=== PATIENT | male | born 1975 | race Caucasian/White ===

== ENCOUNTER 2022-07-18 08:45 | Outpatient (CLI) | payer BC, SELFPAY ==
--- OUTSIDE RECORDS SUMMARY | 2022-07-18 08:49 | XMS_ITS | Encounter Summary ---
:1975 Author Organization [facility] Address [address] [place] [address] Care Team Providers Name Role Phone Unavailable Primary Care Provider Unavailable Reason for Referral Outpatient (Routine) - Authorized Specialty Diagnoses / Procedures Referred By Contact Refer red To Contact Diagnoses Pain Scrotum Rena Burnham P.A.-C. [facility] Region Procedures US Scrotum [address] [place] [address] Referral ID Status Reason Start Date Expiration Date Visits V isits Requested Authorized [id number] Authorized 05/28/2022 05/28/2023 1 1 Encounter Details Date Type Department Care Team Description 05/28/2022 Orders Only Department of Urology Rena Burnham P ain Scrotum (Primary in [place], Juan M jesús Landry Dx) [address] [facility] [address] [place] [phone] Social History Tobacco Use Types Packs/Day Years Used Date Smoking Tobacco: Light Smoker Cigarettes 0 Smokeless Tobacco: Never Alcohol Habits Answer Date Recorded How often do you have a drink containing alcohol? Monthly or less 09/30/2020 How many drinks containing alcohol do you have on a 1 or 2 09/30/2020 typical day when you are drinking? How often do you have six or more drinks on one Never 09/30/2020 occasion? Social Isolation Answer Date Recorded In a typical week, how many times do you More than three chad es a week 09/30/2020 talk on the phone with family, friends, or neighbors? How often do you get together with friends Once a week 09/30/2020 or relatives? How often do you attend sabianist or More than 4 times per year 09/30/2020 taoist services? Do you belong to any clubs or Patient refused 09/30/2020 organizations such as sabianist groups, unions, [employer] or athletic groups, or school groups? How often do you attend meetings of the Patient refused 09/30/2020 clubs or organizations you belong to? Are you now , , , 09/30/2020 , never or living with a partner? Physical Activity Answer Date Recorded On average, how many days per week do you engage in moderate to 3 days 09/30/2020 strenuous exercise (like walking fast, running, jogging, dancing, swimming, biking, or other activities that cause a light or heavy sweat)? On average, how many minutes do you engage in exercise at th is 20 min 09/30/2020 level? Stress Answer Date Recorded Do you feel stress - tense, restless, nervous, or To some ex tent 09/30/2020 anxious, or unable to sleep at night because your mind is troubled all the time - these days? Financial Resource Strain Answer Date Recorded How hard is it for you to pay for the very basics like Not v pete hard 09/30/2020 food, housing, medical care, and heating? Food Insecurity Answer Date Recorded Within the past 12 months, you worried that your food would Never true 09/30/2020 run out before you got money to buy more. Within the past 12 months, the food you bought just didn't N ever true 09/30/2020 last and you didn't have money to get more. Transportation Needs Answer Date Recorded In the past 12 months, has lack of transportation kept you f rom No 09/30/2020 medical appointments or from getting medications? In the past 12 months, has lack of transportation kept you f rom No 09/30/2020 meetings, work, or getting things needed for daily living? Education Answer Date Recorded What is the highest level of school Associate degree: richy reyna, 09/30/2020 you have completed or the highest technical, or vocational bety goldberg degree you have received? Sex Assigned at Date Recorded Not on file documented as of this encounter Plan of Treatment Scheduled Orders Name Type Priority Associated Diagnoses Order S ling US Scrotum Imaging RAD - Routine (most Pain Scrotum Expected : 05/28/2022 inpatients and all (Approxim ate), outpatients) Expires: 2022 documented as of this encounter Visit Diagnoses Diagnosis Pain Scrotum - Primary documented in this encounter
--- OUTSIDE RECORDS SUMMARY | 2022-07-18 08:49 | XMS_ITS | Clinical Summary ---
:1975 Author Organization [facility] Address [address] [place] [address] Care Team Providers Name Role Phone Unavailable Primary Care Provider Unavailable Source Comments Patient records contain information from all sites at [facility]. For routine questions regarding patient records, call [phone] during business hours, M-F 8:00 AM - 5:00 PM Central Time. Record requests for emergency care only can be directed to [phone] at any time.[facility] Allergies No known active allergies Medications Medication Sig Dispensed Refills Start Date End Date Status losartan (COZAAR) 100 Take 100 mg by 0 09/10/2020 Active mg tablet mouth daily. sertraline (ZOLOFT) 100 Take 200 mg by 0 06/25/2021 Active mg tablet mouth. Active Problems Problem Noted Date Smoking Tobacco Use Personal History 2019 Hypertension Essential Primary 2019 Urolithiasis 06/30/2019 Overview: Added automatically from request for austin golden [id number] Encounters Date Type Specialty Care Team Description 06/12/2022 Office Visit Urology Rena Burnham, Dysuria (P rimary Dx); P.A.-C. Screening [place] Prostate Cancer; Urolithiasis; Colic Renal 05/28/2022 Orders Only Urology Rena Burnham, Pain Scrot um (Primary Dx) P.A.-C. 05/27/2022 Hospital Encounter Radiology Rena Burnham Ston es Uric Acid P.A.-C. 05/27/2022 Hospital Encounter Radiology Rena Burnham Ston es Uric Acid P.A.-C. from Last 3 Months Immunizations Name Administration Dates Next Due Tdap 11/19/2010 Family History Medical History Relation Name Comments Anesthesia problems Father PONV Relation Name Status Comments Father Social History Tobacco Use Types Packs/Day Years Used Date Smoking Tobacco: Light Smoker Cigarettes 0 Smokeless Tobacco: Never Tobacco Cessation: Ready to Quit: Yes; C ounseling Given: Yes Alcohol Habits Answer Date Recorded How often [...] or relatives? How often do you attend sabianism or More than 4 times per year 09/30/2020 sikhism services? Do you belong to any clubs or Patient refused 09/30/2020 organizations such as sabianism groups, unions, [employer] or athletic groups, or school groups? How [...] completed or the highest technical, or vocational p slavaram degree you have received? 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 Pulse 97 11/23/2020 3:16 PM DIRECT SALES PROFESSIONAL Temperature 36.6 ??C (97.9 ??F) 11/23/2020 3:12 PM DIRECT SALES PROFESSIONAL Respiratory Rate 16 08/02/2019 2:17 PM DIRECT SALES PROFESSIONAL Oxygen Saturation 97% 11/23/2020 3:12 PM DIRECT SALES PROFESSIONAL Inhaled Oxygen Concentration - - Weight 101 kg (222 lb 10.6 oz) 08/02/2019 11:57 AM DIRECT SALES PROFESSIONAL Height 187 cm (6' 1.62) 08/02/2019 11:57 AM DIRECT SALES PROFESSIONAL Body Mass Index 28.88 08/02/2019 11:57 AM DIRECT SALES PROFESSIONAL Plan of Treatment Health Maintenance Due Date Last Done Comments CT Colonography 1975 Cologuard 1975 Colonoscopy 1975 Colorectal Cancer Screening 1975 FIT 1975 HIV Screening 1975 Hepatitis B Vaccines (1 of 3 - 1975 3-dose series) Hepatitis C Screening 1975 COVID-19 Vaccine (#1) 01/23/1977 Pneumococcal vaccine (0-64 years) 1982 (1 - PCV) Creatinine Level 09/12/2020 09/12/2019, 06/30/2019, 04/28/2019, Additional history exists Potassium Level 09/12/2020 09/12/2019, 06/30/2019, 04/28/2019, Additional history exists Sodium Level 09/12/2020 09/12/2019, 06/30/2019, 04/28/2019, Additional history exists Tobacco Cessation counseling 09/21/2020 09/21/2019 DTaP,Tdap,and Td Vaccines (2 - Td 11/19/2020 11/19/2010 or Tdap) Depression Screening (Annual 09/14/2021 PHQ-2) Office Visit for Blood Pressure 11/23/2021 11/23/2020 Check / Re-check Influenza Vaccine (#1) 2022 06/23/2014, 08/09/2013, 08/09/2013 Fasting Glucose for Diabetes 06/25/2024 06/25/2021, 020, Screening 09/12/2019, Additional history exists Lipid (Cholesterol) Screening 06/25/2026 06/25/2021, 2019, 04/28/2019, Additional history exists Medical Devices Implanted Type Area Associate Director Regulatory Affairs Device Shelf Model / Identifier Expiration Serial / Date Lot Stnt Uret Lp Cntr [id number] - Sna - [id number] Ureteral B oston 11/10/2021 [id number] / Implanted: Qty: 1 on 08/02/2019 by Abdulaziz No M.D. at [facility] [employer] NA / [id number] Procedures Procedure Name Priority Date/Time Associated Comments Diagnosis URINALYSIS WITH Routine 06/12/2022 1:45 Dysuria Results f or this MICROSCOPIC PM CDT procedure are i n the results section. BACTERIAL CULTURE, Routine 06/12/2022 1:45 Dysuria Result s for this AEROBIC + SUSC, PM CDT procedure ar e in URINE the results section. US KIDNEYS RAD - Routine 05/27/2022 7:36 Stones Uric Acid Results for this BILATERAL WITH (most inpatients AM CDT procedure are in BLADDER and all the results outpatients) section. DX ABDOMEN 1 VIEW RAD - Routine 05/27/2022 7:26 Stones Uric Acid Re sults for this (most inpatients AM CDT procedure a re in and all the results outpatients) section. from Last 3 Months Results Bacterial Culture, Aerobic + Susc, Urine (06/12/2022 1:45 PM CDT) [facility] Method Time Signature Urine Culture No growth 06/14/2022 ECLR after 1 day 8:06 AM CDT of incubation. Specimen Anatomical Collection Method Collection Time Receive d Time (Source) Location / / Volume Laterality Urine (Urine, 06/12/2022 1:45 PM 06/13/20 22 Midstream) CDT 10:26 AM CDT Comment: Specimen Source Site: Urine Rena Burnham P.A.-C. LAB MICROBIOLOGY - GENERAL O RDERABLES Performing Organization Address City/State/ZIP Code Phon e Number [facility]- [address] [place] [address] 343 [facility] [place] [address] System [address] Urinalysis with Microscopic: Urine, Midstream (06/12/2022 1:45 PM CDT) Analysis Performed At Patho logist Time Signature Source Urine, Urine, 06/12/2022 [facility] Midstream 1:53 PM CDT Clarity Clear Clear 06/12/2022 [facility] 1:53 PM CDT Color Yellow 06/12/2022 [facility] 1:53 PM CDT Comment: ----REFERENCE VALUE---- Colorless Yellow Ángela Blood Negative Negative 06/12/2022 1:53 PM CDT [facility] Nitrite Negative Negative 06/12/2022 1:53 PM CDT [facility] Leukocyte Esterase Negative Negative 06/12/2022 1:53 PM CD T [facility] Protein Negative mg/dL 06/12/2022 1:53 PM CDT [facility] Comment: ----REFERENCE VALUE---- Negative Trace Glucose Negative Negative mg/dL 06/12/2022 1:[address] [facility] Ketone Negative Negative mg/dL 06/12/2022 1:[address] [facility] Bilirubin Negative Negative 06/12/2022 1:53 PM CDT [facility] pH 5.5 5.0 - 8.0 06/12/2022 1:53 PM CDT [facility] Specific [place] 1.007 1.001 - 1.035 06/12/2022 1:53 PM CDT [facility] Urobilinogen 0.2 0.2 - 1.0 mg/dL 06/12/2022 1:53 PM CD T [facility] White Blood Cells None Seen /hpf 06/12/2022 1:55 PM CDT [facility] Comment: ----REFERENCE VALUE---- Males: 0-3 Females: 0-10 Unknown: 0-10 Red Blood Cells None Seen 0 - 2 /hpf 06/12/2022 1:55 PM CDT [facility] Specimen Anatomical Collection Method Collection Time Receive d Time (Source) Location / / Volume Laterality Urine (Urine, 06/12/2022 1:45 PM 06/12/20 1:49 Midstream) CDT PM CDT Rena Burnham P.A.-C. LAB URINE ORDERABLES Performing Organization Address City/State/ZIP Code Phon e Number [facility] [address] [facility] [place] [address] [address] [facility] [place] [address] System in [place] [address] US Kidneys Bilateral with Bladder (05/27/2022 7:36 AM CDT) Anatomical Region Laterality Modality Abdomen, Renal, Ultrasound RST LOS, Ultrasound ARZ LOS, Bila teral Ultrasound Ultrasound FLA LOS Specimen (Source) Anatomical Collection Method Collection Time Re ceived Time Location / / Volume Laterality 05/27/2022 7:56 AM CDT Impressions 05/27/2022 7:58 AM CDT Nonobstructed kidneys. Small calculi in the left measuring up to 8 mm. Incidental cavernous hemangioma at the right hepati c lobe. Narrative 05/27/2022 7:58 AM CDT EXAM: US KIDNEYS BILATERAL WITH BLADDER COMPARISON: Ultrasound of the kidneys an d bladder 08/29/2020 FINDINGS: Right kidney: 9.9 cm Cortical thickness: Normal. Parenchymal echogenicity: Normal. Collecting system: No hydronephrosis. Masses: None detected. Left kidney: 11.5 cm Cortical thickness: Normal. Parenchymal echogenicity: Normal. Collecting system: No hydronephrosis. Se veral nonobstructing calculi detected measuring up to 8 mm at the upper pole of the left kidney. Masses: None detected. Bladder: Normal. Incidental small cavernous hemangioma at the right hepatic lobe. Procedure Note Heena Fraser M.D. - 05/27/2022Format ting of this note might be different from the original. EXAM: US KIDNEYS BILATERAL WITH BLADDER COMPARISON: Ultrasound of the kidneys an d bladder 08/29/2020 FINDINGS: Right kidney: 9.9 cm Cortical thickness: Normal. Parenchymal echogenicity: Normal. Collecting system: No hydronephrosis. Masses: None detected. Left kidney: 11.5 cm Cortical thickness: Normal. Parenchymal echogenicity: Normal. Collecting system: No hydronephrosis. Se veral nonobstructing calculi detected measuring up to 8 mm at the upper pole of the left kidney. Masses: None detected. Bladder: Normal. Incidental small cavernous hemangioma at the right hepatic lobe. IMPRESSION: Nonobstructed kidneys. Small calculi in the left measuring up to 8 mm. Incidental cavernous hemangioma at the right hepati c lobe. Rena Burnham P.A.-C. IMG US PROCEDURES DX Abdomen 1 View (05/27/2022 7:26 AM CDT) Anatomical Region Laterality Modality Abdomen, Abdominal RST LOS, Abdominal ARZ LOS, N/A Digital Radiography Abdominal FLA LOS Specimen (Source) Anatomical Collection Method Collection Time Re ceived Time Location / / Volume Laterality 05/27/2022 7:49 AM CDT Impressions 05/27/2022 7:51 AM CDT 1. No nephro or ureterolithiasis identified. 2. Nonspecific bowel gas pattern. Narrative 05/27/2022 7:51 AM CDT EXAM: DX ABDOMEN 1 VIEW COMPARISON: 08/29/2020. FINDINGS: Bowel gas pattern is nonspecif ic with gas and stool scattered in nondilated colon and short segments of nondilated small bowel bowel. Renal outlines are largely obscured by overlying bowel gas and stool. No nephro or ureter olithiasis identified. There are bilateral pelvic phleboliths. No abnormal mass is noted. Exam is similar to 08/29/2020. Procedure Note Tony Garcias Jr., M.D. - 2021 EXAM: DX ABDOMEN 1 VIEW COMPARISON: 08/29/2020. FINDINGS: Bowel gas pattern is nonspecif ic with gas and stool scattered in nondilated colon and short segments of nondilated small bowel bowel. Renal outlines are largely obscured by overlying bowel gas and stool. No nephro or ureter olithiasis identified. There are bilateral pelvic phleboliths. No abnormal mass is noted. Exam is similar to 08/29/2020. IMPRESSION: 1. No nephro or ureterolithiasis identif ied. 2. Nonspecific bowel gas pattern. Rena Burnham P.A.-C. IMG DIAGNOSTIC IMAGING PROCE DURES from Last 3 Months Insurance Payer Benefit Plan Subscriber ID Effective Dates Phone Address Type / Group [facility] [id number] 2018-[address] [phone] [address] PPO [facility] [address] [place] [address]
--- OUTSIDE RECORDS SUMMARY | 2022-07-18 08:49 | XMS_ITS | Encounter Summary ---
:1975 Author Organization [facility] Address [address] [place] [address] Care Team Providers Name Role Phone Unavailable Primary Care Provider Unavailable Reason for Referral Outpatient (Routine) - Closed Specialty Diagnoses / Procedures Referred By Contact Refer red To Contact Urology Rena Burnham P. A.-C. 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 [facility] Region [address] [phone] Referral ID Status Reason Start Date Expiration Date Visits Requ ested Visits Authorized [id number] Closed 10/04/2020 10/04/2021 1 1 Encounter Details Date Type Department Care Team Description 11/23/2020 Office Visit Department of Urology Rena Burnham Urol ithiasis (Primary in [place], Joel Rene.kSy Dx) [facility] [address] [place] [phone] Social History Tobacco Use Types Packs/Day Years [...] or relatives? How often do you attend baptism or More than 4 times per year 09/30/2020 yarsanism services? Do you belong to any clubs or Patient refused 09/30/2020 organizations such as baptism groups, unions, fraternal or athletic groups, or school groups? How [...] or the highest technical, or vocational p ashlyn degree you have received? 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 - 11/23/2020 3:00 PM CST SUBJECTIVE CHIEF COMPLAINT/REASON FOR VISIT [id number] visit Perineal pressure pain Dysuria Tinea cruis - recurrent/persistent HISTORY OF PRESENT ILLNESS This is a pleasant 45-year-old gentleman for at least the past 18 months he has had persistent pain in the urethra with voiding this tends to be more concentrated towards the distal shaft and tip of the penis. He also has perineal pressure pain that seems to be worsening. This was present a year ago when he was found to have an obstructing stone, he did have ureteroscopy but unfortunately his symptoms have persisted. He has no evidence of any stone disease at present. This stone proved 100 sent calcium oxalate. This was his first ever stone event. Should be noted that it was only 2 mm. His symptoms persisted beyond stone extraction (ureteroscopy August 02, 2019). He also has had tinea cruis (groin, scrotum) for years. This will improve briefly with topical antifungals. He feels the onset of the rash coincided with his perineal/penile discomfort. Uses nystatin powder an [id number] antifungal agents. Infectious workup has been benign, no gonorrhea chlamydia Trichomonas Ureaplasma mycoplasma or positive UA UC. Most recently he was on Levaquin switched over the Bactrim because of some joint pain. Really did notice any change on either antibiotic. He also has disease using Cialis 5 mg daily, feels he is able to maintain adequate erections even without the Cialis and has not noticed any change in perineal pressure pain or other discomfort. REVIEW OF SYSTEMS Per HPI. Pain 0/10 OBJECTIVE VITAL SIGNS BP 131/76 Pulse 97 Temp 36.6 ??C SpO2 97% PHYSICAL EXAMINATION General: Overall well-appearing, no acute distress. Skin: No raised areas, rashes or lesions to areas I inspected. Eyes: No scleral icterus, normal conjunctivae. Respiratory: Normal respiratory effort. Musculoskeletal: Walks with a steady gait, without assistance. Psychiatric: Appropriate affect. Neurological: Alert and oriented x4. DIAGNOSTICS Results for NATHANAEL GAMEZ ( ) as of 11/23/2020 15:20 Ref. Range 10/04/2020 09:46 10/04/2020 09:47 10/11/2020 15:16 Prostate-Specific Ag Latest Ref Range: <=2.5 ng/mL 0.60 BACTERIAL CULTURE, AEROBIC + SUSC, URINE Unknown Rpt (A) Chlamydia trachomatis amplified RNA Latest Ref Range: Negative Negative Neisseria gonorrhoeae amplified RNA Latest Ref Range: Negative Negative Mycoplasma genitalium PCR Latest Ref Range: Not Applicable Negative Ureaplasma parvum PCR Latest Ref Range: Not Applicable Negative Ureaplasma urealyticum PCR Latest Ref Range: Not Applicable Negative T.vaginalis, Misc, amplified RNA Latest Ref Range: Negative Negative Color Unknown Yellow Clarity Latest Ref Range: Clear Clear Source Unknown Urine, Urine, Midstream Nitrite, U Latest Ref Range: Negative Negative Leukocyte Esterase Latest Ref Range: Negative Negative pH Latest Ref Range: 5.0 - 8.0 6.5 Specific [place] Latest Ref Range: 1.001 - 1.035 1.021 Glucose Latest Ref Range: Negative mg/dL Negative Protein Urine Random Latest Units: mg/dL Negative Ketone Latest Ref Range: Negative mg/dL Negative Bilirubin Latest Ref Range: Negative Negative Blood Latest Ref Range: Negative Negative Urobilinogen Latest Ref Range: 0.2 - 1.0 mg/dL 0.2 White Blood Cells Latest Units: /hpf None Seen Urine RBC Latest Ref Range: 0 - 2 /hpf None Seen KUB impression: 08/29/2020 IMPRESSION: No radiographic evidence for radiopaque urinary tract calculus. Pelvic phleboliths as seen on CT 08/01/2019. Nonobstructive bowel gas pattern with moderate stool scattered throughout the colon. Subtle serpiginous opacity projecting over the left upper quadrant may be external to the patient. Renal ultrasound impression 08/29/2020 IMPRESSION: Normal kidneys. ASSESSMENT / PLAN ASSESSMENT/PLAN #1 Tinea groin/scrotum. Continue with topical nystatin topical antifungal cream. Will try Diflucan 200 mg daily for 14 days. Encouraged him to meet with Dermatology if this is not improving with these measures. #2 Pelvic floor tension myalgia/chronic prostatitis. I do not think further antibiotics are necessary or expect them to be helpful. Reviewed with patient that I do not believe this is a bacterial process more likely an inflammatory process. I have encouraged him to reconsider physical therapy for pelvic floor, consider meeting with the pelvic pain clinic in [place]. He did not feel that Cialis was helpful and wishes to discontinue, fine with that. Offered him second opinion consultation with [place] [facility] group E declined. For now he wishes just to monitor symptoms. #3 Hx urolithiasis. Annual surveillance [facility] renal ultrasound, no stones at present. PATIENT EDUCATION Ready to learn, no apparent learning barriers were identified; learning preferences include listening. Explained diagnosis and treatment plan; patient expressed understanding of the content. Thirty minutes was spent with the patient, greater than 50% of this time was spent in counseling andeducation documented in this encounter Plan of Treatment Scheduled Referrals Name Type Priority Associated Diagnoses Order S [facility] Urology office Outpatient Referral Routine Expect ed: visit (clinic) 11/23/2021 (Approximate), Expires: 11/24/2023 documented as of this encounter Visit Diagnoses Diagnosis Urolithiasis - Primary documented in this encounter
--- OUTSIDE RECORDS SUMMARY | 2022-07-18 08:49 | XMS_ITS | Encounter Summary ---
:1975 Author Organization [facility] Address [address] [place] [address] Care Team Providers Name Role Phone Unavailable Primary Care Provider Unavailable Reason for Referral Outpatient (Routine) - Closed Specialty Diagnoses / Procedures Referred By Contact Refer red To Contact Urology Diagnoses par Rena Burnham P.A.-C. [facility] Region [address], [place] [address] Referral ID Status Reason Start Date Expiration Date Visits Requ ested Visits Authorized [id number] Closed 10/04/2020 10/04/2021 1 1 RAL SALES MANAGER Reason for Visit Outpatient (Routine) - Closed Specialty Diagnoses / Procedures Referred By Contact Refer red To Contact Urology Rena Burnham P. A.-C. [facility] Region [address] [place] [phone] Referral ID Status Reason Start Date Expiration Date Visits Requ ested Visits Authorized [id number] Closed 09/21/2019 09/20/2020 1 1 Encounter Details Date Type Department Care Team Description 10/04/2020 Office Visit Department of Urology Rena Burnham P ain Pelvic Male in [place], Kecia espinosa P.A.-C. (Primary Dx) [address] [address], [place] [phone] Social History Tobacco Use Types Packs/Day [...] or relatives? How often do you attend mosque or More than 4 times per year 09/30/2020 jain services? Do you belong to any clubs or Patient refused 09/30/2020 organizations such as mosque groups, unions, fraternal or athletic groups, or [...] Sign Reading Time Taken Comments Blood Pressure 139/90 10/04/2020 8:27 AM GENERAL SALES MANAGER Pulse 82 10/04/2020 8:27 AM GENERAL SALES MANAGER Temperature 36.5 ??C (97.7 ??F) 10/04/2020 8:27 AM GENERAL SALES MANAGER Respiratory Rate - - Oxygen Saturation - - Inhaled Oxygen Concentration - - Weight - - Height - - Body Mass Index - - documented in this encounter Patient Instructions Patient InstructionsRena Burnham P.A.-C. - 10/04/2020 8:30 AM CST #1 Urolithiasis surveillance. - ultrasound and KUB are reassuring no swelling of kidneys and no stones identified. - continue to drink 3 L of fluid daily, maintain low-sodium low calcium and low oxalate diet. - drink Crystal Light lemonade or lemon or stebbins to water. 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 - Levaquin 500 mg daily for 3 weeks (potential side effects: Tendon pain, joint pain, discontinuing contact our office if this happens) - Cialis 5 mg daily (goals: better emptying, pelvic floor relaxation, improvement in erections) - [facility] [employer] or ju on phone ([employer], [employer], [employer], [employer] tend to be the cheapest locations) - avoid all dietary bladder irritants (see list) - urine collected today will be sent for urinalysis with microscopy, urine culture, ureaplasma, mycoplasma, gonorrhea, chlamydia, Trichomonas, will contact you with results and need for any further treatment. - consider pelvic floor relaxation techniques (pelvic yoga - you tube pelvic floor relaxation) https://www.nafc.org/bhealth-blog/wst-ti-lyryg-ovwt-usljki-tqcuq # 4 prostate cancer screening - LISA unremarkable today - present to lab in 1 week for PSA lab draw Follow-up 6-8 weeks RAL SALES MANAGER documented in this encounter Progress Notes Rena Burnham P.A.-C. - 10/04/2020 8:30 AM CST SUBJECTIVE CHIEF COMPLAINT/REASON FOR VISIT [id number] visit Perineal pressure pain Dysuria HISTORY OF PRESENT ILLNESS This is a [...] noted that it was only 2 mm. He was screened last year for gonorrhea chlamydia which was negative. Urinalyses were not consistent with infection or microscopic blood. Symptoms have continued for the passing tea months and actually worsened here recently. He has persistently bothered by dysuria specifically at the head of the penis not necessarily concerned with any STDs. He is sexually active in a monogamous relationship, no penile discharge or new lesions. Howeverhe is not opposed to STI screening. He also has developed hemorrhoids in the past year. He has had recurrent jock itch for years, he is using topical ointment as well as a powder, he neverfeels that it resolved completely. REVIEW OF SYSTEMS Per HPI. Pain 0/10 OBJECTIVE VITAL SIGNS BP 139/90 Pulse 82 Temp 36.5 ??C (Temporal) PHYSICAL EXAMINATION General: Overall well-appearing, no acute distress. Skin: No raised areas, rashes or lesions to areas I inspected. Eyes: No scleral icterus, normal conjunctivae. Respiratory: Normal respiratory effort. Musculoskeletal: Walks with a steady gait, without assistance. Psychiatric: Appropriate affect. Neurological: Alert and oriented x4. Prostate: Normal rectal tone, no skin tags or hemorrhoids prostate is 30 g, not boggy, somewhat without nodularity or DIAGNOSTICS Renal ultrasound impression: 08/29/2020 IMPRESSION: Normal kidneys. KUB impression: 08/29/2020 IMPRESSION: No radiographic evidence for radiopaque urinary tract calculus. Pelvic phleboliths as seen on CT 08/01/2019. Nonobstructive bowel gas pattern with moderate stool scattered throughout the colon. Subtle serpiginous opacity projecting over the left upper quadrant may be external to the patient. Laboratory studies 09/21/2019 Urinalysis-negative nitrates, negative leukocytes, WBCs occasional 3, RBCs none seen Urine culture-negative ASSESSMENT / PLAN ASSESSMENT/PLAN #1 Urolithiasis surveillance. - ultrasound and KUB are reassuring no swelling of kidneys and no stones identified. - continue to drink 3 L of fluid daily, maintain low-sodium low calcium and low oxalate diet. - drink Crystal Light lemonade or lemon or stebbins to water. 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 - consider pelvic floor relaxation techniques (pelvic yoga - you tube pelvic floor relaxation) https://www.nafc.org/bhealth-blog/stz-bi-trfur-cjus-lboony-fkiwb # 4 prostate cancer screening - LISA unremarkable today - present to lab in 1 we PATIENT EDUCATION Ready to learn, no apparent learning barriers were identified; learning preferences include listening. Explained diagnosis and treatment plan; patient expressed understanding of the content. Thirty minutes was spent with the patient, greater than 50% of this time was spent in counseling andeducation RAL SALES MANAGER documented in this encounter Plan of Treatment Scheduled Referrals Name Type Priority Associated Diagnoses Order S ling Urology office Outpatient Referral Routine Expect ed: visit (clinic) 11/15/2020 (Approximate), Expires: 10/04/2023 documented as of this encounter Procedures Procedure Name Priority Date/Time Associated Comments Diagnosis T. VAGINALIS, MISC, Routine 10/04/2020 9:47 AM Pain Pelvic Mal e Results for this AMPLIFIED RNA GENERAL SALES MANAGER procedure are in the results section. CHLAMYDIA/GONORRHOEAE Routine 10/04/2020 9:47 AM Pain Pelvic M jonas Results for this AMPLIFIED RNA GENERAL SALES MANAGER procedure are in the results section. BACTERIAL CULTURE, Routine 10/04/2020 9:46 AM Pain Pelvic Male Results for this AEROBIC + SUSC, URINE GENERAL SALES MANAGER proced ure are in the results section. UREAPLASMA PCR Routine 10/04/2020 9:46 AM Pain Pelvic Male Res ults for this GENERAL SALES MANAGER procedure are i n the results section. MYCOPLASMA Routine 10/04/2020 9:46 AM Pain Pelvic Male Resul ts for this GENITALIUM,TMA GENERAL SALES MANAGER procedure are in the results section. URINALYSIS WITH Routine 10/04/2020 9:46 AM Pain Pelvic Male Re sults for this MICROSCOPIC GENERAL SALES MANAGER procedure are i n the results section. documented in this encounter Results T. vaginalis, Misc, Amplified RNA (10/04/2020 9:47 AM GENERAL SALES MANAGER) [facility] Method Time Signature Source Urine, 10/06/2020 DTL Urine, First 12:27 AM GENERAL SALES MANAGER Voided T.vaginalis, Negative Negative 10/06/2020 DTL Misc, 12:27 AM GENERAL SALES MANAGER amplified RNA Comment: ----ADDITIONAL INFORMATION---- This test has been modified from the man ufacturer's instructions. Its performance characteristics were determi moustapha by [facility] in a manner consistent with CLIA requirements. This test has not been cleared or approved by the U.S. Food and Drug Administration . Specimen Anatomical Collection Method Collection Time Receive d Time (Source) Location / / Volume Laterality Varies (Urine, 10/04/2020 9:47 AM 021 First Voided) GENERAL SALES MANAGER 10:04 PM GENERAL SALES MANAGER Rena Burnham P.A.-C. LAB MICROBIOLOGY - GENERAL O RDERABLES Performing Organization Address City/State/ZIP Code Phon e Number [facility] - [address] [place], [place] [address] [place] [address] [facility] [address] Chlamydia / Gonorrhoeae Amplified RNA (10/04/2020 9:47 AM GENERAL SALES MANAGER) [facility] Method Time Signature Source Urine, 10/05/2020 ECLR Urine, First 12:45 PM GENERAL SALES MANAGER Voided Chlamydia Negative Negative 10/05/2020 ECLR trachomatis 12:45 PM GENERAL SALES MANAGER amplified RNA Source Urine, 10/05/2020 ECLR Urine, First 12:45 PM GENERAL SALES MANAGER Voided Neisseria Negative Negative 10/05/2020 ECLR gonorrhoeae 12:45 PM GENERAL SALES MANAGER amplified RNA Specimen Anatomical Collection Method Collection Time Receive d Time (Source) Location / / Volume Laterality Varies (Urine, 10/04/2020 9:47 AM 021 3:43 First Voided) GENERAL SALES MANAGER PM GENERAL SALES MANAGER Rena Burnham P.A.-C. LAB MICROBIOLOGY - GENERAL O RDERANEELIMA Performing Organization Address City/State/ZIP Code Phon e Number [facility]- [address] [place] [phone] [facility] [place] [address] System [address] (ABNORMAL) Bacterial Culture, Aerobic + Susc, Urine (10/04/2020 9:46 AM GENERAL SALES MANAGER) [facility] Method Time Signature Urine Culture Organism 10/05/2020 ECLR present 10:21 AM GENERAL SALES MANAGER <10,000 cfu/mL (A) Specimen Anatomical Collection Method Collection Time Receive d Time (Source) Location / / Volume Laterality Urine (Urine, 10/04/2020 9:46 AM 10/04/19 3:24 Midstream) GENERAL SALES MANAGER PM GENERAL SALES MANAGER Comment: Specimen Source Site: Urine Rena Burnham P.A.-C. LAB MICROBIOLOGY - GENERAL O RDERABLES Performing Organization Address City/State/ZIP Code Phon e Number [facility]- [address] [place], [place] [address] [facility] [place] [address] System [address] Urinalysis with Microscopic: Urine, Midstream (10/04/2020 9:46 AM GENERAL SALES MANAGER) Analysis Performed At Patho logist Time Signature Source Urine, Urine, 10/04/2020 [facility] Midstream 9:59 AM GENERAL SALES MANAGER Clarity Clear Clear 10/04/2020 RDWG 9:59 AM GENERAL SALES MANAGER Color Yellow 10/04/2020 RDWG 9:59 AM GENERAL SALES MANAGER Comment: ----REFERENCE VALUE---- Colorless Yellow Ángela Blood Negative Negative 10/04/2020 9:59 AM GENERAL SALES MANAGER R[facility] Nitrite Negative Negative 10/04/2020 9:59 AM GENERAL SALES MANAGER R[facility] Leukocyte Esterase Negative Negative 10/04/2020 9:59 AM CS T [facility] Protein Negative mg/dL 10/04/2020 9:59 AM GENERAL SALES MANAGER [facility] Comment: ----REFERENCE VALUE---- Negative Trace Glucose Negative Negative mg/dL 10/04/2020 9:[address] SALES MANAGER [address] [facility] Ketone Negative Negative mg/dL 10/04/2020 9:[address] SALES MANAGER [address] [facility] Bilirubin Negative Negative 10/04/2020 9:59 AM GENERAL SALES MANAGER R[facility] pH 6.5 5.0 - 8.0 10/04/2020 9:59 AM GENERAL SALES MANAGER [facility] Specific [place] 1.021 1.001 - 1.035 10/04/2020 9:59 AM GENERAL SALES MANAGER [facility] Urobilinogen 0.2 0.2 - 1.0 mg/dL 10/04/2020 9:59 AM CS T [facility] White Blood Cells None Seen /hpf 10/04/2020 10:02 AM CS T [facility] Comment: ----REFERENCE VALUE---- Males: 0-3 Females: 0-10 Unknown: 0-10 Red Blood Cells None Seen 0 - 2 /hpf 10/04/2020 10:02 AM GENERAL SALES MANAGER [facility] Specimen Anatomical Collection Method Collection Time Receive d Time (Source) Location / / Volume Laterality Urine (Urine, 10/04/2020 9:46 AM 10/04/19 9:53 Midstream) GENERAL SALES MANAGER AM GENERAL SALES MANAGER Rena Burnham P.A.-C. LAB URINE ORDERABLES Performing Organization Address City/[facility]ss Health/ZIP Code Phon e Number [facility]- [address] [place], [place] [address] [place] [address] System in [place] [address] Mycoplasma genitalium PCR (10/04/2020 9:46 AM GENERAL SALES MANAGER) [facility] Method Time Signature Specimen Urine, 10/08/2020 DTL Source Urine, 3:19 PM GENERAL SALES MANAGER Midstream Mycoplasma Negative Not 10/08/2020 DTL genitalium PCR Applicable 3:19 PM GENERAL SALES MANAGER Comment: ----ADDITIONAL INFORMATION---- This test was developed and its performa nce characteristics determined by [facility] in a manner consistent with CLIA requirements. This test has not been cleared or approved by the U.S. Tal d and Drug Administration. Specimen Anatomical Collection Method Collection Time Receive d Time (Source) Location / / Volume Laterality Varies (Urine, 10/04/2020 9:46 AM 021 6:39 Midstream) GENERAL SALES MANAGER AM GENERAL SALES MANAGER Rena Burnham P.A.-C. LAB MICROBIOLOGY - GENERAL O RDERABLES Performing Organization Address City/State/ZIP Code Phon e Number [facility] - [address] [place], [place] [address] [place] [address] [facility] [address] [facility] Ureaplasma PCR (10/04/2020 9:46 AM GENERAL SALES MANAGER) [facility] Method Time Signature Specimen Urine, 10/08/2020 DTL Source Urine, 3:14 PM GENERAL SALES MANAGER [facility]stream Ureaplasma Negative Not 10/08/2020 DTL urealyticum Applicable 3:14 PM GENERAL SALES MANAGER PCR Ureaplasma Negative Not 10/08/2020 DTL parvum PCR Applicable 3:14 PM GENERAL SALES MANAGER Comment: ----ADDITIONAL INFORMATION---- This test was developed and its performa nce characteristics determined by [facility] in a manner consistent with CLIA requirements. This test has not been cleared or approved by the U.S. Tal d and Drug Administration. Specimen Anatomical Collection Method Collection Time Receive d Time (Source) Location / / Volume Laterality Varies (Urine, 10/04/2020 9:46 AM 021 6:39 Midstream) GENERAL SALES MANAGER AM GENERAL SALES MANAGER Rena Burnham P.A.-C. LAB MICROBIOLOGY - GENERAL O RDERABLES Performing Organization Address City/State/ZIP Code Phon e Number [facility] - [address] [place], [place] [address] [place] [address] [facility] [address] documented in this encounter Visit Diagnoses Diagnosis Pain Pelvic Male - Primary documented in this encounter
--- OUTSIDE RECORDS SUMMARY | 2022-07-18 08:49 | XMS_ITS | Encounter Summary ---
:1975 Author Organization [facility] Address [address] [place] [address] Care Team Providers Name Role Phone Unavailable Primary Care Provider Unavailable Encounter Details Date Type Department Care Team Description 11/09/2020 Orders Only [facility] [place] P.A.-C. [address] [place] [address] [place], [place] [phone] (Wo rk) Social History Tobacco Use Types Packs/Day Years [...] or relatives? How often do you attend mormonism or More than 4 times per year 09/30/2020 congregation services? Do you belong to any clubs or Patient refused 09/30/2020 organizations such as mormonism groups, unions, fraternal or athletic groups, or [...] as of this encounter Plan of Treatment Not on filedocumented as of this encounter Visit Diagnoses Not on filedocumented in this encounter
--- OUTSIDE RECORDS SUMMARY | 2022-07-18 08:49 | XMS_ITS | Encounter Summary ---
:1975 Author Organization [facility] Address [address] [place] [address] Care Team Providers Name Role Phone Unavailable Primary Care Provider Unavailable Reason for Referral Outpatient (Routine) - Closed Specialty Diagnoses / Procedures Referred By Contact Refer red To Contact Diagnoses Stones Uric Acid Rena Burnham P.A.-C. [facility] Region Procedures US Kidneys Bilateral with Bladder [address] [place] [phone] Referral ID Status Reason Start Date Expiration Date Visits Requ ested Visits Authorized [id number] Closed 03/13/2022 03/13/2023 1 1 Reason for Visit Outpatient (Routine) - Closed Specialty Diagnoses / Procedures Referred By Contact Refer red To Contact Diagnoses Stones Uric Acid Rena Burnham P.A.-C. [facility] Region Procedures US Kidneys Bilateral with Bladder [address] [place] [address] Referral ID Status Reason Start Date Expiration Date Visits Requ ested Visits Authorized [id number] Closed 03/13/2022 03/13/2023 1 1 Encounter Details Date Type Department Care Team Description 05/27/2022 Hospital Encounter Department of Rena Burnham Uric Acid Radiology [place] P.A.-C . [place] [address] [place] [phone] Social History Tobacco Use Types Packs/Day Years [...] or relatives? How often do you attend pentecostal or More than 4 times per year 09/30/2020 yarsanism services? Do you belong to any clubs or Patient refused 09/30/2020 organizations such as pentecostal groups, unions, [email or web address] or athletic groups, or school groups? How [...] the highest level of school Associate degree: carolpatti reyna, 09/30/2020 you have completed or the highest technical, or vocational p ashlyn degree you have received? Sex Assigned at Date Recorded Not on file documented as of this encounter Medications at Time of Discharge Medication Sig Dispensed Refills Start Date End Date losartan (COZAAR) 100 mg Take 100 mg by mouth 0 1 11/11/2019 tablet daily. sertraline (ZOLOFT) 100 Take 200 mg by mouth. 0 1 mg tablet ascorbic acid, vitamin Take 250 mg by mouth. 0 06/12/2022 C, (VITAMIN C) 250 mg tablet co-enzyme Q-10 (CO Q-10) Take 100 mg by mouth 0 06/12/2022 100 mg capsule daily. HYDROcodone-acetaminophe Take 1-2 tablets by 20 tablet 0 06/12/2022 n (NORCO) 5-325 mg per mouth every 6 (six) tabletIndications: Acute hours as needed for Pain pain (pain) Indication: Acute Pain. No more than 8 tablets per day oxyCODONE-acetaminophen Take 1-2 tablets by 20 tablet 0 06/12/2022 (PERCOCET) 5-325 mg per mouth every 6 (six) tabletIndications: Acute hours as needed for Pain moderate pain or score 4-6 of 10 Indication: Acute Pain. propranolol (INDERAL LA) Take 60 mg by mouth 0 06/12/2022 60 mg 24 hr capsule daily. red yeast rice 600 mg Take 1,200 mg by 0 06/12/2022 capsule mouth daily. sertraline (ZOLOFT) 100 Take 150 mg by mouth 3 06/12/2022 mg tablet daily. documented as of this encounter Plan of Treatment Not on filedocumented as of this encounter Procedures Procedure Name Priority Date/Time Associated Comments Diagnosis US KIDNEYS RAD - Routine 05/27/2022 7:36 Stones Uric Acid Results for this BILATERAL WITH (most inpatients AM CDT procedure are in BLADDER and all the results outpatients) section. documented in this encounter Results US Kidneys Bilateral with Bladder (05/27/2022 7:36 [...] lobe. Rena Burnham P.A.-C. IMG US PROCEDURES documented in this encounter Visit Diagnoses Diagnosis Stones Uric Acid documented in this encounter
--- OUTSIDE RECORDS SUMMARY | 2022-07-18 08:49 | XMS_ITS | Encounter Summary ---
:1975 Author Organization [facility] Address [address] [place] [address] Care Team Providers Name Role Phone Unavailable Primary Care Provider Unavailable Encounter Details Date Type Department Care Team Description 01/17/2021 Orders Only [facility] [address] [facility] JANETH [place] [phone] Social History Tobacco Use Types Packs/Day Years [...] or relatives? How often do you attend orthodoxy or More than 4 times per year 09/30/2020 restorationism services? Do you belong to any clubs or Patient refused 09/30/2020 organizations such as orthodoxy groups, unions, fraternal or athletic groups, or [...]
--- OUTSIDE RECORDS SUMMARY | 2022-07-18 08:49 | XMS_ITS | Encounter Summary ---
:1975 Author Organization [facility] Address [address] [place] [address] Care Team Providers Name Role Phone Unavailable Primary Care Provider Unavailable Reason for Referral Outpatient (Routine) - Closed Specialty Diagnoses / Procedures Referred By Contact Refer red To Contact Diagnoses Stones Uric Acid Rena Burnham P.A.-[facility] Procedures DX Abdomen 1 View [address] [place] [address] Referral ID Status Reason Start Date Expiration Date Visits Requ ested Visits Authorized [id number] Closed 03/13/2022 03/13/2023 1 1 Outpatient (Routine) - Closed Specialty Diagnoses / Procedures Referred By Contact Refer red To Contact Diagnoses Stones Uric Acid Rena Burnham P.A.-C. [facility] Procedures US Kidneys Bilateral with Bladder [address] [place] [address] Referral ID Status Reason Start Date Expiration Date Visits Requ ested Visits Authorized [id number] Closed 03/13/2022 03/13/2023 1 1 Encounter Details Date Type Department Care Team Description 03/13/2022 Orders Only Department of Urology Rena Burnham S tones Uric Acid in [place], Juan Mo jesús Land[place] (Primary Dx) [address] [place], [place]A [place] [phone] Social History Tobacco Use Types Packs/Day [...] or relatives? How often do you attend baptist or More than 4 times per year 09/30/2020 buddhist services? Do you belong to any clubs or Patient refused 09/30/2020 organizations such as baptist groups, unions, fraternal or athletic groups, or [...] or the highest technical, or vocational p rogram degree you have received? Sex Assigned at Date Recorded Not on file documented as of this encounter Plan of Treatment Not on filedocumented as of this encounter Results US Kidneys Bilateral with [...] pattern. Rena Burnham P.A.-C. [facility] documented in this encounter Visit Diagnoses Diagnosis Stones Uric Acid - Primary Stones Uric Acid Stones Uric Acid documented in this encounter
--- OUTSIDE RECORDS SUMMARY | 2022-07-18 08:49 | XMS_ITS | Encounter Summary ---
:1975 Author Organization [facility] Address [address] [place] [address] Care Team Providers Name Role Phone Unavailable Primary Care Provider Unavailable Encounter Details Date Type Department Care Team Description 10/24/2020 Orders Only Department of Urology in [place], [place] L.P.N. [address] [facility] [address] [place] [address] [place] [address] [phone] Social History Tobacco Use Types Packs/Day Years [...] More than 4 times per year 09/30/2020 denominational services? Do you belong to any clubs or Patient refused 09/30/2020 organizations such as sabianism groups, unions, fraternal or athletic groups, or [...]
--- OUTSIDE RECORDS SUMMARY | 2022-07-18 08:49 | XMS_ITS | Encounter Summary ---
:1975 Author Organization [facility] Address [address] [place] [address] Care Team Providers Name Role Phone Unavailable Primary Care Provider Unavailable Encounter Details Date Type Department Care Team Description 12/19/2019 Abstract [facility] Provider, Lindsey dumont M.D. [address] [place], [place] [address] Social History Tobacco Use Types Packs/Day Years [...] or relatives? How often do you attend druze or More than 4 times per year 09/30/2020 gnosticist services? Do you belong to any clubs or Patient refused 09/30/2020 organizations such as druze groups, unions, fraternal or athletic groups, or [...] or getting things needed for daily living? Sex Assigned at Date Recorded Not on file documented as of this encounter Plan of Treatment Not on filedocumented as of this encounter Procedures Procedure Name Priority Date/Time Associated Diagnosis Comme nts EXTM EXTERNAL LAB Routine 04/28/2019 10:24 AM Res ults for this RESULTS - MANUAL CDT procedure a re in ENTRY the results section. LIPID PANEL, S Routine 04/28/2019 10:18 AM Result s for this CDT procedure are i n the results section. CBC WITHOUT Routine 04/28/2019 10:18 AM Results for this DIFFERENTIAL, B CDT procedure ar e in the results section. THYROID-STIMULATING Routine 04/28/2019 10:18 AM R esults for this HORMONE-SENSITIVE CDT procedure are in (S-TSH) the results section. BASIC METABOLIC Routine 04/28/2019 10:18 AM Resul ts for this PANEL, S/P CDT procedure are i n the results section. CBC WITHOUT Routine 06/30/2017 3:46 PM Results f or this DIFFERENTIAL, B CDT procedure ar e in the results section. LIPID PANEL, S Routine 01/30/2017 8:14 AM Results for this CDT procedure are i n the results section. CBC WITHOUT Routine 01/30/2017 8:14 AM Results f or this DIFFERENTIAL, B CDT procedure ar e in the results section. BASIC METABOLIC Routine 01/30/2017 8:14 AM Result s for this PANEL, S/P CDT procedure are i n the results section. CBC WITHOUT Routine 10/08/2016 2:49 PM Results f or this DIFFERENTIAL, B INSTALLATION ENGINEER procedure ar e in the results section. LIPID PANEL, S Routine 06/19/2016 8:43 AM Results for this CDT procedure are i n the results section. documented in this encounter Results External Lab Results - Manual Entry (04/28/2019 10:24 AM CDT) [facility] gist Method Time Signature EXT Chlamydia Negative OTHER trachomatis PCR (SPECIFY IN ACCOUNT COORDINATOR) Specimen (Source) Anatomical Collection Method Collection Time Re ceived Time Location / / Volume Laterality Urine 04/28/2019 10:24 AM CDT Ordering Provider External M.D. LAB BLOOD ADD-ON Performing Organization Address [facility] Phon e Number OTHER (SPECIFY IN ACCOUNT COORDINATOR) OTHER (SPECIFY IN ACCOUNT COORDINATOR) N/A S-TSH (Thyroid-Stimulating Hormone - Sensitive) (04/28/2019 10:18 AM CDT) athologist Signature EXT TSH 1.18 EXTERNAL NON-INTERFACED LAB Specimen (Source) Anatomical Location Collection Method / Collectio n Time Received Time / Laterality Volume Blood (Blood, Venous) Ordering Provider External M.D. LAB BLOOD ADD-ON Performing Organization Address [facility] Phon e Number EXTERNAL NON-INTERFACED LAB [address] [place], [place] [address] Basic Metabolic Panel (04/28/2019 10:18 AM CDT) athologist Signature EXT BUN (Blood 8 EXTERNAL Urea Nitrogen) NON-INTERFACED LAB EXT Creatinine 0.9 EXTERNAL NON-INTERFACED LAB EXT Glucose 87 EXTERNAL NON-INTERFACED LAB EXT Potassium 4 EXTERNAL NON-INTERFACED LAB EXT Sodium 140 EXTERNAL NON-INTERFACED LAB Specimen (Source) Anatomical Location Collection Method / Collectio n Time Received Time / Laterality Volume Blood (Blood, Venous) Ordering Provider External M.D. LAB BLOOD ADD-ON Performing Organization Address [facility] Phon e Number EXTERNAL NON-INTERFACED LAB [address] [place], [place] [address] Lipid Panel (04/28/2019 10:18 AM CDT) P athologist Signature EXT 217 EXTERNAL Cholesterol, NON-INTERFACED Total, S LAB EXT 305 EXTERNAL Triglycerides, NON-INTERFACED S LAB EXT 30 EXTERNAL Cholesterol, NON-INTERFACED HDL, S LAB EXT 126 EXTERNAL Cholesterol, NON-INTERFACED LDL LAB Specimen (Source) Anatomical Location Collection Method / Collectio n Time Received Time / Laterality Volume Blood (Blood, Venous) Ordering Provider External M.D. LAB BLOOD ADD-ON Performing Organization Address [facility] Phon e Number EXTERNAL NON-INTERFACED LAB [address] [place], [place] [address] CBC without Differential (04/28/2019 10:18 AM CDT) athologist Signature EXT Platelet 239 EXTERNAL Count NON-INTERFACED LAB EXT Hemoglobin 13.6 EXTERNAL NON-INTERFACED LAB EXT Hematocrit 40.9 EXTERNAL NON-INTERFACED LAB EXT White Blood 5.8 EXTERNAL Cell (WBC) NON-INTERFACED Count LAB Specimen (Source) Anatomical Location Collection Method / Collectio n Time Received Time / Laterality Volume Blood (Blood, Venous) Ordering Provider External M.D. LAB BLOOD ADD-ON Performing Organization Address [facility] Phon e Number EXTERNAL NON-INTERFACED LAB [address] [place], [place] [address] CBC without Differential (06/30/2017 3:46 PM CDT) athologist Signature EXT Platelet 241 EXTERNAL Count NON-INTERFACED LAB EXT Hemoglobin 12.5 EXTERNAL NON-INTERFACED LAB EXT Hematocrit 37.2 EXTERNAL NON-INTERFACED LAB EXT White Blood 5.7 EXTERNAL Cell (WBC) NON-INTERFACED Count LAB Specimen (Source) Anatomical Location Collection Method / Collectio n Time Received Time / Laterality Volume Blood (Blood, Venous) Ordering Provider External M.D. LAB BLOOD ADD-ON Performing Organization Address [facility] Phon e Number EXTERNAL NON-INTERFACED LAB [address] [place], [place] [address] Basic Metabolic Panel (01/30/2017 8:14 AM CDT) P athologist Signature EXT BUN (Blood 13 EXTERNAL Urea Nitrogen) NON-INTERFACED LAB EXT Creatinine 0.9 EXTERNAL NON-INTERFACED LAB EXT Glucose 89 EXTERNAL NON-INTERFACED LAB EXT Potassium 4.1 EXTERNAL NON-INTERFACED LAB EXT Sodium 141 EXTERNAL NON-INTERFACED LAB Specimen (Source) Anatomical Location Collection Method / Collectio n Time Received Time / Laterality Volume Blood (Blood, Venous) Ordering Provider External M.D. LAB BLOOD ADD-ON Performing Organization Address [facility] Phon e Number EXTERNAL NON-INTERFACED LAB [address] [place], [place] [address] Lipid Panel (01/30/2017 8:14 AM CDT) athologist Signature EXT 191 EXTERNAL Cholesterol, NON-INTERFACED Total, S LAB EXT 164 EXTERNAL Triglycerides, NON-INTERFACED S LAB EXT 37 EXTERNAL Cholesterol, NON-INTERFACED HDL, S LAB EXT 121 EXTERNAL Cholesterol, NON-INTERFACED LDL LAB Specimen (Source) Anatomical Location Collection Method / Collectio n Time Received Time / Laterality Volume Blood (Blood, Venous) Ordering Provider External M.D. LAB BLOOD ADD-ON Performing Organization Address [facility] Phon e Number EXTERNAL NON-INTERFACED LAB [address] [place], [place] [address] CBC without Differential (01/30/2017 8:14 AM CDT) P athologist Signature EXT Platelet 223 EXTERNAL Count NON-INTERFACED LAB EXT Hemoglobin 13.8 EXTERNAL NON-INTERFACED LAB EXT Hematocrit 41.5 EXTERNAL NON-INTERFACED LAB EXT White Blood 6.8 EXTERNAL Cell (WBC) NON-INTERFACED Count LAB Specimen (Source) Anatomical Location Collection Method / Collectio n Time Received Time / Laterality Volume Blood (Blood, Venous) Ordering Provider External M.D. LAB BLOOD ADD-ON Performing Organization Address [facility] Phon e Number EXTERNAL NON-INTERFACED LAB [address] [place], [place] [address] CBC without Differential (10/08/2016 2:49 PM INSTALLATION ENGINEER) athologist Signature EXT Platelet 232 EXTERNAL Count NON-INTERFACED LAB EXT Hemoglobin 12.9 EXTERNAL NON-INTERFACED LAB EXT Hematocrit 38.9 EXTERNAL NON-INTERFACED LAB EXT White Blood 6.8 EXTERNAL Cell (WBC) NON-INTERFACED Count LAB Specimen (Source) Anatomical Location Collection Method / Collectio n Time Received Time / Laterality Volume Blood (Blood, Venous) Ordering Provider External M.D. LAB BLOOD ADD-ON Performing Organization Address [facility] Phon e Number EXTERNAL NON-INTERFACED LAB [address] [place], [place] [address] Lipid Panel (06/19/2016 8:43 AM CDT) athologist Signature EXT 225 EXTERNAL Cholesterol, NON-INTERFACED Total, S LAB EXT 143 EXTERNAL Triglycerides, NON-INTERFACED S LAB EXT 39 EXTERNAL Cholesterol, NON-INTERFACED HDL, S LAB EXT 157 EXTERNAL Cholesterol, NON-INTERFACED LDL LAB Specimen (Source) Anatomical Location Collection Method / Collectio n Time Received Time / Laterality Volume Blood (Blood, Venous) Ordering Provider External M.D. LAB BLOOD ADD-ON Performing Organization Address [facility] Phon e Number EXTERNAL NON-INTERFACED LAB [address] [place], [place] [address] EXTERNAL NON-INTERFACED LAB [address] [place] [address] documented in this encounter Visit Diagnoses Not on filedocumented in this encounter
--- OUTSIDE RECORDS SUMMARY | 2022-07-18 08:49 | XMS_ITS | Encounter Summary ---
:1975 Author Organization [facility] Address [address] [place] [address] Care Team Providers Name Role Phone Unavailable Primary Care Provider Unavailable Reason for Referral Outpatient (Routine) - Closed Specialty Diagnoses / Procedures Referred By Contact Refer red To Contact Diagnoses Stones Uric Acid Rena Burnham P.A.-C. [facility] Region Procedures DX Abdomen 1 View [address] [place] [address] Referral ID Status Reason Start Date Expiration Date Visits Requ ested Visits Authorized [id number] Closed 03/13/2022 03/13/2023 1 1 Reason for Visit Outpatient (Routine) - Closed Specialty Diagnoses / Procedures Referred By Contact Refer red To Contact Diagnoses Stones Uric Acid Rena Burnham P.A.-C. [facility] Region Procedures DX Abdomen [address], [place] [address] Referral ID Status Reason Start Date Expiration Date Visits Requ ested Visits Authorized [id number] Closed 03/13/2022 03/13/2023 1 1 Encounter Details Date Type Department Care Team Description 05/27/2022 Hospital Encounter Department of Rena Burnham Uric Acid Radiology in Ene Gonzalez P.A.-C . [place] [address] [place] [phone] Social History Tobacco Use Types Packs/Day Years [...] 09/30/2020 organizations such as baptism groups, unions, [employer]ego Electric [employer] or athletic groups, or school groups? How [...] 100 Take 150 mg by mouth 3 10 /11/2018 06/12/2022 mg tablet daily. documented as of this encounter Plan of Treatment Not on filedocumented as of this encounter Procedures Procedure Name Priority Date/Time Associated Comments Diagnosis DX ABDOMEN 1 VIEW RAD - Routine 05/27/2022 7:26 Stones Uric Acid Re sults for this (most inpatients AM CDT procedure a re in and all the results outpatients) section. documented in this encounter Results DX Abdomen 1 View (05/27/2022 7:26 AM [...] Rena Burnham P.A.-C. [facility] [place] [facility] documented in this encounter Visit Diagnoses Diagnosis Stones Uric Acid documented in this encounter
--- OUTSIDE RECORDS SUMMARY | 2022-07-18 08:49 | XMS_ITS | Encounter Summary ---
:1975 Author Organization [facility] Address [address] [place] [address] Care Team Providers Name Role Phone Unavailable Primary Care Provider Unavailable Encounter Details Date Type Department Care Team Description 08/29/2020 Hospital Encounter Department of Radiology Michelle Burnham, Urolithiasis in [place], P.A.-C. [place] [address] [phone] Social History Tobacco Use Types Packs/Day Years [...] More than 4 times per year 09/30/2020 anglican services? Do you belong to any clubs [...] Sig Dispensed Refills Start Date End Date nystatin (NYSTOP) Apply 1 application 15 g 3 0 09/20/2020 100,000 unit/gram topically 3 (three) powder times a day. omeprazole (PriLOSEC Take 40 mg by mouth. 0 05/0105/01/2021 OTC) 20 mg EC tablet ascorbic acid, vitamin Take 250 mg by mouth. 0 06/12/2022 C, (VITAMIN C) 250 mg tablet co-enzyme Q-10 (CO Take 100 mg by mouth 0 06/12/2022 Q-10) 100 mg capsule daily. HYDROcodone-acetaminoph Take 1-2 tablets by 20 tablet 0 06/12/2022 en (NORCO) 5-325 mg per mouth every 6 (six) tabletIndications: hours as needed for Acute Pain pain (pain) Indication: Acute Pain. No more than 8 tablets per day oxyCODONE-acetaminophen Take 1-2 tablets by 20 tablet 0 06/12/2022 (PERCOCET) 5-325 mg per mouth every 6 (six) tabletIndications: hours as needed for Acute Pain moderate pain or score 4-6 of 10 Indication: Acute Pain. propranolol (INDERAL Take 60 mg by mouth 0 201806/12/2022 LA) 60 mg 24 hr capsule daily. red yeast rice 600 mg Take 1,200 mg by mouth 0 06/12/2022 capsule daily. sertraline (ZOLOFT) 100 Take 150 mg by mouth 3 06/12/2022 mg tablet daily. documented as of this encounter Plan of Treatment Not on filedocumented as of this encounter Procedures Procedure Name Priority Date/Time Associated Comments Diagnosis DX ABDOMEN 1 VIEW RAD - Routine 08/29/2020 2:48 Urolithiasis Result s for this (most inpatients PM BRIDGE/STRUCTURE INSPECTION TEAM LEADER procedure a re in and all the results outpatients) section. documented in this encounter Results DX Abdomen 1 View (08/29/2020 2:48 PM BRIDGE/STRUCTURE INSPECTION TEAM LEADER) Anatomical Region Laterality Modality Abdomen, Abdominal RST LOS, Abdominal ARZ LOS, N/A Digital Radiography Abdominal FLA LOS Specimen (Source) Anatomical Collection Method Collection Time Re ceived Time Location / / Volume Laterality 08/29/2020 2:52 PM BRIDGE/STRUCTURE INSPECTION TEAM LEADER Impressions 08/29/2020 2:53 PM BRIDGE/STRUCTURE INSPECTION TEAM LEADER No radiographic evidence for radiopaque urinary tract calculus. Pelvic phleboliths as seen on CT 019. Nonobstructive bowel gas pattern with moderate stool scattered throughout the colon. Subtle serpiginous opacity projecting over the left upper quadrant may be external to the patient. Narrative 08/29/2020 2:53 PM BRIDGE/STRUCTURE INSPECTION TEAM LEADER EXAM: DX ABDOMEN 1 VIEW Procedure Note Sangita Ortega M.D. - 08/29/2020Form atting of this note might be different from the original. EXAM: DX ABDOMEN 1 VIEW IMPRESSION: No radiographic evidence for radiopaque urinary tract calculus. Pelvic phleboliths as seen on CT 019. Nonobstructive bowel gas pattern with moderate stool scattered throughout the colon. Subtle serpiginous opacity projecting over the left upper quadrant may be external to the patient. Rena Burnham P.A.-C. [facility] documented in this encounter Visit Diagnoses Diagnosis Urolithiasis documented in this encounter
--- OUTSIDE RECORDS SUMMARY | 2022-07-18 08:49 | XMS_ITS | Encounter Summary ---
:1975 Author Organization [facility] Address [address] [place] [address] Care Team Providers Name Role Phone Unavailable Primary Care Provider Unavailable Encounter Details Date Type Department Care Team Description 10/14/2019 Clinical Communication Department of [facility] Darnell Arrington, Medicine, Audie Up M.D., Ph. D. Clinic, in [address] [phone] Social History Tobacco Use Types Packs/Day [...] or relatives? How often do you attend jew or More than 4 times per year 09/30/2020 mu-ism services? Do you belong to any clubs or Patient refused 09/30/2020 organizations such as jew groups, unions, fraternal or athletic groups, or [...]
--- OUTSIDE RECORDS SUMMARY | 2022-07-18 08:49 | XMS_ITS | Encounter Summary ---
:1975 Author Organization [facility] Address [address] [place] [address] Care Team Providers Name Role Phone Unavailable Primary Care Provider Unavailable Encounter Details Date Type Department Care Team Description 10/05/2020 Orders Only Department of Urology Rena Burnham S creening Examination in [place] P.[facility].-[facility]. Prostate Cancer [address] [facility] [address] (Primary Dx) [place] [phone] Social History Tobacco Use Types Packs/Day [...] or relatives? How often do you attend alevism or More than 4 times per year 09/30/2020 pentecostal services? Do you belong to any clubs or Patient refused 09/30/2020 organizations such as alevism groups, unions, fraternal or athletic groups, or [...] on filedocumented as of this encounter Results PSA (Prostate-Specific Antigen) Screen (10/11/2020 3:16 PM SENIOR ELECTRONICS DESIGN ENGINEER) athologist Signature Prostate-Specif 0.60 <=2.5 ng/mL 10/11/2020 [facility] ic Ag 3:47 PM SENIOR ELECTRONICS DESIGN ENGINEER Comment: Biotin has been identified by the manufa cturer as a potential interfering substance. ??Higher concentr ations of biotin may be found in multivitamins, hair/nail supple ments, and workout supplements. ??If the result does not ma [facility] clinical observations, repeat testing after patient refrains fr om the use of supplements for at least 12 hours. ----ADDITIONAL INFORMATION---- The testing method is an electrochemilum inescence assay manufactured by [employer] and performed on the Modular or Lauren system . Values obtained with different assay met hods or kits may be different and cannot be used inte rchangeably. Test results cannot be interpreted as ab solute evidence for the presence or absence of malignant disease. Specimen Anatomical Collection Method Collection Time Receive d Time (Source) Location / / Volume Laterality Blood (Blood, 10/11/2020 3:16 PM 10/11/19 3:22 Venous) SENIOR ELECTRONICS DESIGN ENGINEER PM SENIOR ELECTRONICS DESIGN ENGINEER Rena Burnham P.A.-C. LAB BLOOD ADD-ON Performing Organization Address City/State/ZIP Code Phon e Number [facility]- [address] [place], [place] [address] [place] [address] System in [place] [address] documented in this encounter Visit Diagnoses Diagnosis Screening Examination Prostate Cancer - Primary documented in this encounter
--- OUTSIDE RECORDS SUMMARY | 2022-07-18 08:49 | XMS_ITS | Encounter Summary ---
:1975 Author Organization [facility] Address [address] [place] [address] Care Team Providers Name Role Phone Unavailable Primary Care Provider Unavailable Encounter Details Date Type Department Care Team Description 01/16/2021 Orders Only [facility] - oRlly castillo Elsewhere, Pcp [address] [place] [phone] Social History Tobacco Use Types Packs/Day Years [...] or relatives? How often do you attend quaker or More than 4 times per year 09/30/2020 amish services? Do you belong to any clubs or Patient refused 09/30/2020 organizations such as quaker groups, unions, fraternal or athletic groups, or [...]
--- OUTSIDE RECORDS SUMMARY | 2022-07-18 08:49 | XMS_ITS | Encounter Summary ---
:1975 Author Organization [facility] Address [address] [place] [address] Care Team Providers Name Role Phone Unavailable Primary Care Provider Unavailable Reason for Visit Reason Comments Labs Only Encounter Details Date Type Department Care Team Description 10/04/2020 Clinical Communication Department of Urology Rena Burnham, Labs Only in [facility] jesús P.ASmita-Araceli [address] [facility] [address] [place], [place] [phone] Social History Tobacco Use Types Packs/Day [...] or relatives? How often do you attend amish or More than 4 times per year 09/30/2020 shinto services? Do you belong to any clubs or Patient refused 09/30/2020 organizations such as amish groups, unions, fraternal or athletic groups, or [...] on file documented as of this encounter Miscellaneous Notes Telephone Encounter - Timmy Myers - 10/04/2020 4:28 PM CST Patient stopped at the desk after his appointment to schedule a PSA in one week per the blue sheet. No order is available for scheduling. Please review and order. Scheduling: patient is set to complete this lab on 10/11/2020 at 3:30p. No need to contact the patient. INERY SALESPERSON documented in this encounter Plan of Treatment Not on filedocumented as of this encounter Visit Diagnoses Not on filedocumented in this encounter
--- OUTSIDE RECORDS SUMMARY | 2022-07-18 08:49 | XMS_ITS | Encounter Summary ---
:1975 Author Organization [facility] Address [address] [place] [address] Care Team Providers Name Role Phone Unavailable Primary Care Provider Unavailable Encounter Details Date Type Department Care Team Description 01/23/2021 Orders Only Pharmacy Prior Auth Idania Anne [phone] Social History Tobacco Use Types Packs/Day Years [...] or relatives? How often do you attend evangelical or More than 4 times per year 09/30/2020 denominational services? Do you belong to any clubs or Patient refused 09/30/2020 organizations such as evangelical groups, unions, fraternal or athletic groups, or [...] minutes do you engage in exercise at is 20 min 09/30/2020 level? Stress Answer [...]
--- OUTSIDE RECORDS SUMMARY | 2022-07-18 08:49 | XMS_ITS | Encounter Summary ---
:1975 Author Organization [facility] Address [address] [place] [address] Care Team Providers Name Role Phone Unavailable Primary Care Provider Unavailable Reason for Referral MRI/CAT/PET Scan (Routine) - Pending Review Specialty Diagnoses / Procedures Referred By Contact Refer red To Contact Radiology Diagnoses Urolithiasis Colic Renal Rena Burnham P.A.-C. [facility] Region Procedures CT Abdomen Pelvis without IV Contrast [address] [place] [address] [phone] Referral ID Status Reason Start Date Expiration Date Visits V isits Requested Authorized [id number] Pending 06/12/2022 06/12/2023 1 1 Review Outpatient (Routine) - Authorized Specialty Diagnoses / Procedures Referred By Contact Refer red To Contact Urology Rena Burnham P. A.-C. [facility] Region [address] [place] [address] [phone] Referral ID Status Reason Start Date Expiration Date Visits V isits Requested Authorized [id number] Authorized 06/12/2022 06/11/2025 1 1 Reason for Visit Outpatient (Routine) - Closed Specialty Diagnoses / Procedures Referred By Contact Refer red To Contact Urology Rena Burnham P. A.-C. [facility] Region [address] [place] [address], [place] [phone] Referral ID Status Reason Start Date Expiration Date Visits Requ ested Visits Authorized [id number] Closed 11/23/2020 11/23/2021 1 1 Encounter Details Date Type Department Care Team Description 06/12/2022 Office Visit Department of Urology Rena Burnham D ysuria (Primary Dx); in [place] [facility] P.A.-C. Screening Examination Prostate Cancer; [address] Urolithiasis; [place] Colic Renal [address] [phone] Social History Tobacco Use Types Packs/Day Years [...] or relatives? How often do you attend yazidi or More than 4 times per year 09/30/2020 judaism services? Do you belong to any clubs or Patient refused 09/30/2020 organizations such as yazidi groups, unions, fraternal or athletic groups, or [...] on file documented as of this encounter Patient Instructions Patient InstructionsRena Burnham P.A.-C. - 06/12/2022 1:00 PM CDT #1 Prostatitis (Bacterial vs inflammatory) #2 Pelvic floor tension myalgia - urine collected today will be sent for UA/UC, will consider trial of abx therapy ([id number] not helpful) - continue pelvic floor relaxation techniques, you could consider meeting with pelvic floor physicaltherapist again - avoid dietary irritants, keep a record of when your symptoms are most pronounced, try to establishtriggers - ibuprofen okay to use for discomfort (recognized this is a filler leaf cutter long solution) - urine collected today will be sent for UA/UC - schedule lab for PSA (prostate cancer screening) - consider more formal workup (unlikely to trial management associate truthfully), cystoscopy (scope to look into the bladder), MRI (looks at prostate and pelvic lymph nodes/bones) #2 8mm non obstructing L renal stone - persistent Left flank pain consider CT in 6 months for stone growth assessment and consideration of prophylactic treatment #3 Right lower back pain #4 Right hemiscrotal pain - very likely lumbar radiculopathy - consider PT for lower back pain, discuss timing of MRI of lumbar spine with PCP - lower back radiculopathy (nerve compression pain) often causes scrotal/testicular pain - complete scrotal US, I will contact you via the portal with results documented in this encounter Progress Notes Rena Burnham P.A.-C. - 06/12/2022 1:00 PM CDT SUBJECTIVE CHIEF COMPLAINT/REASON FOR VISIT [id number] visit, uro clinic Perineal pressure pain, intermittent dysuria Chronic tinea cruris History of calcium oxalate stones HISTORY OF PRESENT ILLNESS This is a pleasant 46-year-old gentleman history of calcium oxalate stones required ureteroscopy round [phone]. He is had persistent perineal discomfort urethral pain with voiding since that time. Wehave tried different antibiotics without any significant improvement. Prior pelvic floor physical therapy without any real improvement. He does have chronic lumbar radiculopathy, he actually is been using chiropractor not improving as though he would hoped. His pain seems to be worse with standing or changing position. I think it is increasingly possible that his lower back pain maybe contributing to his pelvic floor tension, prostatitis and certainly right scrotal discomfort. He is a left nonobstructing renal stone, although in a position that could be considered intermittently obstructing, he occasionally is having left-sided flank pain. He understands persistent left-sided flank pain we could give some consideration to prophylactic stone management ESWL or ureteroscopy, should measure Hounsfield units on ESWL Chronic tinea cruis, we have previously trialed systemic Diflucan without improvement, does best with topical ointment cream combo. REVIEW OF SYSTEMS Per HPI pain 0/10 OBJECTIVE VITAL SIGNS There were no vitals taken for this visit. PHYSICAL EXAMINATION General: Overall well-appearing, no acute distress. Skin: No raised areas, rashes or lesions to areas I inspected. Eyes: No scleral icterus, normal conjunctivae. Respiratory: Normal respiratory effort. Musculoskeletal: Walks with a steady gait, without assistance. Psychiatric: Appropriate affect. Neurological: Alert and oriented x4. DIAGNOSTICS Renal ultrasound impression: 05/27/2022 EXAM: US KIDNEYS BILATERAL WITH BLADDER COMPARISON: Ultrasound of the kidneys and bladder 08/29/2020 FINDINGS: Right kidney: 9.9 cm Cortical thickness: Normal. Parenchymal echogenicity: Normal. Collecting system: No hydronephrosis. Masses: None detected. Left kidney: 11.5 cm Cortical thickness: Normal. Parenchymal echogenicity: Normal. Collecting system: No hydronephrosis. Several nonobstructing calculi detected measuring up to 8 mm at the upper pole of the left kidney. Masses: None detected. Bladder: Normal. Incidental small cavernous hemangioma at the right hepatic lobe. IMPRESSION: Nonobstructed kidneys. Small calculi in the left measuring up to 8 mm. Incidental cavernous hemangioma at the right hepatic lobe. KUB impression: 05/27/2022 EXAM: DX ABDOMEN 1 VIEW COMPARISON: 08/29/2020. FINDINGS: Bowel gas pattern is nonspecific with gas and stool scattered in nondilated colon and short segments of nondilated small bowel bowel. Renal outlines are largely obscured by overlying bowel gas and stool. No nephro or ureterolithiasis identified. There are bilateral pelvic phleboliths. No abnormal mass is noted. Exam is similar to 08/29/2020. IMPRESSION: 1. No nephro or ureterolithiasis identified. 2. Nonspecific bowel gas pattern. ASSESSMENT / PLAN ASSESSMENT/PLAN #1 Prostatitis (Bacterial vs inflammatory) #2 Pelvic floor tension myalgia - urine collected today will be sent for UA/UC, will consider trial of abx therapy ([id number] not helpful) - continue pelvic floor relaxation techniques, you could consider meeting with pelvic floor physicaltherapist again - avoid dietary irritants, keep a record of when your symptoms are most pronounced, try to establishtriggers - ibuprofen okay to use for discomfort (recognized this is a [facility] solution) - urine collected today will be sent for UA/UC - schedule lab for PSA (prostate cancer screening) - consider more formal workup (unlikely to trial management associate truthfully), cystoscopy (scope to look into the bladder), MRI (looks at prostate and pelvic lymph nodes/bones) #2 8mm non obstructing L renal stone - persistent Left flank pain consider CT in 6 months for stone growth assessment and consideration of prophylactic treatment - Reviewed with patient the following changes for stone prevention: - 3 L of fluid daily increasing citric acid consumption with Crystal Light lemonade or adding lemon or [place] to water. - maintain low-sodium (<2,500mg/day) - low calcium (Max 1,200mg/day) - no calcium supplements - avoid Tums - consider medical management: chlorthalidone + potassium citrate - maintain low oxalate diet. If they do choose to eat foods that are rich in oxalate they should also eat foods that are rich in calcium. - Should maintain good glucose control. -Decreased non dairy animal proteins and increase fruit and vegetable consumption. (less meat, more fruit&veg) - avoid Vitamin C supplementation/ascorbid acid #3 Right lower back pain #4 Right hemiscrotal pain - very likely lumbar radiculopathy - consider PT for lower back pain, discuss timing of MRI of lumbar spine with PCP - lower back radiculopathy (nerve compression pain) often causes scrotal/testicular pain - complete scrotal US, I will contact you via the portal with results PATIENT EDUCATION Ready to learn, no apparent learning barriers were identified; learning preferences include listening. Explained diagnosis and treatment plan; patient expressed understanding of the content. documented in this encounter Plan of Treatment Scheduled Orders Name Type Priority Associated Diagnoses Order S [facility] PSA Lab Routine Screening Examination Expect ed: (Prostate-Specific Prostate Cancer 2021 Antigen) Screen (Approximate ), Expires: 09/11/2023 CT Abdomen Pelvis Imaging RAD - Routine (most Urolithias is Expected: without IV inpatients and all Colic Renal 3 Contrast outpatients) (Approximate), Expires: 06/12/2023 Scheduled Referrals Name Type Priority Associated Diagnoses Order [facility] Outpatient Referral Routine Expect ed: visit (clinic) 12/10/2022 (Approximate), Expires: 09/11/2023 documented as of this encounter Procedures Procedure Name Priority Date/Time Associated Comments Diagnosis BACTERIAL CULTURE, Routine 06/12/2022 1:45 PM Dysuria Res ults for this AEROBIC + SUSC, URINE CDT proced ure are in the results section. URINALYSIS WITH Routine 06/12/2022 1:45 PM Dysuria Result s for this MICROSCOPIC CDT procedure are i n the results section. documented in this encounter Results Bacterial Culture, Aerobic + Susc, Urine (06/12/2022 1:45 PM CDT) [facility] g[facility] Method Time Signature Urine Culture No growth [...] Address City/State/ZIP Code Phon e Number [facility]- [address] [place] [phone] [facility] [place] [address] System in [address] Urinalysis with Microscopic: Urine, Midstream (06/12/2022 1:45 PM CDT) Analysis Performed At [facility] logist Time Signature Source Urine, Urine, 06/12/2022 [...] 8.0 06/12/2022 1:53 PM CDT [facility] Specific [place] 1.007 1.001 - 1.035 06/12/2022 1:53 PM [...] Address City/State/ZIP Code Phon e Number [facility]- [address] [place], [place] [address] [facility] [place] [address] System in [place] [address] documented in this encounter Visit Diagnoses Diagnosis Dysuria - Primary Screening Examination Prostate Cancer Urolithiasis Colic Renal documented in this encounter
--- OUTSIDE RECORDS SUMMARY | 2022-07-18 08:49 | XMS_ITS | Encounter Summary ---
:1975 Author Organization [facility] Address [address] [place] [address] Care Team Providers Name Role Phone Unavailable Primary Care Provider Unavailable Encounter Details Date Type Department Care Team Description 10/11/2020 Hospital Encounter Department of Rena Burnham Laboratory Medicine E, P.A.-C. Examination Prostate in [place], [address] [address] [place], [place] [phone] (Work) [phone] Social History Tobacco Use Types Packs/Day Years [...] or relatives? How often do you attend jewish or More than 4 times per year 09/30/2020 congregational services? Do you belong to any clubs or Patient refused 09/30/2020 organizations such as jewish groups, unions, fraternal or athletic groups, or [...] by mouth 0 1 11/11/2019 tablet daily. omeprazole (PriLOSEC OTC) Take 40 mg by mouth. 0 05/01/2020 05/01/2021 20 mg EC tablet ascorbic acid, vitamin C, Take 250 mg by 0 201906/12/2022 (VITAMIN C) 250 mg tablet mouth. co-enzyme Q-10 (CO Q-10) Take 100 mg by mouth 0 06/12/2022 100 mg capsule daily. HYDROcodone-acetaminophen Take 1-2 tablets by 20 tablet 0 1 10/04/2018 06/12/2022 (NORCO) 5-325 mg per mouth every 6 (six) tabletIndications: Acute hours as needed for Pain pain (pain) Indication: Acute Pain. No more than 8 tablets per day levoFLOXacin (LEVAQUIN) Take 1 tablet (500 21 tablet 0 09/1510/24/2020 500 mg tablet mg total) by mouth daily for 21 days. oxyCODONE-acetaminophen Take 1-2 tablets by 20 tablet [...] by mouth 3 06/12/2022 mg tablet daily. tadalafiL (Cialis) 5 mg Take 1 tablet (5 mg 30 tablet 11 11/23/2020 tablet total) by mouth daily. documented as of this encounter Plan of Treatment Not on filedocumented as of this encounter Procedures Procedure Name Priority Date/Time Associated Diagnosis Comme nts PROSTATE-SPECIFIC Routine 10/11/2020 3:16 PM Screening Resu lts for this AG (PSA) SCRN, S SQL PROGRAMMER ANALYST Examination Prostate pro cedure are in Cancer the results section. documented in this encounter Results PSA (Prostate-Specific Antigen) Screen (10/11/2020 3:16 PM SQL PROGRAMMER ANALYST) P athologist Signature Prostate-Specif 0.60 <=2.5 ng/mL 10/11/2020 [facility] ic [place] 3:47 PM SQL PROGRAMMER ANALYST Comment: Biotin has been identified by the kel rogers as a potential interfering substance. ??Higher concentr ations of biotin may be found in multivitamins, hair/nail supple ments, and workout supplements. ??If the result does not ma [facility] clinical observations, repeat testing after patient refrains fr om the use of supplements for at least 12 hours. ----ADDITIONAL INFORMATION---- The testing method is an electrochemilum inescence assay manufactured by [employer] and performed on the Modular or [...] (Blood, 10/11/2020 3:16 PM 10/11/19 3:22 Venous) SQL PROGRAMMER ANALYST PM SQL PROGRAMMER ANALYST Rena Burnham P.A.-C. LAB BLOOD ADD-ON Performing Organization Address City/State/ZIP Code Phon e Number [facility]- [address] [place], [place] [address] [address] [place] [address] System in [place] [address] [address] documented in this encounter Visit Diagnoses Diagnosis Screening Examination Prostate Cancer documented in this encounter
--- OUTSIDE RECORDS SUMMARY | 2022-07-18 08:49 | XMS_ITS | Encounter Summary ---
:1975 Author Organization [facility] Address [address] [place] [address] Care Team Providers Name Role Phone Unavailable Primary Care Provider Unavailable Encounter Details Date Type Department Care Team Description 08/29/2020 Hospital Encounter Department of Radiology Michelle Burnham, Urolithiasis in [place], P.A.-C. [place] [address] [phone] Social History Tobacco Use Types Packs/Day Years [...] or relatives? How often do you attend anglican or More than 4 times per year 09/30/2020 hindu services? Do you belong to any clubs or Patient refused 09/30/2020 organizations such as anglican groups, unions, fraternal or athletic groups, or [...] Comments Diagnosis US KIDNEYS RAD - Routine 08/29/2020 3:15 Urolithiasis Results for this BILATERAL WITH (most inpatients PM FRONT END ARCHITECT procedure are in BLADDER and all the results outpatients) section. documented in this encounter Results US Kidneys Bilateral with Bladder (08/29/2020 3:15 PM FRONT END ARCHITECT) Anatomical Region Laterality Modality Abdomen, Renal, Ultrasound RST LOS, Ultrasound ARZ LOS, Bila teral Ultrasound Ultrasound FLA LOS Specimen (Source) Anatomical Collection Method Collection Time Re ceived Time Location / / Volume Laterality 08/29/2020 3:30 PM FRONT END ARCHITECT Impressions 08/29/2020 3:30 PM FRONT END ARCHITECT Normal kidneys. Narrative 08/29/2020 3:30 PM FRONT END ARCHITECT EXAM: US KIDNEYS BILATERAL WITH BLADDER COMPARISON: CT August 01, 2019. Ultras ound September 12, 2019. FINDINGS: Right kidney: 10.1 cm Cortical thickness: Normal. ?? Parenchymal echogenicity: Normal. Collecting system: No hydronephrosis. Masses: None detected. Left kidney: 11.7 cm Cortical thickness: Normal. ?? Parenchymal echogenicity: Normal. Collecting system: No hydronephrosis. Masses: None detected. Bladder: Normal. Procedure Note Gilbert Holland M.D. - 08/29/2020Formattin g of this note might be different from the original. EXAM: US KIDNEYS BILATERAL WITH BLADDER COMPARISON: CT August 01, 2019. Ultras ound September 12, 2019. FINDINGS: Right kidney: 10.1 cm Cortical thickness: Normal. Parenchymal echogenicity: Normal. Collecting system: No hydronephrosis. Masses: None detected. Left kidney: 11.7 cm Cortical thickness: Normal. Parenchymal echogenicity: Normal. Collecting system: No hydronephrosis. Masses: None detected. Bladder: Normal. IMPRESSION: Normal kidneys. Rena Burnham P.A.-C. IMG US PROCEDURES documented in this encounter Visit Diagnoses Diagnosis Urolithiasis documented in this encounter
--- OUTSIDE RECORDS SUMMARY | 2022-07-18 08:49 | XMS_ITS | Encounter Summary ---
:1975 Author Organization [facility] Address [address] [place] [address] Care Team Providers Name Role Phone Unavailable Primary Care Provider Unavailable Encounter Details Date Type Department Care Team Description 10/22/2020 Clinical Communication Department of Urology Rena Burnham, in [facility] Kecia espinosa P.A.-C. [address] [facility] [address] [place], [place] [phone] Social History Tobacco Use Types Packs/Day [...] or relatives? How often do you attend rastafarian or More than 4 times per year 09/30/2020 yarsanism services? Do you belong to any clubs or Patient refused 09/30/2020 organizations such as rastafarian groups, unions, fraternal or athletic groups, or [...]
--- OUTSIDE RECORDS SUMMARY | 2022-07-18 08:49 | XMS_ITS | Encounter Summary ---
:1975 Author Organization [facility] Address [address] [place] [address] Care Team Providers Name Role Phone Unavailable Primary Care Provider Unavailable Reason for Visit Reason Comments Rash Outpatient (Routine) - Closed Specialty Diagnoses / Procedures Referred By Contact Refer red To Contact Dermatology Diagnoses Tinea Groin Perianal Area Rena Burnham P.A.-C. [facility] Region [address], [place] [phone] Referral ID Status Reason Start Date Expiration Date Visits Requ ested Visits Authorized [id number] Closed 09/21/2019 09/20/2020 1 1 Encounter Details Date Type Department Care Team Description 12/03/2020 Office Visit Department of Cassidy Cheung Rash (Prim melody Dx); Dermatology in [place] Ghotra Tinea Groin Perianal Area [place], [place] [address] [phone] Social History Tobacco Use Types Packs/Day Years [...] or relatives? How often do you attend sikh or More than 4 times per year 09/30/2020 druze services? Do you belong to any clubs or Patient refused 09/30/2020 organizations such as sikh groups, unions, fraternal or athletic groups, or [...] on file documented as of this encounter Consult Notes Cassidy Cheung M.D. - 12/03/2020 4:00 PM CDT SUBJECTIVE CHIEF COMPLAINT / REASON FOR VISIT Rash HISTORY OF PRESENT ILLNESS Carlos A Gamez is a pleasant 45 y.o. male who is seen in consultation at the request of Rena Burnham P.A.-C. in Urology at [facility] for evaluation of a rash involving the groin. This is my first time seeing this patient in Dermatology clinic today. The patient has not been previously seen by [facility]. Today he states the rash involves the inguinal areas and sometimes involving the gluteal cleft and has been intermittently present for 3-6 years. He has been treated with different topical antifungal creams and a systemic anti fungal medication without any improvement. He has had some success with hydrocortisone cream and Lamisil cream mixed together. He denies itching but does state it casper intermittently and is tender and feels that the over the counter antifungalcreams can make the rash worse. He denies a history of psoriasis. OBJECTIVE PHYSICAL EXAMINATION General: Awake, alert, in no acute distress, and with appropriate affect. Skin: Limited skin exam done today. Examination of the right inguinal area reveals minimal pink blanchable erythema from previous rash. The left side is similar. Examination of the gluteal reveals is negative for any rash. Examination ofthe right distal shaft of penis reveals telangiectasia but no rash or ulcer present as he states he gets a rash here as well at times. Examination of the webspaces and hands are normal. Examination of the arms, elbows, knees, scalp, gluteal cleft reveals no evidence for psoriasis. ASSESSMENT / PLAN #1 History of inguinal rash, currently no visible or active rash present From the previous photos I favor inverse psoriasis but difficult to make definitive diagnosis given that there is no rash today. Given that he did not respond to topical antifungal is a in the past or systemic antifungal, I favor inverse psoriasis more than a fungal rash. However, I need to see him when he has more active rash to make a definitive diagnosis and have asked him to follow-up immediatelyif this should occur and also send in photo on the portal in case he cannot get back to clinic in a timely manner. I did explain that if this is inverse psoriasis that psoriasis is chronic and the recurrent nature of this condition and that there is no definitive cure. I have asked him to return to the clinic for further evaluation when the rash is more active and send a photo on the patient portal when it flares.I have recommended discontinuing topical antifungal creams at this time. PATIENT EDUCATION: Ready to learn. No apparent learning barriers were identified. Learning preferences include listening. Explained diagnosis and treatment plan; patient/guardian of patient expressed understanding of thecontent. By signing my name below, I, Joceline Early, attest that this documentation has been prepared underthe direction and in the presence of Cassidy Cheung M.D. Electronically Signed: rodríguez Steele. 12/03/2020 ICassidy M.D., personally performed the services described in this documentation. All medical record entries made by the scribe were at my direction and in my presence. I have reviewed the chart and discharge instructions (if applicable) and agree that the record reflects my personal performance and is accurate and complete. Cassidy Cheung M.D. 12/03/2020 documented in this encounter Plan of Treatment Not on filedocumented as of this encounter Visit Diagnoses Diagnosis Rash - Primary Tinea Groin Perianal Area documented in this encounter
--- OUTSIDE RECORDS SUMMARY | 2022-07-18 08:50 | XMS_ITS | Encounter Summary ---
:1975 Author Organization [facility] Address [address] [place] [address] Care Team Providers Name Role Phone Unavailable Primary Care Provider Unavailable Reason for Referral Outpatient (Routine) - Closed Specialty Diagnoses / Procedures Referred By Contact Refer red To Contact Diagnoses Urolithiasis Abdulaziz Aguilar M.D. [facility] Procedures FL Fluoro Less Than 1 Hour [address] [place] [address] Referral ID Status Reason Start Date Expiration Date Visits Requ ested Visits Authorized [id number] Closed 08/02/2019 08/01/2020 1 1 EMS LEAD Reason for Visit Auth/Cert Specialty Diagnoses / Procedures Referred By Contact Refer gloria To Contact Diagnoses Urolithiasis Urolithiasis [N20.9] Procedures TN CYSTHRSCPY/URTRSCPY LITHO INS STNT CYSTOSCOPY AND RIGHT URETEROSCOPY WITH LASER LITHOTRIPSY, STONE BASKETING AND PLACEMENT OF RIGHT URETERAL STENT Referral ID Status Reason Start Date Expiration Date Visits Requ ested Visits Authorized [id number] 1 1 Encounter Details Date Type Department Care Team Description 08/02/2019 Hospital Encounter Department of Radiology Chris Aguilar, Urolithiasis in [place] M.D. [address] [facility] [address] [address] [place], [place] [phone] Social History Tobacco Use Types Packs/Day [...] or relatives? How often do you attend scientologist or More than 4 times per year 09/30/2020 congregation services? Do you belong to any clubs or Patient refused 09/30/2020 organizations such as scientologist groups, unions, fraternal or athletic groups, or [...] Sig Dispensed Refills Start Date End Date omeprazole (PriLOSEC Take 40 mg by mouth 0 201805/02/2020 OTC) 20 mg EC tablet daily. tamsulosin (FLOMAX) 0.4 Take 1 capsule (0.4 30 capsule 0 07/201908/24/2019 mg 24 hr capsule mg total) by mouth daily. co-enzyme Q-10 (CO Q-10) Take 100 mg by mouth 0 06/12/2022 100 mg capsule daily. oxyCODONE-acetaminophen Take 1-2 tablets by 20 tablet [...] Procedure Name Priority Date/Time Associated Comments Diagnosis FL FLUORO LESS RAD - Routine 08/02/2019 2:18 Urolithiasis Results f or this THAN 1 HOUR (most inpatients PM SYSTEMS LEAD procedure a re in and all the results outpatients) section. documented in this encounter Results FL Fluoro Less Than 1 Hour (08/02/2019 2:18 PM SYSTEMS LEAD) Specimen (Source) Anatomical Location Collection Method / Collectio n Time Received Time / Laterality Volume Narrative 8000 GERONIMO PYLEN - 08/02/2019 2:21 PM SYSTEMS LEAD This exam does not require a radiologist review or interpretation. Please refer to the patient's medical record on this date for clinical details. Abdulaziz ANDRADE FLUOROSCOPY PROCEDURES Performing Organization Address City/State/ZIP Code Phon e Number [id number] [facility] documented in this encounter Visit Diagnoses Diagnosis Urolithiasis documented in this encounter
--- OUTSIDE RECORDS SUMMARY | 2022-07-18 08:50 | XMS_ITS | Encounter Summary ---
:1975 Author Organization [facility] Address [address] [place] [address] Care Team Providers Name Role Phone Unavailable Primary Care Provider Unavailable Encounter Details Date Type Department Care Team Description 08/03/2019 Nurse Triage Department of [facility] Gavi Gray, Medicine, [facility], in [place] R.N. [place], [place] [address] [place] [address] Social History Tobacco Use Types Packs/Day Years [...] or relatives? How often do you attend restorationism or More than 4 times per year 09/30/2020 anabaptist services? Do you belong to any clubs or Patient refused 09/30/2020 organizations such as restorationism groups, unions, fraternal or athletic groups, or [...]
--- OUTSIDE RECORDS SUMMARY | 2022-07-18 08:50 | XMS_ITS | Encounter Summary ---
:1975 Author Organization [facility] Address [address] [place] [address] Care Team Providers Name Role Phone Unavailable Primary Care Provider Unavailable Encounter Details Date Type Department Care Team Description 08/03/2019 Orders Only [facility] [place] P[facility] [address] [place] [address] [place], [place] [phone] (Wo rk) Social History Tobacco Use [...] or relatives? How often do you attend holiness or More than 4 times per year 09/30/2020 shinto services? Do you belong to any clubs or Patient refused 09/30/2020 organizations such as holiness groups, unions, fraternal or athletic groups, or [...]
--- OUTSIDE RECORDS SUMMARY | 2022-07-18 08:50 | XMS_ITS | Encounter Summary ---
:1975 Author Organization [facility] Address [address] [place] [address] Care Team Providers Name Role Phone Unavailable Primary Care Provider Unavailable Reason for Visit Reason Onset Date Comments Med Refill 08/26/2019 Encounter Details Date Type Department Care Team Description 08/26/2019 Clinical Communication Department of Urology Rena Burnham, Med Refill in [facility] P.A.-CSmita [address] [facility] [address] [place], [place] [phone] Social History Tobacco Use Types Packs/Day Years [...] More than 4 times per year 09/30/2020 christian services? Do you belong to any clubs [...] this encounter Miscellaneous Notes Telephone Encounter - Vidhi Thomas L.P.NSmita - 08/29/2019 1:45 PM CLOTH FINISHING RANGE BACK TENDER Patient notified and voices understanding. H FINISHING RANGE BACK TENDER Telephone Encounter - Rena Burnham P.A.-C. - 08/29/2019 12:07 PM CLOTH FINISHING RANGE BACK TENDER No need for Flomax. H FINISHING RANGE BACK TENDER Telephone Encounter - Vidhi Thomas L.P.N. - 08/26/2019 1:03 PM CLOTH FINISHING RANGE BACK TENDER Received a refill request for Tamsulosin refill, patient had a stone extraction in July does patient need to continue on the flomax if so please send in refill to [facility]. H FINISHING RANGE BACK TENDER documented in this encounter Plan of Treatment Not on filedocumented as of this encounter Visit Diagnoses Not on filedocumented in this encounter
--- OUTSIDE RECORDS SUMMARY | 2022-07-18 08:50 | XMS_ITS | Encounter Summary ---
:1975 Author Organization [facility] Address [address] [place] [address] Care Team Providers Name Role Phone Unavailable Primary Care Provider Unavailable Reason for Referral MRI/CAT/PET Scan (Routine) - Closed Specialty Diagnoses / Procedures Referred By Contact Refer red To Contact Radiology Diagnoses Pain Right Lower Quadrant Rena Burnham P.A.-C. [facility] [place] [facility] Procedures CT Abdomen Pelvis without IV Contrast [address] [address] Referral ID Status Reason Start Date Expiration Date Visits Requ ested Visits Authorized [id number] Closed 06/30/2019 06/29/2020 1 1 ER LAP MACHINE TENDER Reason for Visit MRI/CAT/PET Scan (Routine) - Closed Specialty Diagnoses / Procedures Referred By Contact Refer red To Contact Radiology Diagnoses Pain Right Lower Quadrant Rnea Burnham P.A.-C. [facility] [place] [facility] Procedures CT Abdomen Pelvis without IV Contrast [address] [address] Referral ID Status Reason Start Date Expiration Date Visits Requ ested Visits Authorized [id number] Closed 06/30/2019 06/29/2020 1 1 Encounter Details Date Type Department Care Team Description 08/01/2019 Hospital Encounter Department of Rena Burnham R ight Lower Radiology in Audie Luque P.A.-C. [place], [place] [address] [place] [phone] Social History Tobacco Use Types Packs/Day Years [...] or relatives? How often do you attend anabaptist or More than 4 times per year 09/30/2020 mandaeism services? Do you belong to any clubs or Patient refused 09/30/2020 organizations such as anabaptist groups, unions, fraMedafor or athletic groups, or school groups? How [...] Procedure Name Priority Date/Time Associated Comments Diagnosis CT ABDOMEN PELVIS RAD - Routine 08/01/2019 7:59 Pain Right Lower Re sults for this WITHOUT IV (most inpatients AM SILVER LAP MACHINE TENDER Quadrant procedure a re in CONTRAST and all the results outpatients) section. documented in this encounter Results CT Abdomen Pelvis without IV Contrast (08/01/2019 7:59 AM SILVER LAP MACHINE TENDER) Anatomical Region Laterality Modality Abdomen, Pelvis, Abdominal RST LOS, Abdominal ARZ LOS, N/A Computed Tomography Abdominal FLA LOS Specimen (Source) Anatomical Collection Method Collection Time Re ceived Time Location / / Volume Laterality 08/01/2019 8:10 AM SILVER LAP MACHINE TENDER Impressions 08/01/2019 8:16 AM SILVER LAP MACHINE TENDER 1. ??Unchanged 2 mm stone in the distal right ureter. No hydronephrosis or hydroureter. 2. ??Nonobstructing left intrarenal calc ulus. Narrative 08/01/2019 8:16 AM SILVER LAP MACHINE TENDER EXAM: CT ABDOMEN PELVIS WITHOUT IV CONTRAST COMPARISON: June 17, 2019 FINDINGS: Limited lower thorax: Unremark able. Abdomen/pelvis: The spleen, adrenals, an d pancreas have an unremarkable noncontrasted appearance. Hepatic hypode nsities in the left and right hepatic lobes not well characterized on this non contrast exam but grossly unchanged from prior. Few small nonobstructing left int rarenal calculi. No hydronephrosis or hydroureter. 3 mm stone in the distal ri ght ureter, not significantly changed from prior. No left sided ureteral stone s. The pelvic contents are otherwise unremarkable. The large and small bowel loops are normal in appearance with a normal appendix. Bones: No acute osseous abnormality. Procedure Note Austyn Romano M.D. - 08/01/2019Forma tting of this note might be different from the original. EXAM: CT ABDOMEN PELVIS WITHOUT IV CONTR AST COMPARISON: June 17, 2019 FINDINGS: Limited lower thorax: Unremark able. Abdomen/pelvis: The spleen, adrenals, an d pancreas have an unremarkable noncontrasted appearance. Hepatic hypode nsities in the left and right hepatic lobes not well characterized on this non contrast exam but grossly unchanged from prior. Few small nonobstructing left int rarenal calculi. No hydronephrosis or hydroureter. 3 mm stone in the distal ri ght ureter, not significantly changed from prior. No left sided ureteral stone s. The pelvic contents are otherwise unremarkable. The large and small bowel loops are normal in appearance with a normal appendix. Bones: No acute osseous abnormality. IMPRESSION: 1. Unchanged 2 mm stone in the distal ri ght ureter. No hydronephrosis or hydroureter. 2. Nonobstructing left intrarenal calcul us. Rena E Burnham P.A.-C. IMG CT PROCEDURES documented in this encounter Visit Diagnoses Diagnosis Pain Right Lower Quadrant documented in this encounter
--- OUTSIDE RECORDS SUMMARY | 2022-07-18 08:50 | XMS_ITS | Encounter Summary ---
:[address] [facility] Address [address] [place] [address] Care Team Providers Name Role Phone Unavailable Primary Care Provider Unavailable Reason for Referral Outpatient (Routine) - Closed Specialty Diagnoses / Procedures Referred By Contact Refer gloria To Contact Urology Abdulaziz Aguilar M.D. 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 Reason for Visit Auth/Cert Specialty Diagnoses / Procedures Referred By Contact Refer gloria To Contact Diagnoses Urolithiasis Urolithiasis [N20.9] Procedures ND CYSTHRSCPY/URTRSCPY LITHO INS STNT CYSTOSCOPY AND RIGHT URETEROSCOPY WITH LASER LITHOTRIPSY, STONE BASKETING AND PLACEMENT OF RIGHT URETERAL STENT Referral ID Status Reason Start Date Expiration Date Visits Requ ested Visits Authorized [id number] 1 1 Encounter Details Date Type Department Care Team Description 08/02/2019 Hospital Encounter [facility] MAIN OR Abdulaziz Aguilar, Urolithiasis [address] [place] [phone] [address] [facility] [phone] [place] [address] Social History Tobacco Use Types Packs/Day [...] or relatives? How often do you attend roman catholic or More than 4 times per year 09/30/2020 confucianist services? Do you belong to any clubs or Patient refused 09/30/2020 organizations such as roman catholic groups, unions, [employer] or athletic groups, or school groups? How [...] Sign Reading Time Taken Comments Blood Pressure 147/100 08/02/2019 3:15 PM ORACLE SOL[employer]IONS ARCHITECT Pulse 72 08/02/2019 3:15 PM [employer]ACLE SOL[employer] ARCHITECT Temperature 36.7 ??C (98.1 ??F) 08/02/2019 2:17 PM ORACLE SOL[employer] ARCHITECT Respiratory Rate 16 08/02/2019 2:17 PM [employer]LE SOL[employer] ARCHITECT Oxygen Saturation 95% 08/02/2019 3:15 PM [employer] ARCHITECT Inhaled Oxygen Concentration - - Weight 101 kg (222 lb 10.6 oz) 08/02/2019 11:57 AM [employer]LE SOL[employer] ARCHITECT Height 187 cm (6' 1.62) 08/02/2019 11:57 AM ORACLE SOLUTIONS ARCHITECT Body Mass Index 28.88 08/02/2019 11:57 AM ORACLE SOLUTIONS ARCHITECT documented in this encounter Medications at Time of Discharge Medication Sig Dispensed Refills Start Date End Date omeprazole (PriLOSEC Take 40 mg by mouth 0 201805/02/2020 OTC) 20 mg EC tablet daily. tamsulosin (FLOMAX) 0.4 Take 1 capsule (0.4 30 capsule 0 07/201908/24/2019 mg 24 hr capsule mg total) by mouth daily. propranolol (INDERAL LA) Take 60 mg by mouth 0 06/12/2022 60 mg 24 hr capsule daily. red yeast rice 600 mg Take 1,200 mg by 0 06/12/2022 capsule mouth daily. sertraline (ZOLOFT) 100 Take 150 mg by mouth 3 06/12/2022 mg tablet daily. co-enzyme Q-10 (CO Q-10) Take 100 mg by mouth 0 06/12/2022 100 mg capsule daily. oxyCODONE-acetaminophen Take 1-2 tablets by 20 tablet 0 06/12/2022 (PERCOCET) 5-325 mg per mouth every 6 (six) tabletIndications: Acute hours as needed for Pain moderate pain or score 4-6 of 10 Indication: Acute Pain. documented as of this encounter H&P Notes Abdulaziz Aguilar M.D. - 08/02/2019 1:09 PM CST INTERVAL HISTORY AND PHYSICAL PRE-PROCEDURE UPDATE H&P reviewed. The patient was examined and there are no significant changes to the H&P. Abdulaziz Aguilar M.D. [employer] ARCHITECT Source Note - Marcell, Default Authenticator - 07/28/2019 3:05 PM [employer] ARCHITECT documented in this encounter OR Notes Op Note - Abdulaziz Aguilar M.D. - 08/02/2019 1:40 PM CST FULL OP NOTE Procedure(s) (LRB): CYSTOSCOPY AND RIGHT URETEROSCOPY, STONE BASKETING AND PLACEMENT OF RIGHT URETERAL STENT (Right) Surgeon(s) and Role: * Abdulaziz Aguilar M.D. - Primary Anesthesia Type General Pre-operative Diagnosis Urolithiasis Post-operative Diagnosis Urolithiasis Findings As expected. Complications None Description of Procedure INDICATIONS: This is a 44 y.o. year-old male who has a right distal ureter ureteral stone measuring approximately 5 by 5 mm by 2 mm. The stone has not passed after a reasonable period of time. He was advised on the risks, benefits and alternatives; consent was obtained. The correct procedure and side was verified. Antibiotic and deep venous thrombus prophylaxis was instituted. He was taken to the OR and placed under general anesthesia. He was then placed in a dorsal lithotomy position, prepped and draped in the usual sterile fashion. A time out was performed, again verifying the correct patient, procedure and side. A 22 Citizen [place] cystoscope was visually introduced. Sterile Normal Saline was used as the irritant throughout the procedure. The anterior urethra was unremarkable. The prostate was approximately 2.5 cm long without visual obstruction of the lateral lobes. A medium lobe was not present. Both ureteral orifices were in the normal position and clear efflux was seen from left side. Trabeculation was absent. No exophytic lesions were observed. A 5 [place] open-ended ureteral catheter was used to intubate the distal right ureteral orifice. Omnipaque was injected in order to obtain a retrograde pyeloureterogram utilizing fluoroscopy. A defect of filling, consistent with the stone, was observed in the distal ureter. Via the open ended ureteral catheter a straight tipped Sensor guide wire was introduced to the level of the renal pelvis as confirmed by fluoroscopy. The cystoscope and ureteral catheter were removed leaving the guide wire in place. A 10 Citizen [place] Red Tinajero catheter was introduced via the urethra into the bladder in order to provide drainage. A long semi-rigid ureteroscope was introduced alongside the guide wire until the stone was observed. The stone appeared to be obstructing. The stone was retrieved with a stone basket, to be sent for chemical analysis. There was not any evidence of ureteral perforation or injury. The ureteroscope was removed leaving the guide wire in place. Over the guide wire a 7 Citizen [place] 22 x 30 double J u reteral stent was positioned in the usual fashion with one end coiling in the bladder and the other end coiling in the renal pelvis. This was confirmed with a combination of fluoroscopy and endoscopy. A retention suture was not used. The bladder was drained and the procedure was concluded. He was transported to the post anesthetic recover unit in stable and satisfactory condition. Discharge medications include Percocet, Septra, and Flomax. Specimens ID Type Source Tests Collected by Time 1 : kidney stone Stone Kidney, Stone KIDNEY STONE ANALYSIS Jack Montes, R.N. 08/02/2019 1405 Drains None Estimated Blood Loss 10 mL Implants Implant Name Type Inv. Item Serial No. Chemical Manager Lot No. LRB No. Used STNT URET LP [id number] - SNA - [id number] Ureteral Stent STNT URET LP CNTR [id number] NA [facility] [id number] Right 1 Abdulaziz Aguilar M.D. LE SOLUTIONS ARCHITECT documented in this encounter Plan of Treatment Scheduled Referrals Name Type Priority Associated Diagnoses Order [facility] Urology office Outpatient Referral Routine Expect ed: visit (clinic) 08/09/2019 (Approximate), Expires: 08/02/2022 documented as of this encounter Procedures Procedure Name Priority Date/Time Associated Diagnosis Comme nts KIDNEY STONE ANALYSIS Routine 08/02/2019 2:05 PM Urolithiasis Results for this [employer] ARCHITECT procedure are i n the results section. URETEROSCOPY WITH 08/02/2019 1:22 PM Urolithiasis LASER LITHOTRIPSY [employer] ARCHITECT documented in this encounter Results Kidney Stone Analysis (08/02/2019 2:05 PM ORACLE SOL[employer] ARCHITECT) Component Value Ref Test Analysis Performed At Patholo gist Range Method Time Signature Source Stone, Kidney, 08/05/2019 [facility] Stone 11:41 PM [employer] ARCHITECT KIDST 90% Calcium oxalate monohydrate 08/05/20 [facility] Interpretation 10% Calcium phosphate (apatite) 11: 41 PM [employer] ARCHITECT Specimen (Source) Anatomical Collection Method Collection Time Re ceived Time Location / / Volume Laterality Stone (Kidney, 08/02/2019 2:05 PM Stone) [employer] ARCHITECT Abdulaziz Aguilar M.D. LAB MISC ORDERABLES Performing Organization Address City/State/ZIP Code Phon e Number [facility] [address] [place], [place] [address] [place], [place] [address]. [place] [address] Laboratory Medicine and Pathology [address] [place] documented in this encounter Visit Diagnoses Diagnosis Urolithiasis - Primary documented in this encounter Admitting Diagnoses Diagnosis Urolithiasis documented in this encounter Administered Medications Inactive Administered Medications - up to 3 most recent administrations Medication Order MAR Action Action Date Dose Rate Site lactated ringers Rate/Dose Verify 08/02/2019 1:39 PM [employer] ARCHITECT 20 mL/hr, intravenous, Continuous, Starting on Thu08/02/19 at 1145, Pre-Op New Bag 08/02/2019 12:02 PM [employer] ARCHITECT 20 mL/hr 20 mL/hr metoprolol tablet 12.5 mg (LOPRESSOR) 12.5 mg, oral, Once as needed, if patien t did not take their last scheduled dose of beta olvin prior to arrival, Starting on Thu 9 at 1142, For 1 dose, Pre-Op, Do not give if patient does not take scheduled beta blockers, if patient is receiving intravenous vasopressors or inotropes, if he art rate is less than 50 beats per minute, if systolic blood pres sure is less than 90 mmHg or if diastolic blood pressure is less than 40 mmHg, or if patient has an allergy to metoprolol. sodium chloride 0.9 % injection 10 mL 10 mL, intravenous, As needed, line care , Starting on Thu08/02/19 at 1142, Pre-Op, Peripheral Intravenous Catheter and Rapid Infusion Cat heter, prior to blood sampling, post blood transfusion or post blood samplin g sodium chloride 0.9 % injection 3 mL 3 mL, intravenous, As needed, line care, Starting on Thu08/02/19 at 1142, Pre-Op, Prior to and following infusion and betw een multiple consecutive infusions: sodium chloride 0.9 % injection sodium chloride 0.9 % injection 3 mL 3 mL, intravenous, Every 12 hours schedu led, First dose on Thu08/02/19 at 2100, Pre-Op, Peripheral Intravenous Catheter and Rapid Infu roger Catheter, when no infusion to maintain patency documented in this encounter Active and Recently Administered Medications Times are shown in [employer] ARCHITECT. Scheduled Medication Order 07/31/2019 08/01/2019 08/02/2019 ceFAZolin in NaCl 0.9 % IVPB 2 g (ANCEF) (COMPLETED) 1327 (Given - Provider: Cristi Sumner APRN, SERENA) 2 g (rounded from 2.525 g = 25 mg/kg ? 101 kg), intravenous, at 220 mL/hr, Administer over 30 Minutes, Once, On Thu08/02/19 at 1145, For 1 dose, Intra-Op, Preoperatively within 1 hour prior to surgica l incision premix bag, Drug Monitoring P ashlyn: Pharmacist to adjust medication dosing based on indication and drug clearance factors., Indications: Prophylaxis, surgical lidocaine 10 mg/mL (1 %) injection 1 mL (XYLOCAINE) (COMPLETED) 1324 (Given - Provider: Cristi Sumner APRN, SERENA) 1 mL, infiltration, Once, On Thu 9 at 1145, For 1 dose, Pre-Op, May admin up to 1 mL at the site of IV site if not allergic to lidocaine sodium chloride 0.9 % injection 3 mL 3 mL, intravenous, Every 12 hours schedu led, First dose on Thu08/02/19 at 2100, Pre-Op, Peripheral Intravenous Catheter and Rapid Infusion Catheter, when no infusion to maintain patency sodium chloride 0.9 % injection 3 mL 3 mL, intravenous, Every 12 hours schedu led, First dose on Thu08/02/19 at 2100, Pre-Op, Peripheral Intravenous Catheter and Rapid Infusion Catheter, when no infusion to maintain patency Continuous Medication Order 07/31/2019 08/01/2019 08/02/2019 lactated ringers 1202 (New Bag - Provider: Ava Boateng RSmitaNSmita)1339 (Rate/Dose Verify - Provider: Cristi Sumner APRN, WATER TECHNICIAN)1404 (Anesthesia Volume Adjustment - Provider: Cristi Sumner, FORENSIC MANAGER, WATER TECHNICIAN) 20 mL/hr, intravenous, Continuous, Starting on Thu08/02/19 at 1 145, Pre-Op PRN Medication Order 07/31/2019 08/01/2019 08/02/2019 albuterol nebulizer solution 2.5 mg (ACCUNEB) 2.5 mg, nebulization, Once as needed, sh ortness of breath, Starting Thu08/02/19 at 1425, For 1 dose, PACU & Post-Op belladonna alkaloids-opium 16.2-60 mg suppository 1 carrasco ppository (B&O SUPPRETTS) 1 suppository, rectal, Every 8 hours PRN , bladder spasms, Starting Thu08/02/19 at 1419 droperidol injection 0.625 mg (INAPSINE) 0.625 mg, intravenous, Every 6 hours PRN , nausea, vomiting, Starting Thu08/02/19 at 1425, For 48 hours, PACU & Post-Op, Total of 2 doses in 24 hour period. RASS must be -2 or higher to administer. If nausea and vomiting persists, move to granisteron. (order of antiemetic administration - ondansetron then droperidol then granisetron) ECG is not necessary to administer droperidol (INAPSINE), esrtada oziel if the patient has an ECG within the last 12 months with the most recent showing a prolonged QTc (greater than or equal to 480 msec for women and 470 msec for men), please contact Anesthesiologist fentaNYL injection 25 mcg (SUBLIMAZE) 25 mcg, intravenous, Every 2 min PRN, Fo r pain 4 or greater (maximum 100 mcg). If max dose of Fentanyl is reached and if pain is greater than 4, discontinue Fentanyl: give Hydromorphone, Starting Thu08/02/19 at 1425, PACU & Post-Op HYDROmorphone injection 0.5 mg (DILAUDID) 0.5 mg, intravenous, Every 5 min PRN, mo derate pain or score 4-6 of 10, severe pain or score 7-10 of 10, Starting Thu08/02/19 at 1425, For 4 doses, PACU & Post-Op, Up to maximum total dose of 2 mg ioversol 240 mg iodine/mL injection (OPTIRAY 240) (CANCELED) 1342 (Given - Provider: Abdulaziz Aguilar M.D.) As needed, Starting on Thu08/02/19 at 1342, Intra-Op metoprolol tablet 12.5 mg (LOPRESSOR) 12.5 mg, oral, Once as needed, if patien t did not take their last scheduled dose of beta olvin prior to arrival, Starting on Thu08/02/19 at 1142, For 1 dose, Pre-Op, Do not give if patient does not t fantasma scheduled beta blockers, if patient is receiving intravenous vasopressors or inotropes, if heart rate is less than 50 beats per minute, if systolic blood pressure is less than 90 mmHg or if diastoli c blood pressure is less than 40 mmHg, o r if patient has an allergy to metoprolol. naloxone injection 0.2 mg (NARCAN) 0.2 mg, intravenous, As needed, respirat ory depression, Starting Thu08/02/19 at 1421, For respiratory rate less than 8 breaths per minute or RASS score of -3, -4, -5. Apply oxygen to keep oxygen saturations greater than 90% and notify service. oxyCODONE-acetaminophen 5-325 mg per tablet 1 tablet (PERCOCET) 1 tablet, oral, Every 6 hours PRN, sever e pain or score 7-10 of 10, Starting Thu08/02/19 at 1421 sodium chloride 0.9 % injection 10 mL 10 mL, intravenous, As needed, line care , Starting Thu08/02/19 at 1142, Pre-Op, Peripheral Intravenous Catheter and Rapid Infusion Catheter, prior to blood sampling, post blood transfusion or post blood sampling sodium chloride 0.9 % injection 10 mL 10 mL, intravenous, As needed, line care , Starting on Thu08/02/19 at 1142, Pre- Op, Peripheral Intravenous Catheter and Rapid Infusion Catheter, prior to blood sampling, post blood transfusion or post blood sampling sodium chloride 0.9 % injection 3 mL 3 mL, intravenous, As needed, line care, Starting Thu08/02/19 at 1142, Pre-Op, Prior to and following infusion and between multiple consecutive infusions: sodium chloride 0.9 % injection sodium chloride 0.9 % injection 3 mL 3 mL, intravenous, As needed, line care, Starting on Thu08/02/19 at 1142, Pre- Op, Prior to and following infusion and between multiple consecutive infusions: sodium chloride 0.9 % injection documented in this encounter
--- OUTSIDE RECORDS SUMMARY | 2022-07-18 08:50 | XMS_ITS | Encounter Summary ---
:1975 Author Organization [facility] Address [address] [place] [address] Care Team Providers Name Role Phone Unavailable Primary Care Provider Unavailable Encounter Details Date Type Department Care Team Description 09/12/2019 Hospital Encounter Department of Laboratory Bubba Burnham, Urolithiasis Medicine in [facility] [address] [place] [phone] Social History Tobacco Use Types Packs/Day Years [...] More than 4 times per year 09/30/2020 moravian services? Do you belong to any clubs [...] 201805/02/2020 OTC) 20 mg EC tablet daily. co-enzyme Q-10 (CO Q-10) Take [...] Name Priority Date/Time Associated Diagnosis Comme nts BASIC METABOLIC Routine 09/12/2019 7:41 AM Urolithiasis Result s for this PANEL, S/P BEEF TRIMMER procedure are i n the results section. documented in this encounter Results BMP (Basic Metabolic Panel) (09/12/2019 7:41 AM BEEF TRIMMER) P athologist Signature Potassium, S 4.3 3.6 - 5.2 09/12/2019 [facility] mmol/L 8:34 AM BEEF TRIMMER Sodium, S 142 135 - 145 09/12/2019 [facility] mmol/L 8:34 AM BEEF TRIMMER Chloride, S 104 98 - 107 09/12/2019 [facility] mmol/L 8:34 AM BEEF TRIMMER Bicarbonate, S 25 22 - 29 09/12/2019 [facility] mmol/L 8:34 AM BEEF TRIMMER Anion Gap 13 7 - 15 09/12/2019 [facility] 8:34 AM BEEF TRIMMER BUN (Blood Urea 13 8 - 24 09/12/2019 [facility] Nitrogen), S mg/dL 8:34 AM BEEF TRIMMER Creatinine 1.05 0.74 - 09/12/2019 [facility] 1.35 mg/dL 8:34 AM BEEF TRIMMER eGFR-Non 87 >=60 09/12/2019 [facility] Black/ mL/min/BSA 8:34 AM BEEF TRIMMER [place] Comment: ----ADDITIONAL INFORMATION---- Estimated GFR calculated using the 2009 CKD_EPI creatinine equation. eGFR-Black/ >90 >=60 mL/min/BSA 2018 8:34 AM BEEF TRIMMER [facility] Comment: ----ADDITIONAL INFORMATION---- Estimated GFR calculated using the 2009 CKD_EPI creatinine equation. Calcium, Total, S 9.3 8.6 - 10.0 mg/dL 09/12/2019 8:34 AM BEEF TRIMMER [facility] Glucose, S 92 70 - 140 mg/dL 09/12/2019 8:34 AM BEEF TRIMMER [facility] Specimen Anatomical Collection Method Collection Time Receive d Time (Source) Location / / Volume Laterality Blood (Blood, 09/12/2019 7:41 AM 09/12/20 7:44 Venous) BEEF TRIMMER AM BEEF TRIMMER Rena Burnham P.A.-C. LAB BLOOD ADD-ON Performing Organization Address City/State/ZIP Code Phon e Number [facility] [address] [place], [place] [address] [address] [place] [address] System in [place] [address] documented in this encounter Visit Diagnoses Diagnosis Urolithiasis documented in this encounter
--- OUTSIDE RECORDS SUMMARY | 2022-07-18 08:50 | XMS_ITS | Encounter Summary ---
:1975 Author Organization [facility] Address [address] [place] [address] Care Team Providers Name Role Phone Unavailable Primary Care Provider Unavailable Reason for Referral Outpatient (Routine) - Closed Specialty Diagnoses / Procedures Referred By Contact Refer red To Contact Urology Diagnoses n/a Rena Burnham, P.A.-C. [facility] [address] [phone] Referral ID Status Reason Start Date Expiration Date Visits Requ ested Visits Authorized [id number] Closed 08/09/2019 08/08/2020 1 1 TY SHERIFF CHIEF Reason for Visit Reason Comments Post-op stent removal Outpatient (Routine) - Closed Specialty Diagnoses / Procedures Referred By Contact Refer red To Contact Urology Abdulaziz Aguilar M.D. [facility] [address] [phone] Referral ID Status Reason Start Date Expiration Date Visits Requ ested Visits Authorized [id number] Closed 08/02/2019 08/01/2020 1 1 Encounter Details Date Type Department Care Team Description 08/09/2019 Office Visit Department of Urology Rena Burnham Urol ithiasis [facility] [place] [address] [facility] [address] [place] [phone] Social History Tobacco Use Types Packs/Day [...] or relatives? How often do you attend samaritan or More than 4 times per year 09/30/2020 buddhist services? Do you belong to any clubs or Patient refused 09/30/2020 organizations such as samaritan groups, unions, fraternal or athletic groups, or [...] Sign Reading Time Taken Comments Blood Pressure 126/81 08/09/2019 10:03 AM DEPUTY SHERIFF CHIEF Pulse 70 08/09/2019 10:03 AM DEPUTY SHERIFF CHIEF Temperature 36.8 ??C (98.2 ??F) 08/09/2019 10:03 AM DEPUTY SHERIFF CHIEF Respiratory Rate - - Oxygen Saturation - - Inhaled Oxygen Concentration - - Weight - - Height - - Body Mass Index - - documented in this encounter Progress Notes Rena Burnham P.A.-C. - 08/09/2019 10:00 AM CST SUBJECTIVE CHIEF COMPLAINT/REASON FOR VISIT One week postop right ureteroscopy stone extraction HISTORY OF PRESENT ILLNESS [This is a pleasant 44-year-old gentleman who is 1 week postop right ureteroscopy stone extraction. He was unable to pass a 5 x 5 x 2 stone at the right distal UVJ had significant pain. He admits the first 3 days following surgery were difficulty was passing a lot of blood and clots and having signific ant pain on the flank. He continued Flomax and antibiotic without difficulty, his pain significantlyimproved at postop day 3. He has returned to normal bowel movements, not requiring the use of any narcotics. He has 3 doses remaining of his antibiotic. REVIEW OF SYSTEMS Per HPI. Pain 0/10 OBJECTIVE VITAL SIGNS BP 126/81 Pulse 70 Temp 36.8 ??C (Temporal) PHYSICAL EXAMINATION General: Overall well-appearing, no acute distress. Skin: No raised areas, rashes or lesions to areas I inspected. Eyes: No scleral icterus, normal conjunctivae. Respiratory: Normal respiratory effort. Musculoskeletal: Walks with a steady gait, without assistance. Psychiatric: Appropriate affect. Neurological: Alert and oriented x4. DIAGNOSTICS Laboratory studies 08/02/2019 Stone analysis-90% calcium oxalate and 10% calcium phosphate ASSESSMENT / PLAN ASSESSMENT/PLAN #1 1 week postop right ureteroscopy stone extraction #2 Calcium oxalate stone Stent removed in its entirety without difficulty today, this was on a retention suture. He was instructed to increase fluids today and tomorrow, take ibuprofen 600 mg every 6 hours for discomfort continue oral antibiotic until completed. I expect all of his flank pain has resolved within the next 12 hours. Recommend 24 urine super saturation BMP and renal ultrasound in about 5-6 weeks, follow-up withmyself to discuss PATIENT EDUCATION Ready to learn, no apparent learning barriers were identified; learning preferences include listening. Explained diagnosis and treatment plan; patient expressed understanding of the content. Thirty minutes was spent with the patient, greater than 50% of this time was spent in counseling andeducation TY SHERIFF CHIEF documented in this encounter Plan of Treatment Scheduled Referrals Name Type Priority Associated Diagnoses Order S [facility] Urology office Outpatient Referral Routine Expect ed: visit (clinic) 09/20/2019 (Approximate), Expires: 08/09/2022 documented as of this encounter Results (ABNORMAL) Supersaturation Profile, 24 Hour, Urine (09/13/2019 10:16 AM DEPUTY SHERIFF CHIEF) P athologist Signature Sodium, 24 HR, 163 41 - 227 09/15/2019 ALYSSA U mmol/24 h 3:17 PM DEPUTY SHERIFF CHIEF Comment: Not a 24 hour collection; nayely ls do not apply. Potassium, 24 HR, U 50 17 - 77 mmol/24 h 09/15/2019 3 :17 PM DEPUTY SHERIFF CHIEF ALYSSA Comment: Not a 24 hour collection; nayely ls do not apply. Calcium, 24 HR, U 126 <250 mg/24 h 09/15/2019 3:17 PM DEPUTY SHERIFF CHIEF ALYSSA Comment: Not a 24 hour collection; normals do not apply. ----ADDITIONAL INFORMATION---- This test was developed and its performa nce characteristics determined by [facility] in a manner co nsistent with CLIA requirements. This test has not bee n cleared or approved by the U.S. Food and Drug Admin istration. Magnesium, 24 HR, U <63 51 - 269 mg/24 h 09/15/2019 3: 17 PM DEPUTY SHERIFF CHIEF ALYSSA Comment: Not a 24 hour collection; normals do not apply. ----ADDITIONAL INFORMATION---- This test has been modified from the man ufacturer's instructions. Its performance characteri stics were determined by [facility] in a manner co nsistent with CLIA requirements. This test has not bee n cleared or approved by the U.S. Food and Drug Admin istration. Chloride, 24 HR, U 135 40 - 224 mmol/24 h 09/15/2019 3 :17 PM DEPUTY SHERIFF CHIEF ALYSSA Comment: Not a 24 hour collection; nayely ls do not apply. Phosphorus, 24 HR, U 911 <1100 mg/24 h 09/15/2019 3:17 PM DEPUTY SHERIFF CHIEF ALYSSA Comment: Not a 24 hour collection; nayely ls do not apply. Sulfate Urine 20 7 - 47 mmol/24 h 09/15/2019 3:29 PM DEPUTY SHERIFF CHIEF ALYSSA Comment: Not a 24 hour collection; normals do not apply. ----ADDITIONAL INFORMATION---- This test was developed and its performa nce characteristics determined by [facility] in a manner co nsistent with CLIA requirements. This test has not bee n cleared or approved by the U.S. Food and Drug Admin istration. Citrate Excretion, U 289 (L) 314 - 1191 mg/24 h 09/15/2019 3:17 PM DEPUTY SHERIFF CHIEF ALYSSA Comment: Not a 24 hour collection; normals do not apply. ----ADDITIONAL INFORMATION---- This test was developed and its performa nce characteristics determined by [facility] in a manner co nsistent with CLIA requirements. This test has not bee n cleared or approved by the U.S. Food and Drug Admin istration. Oxalate, U (mmol/24 h) 0.22 0.11 - 0.46 mmol/24 h 09/15 2:56 PM DEPUTY SHERIFF CHIEF ALYSSA Comment: Not a 24 hour collection; normals do not apply. ----ADDITIONAL INFORMATION---- This test was developed and its performa nce characteristics determined by [facility] in a manner co nsistent with CLIA requirements. This test has not bee n cleared or approved by the U.S. Food and Drug Admin istration. Oxalate, mg/24 h 19.4 9.7 - 40.5 mg/24 h 09/15/2019 2:5 6 PM DEPUTY SHERIFF CHIEF ALYSSA Comment: Not a 24 hour collection; nayely ls do not apply. pH, 24 HR, U 5.9 4.5 - 8.0 09/15/2019 3:46 PM DEPUTY SHERIFF CHIEF ALYSSA Comment: ----ADDITIONAL INFORMATION---- This test was developed and its performa nce characteristics determined by [facility] in a manner co nsistent with CLIA requirements. This test has not bee n cleared or approved by the U.S. Food and Drug Admin istration. Uric Acid, 24 HR, 785 (H) <750 (Diet-dependent) mg/24 0 09/15/2019 3:17 PM DEPUTY SHERIFF CHIEF ALYSSA U h Comment: Not a 24 hour collection; normals do not apply. ----ADDITIONAL INFORMATION---- This test has been modified from the [place] ufacturer's instructions. Its performance characteri stics were determined by [facility] in a manner co nsistent with CLIA requirements. This test has not bee n cleared or approved by the U.S. Food and Drug Admin istration. Creatinine, 24 HR, U 1476 mg/24 h 09/15/2019 3:17 PM DEPUTY SHERIFF CHIEF ALYSSA Comment: Not a 24 hour collection; normals do not apply. ----REFERENCE VALUE---- The expected creatinine excretion per 24 hrs for males: 955-2936 mg/24 hrs or 13-29 mg/kg/24 hrs. Note: To convert to mg/kg of body weight /24 hrs, divide the mg/24 h result by the weight in kg. Osmolality, 24 HR, U 269 150 - 1150 mOsm/kg 09/15/2019 3:46 PM DEPUTY SHERIFF CHIEF ALYSSA Comment: ----ADDITIONAL INFORMATION---- This test was developed and its performa nce characteristics determined by [facility] in a manner co nsistent with CLIA requirements. This test has not bee n cleared or approved by the U.S. Food and Drug Admin istration. Ammonium, 24 HR, U 26 15 - 56 mmol/24 h 09/15/2019 4: 31 PM DEPUTY SHERIFF CHIEF ALYSSA Comment: Not a 24 hour collection; normals do not apply. ----ADDITIONAL INFORMATION---- This test has been modified from the [place] ufacturer's instructions. Its performance characteri stics were determined by [facility] in a manner co nsistent with CLIA requirements. This test has not bee n cleared or approved by the U.S. Food and Drug Admin istration. Urea Nitrogen, 24 HR, U 10.9 5.0 - 16.0 g/24 h 09/15/19 20 3:17 PM DEPUTY SHERIFF CHIEF ALYSSA Comment: Not a 24 hour collection; nayely ls do not apply. Protein Catabolic 93 56 - 125 g/24 h 09/15/2019 3:17 ALYSSA Rate, 24 HR, U PM DEPUTY SHERIFF CHIEF Calcium Oxalate 0.21 Reference Mean= 09/15/2019 10:54 R CARO Crystal 1.77 DG PM DEPUTY SHERIFF CHIEF Brushite Crystal -1.75 Reference Mean= 09/15/2019 10:54 ALYSSA 0.21 DG PM DEPUTY SHERIFF CHIEF Hydroxyapatite Crystal 2.00 Reference Mean= 09/15/2019 10:54 ALYSSA 3.96 DG PM DEPUTY SHERIFF CHIEF Uric Acid Crystal 0.51 Reference Mean= 09/15/2019 10:54 ALYSSA 1.04 DG PM DEPUTY SHERIFF CHIEF Sodium Urate Crystal 0.30 Reference Mean= 09/15/2019 10 :54 ALYSSA 1.76 DG PM DEPUTY SHERIFF CHIEF Collection Duration 23 h 09/15/2019 10:54 DREW A PM DEPUTY SHERIFF CHIEF Volume 3140 mL 09/15/2019 10:54 ALYSSA PM DEPUTY SHERIFF CHIEF Interpretation The DG is related to supersa turation. DG is negative for undersaturated 09/15/2019 10:54 ALYSSA solutions, zero for solutions at the solubility produc t, and positive for PM DEPUTY SHERIFF CHIEF saturated solutions. Any value greater than the Reference Mean is considered a ri sk for the respective crystal type formation. Specimen Anatomical Collection Method Collection Time Receive d Time (Source) Location / / Volume Laterality Urine (Urine, 24 09/13/2019 10:16 020 1:07 Hours) AM DEPUTY SHERIFF CHIEF PM DEPUTY SHERIFF CHIEF Narrative This result has an attachment that is no t available. Rena Burnham P.A.-C. LAB URINE ORDERABLES Performing Organization Address City/State/ZIP Code Phon e Number [facility] - [address] [place], [place] [address] [facility] [place] [address] [facility] [address] US Kidneys Bilateral with Bladder (09/12/2019 9:10 AM DEPUTY SHERIFF CHIEF) Anatomical Region Laterality Modality Abdomen, Renal, Ultrasound RST LOS, Ultrasound ARZ LOS, Bila teral Ultrasound Ultrasound FLA LOS Specimen (Source) Anatomical Collection Method Collection Time Re ceived Time Location / / Volume Laterality 09/12/2019 9:15 AM DEPUTY SHERIFF CHIEF Impressions 09/12/2019 9:16 AM DEPUTY SHERIFF CHIEF Normal kidneys. Narrative 09/12/2019 9:16 AM DEPUTY SHERIFF CHIEF EXAM: US KIDNEYS BILATERAL WITH BLADDER COMPARISON: CT August 01, 2019 FINDINGS: Right kidney: 9.9 cm Cortical thickness: Normal. ?? Parenchymal echogenicity: Normal. Collecting system: No hydronephrosis. Masses: None detected. Left kidney: 11.0 cm Cortical thickness: Normal. ?? Parenchymal echogenicity: Normal. Collecting system: No hydronephrosis. Masses: None detected. Bladder: Normal. Procedure Note Gilbert Holland M.D. - 09/12/2019Formattin g of this note might be different from the original. EXAM: US KIDNEYS BILATERAL WITH BLADDER COMPARISON: CT August 01, 2019 FINDINGS: Right kidney: 9.9 cm Cortical thickness: Normal. Parenchymal echogenicity: Normal. Collecting system: No hydronephrosis. Masses: None detected. Left kidney: 11.0 cm Cortical thickness: Normal. Parenchymal echogenicity: Normal. Collecting system: No hydronephrosis. Masses: None detected. Bladder: Normal. IMPRESSION: Normal kidneys. Rena Burnham P.A.-C. IMG US PROCEDURES BMP (Basic Metabolic Panel) (09/12/2019 7:41 AM DEPUTY SHERIFF CHIEF) P athologist Signature Potassium, S 4.3 3.6 - 5.2 09/12/2019 [facility] mmol/L 8:34 AM DEPUTY SHERIFF CHIEF Sodium, S 142 135 - 145 09/12/2019 [facility] mmol/L 8:34 AM DEPUTY SHERIFF CHIEF Chloride, S 104 98 - 107 09/12/2019 [facility] mmol/L 8:34 AM DEPUTY SHERIFF CHIEF Bicarbonate, S 25 22 - 29 09/12/2019 [facility] mmol/L 8:34 AM DEPUTY SHERIFF CHIEF Anion Gap 13 7 - 15 09/12/2019 [facility] 8:34 AM DEPUTY SHERIFF CHIEF BUN (Blood Urea 13 8 - 24 09/12/2019 [facility] Nitrogen), S mg/dL 8:34 AM DEPUTY SHERIFF CHIEF Creatinine 1.05 0.74 - 09/12/2019 [facility] 1.35 mg/dL 8:34 AM DEPUTY SHERIFF CHIEF eGFR-Non 87 >=60 09/12/2019 [facility] Black/ mL/min/BSA 8:34 AM DEPUTY SHERIFF CHIEF [place] Comment: ----ADDITIONAL INFORMATION---- Estimated GFR calculated using the 2009 CKD_EPI creatinine equation. eGFR-Black/ >90 >=60 mL/min/BSA 2018 8:34 AM DEPUTY SHERIFF CHIEF [facility] Comment: ----ADDITIONAL INFORMATION---- Estimated GFR calculated using the 2009 CKD_EPI creatinine equation. Calcium, Total, S 9.3 8.6 - 10.0 mg/dL 09/12/2019 8:34 AM DEPUTY SHERIFF CHIEF [facility] Glucose, S 92 70 - 140 mg/dL 09/12/2019 8:34 AM DEPUTY SHERIFF CHIEF R [facility] Specimen Anatomical Collection Method Collection Time Receive d Time (Source) Location / / Volume Laterality Blood (Blood, 09/12/2019 7:41 AM 09/12/20 7:44 Venous) DEPUTY SHERIFF CHIEF AM DEPUTY SHERIFF CHIEF Rena Burnham P.A.-C. LAB BLOOD ADD-ON Performing Organization Address City/State/ZIP Code Phon e Number [facility] [address] [place], [place] [address] [place] [address] System in [place] documented in this encounter Visit Diagnoses Diagnosis Urolithiasis - Primary Urolithiasis documented in this encounter
--- OUTSIDE RECORDS SUMMARY | 2022-07-18 08:50 | XMS_ITS | Encounter Summary ---
:1975 Author Organization [facility] Address [address] [place] [address] Care Team Providers Name Role Phone Unavailable Primary Care Provider Unavailable Encounter Details Date Type Department Care Team Description 08/29/2019 Clinical Communication Department of Urology Rena Burnham, in [facility] Juan M jesús Landry [address] [facility] [address] [place], [place] [phone] Social History Tobacco Use Types Packs/Day [...] or relatives? How often do you attend mormon or More than 4 times per year 09/30/2020 mormonism services? Do you belong to any clubs or Patient refused 09/30/2020 organizations such as mormon groups, unions, fraternal or athletic groups, or [...] this encounter Miscellaneous Notes Telephone Encounter - Serena Samayoa L.PSmitaN. - 08/29/2019 4:56 PM LOW PRESSURE KETTLE OPERATOR Faxed orders for tamsulosin hcl 0.4mg One tab daily To [facility] a [phone] PRESSURE KETTLE OPERATOR documented in this encounter Plan of Treatment Not on filedocumented as of this encounter Visit Diagnoses Not on filedocumented in this encounter
--- OUTSIDE RECORDS SUMMARY | 2022-07-18 08:50 | XMS_ITS | Encounter Summary ---
:1975 Author Organization [facility] Address [address] [place] [address] Care Team Providers Name Role Phone Unavailable Primary Care Provider Unavailable Encounter Details Date Type Department Care Team Description 08/04/2019 Orders Only [facility] [place] P.[facility].-[facility]. [address] [place] [address] [place], [place] [phone] (Wo rk) Social History Tobacco Use [...] or relatives? How often do you attend oriental orthodox or More than 4 times per year 09/30/2020 adventism services? Do you belong to any clubs or Patient refused 09/30/2020 organizations such as oriental orthodox groups, unions, fraternal or athletic groups, or [...]
--- OUTSIDE RECORDS SUMMARY | 2022-07-18 08:50 | XMS_ITS | Encounter Summary ---
:1975 Author Organization [facility] Address [address] [place] [address] Care Team Providers Name Role Phone Unavailable Primary Care Provider Unavailable Encounter Details Date Type Department Care Team Description 08/29/2019 Orders Only Department of Urology in [facility], [place] P.A.-C. [address] [place] [address] [place], [place] [phone] (Wo rk) Social History Tobacco Use [...] or relatives? How often do you attend uatsdin or More than 4 times per year 09/30/2020 yazidi services? Do you belong to any clubs or Patient refused 09/30/2020 organizations such as uatsdin groups, unions, fraternal or athletic groups, or [...]
--- OUTSIDE RECORDS SUMMARY | 2022-07-18 08:50 | XMS_ITS | Encounter Summary ---
:1975 Author Organization [facility] Address [address] [place] [address] Care Team Providers Name Role Phone Unavailable Primary Care Provider Unavailable Encounter Details Date Type Department Care Team Description 09/12/2019 Hospital Encounter Department of Radiology Michelle Burnham, Urolithiasis in [place], [facility] jesús P.ASmita-Araceli [address] [facility] [address] [place] [address] [place], [place] [phone] Social History Tobacco Use Types Packs/Day [...] or relatives? How often do you attend synagogue or More than 4 times per year 09/30/2020 christian services? Do you belong to any clubs or Patient refused 09/30/2020 organizations such as synagogue groups, unions, fraternal or athletic groups, or [...] Comments Diagnosis US KIDNEYS RAD - Routine 09/12/2019 9:10 Urolithiasis Results for this BILATERAL WITH (most inpatients AM BLOCK PRESS OPERATOR procedure are in BLADDER and all the results outpatients) section. documented in this encounter Results US Kidneys Bilateral with Bladder (09/12/2019 9:10 AM BLOCK PRESS OPERATOR) Anatomical Region Laterality Modality Abdomen, Renal, Ultrasound RST LOS, Ultrasound ARZ LOS, Bila teral Ultrasound Ultrasound FLA LOS Specimen (Source) Anatomical Collection Method Collection Time Re ceived Time Location / / Volume Laterality 09/12/2019 9:15 AM BLOCK PRESS OPERATOR Impressions 09/12/2019 9:16 AM BLOCK PRESS OPERATOR Normal kidneys. Narrative 09/12/2019 9:16 AM BLOCK PRESS OPERATOR EXAM: US KIDNEYS BILATERAL WITH BLADDER COMPARISON: [...]
--- OUTSIDE RECORDS SUMMARY | 2022-07-18 08:50 | XMS_ITS | Encounter Summary ---
:1975 Author Organization [facility] Address [address] [place] [address] Care Team Providers Name Role Phone Unavailable Primary Care Provider Unavailable Reason for Visit Auth/Cert Specialty Diagnoses / Procedures Referred By Contact Refer red To Contact Diagnoses Urolithiasis Urolithiasis [N20.9] Procedures UT CYSTHRSCPY/URTRSCPY LITHO INS STNT CYSTOSCOPY AND RIGHT URETEROSCOPY WITH LASER LITHOTRIPSY, STONE BASKETING AND PLACEMENT OF RIGHT URETERAL STENT Referral ID Status Reason Start Date Expiration Date Visits Requ ested Visits Authorized [id number] 1 1 Encounter Details Date Type Department Care Team Description 08/02/2019 Anesthesia Event [facility] MAIN OR Livia Hussein M.D. [address] [facility] [address] [facility] [place] [address] [address] [place] [place] [phone] (Wo rk) Anesthesia Record Procedure Summary Procedure Name Responsible Anesthesia Start Anesthesia Stop Anesthesiologist Time Time CYSTOSCOPY AND RIGHT Livia Hussein M.D. 08/02/19 1322 1418 URETEROSCOPY, STONE BASKETING AND PLACEMENT OF RIGHT URETERAL STENT (Right) Events Date Time Event Comment 08/02/2019 1257 1322 In Room 1322 An Start Machine/Equipmen t Checked Infection Precautions Foll owed Procedure/Site Verified NPO Sta tus Verified Supine Standard ASA Mon itors Applied 1325 An Induction 1326 An Intubation 1326 Turnover to Proceduralist 1340 Proc Start 1403 Proc Fin 1413 Turnover to ANE Staff 1413 Airway Removal Criteria Met 1413 Extubation/Airway Removed 1413 an stop data 1414 Out of Room 1418 An End I completed my h andoff to the receiving staff during the [facility] we 1. Identified the patient 2. Ident ified the responsible provider 3. Revi ewed the pertinent medical history 4. Discussed the surgical course 5. Review ed intra-op anesthesia management and i ssues during anesthesia 6. Set expectati ons for post-procedure period 7. Allowe d opportunity for questions and ac knowledgement of understanding. Name Total midazolam 1 mg/mL injection 2 mg fentanyl injection 50 mcg/mL 100 mcg propofol 10 mg/mL 200 mg lidocaine 10 mg/mL (1 %) injection 1 mL (XYLOCAINE) 6 mL dexamethasone 4 mg/mL injection 4 mg ondansetron PF 4 mg/2 mL injection 4 mg HYDROmorphone 1 mg/mL injection 0.5 mg ceFAZolin in NaCl 0.9 % IVPB 2 g (ANCEF) 2 g ketorolac 30 mg injection 30 mg lactated ringers 800 mL Agents No agents on file. Blood No blood administrations on file. Lines, Drains, and Airways Type Details Placement Removal Peripheral IV Placement Date: 08/02/19 1210 by 08/02/19 1600 b y 08/02/19; Placement Ava Boateng Bergman, Jessica, Time: 1210; Catheter R.N. R.N. Size: 20 G; Orientation: Right; Location: Forearm; Site Prep: Chlorhexidine (Preferred); Removal Date: 08/02/19; Removal Time: 1600; Removal Reason: Patient discharged Supraglottic Airway Placement Date: 08/02/19 1326 by 08/02/19 14 13 by 08/02/19; Placement Cristi Sumner, Bubba Sumner D, Time: 1326 (created via SERENA VALENTE APRN, TAM WOLFF procedure documentation); Mask Ventilation: Easy mask; Removal Date: 08/02/19; Removal Time: 1413 (RETIRED) Incision 08/02/19; 1405; Penis; 08/02/19 1405 by 06/04 1418 by tegaderm; 06/04/21 Jack Montes, RLilibeth. [facility] ic-Backgroun (Removed by background Azael abbott completion utility); Automated [facility] Job 1418 (Removed by background completion utility) documented in this encounter Social History Tobacco Use Types Packs/Day Years [...] More than 4 times per year 09/30/2020 cheondoism services? Do you belong to any clubs [...] on file documented as of this encounter OR Notes Anesthesia Postprocedure Evaluation - Livia Hussein M.D. - 08/02/2019 3:13 PM CST Patient: Carlos A Gamez Procedure Summary Date: 08/02/19 Room / Location: [address] / [facility] - GI Anesthesia Start: 1322 Anesthesia Stop: 8 Procedure: CYSTOSCOPY AND RIGHT URETEROSCOPY, STONE BASKETING AND PLACEMENT OF RIGHT URETERAL STENT(Right ) Diagnosis: Urolithiasis (Urolithiasis [N20.9]) Surgeon: Abdulaziz Aguilar M.D. Responsible Provider: Livia Hussein M.D. Anesthesia Type: general ASA Status: 2 Anesthesia Type: general Last vitals Vitals Value Taken Time BP 146/97 08/02/2019 3:00 PM Temp 36.7 ??C 08/02/2019 2:17 PM Pulse 70 08/02/2019 3:13 PM Resp 16 08/02/2019 2:17 PM SpO2 95 % 08/02/2019 3:13 PM Vitals shown include unvalidated device data. Please reference Vitals flowsheet for most recent vital signs. Anesthesia Post Evaluation Patient Disposition: dismissal Cardiovascular status: hemodynamics (HR & BP) acceptable Respiratory status: patent airway with spontaneous effort Temperature: normothermic Oxygen requirements: room air Level of consciousness: awake Pain score: pain adequately controlled and/or at baseline Post Op nausea/vomiting: none Hydration status: euvolemic CH ENGINE OPTIMIZATION CONSULTANT Anesthesia Procedure Notes - Cristi Sumner APRN, CRNA - 08/02/2019 1:31 PM CSTAssociated Order(s): Airway Airway Date/Time: 08/02/2019 1:26 PM Performed by: Cristi Sumner APRN, CRNA Authorized by: Livia Hsusein M.D. Patient location during procedure: OR / Procedure Area PROCEDURE DETAILS: Mask difficulty assessment: easy mask Final airway type: supraglottic airway Laryngeal Manipulation: no Supraglottic device: air-Q Supraglottic device size: 4 Adult device size: 4 Number of attempt to successful placement: 1 Airway confirmation: bilateral breath sounds, positive ETCO2 and bilateral chest rise Other previous techniques attempted: none PRE PROCEDURE DETAILS: Pre evaluation for airway management: procedure Urgency: elective Preoxygenation: bag valve mask SEDATION / ANESTHESIA Anesthesia method: none POST PROCEDURE DETAILS: Procedure outcome: successful Airway event: no complications CH ENGINE OPTIMIZATION CONSULTANT Anesthesia Preprocedure Evaluation - Livia Hussein M.D. - 2019 1:49 PM CST Preprocedure Anesthesia & H&P Assessment Procedure Summary Date/Time: 08/02/19 1300 Procedure: CYSTOSCOPY AND RIGHT URETEROSCOPY WITH LASER LITHOTRIPSY, STONE BASKETING AND PLACEMENT OF RIGHT URETERAL STENT (Right ) Diagnosis: Urolithiasis [N20.9] Pre-op diagnosis: Urolithiasis [N20.9] Location: [place] [address] / [facility] - GI Surgeon: Abdulaziz Aguilar M.D. Pertinent components of the patient's history including current problem list, medical history, surgical history, family history, social history, medications and allergies were reviewed. Present illnessand pre-op diagnosis were confirmed. The planned surgery / procedure was verified with the patient /legal guardian. The patient's general health condition remains unchanged PROBLEM LIST Relevant Problems CV (+) Hypertension Essential Primary Other (+) Smoking Tobacco Use Personal History OBJECTIVE PHYSICAL EXAMINATION Airway (HEENT) Mallampati: II TM Distance: >3 FB Neck ROM: Full Mouth Opening: >3 cm Upper Lip Bite Test Class: I Cardiovascular Rhythm: Regular Rate: Normal Cardiovascular Assessment: cardiovascular normal Functional Capacity: >4 METS Pulmonary Pulmonary Assessment: Clear General / Constitutional Constitutional Assessment: Normal General State of Health:: healthy appearing and calm Neurological Neurologic Assessment:??alert Dental Dental Assessment: dentition intact ASSESSMENT / PLAN ANESTHESIA PLAN ASA: 2 Anesthesia Plan: general Patient seen and allergies reviewed, anesthesia plan and risks discussed directly with patient /legal guardian or through an sign shop supervisor. The use of blood products not discussed Approval to Proceed: approved for anesthesia CH ENGINE OPTIMIZATION CONSULTANT documented in this encounter Plan of Treatment Not on filedocumented as of this encounter Procedures Procedure Name Priority Date/Time Associated Diagnosis Comme nts LDA ANE Routine 08/02/2019 1:31 PM Results f or this NON-SURGICAL AIRWAY SEARCH ENGINE OPTIMIZATION CONSULTANT procedur e are in the results section. documented in this encounter Results LDA ANE NON-SURGICAL AIRWAY (08/02/2019 1:31 PM SEARCH ENGINE OPTIMIZATION CONSULTANT) Narrative Cristi Sumner APRN, CRNA - 08/02/20 1:31 PM SEARCH ENGINE OPTIMIZATION CONSULTANT Cristi Sumner APRN, CRNA ? 08/02/2019 ??1:32 PM Airway Date/Time: 08/02/2019 1:26 PM Performed by: Cristi Sumner APRN, C RNA Authorized by: Livia Hussein M.D. Patient location during procedure: OR / Procedure Area PROCEDURE DETAILS: Mask difficulty assessment: easy mask Final airway type: supraglottic airway Laryngeal Manipulation: no ?? Supraglottic device: air-Q ?? Supraglottic device size: 4 ?? Adult device size: 4 Number of attempt to successful placemen t: 1 Airway confirmation: bilateral breath so unds, positive ETCO2 and bilateral chest rise Other previous techniques attempted: non e PRE PROCEDURE DETAILS: Pre evaluation for airway management: pr ocedure Urgency: elective Preoxygenation: bag valve mask SEDATION / ANESTHESIA Anesthesia method: none POST PROCEDURE DETAILS: ? Procedure outcome: successful ?? Airway event: no complications Livia Hussein M.D. ANESTHESIA ORDERABLES documented in this encounter Visit Diagnoses Not on filedocumented in this encounter Administered Medications Inactive Administered Medications - up to 3 most recent administrations Medication Order MAR Action Action Date Dose Rate Site ceFAZolin in NaCl 0.9 % IVPB 2 g Given 08/02/2019 1:27 PM SEARCH ENGINE OPTIMIZATION CONSULTANT 2 g (ANCEF) 2 g (rounded from 2.525 g = 25 mg/kg ? 101 kg), intravenous, at 220 mL/hr, Administer over 30 Minutes, Once, On Thu08/02/19 at 1145, For 1 dose, Intra-Op, Preoperatively within 1 hour prior to surgical incision premix bag, Drug Monitoring Program: Pharmacist to adjust medication dosing based on indication and drug clearance factors., Indications: Prophylaxis, surgical dexamethasone injection (DECADRON) Given 08/02/2019 1:29 PM SEARCH ENGINE OPTIMIZATION CONSULTANT 4 mg As needed, Starting on Thu08/02/19 at 1329, Anesthesia Intra-op fentaNYL injection (SUBLIMAZE) Given 08/02/2019 1:25 PM SEARCH ENGINE OPTIMIZATION CONSULTANT 100 mcg intravenous, As needed, Starting on Thu08/02/19 at 1325, Anesthesia Intra-op HYDROmorphone injection (DILAUDID) Given 08/02/2019 1:32 PM SEARCH ENGINE OPTIMIZATION CONSULTANT 0.5 mg As needed, Starting on Thu08/02/19 at 1332, Anesthesia Intra-op ketorolac injection (TORADOL) Given 08/02/2019 2:01 PM SEARCH ENGINE OPTIMIZATION CONSULTANT 30 mg As needed, Starting on Thu08/02/19 at 1401, Anesthesia Intra-op lactated ringers Rate/Dose Verify 08/02/2019 1:39 PM SEARCH ENGINE OPTIMIZATION CONSULTANT 20 mL/hr, intravenous, Continuous, Starting on Thu08/02/19 at 1145, Pre-Op New Bag 08/02/2019 12:02 PM SEARCH ENGINE OPTIMIZATION CONSULTANT 20 mL/hr 20 mL/hr lidocaine 10 mg/mL (1 %) injection 1 mL Given 08/02/2019 1:24 PM SEARCH ENGINE OPTIMIZATION CONSULTANT 6 mL (XYLOCAINE) 1 mL, infiltration, Once, On Thu08/02/19 at 1145, For 1 dose, Pre-Op, May admin up to 1 mL at the site of IV site if not allergic to lidocaine midazolam (PF) injection (VERSED) Given 08/02/2019 1:22 PM SEARCH ENGINE OPTIMIZATION CONSULTANT 2 mg intravenous, As needed, Starting on Thu08/02/19 at 1322, Anesthesia Intra-op ondansetron (PF) injection (ZOFRAN) Given 08/02/2019 1:32 PM SEARCH ENGINE OPTIMIZATION CONSULTANT 4 mg As needed, Starting on Thu08/02/19 at 1332, Anesthesia Intra-op propofol injection (DIPRIVAN) Given 08/02/2019 1:25 PM SEARCH ENGINE OPTIMIZATION CONSULTANT 200 mg intravenous, As needed, Starting on Thu08/02/19 at 1325, Anesthesia Intra-op documented in this encounter
--- OUTSIDE RECORDS SUMMARY | 2022-07-18 08:50 | XMS_ITS | Encounter Summary ---
:1975 Author Organization [facility] Address [address] [place] [address] Care Team Providers Name Role Phone Unavailable Primary Care Provider Unavailable Encounter Details Date Type Department Care Team Description 09/12/2019 Hospital Encounter Department of Laboratory Bubba Burnham, Urolithiasis Medicine in [facility] [address] [place] [phone] Social History Tobacco Use Types Packs/Day Years [...] or relatives? How often do you attend congregational or More than 4 times per year 09/30/2020 restoration services? Do you belong to any clubs or Patient refused 09/30/2020 organizations such as congregational groups, unions, fraternal or athletic groups, or [...] Name Priority Date/Time Associated Diagnosis Comme nts SUPERSATURATION, Routine 09/13/2019 10:16 Urolithiasis Results for this 24H, U AM AUTOMOTIVE BRAKE ADJUSTER procedure are i n the results section. documented in this encounter Results (ABNORMAL) Supersaturation Profile, 24 Hour, Urine (09/13/2019 10:16 AM AUTOMOTIVE BRAKE ADJUSTER) P athologist Signature Sodium, 24 HR, 163 41 - 227 09/15/2019 ALYSSA U mmol/24 h 3:17 PM AUTOMOTIVE BRAKE ADJUSTER Comment: Not a 24 hour collection; nayely ls do not apply. Potassium, 24 HR, U 50 17 - 77 mmol/24 h 09/15/2019 3 :17 PM AUTOMOTIVE BRAKE ADJUSTER ALYSSA Comment: Not a 24 hour collection; nayely ls do not apply. Calcium, 24 HR, U 126 <250 mg/24 h 09/15/2019 3:17 PM AUTOMOTIVE BRAKE ADJUSTER ALYSSA Comment: Not a 24 hour collection; normals do not apply. ----ADDITIONAL INFORMATION---- This test was developed and its performa nce characteristics determined by [facility] in a manner co nsistent with CLIA requirements. This test has not bee n cleared or approved by the U.S. Food and Drug Admin istration. Magnesium, 24 HR, U <63 51 - 269 mg/24 h 09/15/2019 3: 17 PM AUTOMOTIVE BRAKE ADJUSTER ALYSSA Comment: Not a 24 hour collection; normals do not apply. ----ADDITIONAL INFORMATION---- This test has been modified from the man ufacturer's instructions. Its performance characteri stics were determined by [facility] in a manner co nsistent with CLIA requirements. This test has not bee n cleared or approved by the U.S. Food and Drug Admin istration. Chloride, 24 HR, U 135 40 - 224 mmol/24 h 09/15/2019 3 :17 PM AUTOMOTIVE BRAKE ADJUSTER ALYSSA Comment: Not a 24 hour collection; nayely ls do not apply. Phosphorus, 24 HR, U 911 <1100 mg/24 h 09/15/2019 3:17 PM AUTOMOTIVE BRAKE ADJUSTER ALYSSA Comment: Not a 24 hour collection; nayely ls do not apply. Sulfate Urine 20 7 - 47 mmol/24 h 09/15/2019 3:29 PM AUTOMOTIVE BRAKE ADJUSTER ALYSSA Comment: Not a 24 hour collection; normals do not apply. ----ADDITIONAL INFORMATION---- This test was developed and its performa nce characteristics determined by [facility] in a manner co nsistent with CLIA requirements. This test has not bee n cleared or approved by the U.S. Food and Drug Admin istration. Citrate Excretion, U 289 (L) 314 - 1191 mg/24 h 09/15/2019 3:17 PM AUTOMOTIVE BRAKE ADJUSTER ALYSSA Comment: Not a 24 hour collection; normals do not apply. ----ADDITIONAL INFORMATION---- This test was developed and its performa nce characteristics determined by [facility] in a manner co nsistent with CLIA requirements. This test has not bee n cleared or approved by the U.S. Food and Drug Admin istration. Oxalate, U (mmol/24 h) 0.22 0.11 - 0.46 mmol/24 h 09/15 2:56 PM AUTOMOTIVE BRAKE ADJUSTER ALYSSA Comment: Not a 24 hour collection; normals do not apply. ----ADDITIONAL INFORMATION---- This test was developed and its performa nce characteristics determined by [facility] in a manner co nsistent with CLIA requirements. This test has not bee n cleared or approved by the U.S. Food and Drug Admin istration. Oxalate, mg/24 h 19.4 9.7 - 40.5 mg/24 h 09/15/2019 2:5 6 PM AUTOMOTIVE BRAKE ADJUSTER ALYSSA Comment: Not a 24 hour collection; nayely ls do not apply. pH, 24 HR, U 5.9 4.5 - 8.0 09/15/2019 3:46 PM AUTOMOTIVE BRAKE ADJUSTER ALYSSA Comment: ----ADDITIONAL INFORMATION---- This test was developed and its performa nce characteristics determined by [facility] in a manner co nsistent with CLIA requirements. This test has not bee n cleared or approved by the U.S. Food and Drug Admin istration. Uric Acid, 24 HR, 785 (H) <750 (Diet-dependent) mg/24 0 09/15/2019 3:17 PM AUTOMOTIVE BRAKE ADJUSTER ALYSSA U h Comment: Not a 24 hour collection; normals do not apply. ----ADDITIONAL INFORMATION---- This test has been modified from the [place] ufacturer's instructions. Its performance characteri stics were determined by [facility] in a manner co nsistent with CLIA requirements. This test has not bee n cleared or approved by the U.S. Food and Drug Admin istration. Creatinine, 24 HR, U 1476 mg/24 h 09/15/2019 3:17 PM AUTOMOTIVE BRAKE ADJUSTER ALYSSA Comment: Not a 24 hour collection; normals do not apply. ----REFERENCE VALUE---- The expected creatinine excretion per 24 hrs for males: 955-2936 mg/24 hrs or 13-29 mg/kg/24 hrs. Note: To convert to mg/kg of body weight /24 hrs, divide the mg/24 h result by the weight in kg. Osmolality, 24 HR, U 269 150 - 1150 mOsm/kg 09/15/2019 3:46 PM AUTOMOTIVE BRAKE ADJUSTER ALYSSA Comment: ----ADDITIONAL INFORMATION---- This test was developed and its performa nce characteristics determined by [facility] in a manner co nsistent with CLIA requirements. This test has not bee n cleared or approved by the U.S. Food and Drug Admin istration. Ammonium, 24 HR, U 26 15 - 56 mmol/24 h 09/15/2019 4: 31 PM AUTOMOTIVE BRAKE ADJUSTER ALYSSA Comment: Not a 24 hour collection; normals do not apply. ----ADDITIONAL INFORMATION---- This test has been modified from the [place] ufacturer's instructions. Its performance characteri stics were determined by [facility] in a manner co nsistent with CLIA requirements. This test has not bee n cleared or approved by the U.S. Food and Drug Admin istration. Urea Nitrogen, 24 HR, U 10.9 5.0 - 16.0 g/24 h 09/15/19 20 3:17 PM AUTOMOTIVE BRAKE ADJUSTER ALYSSA Comment: Not a 24 hour collection; nayely ls do not apply. Protein Catabolic 93 56 - 125 g/24 h 09/15/2019 3:17 ALYSSA Rate, 24 HR, U PM AUTOMOTIVE BRAKE ADJUSTER Calcium Oxalate 0.21 Reference Mean= 09/15/2019 10:54 R CARO Crystal 1.77 DG PM AUTOMOTIVE BRAKE ADJUSTER Brushite Crystal -1.75 Reference Mean= 09/15/2019 10:54 ALYSSA 0.21 DG PM AUTOMOTIVE BRAKE ADJUSTER Hydroxyapatite Crystal 2.00 Reference Mean= 09/15/2019 10:54 ALYSSA 3.96 DG PM AUTOMOTIVE BRAKE ADJUSTER Uric Acid Crystal 0.51 Reference Mean= 09/15/2019 10:54 ALYSSA 1.04 DG PM AUTOMOTIVE BRAKE ADJUSTER Sodium Urate Crystal 0.30 Reference Mean= 09/15/2019 10 :54 ALYSSA 1.76 DG PM AUTOMOTIVE BRAKE ADJUSTER Collection Duration 23 h 09/15/2019 10:54 DREW A PM AUTOMOTIVE BRAKE ADJUSTER Volume 3140 mL 09/15/2019 10:54 ALYSSA PM AUTOMOTIVE BRAKE ADJUSTER Interpretation The DG is related to supersa turation. DG is negative for undersaturated 09/15/2019 10:54 ALYSSA solutions, zero for solutions at the solubility produc t, and positive for PM AUTOMOTIVE BRAKE ADJUSTER saturated solutions. Any value greater than the Reference Mean is considered a ri sk for the respective crystal type formation. Specimen Anatomical Collection Method Collection Time Receive d Time (Source) Location / / Volume Laterality Urine (Urine, 24 09/13/2019 10:16 020 1:07 Hours) AM AUTOMOTIVE BRAKE ADJUSTER PM AUTOMOTIVE BRAKE ADJUSTER Narrative This result has an attachment that is no t available. Rena Burnham P.A.-C. LAB URINE ORDERABLES Performing Organization Address City/State/ZIP Code Phon e Number [facility] - [address] [place], [place] [address] [facility] [place] [address] Laboratories-[facility] [address] documented in this encounter Visit Diagnoses Diagnosis Urolithiasis documented in this encounter
--- OUTSIDE RECORDS SUMMARY | 2022-07-18 08:50 | XMS_ITS | Encounter Summary ---
:1975 Author Organization [facility] Address [address] [place] [address] Care Team Providers Name Role Phone Unavailable Primary Care Provider Unavailable Reason for Visit Auth/Cert Specialty Diagnoses / Procedures Referred By Contact Refer red To Contact Diagnoses Urolithiasis Urolithiasis [N20.9] Procedures MD CYSTHRSCPY/URTRSCPY LITHO INS STNT CYSTOSCOPY AND RIGHT URETEROSCOPY WITH LASER LITHOTRIPSY, STONE BASKETING AND PLACEMENT OF RIGHT URETERAL STENT Referral ID Status Reason Start Date Expiration Date Visits Requ ested Visits Authorized [id number] 1 1 Encounter Details Date Type Department Care Team Description 08/02/2019 Surgery [facility] MAIN OR Abdulaziz Aguilar, CYSTOSCOPY AND RIGHT [address]USTIN M.D. URETEROSCOPY, [place] [address] BASKETING AND PLACEMENT [phone] [place], [place] OF RIGHT URETER AL STENT [address] Social History Tobacco Use Types Packs/Day [...] or relatives? How often do you attend christian or More than 4 times per year 09/30/2020 christian services? Do you belong to any clubs or Patient refused 09/30/2020 organizations such as christian groups, unions, fraArista Power or athletic groups, or school groups? How [...] Sign Reading Time Taken Comments Blood Pressure 137/91 08/02/2019 11:57 AM PRINTING PLATE MAKER Pulse 68 08/02/2019 11:57 AM PRINTING PLATE MAKER Temperature 37.3 ??C (99.1 ??F) 08/02/2019 11:57 AM PRINTING PLATE MAKER Respiratory Rate 16 08/02/2019 11:57 AM PRINTING PLATE MAKER Oxygen Saturation 97% 08/02/2019 11:57 AM PRINTING PLATE MAKER Inhaled Oxygen Concentration - - Weight 101 kg (222 lb 10.6 oz) 08/02/2019 11:57 AM PRINTING PLATE MAKER Height 187 cm (6' 1.62) 08/02/2019 11:57 AM PRINTING PLATE MAKER Body Mass Index 28.88 08/02/2019 11:57 AM PRINTING PLATE MAKER documented in this encounter Medications at Time [...] changes to the H&P. Abdulaziz Aguilar M.D. TING PLATE MAKER Source Note - Marcell, Default Authenticator - 07/28/2019 3:05 PM PRINTING PLATE MAKER documented in this encounter OR Notes Op [...] correct patient, procedure and side. A 22 Japanese cystoscope was visually introduced. Sterile Normal Saline [...] No exophytic lesions were observed. A 5 Japanese open-ended ureteral catheter was used to intubate [...] the guide wire in place. A 10 Japanese Red Tinajero catheter was introduced via the [...] place. Over the guide wire a 7 Japanese 22 x 30 double J u reteral [...] Stone Kidney, Stone KIDNEY STONE ANALYSIS Jack Montes RLilibeth. 08/02/2019 1405 Drains None Estimated Blood Loss 10 mL Implants Implant Name Type Inv. Item Serial No. Registered Nurse Supervisor Lot No. LRB No. Used STNT URET LP [id number] - SNA - [id number] Ureteral Stent STNT URET LP CNTR [id number] NA [facility] [id number] Right 1 Abdulaziz Aguilar M.D. TING PLATE MAKER documented in this encounter Plan of Treatment Scheduled Referrals Name Type Priority Associated Diagnoses Order S [facility] Urology office Outpatient Referral Routine Expect ed: visit (clinic) 08/09/2019 (Approximate), Expires: 08/02/2022 documented as of this encounter Procedures Procedure Name Priority Date/Time Associated Diagnosis Comme nts KIDNEY STONE ANALYSIS Routine 08/02/2019 2:05 PM Urolithiasis Results for this PRINTING PLATE MAKER procedure are i n the results section. URETEROSCOPY WITH 08/02/2019 1:22 PM Urolithiasis LASER LITHOTRIPSY PRINTING PLATE MAKER documented in this encounter Results Kidney Stone Analysis (08/02/2019 2:05 PM PRINTING PLATE MAKER) Component Value Ref Test Analysis [facility] Range Method Time Signature Source Stone, Kidney, 08/05/2019 [facility] Stone 11:41 PM PRINTING PLATE MAKER KIDST 90% Calcium oxalate monohydrate 08/05/20 [facility] Interpretation 10% Calcium phosphate (apatite) 11: 41 PM PRINTING PLATE MAKER Specimen (Source) Anatomical Collection Method Collection Time Re ceived Time Location / / Volume Laterality Stone (Kidney, 08/02/2019 2:05 PM Stone) PRINTING PLATE MAKER Abdulaziz Aguilar M.D. LAB MISC ORDERABLES Performing Organization Address City/State/ZIP Code Phon e Number [facility] [address] [place], [place] [address] [place] [address] Laboratory Medicine and Pathology [address] [place] documented in this encounter Visit Diagnoses Diagnosis Urolithiasis - Primary Urolithiasis documented in this encounter Admitting Diagnoses Diagnosis Urolithiasis documented in this encounter Administered Medications Inactive Administered Medications - up to 3 most recent administrations Medication Order MAR Action Action Date Dose Rate Site ioversol 240 mg iodine/mL injection Given 08/02/2019 1:42 PM PRINTING PLATE MAKER 11 mL (OPTIRAY 240) As needed, Starting on Thu08/02/19 at 1342, Intra-Op lactated ringers Rate/Dose Verify 08/02/2019 1:39 PM PRINTING PLATE MAKER 20 mL/hr, intravenous, Continuous, Starting on Thu08/02/19 at 1145, Pre-Op New Bag 08/02/2019 12:02 PM PRINTING PLATE MAKER 20 mL/hr 20 mL/hr metoprolol tablet 12.5 [...] Recently Administered Medications Times are shown in PRINTING PLATE MAKER. Scheduled Medication Order 07/31/2019 08/01/2019 08/02/2019 ceFAZolin [...] ringers 1202 (New Bag - Provider: Ava Boateng, RSmitaNSmita)1339 (Rate/Dose Verify - Provider: Cristi Sumner APRN, SERENA)1404 (Anesthesia Volume Adjustment - Provider: Cristi Sumner APRN, SERENA) 20 mL/hr, intravenous, Continuous, Starting on Thu08/02/19 [...] is not necessary to administer droperidol (INAPSINE), estrada oziel if the patient has an ECG [...]
--- OUTSIDE RECORDS SUMMARY | 2022-07-18 08:50 | XMS_ITS | Encounter Summary ---
:[address] [facility] Address [address] [place] [address] Care Team Providers Name Role Phone Unavailable Primary Care Provider Unavailable Encounter Details Date Type Department Care Team Description 2019 Documentation [place] [facility] [place] P[place] [address] [facility] [address] [place] [address] [place] [phone] (Wo rk) Social History Tobacco Use [...] or relatives? How often do you attend religion or More than 4 times per year 09/30/2020 hoahaoism services? Do you belong to any clubs or Patient refused 09/30/2020 organizations such as religion groups, unions, fraternal or athletic groups, or [...] on file documented as of this encounter Progress Notes Rena Burnham P.A.-C. - 2019 8:36 AM CST Pre-surgery planning - patient not seen Received a fax from [facility] from Dr. Zhou, patient has been cleared for surgeryokay to proceed with anesthesia of choice GER [employer]OD documented in this encounter Plan of Treatment Not on filedocumented as of this encounter Visit Diagnoses Not on filedocumented in this encounter
--- OUTSIDE RECORDS SUMMARY | 2022-07-18 08:50 | XMS_ITS | Encounter Summary ---
:1975 Author Organization [facility] Address [address] [place] [address] Care Team Providers Name Role Phone Unavailable Primary Care Provider Unavailable Reason for Referral Outpatient (Routine) - Closed Specialty Diagnoses / Procedures Referred By Contact Refer red To Contact Urology Rena Burnham P. A.-C. [facility] Region [address] [place] [phone] Referral ID Status Reason Start Date Expiration Date Visits Requ ested Visits Authorized [id number] Closed 09/21/2019 09/20/2020 1 1 GER ELECTRICAL Outpatient (Routine) - Closed Specialty Diagnoses / Procedures Referred By Contact Refer red To Contact Dermatology Diagnoses Tinea Groin Perianal Area Rnea Burnham P.A.-C. [facility] Region [address] [phone] Referral ID Status Reason Start Date Expiration Date Visits Requ ested Visits Authorized [id number] Closed 09/21/2019 09/20/2020 1 1 GER ELECTRICAL Reason for Visit Outpatient (Routine) - Closed Specialty Diagnoses / Procedures Referred By Contact Refer red To Contact Urology Diagnoses n/a Rena Burnham P.A.-C. [facility] Region [address] [phone] Referral ID Status Reason Start Date Expiration Date Visits Requ ested Visits Authorized [id number] Closed 08/09/2019 08/08/2020 1 1 Encounter Details Date Type Department Care Team Description 09/21/2019 Office Visit Department of Urology Rena Burnham (Primary Dx); in [facility] Kecia Luque P.A.-C. Tinea Groin Perianal Area; [address] [facility] [address] Urolithiasis [place], [place] [phone] Social History Tobacco Use Types Packs/Day Years [...] or relatives? How often do you attend shinto or More than 4 times per year 09/30/2020 sabianism services? Do you belong to any clubs or Patient refused 09/30/2020 organizations such as shinto groups, unions, fraternal or athletic groups, or [...] Sign Reading Time Taken Comments Blood Pressure 140/78 09/21/2019 2:46 PM MANAGER ELECTRICAL Pulse 75 09/21/2019 2:46 PM MANAGER ELECTRICAL Temperature 36.3 ??C (97.3 ??F) 09/21/2019 2:46 PM MANAGER ELECTRICAL Respiratory Rate - - Oxygen Saturation - - Inhaled Oxygen Concentration - - Weight - - Height - - Body Mass Index - - documented in this encounter Progress Notes Rena Burnham P.A.-C. - 09/21/2019 3:00 PM CST SUBJECTIVE CHIEF COMPLAINT/REASON FOR VISIT Metabolic workup HISTORY OF PRESENT ILLNESS This is a pleasant 44-year-old gentleman who had his first ever obstructing stone requiring ureteroscopy stone extraction on 08/02/[address] Aguilar. This stone proved calcium oxalate 100% he is here today for metabolic review. Of note he has returned to normal renal function his serum calcium isnormal at 9.3 he has excellent urinary volume at over 3000 mL he has normal urinary sodium, calcium and oxalate. However his urinary citrate levels are very low and his urinary pH is only 5.9. Uric acid is upper limits of normal at 785. Would also like to discuss chronic and recurrent urethral discomfort. He describes this as a urethral heat sensation is present all the time not a cysto it better or worse with or without urination. Win has a bit of lower back pain. Clean-catch urine collected today will be sent for urinalysis with microscopy and urine culture. He also tells me he has had intermittent erythema itching in breakdown of skin in the groin for the past 3 years. He has been using oydi-mxl-nqcufkz jock itch, it does improve but always returns. It's significantly worsened following surgery, finally has improved with topical antifungals and hydrocortisone cream. He still has the itching sensation but the rash is much better. He was on oral antibiotic for 7 days following surgery. REVIEW OF SYSTEMS Per HPI. Pain 0/10 OBJECTIVE VITAL SIGNS BP 140/78 Pulse 75 Temp 36.3 ??C (Temporal) PHYSICAL EXAMINATION General: Overall well-appearing, no acute distress. Skin: No raised areas, rashes or lesions to areas I inspected. Eyes: No scleral icterus, normal conjunctivae. Respiratory: Normal respiratory effort. Musculoskeletal: Walks with a steady gait, without assistance. Psychiatric: Appropriate affect. Neurological: Alert and oriented x4. Genitalia: Normal circumcised phallus, meatus is patent midline 5 mm. Bilateral groin there is a slight erythematous ring with a few skills over top. Patient has also noticed this around the coronal sulcus of the glans, I do not appreciate an rash in this area today. DIAGNOSTICS Laboratory studies Twenty-four urine super saturation 09/13/2019 Volume-3140 mL Sodium -163 Calcium-126 Citrate-289 (low) Oxalate-0.22/19.4 PH-5.9 Uric acid-785 Creatinine-1.05 GFR-T7 Calcium -9.3 ASSESSMENT / PLAN ASSESSMENT/PLAN #1 Calcium oxalate stones. Reviewed stone prevention behavioral modification with patient I'd like him to drink 3 L of fluid daily suggested he would drink something like Crystal Light lemonade or add lemon or nome to his water around 4 oz of lemon juice or nome juice daily would likely be helpful. Heshould maintain a low sodium and low calcium diet. Reviewed foods that are high in oxalate and need to avoid these. If he does choose to consent something that is rich in oxalate he should also 8 something that is rich in calcium at the same time. He needs increase fruit and vegetable consumption and decreases me consumption reviewed a meet serving as a dock of cards once or twice daily a sufficient p eriod #2 Urethral pain #3 Tinea cruris The urethra pain is difficult to interpret, urine collected today will be sent for urinalysis with microscopy and urine culture. It's important to recognize that this urethral sensation has been present for at least the past year did not worsen after surgery or removal of stent. I've encouraged him touse topical nystatin powder 2-3 times daily for maintenance and will give him Diflucan 200 mg daily for the next 14 days. For active yeast overgrowth suggested he would use topical clotrimazole twice daily for 30 days and can use topical hydrocortisone twice daily for up to 7 days at a time. Also encouraged him to use a probiotic. If things have not improved with these measures next step would be to meet with Dermatology. PATIENT EDUCATION Ready to learn, no apparent learning barriers were identified; learning preferences include listening. Explained diagnosis and treatment plan; patient expressed understanding of the content. Thirty minutes was spent with the patient, greater than 50% of this time was spent in counseling andeducation GER ELECTRICAL documented in this encounter Plan of Treatment Scheduled Referrals Name Type Priority Associated Order Schedule Diagnoses Dermatology - Rash, Outpatient Referral Routine Tinea Groin E xpected: undiagnosed consult Perianal Area 020 (clinic) (Approximate), Expires: 09/21/2022 Urology office visit Outpatient Referral Routine Expected: (clinic) 09/21/2020 (Approximate), Expires: 09/21/2022 documented as of this encounter Procedures Procedure Name Priority Date/Time Associated Comments Diagnosis BACTERIAL CULTURE, Routine 09/21/2019 3:03 PM Dysuria Res ults for this AEROBIC + SUSC, URINE MANAGER ELECTRICAL proced ure are in the results section. URINALYSIS WITH Routine 09/21/2019 3:03 PM Dysuria Result s for this MICROSCOPIC MANAGER ELECTRICAL procedure are i n the results section. documented in this encounter Results US Kidneys Bilateral with Bladder (08/29/2020 3:15 PM MANAGER ELECTRICAL) Anatomical Region Laterality Modality Abdomen, Renal, Ultrasound RST LOS, Ultrasound ARZ LOS, Bila teral Ultrasound Ultrasound FLA LOS Specimen (Source) Anatomical Collection Method Collection Time Re ceived Time Location / / Volume Laterality 08/29/2020 3:30 PM MANAGER ELECTRICAL Impressions 08/29/2020 3:30 PM MANAGER ELECTRICAL Normal kidneys. Narrative 08/29/2020 3:30 PM MANAGER ELECTRICAL EXAM: US KIDNEYS BILATERAL WITH BLADDER COMPARISON: [...] Normal. IMPRESSION: Normal kidneys. Rena Burnham P.A.-C. IMBonifacio US PROCEDURES DX Abdomen 1 View (08/29/2020 2:48 PM MANAGER ELECTRICAL) Anatomical Region Laterality Modality Abdomen, Abdominal RST LOS, Abdominal ARZ LOS, N/A Digital Radiography Abdominal FLA LOS Specimen (Source) Anatomical Collection Method Collection Time Re ceived Time Location / / Volume Laterality 08/29/2020 2:52 PM MANAGER ELECTRICAL Impressions 08/29/2020 2:53 PM MANAGER ELECTRICAL No radiographic evidence for radiopaque urinary tract calculus. Pelvic phleboliths as seen on CT 019. Nonobstructive bowel gas pattern with moderate stool scattered throughout the colon. Subtle serpiginous opacity projecting over the left upper quadrant may be external to the patient. Narrative 08/29/2020 2:53 PM MANAGER ELECTRICAL EXAM: DX ABDOMEN 1 VIEW Procedure Note Sangita Ortega M.D. - 08/29/2020Form atting of this note might be different from the original. EXAM: DX ABDOMEN 1 VIEW IMPRESSION: No radiographic evidence for radiopaque urinary tract calculus. Pelvic phleboliths as seen on CT 08/01/ 019. Nonobstructive bowel gas pattern with moderate stool scattered throughout the colon. Subtle serpiginous opacity projecting over the left upper quadrant may be external to the patient. Rena Burnham P.A.-C. IMG DIAGNOSTIC IMAGING PROCE SAMEER Bacterial Culture, Aerobic + Susc, Urine (09/21/2019 3:03 PM MANAGER ELECTRICAL) [facility] Method Time Signature Urine Culture No growth 09/22/2019 ECLR after 1 day 4:49 PM MANAGER ELECTRICAL of incubation. Specimen Anatomical Collection Method Collection Time Receive d Time (Source) Location / / Volume Laterality Urine (Urine, 09/21/2019 3:03 PM 09/21/19 9:42 Midstream) MANAGER ELECTRICAL PM MANAGER ELECTRICAL Comment: Specimen Source Site: Urine Rena Burnham P.A.-C. LAB MICROBIOLOGY - GENERAL O RDERABLES Performing Organization Address City/State/ZIP Code Phon e Number [facility]- [address] [place] [address] [phone] [place] [address] System [address] Urinalysis with Microscopic: Urine, Clean Catch (09/21/2019 3:03 PM MANAGER ELECTRICAL) P athologist Signature Source Midstream 09/21/2019 RDW[facility] 3:19 PM MANAGER ELECTRICAL Clarity Clear Clear 09/21/2019 R[facility] 3:19 PM MANAGER ELECTRICAL Color Yellow 09/21/2019 [facility] 3:19 PM MANAGER ELECTRICAL Comment: ----REFERENCE VALUE---- Colorless Yellow Ángela Blood Negative Negative 09/21/2019 3:19 PM MANAGER ELECTRICAL [facility] Nitrite, U Negative Negative 09/21/2019 3:19 PM MANAGER ELECTRICAL [facility] Leukocyte Esterase Negative Negative 09/21/2019 3:19 PM CS T [facility] Protein, U Negative mg/dL 09/21/2019 3:19 PM MANAGER ELECTRICAL [facility] Comment: ----REFERENCE VALUE---- Negative Trace Glucose Negative Negative mg/dL 09/21/2019 3:[address] WG Ketone Negative Negative mg/dL 09/21/2019 3:[address] WG Bilirubin Negative Negative 09/21/2019 3:19 PM MANAGER ELECTRICAL R[facility] pH 6.5 5.0 - 8.0 09/21/2019 3:19 PM MANAGER ELECTRICAL [facility] Specific [place] 1.004 1.001 - 1.035 09/21/2019 3:19 PM MANAGER ELECTRICAL R[facility] Urobilinogen 0.2 0.2 - 1.0 09/21/2019 3:19 PM MANAGER ELECTRICAL R[facility] White Blood Cells Occ-3 /hpf 09/21/2019 3:19 PM MANAGER ELECTRICAL R[facility] Comment: ----REFERENCE VALUE---- Males: 0-3 Females: 0-10 Unknown: 0-10 Red Blood Cells None Seen 0 - 2 /hpf 09/21/2019 3:19 PM MANAGER ELECTRICAL R[facility] Mucus Present /hpf 09/21/2019 3:19 PM MANAGER ELECTRICAL R[facility] Specimen Anatomical Collection Method Collection Time Receive d Time (Source) Location / / Volume Laterality Urine (Urine, 09/21/2019 3:03 PM 09/21/19 3:07 Clean Catch) MANAGER ELECTRICAL PM MANAGER ELECTRICAL Rena Burnham P.A.-C. LAB URINE ORDERABLES Performing Organization Address City/State/ZIP Code Phon e Number [facility]- [address] [place], [place] [address] [place] [address] System in [place] [address] [address] documented in this encounter Visit Diagnoses Diagnosis Dysuria - Primary Tinea Groin Perianal Area Urolithiasis Urolithiasis Urolithiasis documented in this encounter
--- OUTSIDE RECORDS SUMMARY | 2022-07-18 08:50 | XMS_ITS | Encounter Summary ---
:1975 Author Organization [facility] Address [address] [place] [address] Care Team Providers Name Role Phone Unavailable Primary Care Provider Unavailable Reason for Visit Outpatient (Routine) - Closed Specialty Diagnoses / Procedures Referred By Contact Refer red To Contact General Surgery Diagnoses Urolithiasis Rena Burnham P.A.-C. [facility] Region [address] [phone] Referral ID Status Reason Start Date Expiration Date Visits Requ ested Visits Authorized [id number] Closed 06/30/2019 06/29/2020 1 1 Encounter Details Date Type Department Care Team Description 07/27/2019 Telemedicine Department of General Bubba Burnham P.ASmita-Araceli [address] [phone] Preanesthetic Medical Exam (Primary Dx); Surgery in [facility] Cary Drake P, R.N. [address] [place] [phone] [address] Social History Tobacco Use Types Packs/Day Years [...] 09/30/2020 organizations such as holiness groups, unions, [employer] or athletic groups, or school groups? How [...] Sign Reading Time Taken Comments Blood Pressure - - Pulse - - Temperature - - Respiratory Rate - - Oxygen Saturation - - Inhaled Oxygen - - Concentration Weight 101 kg (222 lb 10.6 07/27/2019 3:53 per care krystle rywhere on oz) PM INDUSTRIAL RETROFIT DESIGNER 07/21/19 Height 187 cm (6' 1.62) 07/27/2019 3:53 per care every where on PM INDUSTRIAL RETROFIT DESIGNER 07/21/19 Body Mass Index 28.88 07/27/2019 3:53 PM INDUSTRIAL RETROFIT DESIGNER documented in this encounter Progress Notes Key Zuniga R.N. - 07/27/2019 3:45 PM CST This patient was called for a SHANI visit on 07/27/19 for surgery scheduled on 07/23/[address] Aguilar. Surgical Nurse Meat Butcher Skin Alert Assessment: Complete this section only if the patient is greater than or equal to 18 y/o BMI <19 or >40: no Documented risk factors that indicate higher risk for pressure ulcer? no Do you have impaired sensation? yes Is patient chair-bound or unable to reposition themselves? no Anesthesia Risk Assessment: Do you have an implanted cardiac device? no. Do you have difficulties lying flat? no Comment: Do you have any yazidi or other objection to having a blood transfusion? no Teaching: Preoperative education was done with (x) patient () parent () other. It was confirmed the patient/family member had received the following preoperative education sheets:Checklist For Surgical Patients ([id number]),???Surgical Site Infections: Reducing Your Risk (M [id number]), Speak Up: Antibiotics ([id number]), Acute Pain and the Healing Process ([id number]) with the Integrative Medicine and Health (CS3846-12), and ???Appointments Required BeforeYour Surgery?? (no MC). These were reviewed in detail. (x) Preoperative medication education provided through Ask [place] Expert Patient/Parent is ready to learn, no apparent learning barriers were identified. Reviewed diagnosis and treatment plan; patient/parent verbalized understanding through teach back. All questions were answered. Patient/Parent has contact information and understands the need to call with any questions orconcerns. Post op appointments: 1st po with surgeon or physician printer assistant: (x) made ()TBD STRIAL RETROFIT DESIGNER documented in this encounter Plan of Treatment Not on filedocumented as of this encounter Visit Diagnoses Diagnosis Preanesthetic Medical Exam - Primary Urolithiasis documented in this encounter
--- OUTSIDE RECORDS SUMMARY | 2022-07-18 08:50 | XMS_ITS | Encounter Summary ---
:1975 Author Organization [facility] Address [address] [place] [address] Care Team Providers Name Role Phone Unavailable Primary Care Provider Unavailable Reason for Visit Reason Onset Date Comments Post-op Problem 08/04/2019 pain Encounter Details Date Type Department Care Team Description 08/04/2019 Clinical Communication Department of Jaelyn Power Post -op Problem Urology in [facility] (pain) [address] [phone] Social History Tobacco Use Types Packs/Day Years [...] or relatives? How often do you attend spiritism or More than 4 times per year 09/30/2020 worship services? Do you belong to any clubs or Patient refused 09/30/2020 organizations such as spiritism groups, unions, fraternal or athletic groups, or [...] this encounter Miscellaneous Notes Telephone Encounter - Zoraida Hilton L.P.N. - 08/04/2019 3:40 PM CST INFORMATION DISCUSSED Lower back pain follow up. Patient took a Vicodin this morning and ibuprofen 600mg every 6hr. Patient reports pain 3/10. Patient states that he feels like he is emptying. He is able to urinate a large amount at a time. Hedid report that occasionally it will hurt/burn when urinating. Urine color is light, no longer rust in color. He is drinking at least 80oz Taking flomax. Would be willing to try oxybutynin. PLAN Disposition/Recommendation: Offered appointment to see Rena Burnham PA-C tomorrow (08/05/19). Patient declined. Will see her at his scheduled follow up on 08/09/19. Encouraged to continue taking ibuprofen 600mg every 6hr as needed as instructed by Rena Burnham PA-C. 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 Patient will also start oxybutynin once he picks it up from his pharmacy. Patient stated he started to take a stool softener. Encouraged the patient to continue trying to drink at least 80oz of water daily. Encouraged to call if he has any questions or concerns. Information: patient/caller able to repeat back in their own words Caller agreeable to plan of care: yes The following references were used: provider Rena Burnham PA-C GER SEARCH Telephone Encounter - Rena Burnham P.A.-C. - 08/04/2019 3:25 PM MANAGER SEARCH Is the patient emptying? If not go to ER. Oxybutynin 10mg er daily Noro 5/325 #20 1-2 every 6hrs GER SEARCH Telephone Encounter - Zoraida Hilton L.PSmitaNSmita - 08/04/2019 12:10 PM MANAGER SEARCH Please send oxybutynin to [facility] in [place]. Rena Dial I will review the pain management suggested in other on going communication. GER SEARCH Telephone Encounter - Jaelyn Power R.N. - 08/04/2019 9:17 AM CST [facility] Triage Call Reason for call/visit Post operative pain Call Note: Assessment Carlos A's , Valdez, calls on his behalf this morning (consent on file). Carlos A has been in a lot of pain ever since he had a urology surgery two days ago, including a right ureteral stent placement. He rates pain as a 10 plus. The majority of his pain is in his right lower back - it is present at all times but is worse when moving or urinating. His appetite is poor, and his states he's drinking less because it hurts to urinate. Does have nausea but denies fever. He was prescribed Percocet for pain but wasn't getting relief, but is using an old prescription for [place], which has been helpingmore. This prescription is almost gone. They are wondering if he is having bladder spasms. Would you be willing to prescribe a medication tohelp with this? And more [place], since that is helping some? He uses [facility] in [place]. Can be reached at [phone]. Intervention Message routed to Rena/urology nurses. Has patient called or presented with the same symptom previously no Is patient experiencing other symptoms: no The following references were used: nursing clinical judgement Education provided: patient/caller able to teach back Disposition/Recommendation: as above Caller agreeable to plan of care: yes The following individuals participated in today???s interaction: patient and Hospital Housekeeper used: no Additional concerns addressed: none GER SEARCH documented in this encounter Plan of Treatment Not on filedocumented as of this encounter Visit Diagnoses Not on filedocumented in this encounter
--- OUTSIDE RECORDS SUMMARY | 2022-07-18 08:50 | XMS_ITS | Encounter Summary ---
:1975 Author Organization [facility] Address [address] [place] [address] Care Team Providers Name Role Phone Unavailable Primary Care Provider Unavailable Encounter Details Date Type Department Care Team Description 07/25/2019 Orders Only [facility] [place] P[facility] [address] [place] [address] [place] [phone] (Wo rk) Social History Tobacco Use [...] or relatives? How often do you attend zoroastrianism or More than 4 times per year 09/30/2020 muslim services? Do you belong to any clubs or Patient refused 09/30/2020 organizations such as zoroastrianism groups, unions, fraternal or athletic groups, or [...]
--- OUTSIDE RECORDS SUMMARY | 2022-07-18 08:50 | XMS_ITS | Encounter Summary ---
:1975 Author Organization [facility] Address [address] [place] [address] Care Team Providers Name Role Phone Unavailable Primary Care Provider Unavailable Encounter Details Date Type Department Care Team Description 07/25/2019 Hospital Encounter Department of Laboratory Bubba Burnham, Urolithiasis Medicine in [place], [place] [address] [phone] Social History Tobacco Use Types Packs/Day [...] or relatives? How often do you attend episcopal or More than 4 times per year 09/30/2020 mu-ism services? Do you belong to any clubs or Patient refused 09/30/2020 organizations such as episcopal groups, unions, fraternal or athletic groups, or [...] Name Priority Date/Time Associated Diagnosis Comme nts BACTERIAL CULTURE, Routine 07/25/2019 2:52 PM Urolithiasis Res ults for this AEROBIC + SUSC, [employer] procedure ar e in URINE the results section. documented in this encounter Results Bacterial Culture, Aerobic + Susc, Urine (07/25/2019 2:52 PM [facility] [employer]) [facility] Method Time Signature Urine Culture No growth 2019 ECLR after 1 day 3:29 PM [employer] of incubation. Specimen Anatomical Collection Method Collection Time Receive d Time (Source) Location / / Volume Laterality Urine (Urine, 07/25/2019 2:52 PM 07/25/20 19 9:54 Midstream) [facility] [employer] [facility] PM [facility] [facility] Comment: Specimen Source Site: Urine Rena Burnham P.A.-C. LAB MICROBIOLOGY - GENERAL O RDERABLES Performing Organization Address City/State/ZIP Code Phon e Number [facility]- [address] [place] [phone] [facility] [place] [address] System in [address] documented in this encounter Visit Diagnoses Diagnosis Urolithiasis documented in this encounter
--- OUTSIDE RECORDS SUMMARY | 2022-07-18 08:51 | XMS_ITS | Encounter Summary ---
:1975 Author Organization [facility] Address [address] [place] [address] Care Team Providers Name Role Phone Unavailable Primary Care Provider Unavailable Reason for Referral MRI/CAT/PET Scan (Routine) - Closed Specialty Diagnoses / Procedures Referred By Contact Refer red To Contact Radiology Diagnoses Nocturia Dysuria Toshia Mckeon C.N.P[facility] Region Procedures CT Abdomen Pelvis with IV Contrast [place] CT ABD&PELVIS [facility] [address] [place], [place] [address] Referral ID Status Reason Start Date Expiration Date Visits Requ ested Visits Authorized [id number] Closed 06/17/2019 06/16/2020 1 1 Reason for Visit Auth/Cert Specialty Diagnoses / Procedures Referred By Contact Refer red To Contact Diagnoses Nocturia Dysuria Procedures [place] CT ABD&PELVIS [facility] Referral ID Status Reason Start Date Expiration Date Visits Requ ested Visits Authorized [id number] 1 1 Encounter Details Date Type Department Care Team Description 06/17/2019 Hospital Encounter Department of Toshia Mckeon, [place]; Radiology in [facility]ie Charles[place]mitaPSmita Dysuria [place], [place] [address] [phone] Social History Tobacco Use Types Packs/Day Years Used Date Smoking Tobacco: Never Assessed Alcohol Habits Answer Date Recorded How often [...] More than 4 times per year 09/30/2020 temple services? Do you belong to any clubs or Patient refused 09/30/2020 organizations such as holiness groups, unions, frafintonic or athletic groups, or school groups? How [...] Refills Start Date End Date omeprazole (PriLOSEC OTC) Take 40 mg by mouth 0 0 05/03/2019 05/02/2020 20 mg EC tablet daily. propranolol (INDERAL LA) Take 60 mg by mouth 0 06/12/2022 60 mg 24 hr capsule daily. sertraline (ZOLOFT) 100 mg Take 150 mg by 3 06/1606/12/2022 tablet mouth daily. documented as of this encounter Plan of Treatment Not on filedocumented as of this encounter Procedures Procedure Name Priority Date/Time Associated Comments Diagnosis CT ABDOMEN PELVIS RAD - Routine 06/17/2019 3:57 Nocturia Results for this WITH IV CONTRAST (most inpatients PM CDT Dysuria procedu re are in and all the results outpatients) section. documented in this encounter Results CT Abdomen Pelvis with IV Contrast (06/17/2019 3:57 PM CDT) Anatomical Region Laterality Modality Abdomen, Pelvis, Abdominal RST LOS, Abdominal ARZ LOS, N/A Computed Tomography Abdominal FLA LOS Specimen (Source) Anatomical Collection Method Collection Time Re ceived Time Location / / Volume Laterality 06/17/2019 5:07 PM CDT Impressions 06/17/2019 5:16 PM CDT 1. ??3 mm distal right ureteral calculus. No hydronephrosis. 2. ??2 mm nonobstructing left renal calc ulus. 3. ??Small hepatic low-attenuation lesio ns, one of which is likely a hemangioma while the others are technically indeter minate but statistically most likely represent additional hemangiomas and/or cysts. 4. ??Mild urinary bladder wall thickenin g, potentially from incomplete distention though clinical and laboratory correlati on is suggested to exclude cystitis. 5. ??Uncomplicated fat-containing bilate ral inguinal hernias. Narrative 06/17/2019 5:16 PM CDT EXAM: CT ABDOMEN PELVIS WITH IV CONTRAST COMPARISON: None FINDINGS: Basilar pulmonary subsegmental atelectasis. Normal caliber abdominal aorta. Few small hepatic low-attenuation lesions, some of which are too small to definitively characterize but likely cys ts and/or hemangiomas. There is a 1.9 cm anterior left hepatic low-attenuation le roger on series 2 image #112 with probable discontinuous nodular contrast filling which is suggestive of a hemangioma. Negative spleen, adrenal gla nds and pancreas. No hydronephrosis. 2 mm nonobstructing left renal calculus (s eries 2 image #123). Negative right kidney. No left ureteral calculus or uri nary bladder calculi. 3 mm distal right ureteral calculus (series 2 image #371). Mild urinary bladder wall thickening, potentially from incomplete distention t jaclyn clinical and laboratory correlation is suggested to exclude cyst itis. No bowel obstruction. No pathologically enlarged abdominal or pel oren lymph nodes. Fat-containing bilateral inguinal hernias. Negative for acute or aggressive appearing skeletal lesion. Procedure Note Gilbert Holland M.D. - 06/17/2019Formattin g of this note might be different from the original. EXAM: CT ABDOMEN PELVIS WITH IV CONTRAST COMPARISON: None FINDINGS: Basilar pulmonary subsegmental atelectasis. Normal caliber abdominal aorta. Few small hepatic low-attenuation lesions, some of which are too small to definitively characterize but likely cys ts and/or hemangiomas. There is a 1.9 cm anterior left hepatic low-attenuation le roger on series 2 image #112 with probable discontinuous nodular contrast filling which is suggestive of a hemangioma. Negative spleen, adrenal gla nds and pancreas. No hydronephrosis. 2 mm nonobstructing left renal calculus (s eries 2 image #123). Negative right kidney. No left ureteral calculus or uri nary bladder calculi. 3 mm distal right ureteral calculus (series 2 image #371). Mild urinary bladder wall thickening, potentially from incomplete distention t jaclyn clinical and laboratory correlation is suggested to exclude cyst itis. No bowel obstruction. No pathologically enlarged abdominal or pel oren lymph nodes. Fat-containing bilateral inguinal hernias. Negative for acute or aggressive appearing skeletal lesion. IMPRESSION: 1. 3 mm distal right ureteral calculus. No hydronephrosis. 2. 2 mm nonobstructing left renal calcul us. 3. Small hepatic low-attenuation lesions , one of which is likely a hemangioma while the others are technically indeter minate but statistically most likely represent additional hemangiomas and/or cysts. 4. Mild urinary bladder wall thickening, potentially from incomplete distention though clinical and laboratory correlati on is suggested to exclude cystitis. 5. Uncomplicated fat-containing bilatera l inguinal hernias. Toshia ANDRADE CT PROCEDURES documented in this encounter Visit Diagnoses Diagnosis Nocturia Dysuria documented in this encounter Administered Medications Inactive Administered Medications - up to 3 most recent administrations Medication Order MAR Action Action Date Dose Rate Site iohexol 300 mg iodine/mL solution Given 06/17/2019 3:52 PM CDT 1 46 mL 146 mL (OMNIPAQUE) 146 mL, intravenous, Once in imaging, contrast, Starting on Thu06/17/19 at 1455, For 1 dose, If administered oral then dilute in 900 mL water sodium chloride 0.9 % flush 86 mL Given 06/17/2019 3:53 PM CDT 86 mL 86 mL, intravenous, Once, On Thu06/17/19 at 1500, For 1 dose sodium chloride 0.9 % injection 10 mL Given 06/17/2019 3:54 PM CDT 10 mL 10 mL, intravenous, Once, On Thu06/17/19 at 1500, For 1 dose documented in this encounter
--- OUTSIDE RECORDS SUMMARY | 2022-07-18 08:51 | XMS_ITS | Encounter Summary ---
:1975 Author Organization [facility] Address [address] [place] [address] Care Team Providers Name Role Phone Unavailable Primary Care Provider Unavailable Reason for Referral Outpatient (Routine) - Closed Specialty Diagnoses / Procedures Referred By Contact Refer red To Contact General Surgery Diagnoses Urolithiasis Rena Burnham P.A.-C. [facility] Region [address] [place] [phone] Referral ID Status Reason Start Date Expiration Date Visits Requ ested Visits Authorized [id number] Closed 06/30/2019 06/29/2020 1 1 MRI/CAT/PET Scan (Routine) - Closed Specialty Diagnoses / Procedures Referred By Contact Refer red To Contact Radiology Diagnoses Pain Right Lower Quadrant Rena Burnham P.A.-C. [facility] [place] [facility] Procedures CT Abdomen Pelvis without IV Contrast [address] [place] [phone] Referral ID Status Reason Start Date Expiration Date Visits Requ ested Visits Authorized [id number] Closed 06/30/2019 06/29/2020 1 1 Reason for Visit Reason Comments Consult cystitis, kidney stones Outpatient (Routine) - Closed Specialty Diagnoses / Procedures Referred By Contact Refer red To Contact Urology Diagnoses Cystitis Symptom Urinary Toshia Mckeon C.N.P. [facility] Region [address] [place], [place] [address] Referral ID Status Reason Start Date Expiration Date Visits Requ ested Visits Authorized [id number] Closed 06/24/2019 06/23/2020 1 1 Encounter Details Date Type Department Care Team Description 06/30/2019 Comprehensive Visit Department of Rena Burnham Uroli thiasis (Primary Dx); Urology in Rolly Luque P.A.-C. Cystitis; Cheryl Solis [address] Symptom Urinary; [address] Pain Right Lower Quadrant; [place], [place] Hematuria [phone] Social History Tobacco Use Types Packs/Day [...] or relatives? How often do you attend religious or More than 4 times per year 09/30/2020 adventism services? Do you belong to any clubs or Patient refused 09/30/2020 organizations such as religious groups, unions, fraternal or athletic groups, or [...] Sign Reading Time Taken Comments Blood Pressure 141/88 06/30/2019 8:26 AM CDT Pulse 72 06/30/2019 8:26 AM CDT Temperature 36.7 ??C (98.1 ??F) 06/30/2019 8:26 AM CDT Respiratory Rate - - Oxygen Saturation - - Inhaled Oxygen Concentration - - Weight - - Height - - Body Mass Index - - documented in this encounter Patient Instructions Patient InstructionsRena Burnham P.A.-C. - 06/30/2019 8:30 AM CDT Trial of passage: - drink minimum 100oz fluid daily (half of this should be water) - flomax 0.4mg daily 30min after a meal - stay active! - strain urine, call us if you catch a stone [phone] - for infection prevention: ciprofloxacin 500mg 2x/day x 7 days - for pain: ibuprofen 600mg every 6hrs as needed - schedule CT abdomen and pelvis on 08/01/19 (day before surgery) --> only needed if you dont pass stone - tentative right ureteroscopy stone extraction on 08/02/19 If you spontaneously pass this stone, you will still need an inoffice cystoscopy to look at the possible thickened bladder documented in this encounter Consult Notes Rena Burnham P.A.-C. - 06/30/2019 8:30 AM CDT SUBJECTIVE CHIEF COMPLAINT/REASON FOR VISIT Urolithiasis HISTORY OF PRESENT ILLNESS This is a pleasant 43-year-old gentleman who has had this nonspecific intermittent pain in the bilateral upper abdomen since beginning of March 2019. He remember symptoms were quite severe with the 17 of March weekend and then have slowly lessened. Since that time he has had intermittent sometimes severe pain now more so localized in the right lower quadrant with radiation into the right testicle. He has also noticed a change in urination more urgency frequency and hesitation and some urethral burning. He has also noticed loss of spontaneous erections and difficulty maintaining erections. Prior to our consult today he has been doctor in with his primary care provider out of [facility] in [place], [place]. From Care everywhere I am able to see In April he had a urinalysis without evidence of infection but did have some microscopic blood, his renal function was normal at that time.Just last week he was sent to the [facility] in [place] for abdominal and imaging he had a CT abdomen and pelvis with contrast, which demonstrates a obstructing stone in the distal right ureter measuring 3-4 mm, additional nonobstructing stone in the left kidney. There is some mention of thickening of the bladder although bladder is not well distended. I do think it can appreciate some gas in the bladder, this may be from infection. Presently pain has been reasonably controlled he is not using any narcotics or even oszy-tpa-xdchqxejhyiaorkyx. The pain does seem to come and go in waves. REVIEW OF SYSTEMS Per HPI. Pain 0/10 MEDICAL HISTORY Patient Active Problem List Diagnosis ??? Urolithiasis CURRENT MEDICATIONS Current Medications: ??? co-enzyme Q-10 (CO Q-10) 100 mg capsule, Take 100 mg by mouth daily. ??? omeprazole (PriLOSEC OTC) 20 mg EC tablet, Take 40 mg by mouth daily. ??? propranolol (INDERAL LA) 60 mg 24 hr capsule, Take 60 mg by mouth daily. ??? red yeast rice 600 mg capsule, Take 1,200 mg by mouth daily. ??? sertraline (ZOLOFT) 100 mg tablet, Take 150 mg by mouth daily. ??? tamsulosin (FLOMAX) 0.4 mg 24 hr capsule, Take 1 capsule (0.4 mg total) by mouth daily. ??? ciprofloxacin (CIPRO) 500 mg tablet, Take 1 tablet (500 mg total) by mouth every 12 (twelve) hours for 10 days. ALLERGIES/CONTRAINDICATIONS No Known Allergies OBJECTIVE VITAL SIGNS BP 141/88 Pulse 72 Temp 36.7 ??C (Temporal) PHYSICAL EXAMINATION General: Overall well-appearing, no acute distress. Skin: No raised areas, rashes or lesions to areas I inspected. Eyes: No scleral icterus, normal conjunctivae. Respiratory: Normal respiratory effort. Musculoskeletal: Walks with a steady gait, without assistance. Psychiatric: Appropriate affect. Neurological: Alert and oriented x4. DIAGNOSTICS CT abdomen and pelvis with contrast impression: 06/17/2019 IMPRESSION: 1. 3 mm distal right ureteral calculus. No hydronephrosis. 2. 2 mm nonobstructing left renal calculus. 3. Small hepatic low-attenuation lesions, one of which is likely a hemangioma while the others are technically indeterminate but statistically most likely represent additional hemangiomas and/or cysts. 4. Mild urinary bladder wall thickening, potentially from incomplete distention though clinical and laboratory correlation is suggested to exclude cystitis. 5. Uncomplicated fat-containing bilateral inguinal hernias. Laboratory studies 03/18/2019 Urinalysis-negative nitrates, negative leukocytes, WBCs occasional 3, RBCs occasional 3 Urine culture-negative 04/28/2019 Urinalysis-negative nitrates, negative leukocytes, microscopy not completed, negative blood Urine culture-negative Gonorrhea chlamydia-negative Creatinine-0.90 GFR-> 60 ASSESSMENT / PLAN ASSESSMENT/PLAN #1 5 mm stone distal right ureter. I think he has an excellent likelihood of passing this on his own, he will continue Flomax 0.4 mg daily refill provided for the next 30 days. Stressed the importance of maintaining excellent hydration 3 L daily and staying active. He will strain his urine and keep this if he does catch stone. Ibuprofen 600 mg every 6 hours as needed for pain. Ciprofloxacin 500 mg b.i.d. times 10 days given his dysuria and what looks like gas in the bladder. Given he has had this discomfort since beginning of March, he would like to have an end date plan. We will tentatively plan for right ureteroscopy stone extraction on August 02, 2019 if he has not passed the stone. We will doa CT abdomen and pelvis without contrast August 01, 2019 to prove stone is still there. We reviewed ureteroscopy procedure in detail, understanding he has never been instrument ties there is a 12-50%chance that were unable to advance scope at which point a ureteral stent would be placed and we would return to the operating room at a different time for definitive stone management. He understands hewill have a ureteral stent in place for likely 7 days following procedure. Surgical risks including but not limited to bleeding requiring blood transfusion, infection, injury to adjacent structures, DVT, pulmonary embolism, heart attack, stroke and were discussed. Surgical listing: Cystoscopy and right ureteroscopy, laser lithotripsy, stone basketing and placement of right ureteral stent Surgery date: 08/02/2019 Primary care SHANI: To be scheduled Surgery nurse project planner SHANI: To be scheduled, phone Lab appointment: 07/25/2019, urine culture PATIENT EDUCATION Ready to learn, no apparent learning barriers were identified; learning preferences include listening. Explained diagnosis and treatment plan; patient expressed understanding of the content. Thirty minutes was spent with the patient, greater than 50% of this time was spent in counseling andeducation Addendum: 06/30/2019 4:00 p.m. Laboratory studies 06/30/2019 Creatinine-1.05 GFR-87 Urinalysis-negative nitrates, negative leukocytes, WBCs none seen, RBCs occasional to 2 Urine culture-pending documented in this encounter Plan of Treatment Scheduled Referrals Name Type Priority Associated Diagnoses Order S chedule Pre Operative Outpatient Referral Routine Urolithiasis Expecte d: Evaluation SHANI 06/30/2019 nurse consult (Approximate), (clinic) Expires: 06/30/2022 documented as of this encounter Procedures Procedure Name Priority Date/Time Associated Diagnosis Comme nts BASIC METABOLIC Routine 06/30/2019 10:30 Urolithiasis Results for this PANEL, S/P AM CDT procedure are i n the results section. CYTOLOGY NON-GREENHOUSE WORKER Routine 06/30/2019 9:52 AM Hematuria Resul ts for this CDT procedure are i n the results section. BACTERIAL CULTURE, Routine 06/30/2019 9:43 AM Urolithiasis Res ults for this AEROBIC + SUSC, CDT procedure ar e in URINE the results section. URINALYSIS WITH Routine 06/30/2019 9:43 AM Urolithiasis Result s for this MICROSCOPIC CDT procedure are i n the results section. documented in this encounter Results CT Abdomen Pelvis without IV Contrast (08/01/2019 7:59 AM STONEWORK SUPERVISOR) Anatomical Region Laterality Modality Abdomen, Pelvis, Abdominal RST LOS, Abdominal ARZ LOS, N/A Computed Tomography Abdominal FLA LOS Specimen (Source) Anatomical Collection Method Collection Time Re ceived Time Location / / Volume Laterality 08/01/2019 8:10 AM STONEWORK SUPERVISOR Impressions 08/01/2019 8:16 AM STONEWORK SUPERVISOR 1. ??Unchanged 2 mm stone in the distal right ureter. No hydronephrosis or hydroureter. 2. ??Nonobstructing left intrarenal calc ulus. Narrative 08/01/2019 8:16 AM STONEWORK SUPERVISOR EXAM: CT ABDOMEN PELVIS WITHOUT IV CONTRAST [...] 2. Nonobstructing left intrarenal calcul us. Rena Burnham P.A.-C. IMG CT PROCEDURES Bacterial Culture, Aerobic + Susc, Urine (07/25/2019 2:52 PM STONEWORK SUPERVISOR) Patholo gist Method Time Signature Urine Culture No growth 2019 ECLR after 1 day 3:29 PM STONEWORK SUPERVISOR of incubation. Specimen Anatomical Collection Method Collection Time Receive d Time (Source) Location / / Volume Laterality Urine (Urine, 07/25/2019 2:52 PM 07/25/20 19 9:54 Midstream) STONEWORK SUPERVISOR PM STONEWORK SUPERVISOR Comment: Specimen Source Site: Urine Rena Burnham P.A.-C. LAB MICROBIOLOGY - GENERAL O RDERABLES Performing Organization Address City/State/ZIP Code Phon e Number [facility]- [address] [place] [address] [phone] [facility] [place] [address] [address] BMP (Basic Metabolic Panel) (06/30/2019 10:30 AM CDT) P athologist Signature Potassium, S 4.6 3.6 - 5.2 06/30/2019 [facility] mmol/L 11:23 AM CDT Sodium, S 143 135 - 145 06/30/2019 [facility] mmol/L 11:23 AM CDT Chloride, S 107 98 - 107 06/30/2019 [facility] mmol/L 11:23 AM CDT Bicarbonate, S 25 22 - 29 06/30/2019 [facility] mmol/L 11:23 AM CDT Anion Gap 11 7 - 15 06/30/2019 [facility] 11:23 AM CDT BUN (Blood Urea 11 8 - 24 06/30/2019 [facility] Nitrogen), S mg/dL 11:23 AM CDT Creatinine 1.05 0.74 - 06/30/2019 [facility] 1.35 mg/dL 11:23 AM CDT eGFR-Non 87 >=60 06/30/2019 [facility] Black/ mL/min/BSA 11:23 AM CDT [place] Comment: ----ADDITIONAL INFORMATION---- Estimated GFR calculated using the 2009 CKD_EPI creatinine equation. eGFR-Black/ >90 >=60 mL/min/BSA 2018 11:23 AM CDT [facility] Comment: ----ADDITIONAL INFORMATION---- Estimated GFR calculated using the 2009 CKD_EPI creatinine equation. Calcium, Total, S 9.6 8.6 - 10.0 mg/dL 06/30/2019 11:2 3 AM CDT [facility] Glucose, S 87 70 - 140 mg/dL 06/30/2019 11:23 AM CDT [facility] Specimen Anatomical Collection Method Collection Time Receive d Time (Source) Location / / Volume Laterality Blood (Blood, 06/30/2019 10:30 06/30/2019 Venous) AM CDT 10:31 AM CDT Rena Burnham P.A.-C. LAB BLOOD ADD-ON Performing Organization Address City/State/ZIP Code Phon e Number [facility]- [address] [place] [address] [phone] [place] [address] System in [place] [address] [place] [address] Cytology Non-GREENHOUSE WORKER (06/30/2019 9:52 AM CDT) Component Value Ref Test Analysis Performed At [facility] Range Method Time Signature 07/04/2019 ECLR 9:31 AM CDT Report Farhan Kam M.D. 07/04/2019 ECLR electronically I verify that I have examined all relevant slides/ma terials 9:31 AM CDT signed by for the specimen(s) and rendered or confirmed the diagnosis. Gross Description Received 30cc 07/04/2019 ECLR of cloudy 9:31 AM CDT yellow fluid without fixative. Source A. Urine, 07/04/2019 ECLR voided 9:31 AM CDT Clinical History hematuria 07/04/2019 ECLR 9:31 AM CDT Interpretation A. Urine, voided (cytospin): Negative for High-Grade 07/04/2019 ECLR Urothelial Carcinoma. 9:31 AM CDT Specimen Anatomical Collection Method Collection Time Receive d Time (Source) Location / / Volume Laterality Varies 06/30/2019 9:52 AM 9 1:29 CDT PM CDT Narrative This result has an attachment that is no t available. Rena Burnham P.A.-C. LAB SURG PATH ORDERABLES Performing Organization Address [facility] Phon e Number [phone] [facility] [place] [address] System [address] Bacterial Culture, Aerobic + Susc, Urine (06/30/2019 9:43 AM CDT) Patholo gist Method Time Signature Urine Culture No growth 07/01/2019 ECLR after 1 day 9:39 AM CDT of incubation. Specimen Anatomical Collection Method Collection Time Receive d Time (Source) Location / / Volume Laterality Urine (Urine, 06/30/2019 9:43 AM 06/30/20 19 2:41 Midstream) CDT PM CDT Comment: Specimen Source Site: Urine Rena Burnham P.A.-C. LAB MICROBIOLOGY - GENERAL O RDERABLES Performing Organization Address [facility] Phon e Number [phone] [facility] [place] [address] System in [address] Urinalysis with Microscopic: Urine, Clean Catch (06/30/2019 9:43 AM CDT) P athologist Signature Source Midstream 06/30/2019 [facility] 9:57 AM CDT Clarity Clear Clear 06/30/2019 [facility] 9:57 AM CDT Color Yellow 06/30/2019 [facility] 9:57 AM CDT Comment: ----REFERENCE VALUE---- Colorless Yellow Ángela Blood Negative Negative 06/30/2019 9:57 AM CDT [facility] Nitrite, U Negative Negative 06/30/2019 9:57 AM CDT [facility] Leukocyte Esterase Negative Negative 06/30/2019 9:57 AM CD T [facility] Protein, U Negative mg/dL 06/30/2019 9:57 AM CDT [facility] Comment: ----REFERENCE VALUE---- Negative Trace Glucose Negative Negative mg/dL 06/30/2019 9:[address] [facility] Ketone Negative Negative mg/dL 06/30/2019 9:[address] [facility] Bilirubin Negative Negative 06/30/2019 9:57 AM CDT [facility] pH 6.0 5.0 - 8.0 06/30/2019 9:57 AM CDT [facility] Specific [place] 1.017 1.001 - 1.035 06/30/2019 9:57 AM CDT [facility] Urobilinogen 0.2 0.2 - 1.0 06/30/2019 9:57 AM CDT [facility] White Blood Cells None Seen /hpf 06/30/2019 9:57 AM CDT [facility] Comment: ----REFERENCE VALUE---- Males: 0-3 Females: 0-10 Unknown: 0-10 Red Blood Cells Occ-2 0 - 2 /hpf 06/30/2019 9:57 AM CDT [facility] Mucus Present /hpf 06/30/2019 9:57 AM CDT [facility] Specimen Anatomical Collection Method Collection Time Receive d Time (Source) Location / / Volume Laterality Urine (Urine, 06/30/2019 9:43 AM 06/30/20 19 9:47 Clean Catch) CDT AM CDT Rena Burnham P.A.-C. LAB URINE ORDERABLES Performing Organization Address City/State/ZIP Code Phon e Number [facility]- [place] [phone] [place] [address] System in [place] [address] documented in this encounter Visit Diagnoses Diagnosis Urolithiasis - Primary Cystitis Symptom Urinary Pain Right Lower Quadrant Hematuria Pain Right Lower Quadrant documented in this encounter
--- OUTSIDE RECORDS SUMMARY | 2022-07-18 08:51 | XMS_ITS | Encounter Summary ---
:1975 Author Organization [facility] Address [address] [place] [address] Care Team Providers Name Role Phone Unavailable Primary Care Provider Unavailable Encounter Details Date Type Department Care Team Description 11/19/2010 Hospital Encounter [facility]X [facility] [place] Jaden Hollis, N[address] [place] [phone] (Wo rk) Social History Tobacco Use Types [...] or relatives? How often do you attend pentecostalism or More than 4 times per year 09/30/2020 baptism services? Do you belong to any clubs or Patient refused 09/30/2020 organizations such as pentecostalism groups, unions, fraternal or athletic groups, or [...] documented as of this encounter Progress Notes Peterson Hollis NSmitaP. - 11/19/2010 12:00 AM CST [id number] CHIEF COMPLAINT/REASON FOR VISIT Laceration to right hand. HISTORY OF PRESENT ILLNESS Carlos A is a 36-year-old male who is here today with concerns about a laceration to his right hand. He reports he was at work and got cut by an end mill drill bit. He is left-handed. He is not sure when his last tetanus was given. He denies any numbness or tingling or loss of range of motion or strength to the affected hand. CURRENT MEDICATIONS 1. Zoloft 100 mg daily. ALLERGIES 1. No known drug allergies. PAST MEDICAL/SURGICAL HISTORY 1. Anxiety. VITAL SIGNS Temperature 36.8, pulse 76, respirations 20, blood pressure 122/80. PHYSICAL EXAMINATION General: Alert, oriented x3, appears in no acute distress. Right hand is examined. Right radial pulse is a 2+ and equal to the left. It is noted that there is an approximately gcd-mf-anijz centimeter laceration noted over the third right MCP. The laceration is mostly superficial. He does have full range of motion of his right digits. Sensation is intact. There is no loss of function noted. Bleeding is well-controlled at time of examination. PROCEDURES: 1. Laceration irrigated with normal saline and cleansed with Hibiclens. This was performed after the area was anesthetized with 1% lidocaine. After cleaning of the wound, two sutures were placed intermittent. Wound edges approximated nicely. Bleeding maintained control. IMPRESSION/REPORT/PLAN 1. Laceration to the right hand. PLAN: 1. I have discussed the signs and symptoms of wound infection with Carlos A. Would recommend that he keep his wound clean, dry, and covered for the next two days. Avoid any submersion in water. Sutures will need to be removed in 7-10 days. 2. Tetanus was updated 3. He is to return to the clinic for suture removal or sooner with any concerns or questions regarding his laceration. His questions and concerns have been addressed. He is agreeable to this plan of care. Peterson Hollis N.P. /ari Electronically Signed By: PETERSON HOLLIS ENVIRONMENTAL HEALTH TECHNOLOGIST On: 11/22/2010 08:27 Source: [facility] [email or web address] Document Id: [id number] KEEPING MANAGER documented in this encounter Miscellaneous Notes Miscellaneous - Christina Shultz L.P.N. - 11/19/2010 4:00 PM CST Health Assessment Health Assessment Entered On: 11/19/2010 16:01 BOOKKEEPING MANAGER Performed On: 11/19/2010 16:00 BOOKKEEPING MANAGER by CHRISTINA SHULTZ LPN Nutrition Nutrition Risk Factors by History Adult: None CHRISTINA SHULTZ LPN - 11/19/2010 16:00 BOOKKEEPING MANAGER Functional Current Daily Living Assistance: None CHRISTINA SHULTZ LPN - 11/19/2010 16:00 BOOKKEEPING MANAGER Dependent Habits Tobacco Use/Currently Using: No CHRISTINA SHULTZ LPN - 11/19/2010 16:00 BOOKKEEPING MANAGER Psychosocial Domestic Concerns: None CHRISTINA SHULTZ LPN - 11/19/2010 16:00 BOOKKEEPING MANAGER Advance Directive Advanced Directives: CHRISTINA Phan LPN - 11/19/2010 16:00 BOOKKEEPING MANAGER Educ Needs Learning Style Preference Adult Grid Patient: Demonstration Family: Demonstration CHRISTINA SHULTZ LPN - 11/19/2010 16:00 BOOKKEEPING MANAGER Source: [facility] [employer] Document Id: [id number] BOOKKEEPING MANAGER!15 KEEPING MANAGER Miscellaneous - Christina Shultz L.P.N. - 11/19/2010 3:58 PM CST Adult Guitar Technician Intake/History Adult Guitar Technician Intake/History Entered On: 11/19/2010 16:00 BOOKKEEPING MANAGER Performed On: 11/19/2010 15:58 BOOKKEEPING MANAGER by CHRISTINA SHULTZ LPN Intake Chief Complaint: right hand lac Onset of Symptoms: 1500 today Temperature Core: 36.8C(Converted to: 98.2DegF) Peripheral Pulse Rate: 76/min Respiratory Rate: 20/min Systolic Blood Pressure: 122mmHg Diastolic Blood Pressure: 80mmHg NIBP Mean: 94mmHg BP Location: Right upper extremity Heart Rhythm: Regular Height: 187.50cm(Converted to: 6ft 2in, 73.82in) Actual Weight: 95.600kg(Converted to: 210lb 12oz) Weight Source: Standing scale Dosing Weight Clinic: 95.60kg Clinic BSA: 2.23 Body Mass Index: 27kg/m2 CHRISTINA SHULTZ LPN - 11/19/2010 15:58 BOOKKEEPING MANAGER Subjective Pain Symptoms: No CHRISTINA SHULTZ LPN - 11/19/2010 15:58 BOOKKEEPING MANAGER Dependent Habits Tobacco Use/Currently Using: No Alcohol Use: No CHRISTINA SHULTZ LPN - 11/19/2010 15:58 BOOKKEEPING MANAGER Allergies Allergies (Active) NKA Estimated Onset Date: Unspecified ; Created By: CHRISTINA SHULTZ LPN; Reaction Status: Active ;Category: Drug ; Substance: NKA ; Type: Allergy ; Updated By: CHRISTINA SHULTZ LPN; Reviewed Date: 11/19/2010 15:57 BOOKKEEPING MANAGER Source: [facility] [employer] Document Id: [id number] BOOKKEEPING MANAGER!23 KEEPING MANAGER documented in this encounter Plan of Treatment Not on filedocumented as of this encounter Visit Diagnoses Not on filedocumented in this encounter
--- OUTSIDE RECORDS SUMMARY | 2022-07-18 08:51 | XMS_ITS | Encounter Summary ---
:1975 Author Organization [facility] Address [address] [place] [address] Care Team Providers Name Role Phone Unavailable Primary Care Provider Unavailable Reason for Visit Reason Onset Date Comments Post op antibiotic 07/20/2019 Encounter Details Date Type Department Care Team Description 07/20/2019 Clinical Communication Department of Rena Burnham op antibiotic Urology in [place], [place] [address] [place] [phone] Social History Tobacco Use Types Packs/Day Years [...] Miscellaneous Notes Telephone Encounter - Serena Samayoa L.P.N. - 08/03/2019 3:41 PM WOOL BROKER Called patient left detailed message, letting him know what Rena said, and if he wants to try the oxybutynin he should call us back at [phone] BROKER Telephone Encounter - Rena Burnham P.A.-C. - 08/03/2019 8:37 AM WOOL BROKER Totally expected, the stent causes ureteral spasms. Often this is worse during urination. The more active he is the more aware the body is of the foreign body (stent) in the right ureter. If bothered by urgency/frequency we could try oxybutynin. Suggest he still take the Flomax 0.4mg daily this will help the R ureter dilate (less spasms). For pain: ibuprofen 600mg every 6hrs, okay to use the pain medication in addition to this, decrease activity, adequate hydration 80oz/daily BROKER Telephone Encounter - Vidhi Thomas L.P.NSmita - 08/03/2019 8:26 AM WOOL BROKER HISTORY OF PRESENT ILLNESS CYSTOSCOPY AND RIGHT URETEROSCOPY, STONE BASKETING AND PLACEMENT OF RIGHT URETERAL STENT on 08/02/19with Dr. Abdulaziz Aguilar. The following portions of the patient's history were reviewed and updated as appropriate: allergies,current medications, family history, medical history, social history, surgical history and problem list. ASSESSMENT / PLAN Description of symptoms Patient reports that antibiotic was not at pharmacy yesterday requesting it be sent to [facility]. Patient is also reporting 10/10 lower back pain when he urinates. Pain subsides after urination is complete. Denies fever or nausea, reports chills after urinating he feels like this is relatedto the pain he has with urination. Continues to have blood in his urine but this is getting less, nurses encouraged patient that this is to be expected and to push fluids and rest. Disposition/Recommendation: awaiting provider recommendations Information: patient/caller able to repeat back in their own words Caller agreeable to plan of care: yes The following references were used: provider Rena Burnham PA-C BROKER Telephone Encounter - Marlin Verdin R.N. - 07/20/2019 3:16 PM CST I called pt and discussed the potential risks of not proceeding with his stone extraction. Pt verbalized understanding and will proceed with surgery as recommended. BROKER Telephone Encounter - Rena Burnham P.A.-C. - 07/20/2019 12:40 PM WOOL BROKER He has been trying to pass this stone since March. Prolonged stone impaction can increase risk of ureteral scarring and infection. I would recommend stone extraction as planned, BUT certainly if he understands risks its okay to continue to attempt to pass spontaneously as long as he doesn't have infection or kidney failure, if he has increasing pain, infection or stone becomes impacted this would make removal more difficult. If he wants to wait, suggest UA/UC and cr/GFR in a few weeks. BROKER Telephone Encounter - Marlin Verdin R.N. - 07/20/2019 11:36 AM CST Pt saw you on 06/30/19 with a 5 mm stone that you thought was very likely he could pass on his own. He was started on Flomax 0.4 mg. Plan was to repeat CT on 08/01/19, the day before he is scheduled for lithotripsy to see if stone was still present or moved. Can this patient be advised to cancel his surgery? Or can he make a last minute decision based on 08/01/19 CT? Please advise. Thanks. BROKER Telephone Encounter - Laurence Bowles - 07/20/2019 11:20 AM CST Patient is wanting to discuss his upcoming surgery for kidney stones with a nurse or Rena. He is wondering if it is necessary or if it would be possible to hold off and see if it will pass. He has notbeen in a lot of pain from in. Please reach out to him at [phone]. BROKER documented in this encounter Plan of Treatment Not on filedocumented as of this encounter Visit Diagnoses Not on filedocumented in this encounter
--- OUTSIDE RECORDS SUMMARY | 2022-07-18 08:51 | XMS_ITS | Encounter Summary ---
:1975 Author Organization [facility] Address [address] [place] [address] Care Team Providers Name Role Phone Unavailable Primary Care Provider Unavailable Reason for Visit Reason Onset Date Comments Urology Surgery 06/30/2019 Encounter Details Date Type Department Care Team Description 06/30/2019 Clinical Communication Department of Serena Samayoa [facility] Surgery Urology in [facility] Ene, L.P.NSmita [address] [address] [phone] Social History Tobacco Use Types Packs/Day Years [...] More than 4 times per year 09/30/2020 anabaptism services? Do you belong to any clubs [...] Telephone Encounter - Serena Samayoa L.PSmitaN. - 06/30/2019 9:58 AM CDT Scheduled CYSTOSCOPY AND RIGHT URETEROSCOPY WITH LASER LITHOTRIPSY, STONE BASKETING AND PLACEMENT OFRIGHT URETERAL STENT on 08/02/2019 to be performed by Dr Aguilar. Patient to complete Pre-Op MD appt at [facility] in [place] Patient to complete Pre-Op Nurse appt 2019 Patient to complete Urine Culture 07/25/[address] of ABD on 08/01/2019 Surgery Booklet was reviewed with Patient prior to leaving the clinic. documented in this encounter Plan of Treatment Not on filedocumented as of this encounter Visit Diagnoses Not on filedocumented in this encounter
--- OUTSIDE RECORDS SUMMARY | 2022-07-18 08:51 | XMS_ITS | Encounter Summary ---
:1975 Author Organization [facility] Address [address] [place] [address] Care Team Providers Name Role Phone Unavailable Primary Care Provider Unavailable Encounter Details Date Type Department Care Team Description 11/23/2007 Hospital Encounter HX NO MAPPING Provider, Historical Social History Tobacco Use Types Packs/Day Years [...] or relatives? How often do you attend orthodox or More than 4 times per year 09/30/2020 congregational services? Do you belong to any clubs or Patient refused 09/30/2020 organizations such as orthodox groups, unions, fraternal or athletic groups, [...] documented as of this encounter Progress Notes Conversion, Historical Provider Ser - 11/23/2007 12:00 AM CDT [id number] SUBJECTIVE: Carlos A Gamez is a who complains of headache, sore throat, enlarged tonsils, swollen glands, earache, dry cough, fever, chills and fatigue for 2 days. He denies a history of seasonal allergies and denies a history of asthma. Patient does smoke cigarettes. OBJECTIVE: BP 110/84 Pulse 99 Temp (Src) 99 (Temporal) Resp 20 Wt 188 lbs 9.6 oz (85.5kg) SaO2 96% Well nourished, well developed without apparent distress Eyes:normal lids, pupils, irises and conjunctiva ENT:bilateral TM normal without fluid or infection, neck has left anterior cervical nodes enlarged and pharynx erythematous without exudate Lungs:clear to auscultation,palpation. Cardiovascular:NORMAL - regular rate and rhythm without murmur. Rapid strept test is NEGATIVE ASSESSMENT: Encounter Diagnoses Code Name Primary? Qualifier 462 ACUTE PHARYNGITIS Yes Plan: STREP GROUP A AG (RAPID), BETA STREP CONFIRM, AMOXICILLIN 875 MG OR TABS PLAN: Medications per [facility] orders Advised Carlos A Gamez that antibiotics are not effective for viral infections. If symptoms persist beyond one week and worsen: such as sinus congestion, increased fever, chills or productive cough; provider will have antibiotic prescription on file at pharmacy that could be filled to treat bacte rial infection. Strep culture results will be ready overnight and positive results will be called to patient. Reassurance given- discussed viral etiology as self limited to 3-5 days, 7 at the outside. Symptomatic therapy suggested: push fluids, rest, gargle warm salt water, use vaporizer or mist needed , use acetaminophen, ibuprofen, decongestant of choice, cough suppressant of choice as needed and apply heat to sinuses as needed. Call or return to clinic prn if these symptoms worsen or fail to improve as anticipated. Source: [facility] RWHXTRANSXRT[facility]YS Document Id: [id number] Conversion, Historical Provider Ser - 11/23/2007 12:00 AM CDT [id number] SUBJECTIVE: Carlos A Gamez is a who complains of headache, sore throat, enlarged tonsils, swollen glands, earache, dry cough, fever, chills and fatigue for 2 days. He denies a history of seasonal allergies and denies a history of asthma. Patient does smoke cigarettes. OBJECTIVE: BP 110/84 Pulse 99 Temp (Src) 99 (Temporal) Resp 20 Wt 188 lbs 9.6 oz (85.5kg) SaO2 96% Well nourished, well developed without apparent distress Eyes:normal lids, pupils, irises and conjunctiva ENT:bilateral TM normal without fluid or infection, neck has left anterior cervical nodes enlarged and pharynx erythematous without exudate Lungs:clear to auscultation,palpation. Cardiovascular:NORMAL - regular rate and rhythm without murmur. Rapid strept test is NEGATIVE ASSESSMENT: Encounter Diagnoses Code Name Primary? Qualifier 462 ACUTE PHARYNGITIS Yes Plan: STREP GROUP A AG (RAPID), BETA STREP CONFIRM, AMOXICILLIN 875 MG OR TABS PLAN: Medications per [facility] orders Advised Carlos A Yogi Reinardy that antibiotics are not effective for viral infections. If symptoms persist beyond one week and worsen: such as sinus congestion, increased fever, chills or productive cough; provider will have antibiotic prescription on file at pharmacy that could be filled to treat bacte rial infection. Strep culture results will be ready overnight and positive results will be called to patient. Reassurance given- discussed viral etiology as self limited to 3-5 days, 7 at the outside. Symptomatic therapy suggested: push fluids, rest, gargle warm salt water, use vaporizer or mist needed , use acetaminophen, ibuprofen, decongestant of choice, cough suppressant of choice as needed and apply heat to sinuses as needed. Call or return to clinic prn if these symptoms worsen or fail to improve as anticipated. 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
--- OUTSIDE RECORDS SUMMARY | 2022-07-18 08:52 | XMS_ITS | Clinical Summary ---
:1975 Author Organization [facility] [place] [address] Care Team Providers Name Role Phone Charisse Rosen MD Primary Care Provider [phone] Allergies No known active allergies Medications Medication Sig Dispensed Refills Start Date End Date Status omeprazole Take 1 Capsule 90 Capsule 3 06/25/2021 Ac tive (PRILOSEC) 20 mg (20 mg) by Delayed-Release mouth once capsuleIndication daily before a s: Chronic GERD meal. meloxicam 15 mg Take 1 Tablet 30 Tablet 2 11/20/2021 Active tabletIndications (15 mg) by : Penis pain mouth once daily. losartan (COZAAR) TAKE ONE TABLET 30 Tablet 0 06/23/2022 Active 100 mg BY MOUTH ONCE tabletIndications DAILY : HTN (hypertension) sertraline TAKE TWO 60 Tablet 0 06/23/2022 Active (ZOLOFT) 100 mg TABLETS BY tabletIndications MOUTH ONCE : Dysthymia DAILY sertraline Take 2 Tablets 180 Tablet 3 06/25/2021 06/23/2022 D iscontinued (ZOLOFT) 100 mg (200 mg) by tabletIndications mouth once : Dysthymia daily. Dose increase as of 06/25/2021 losartan (COZAAR) Take 1 Tablet 60 Tablet 0 04/24/2022 022 Discontinued 100 mg (100 mg) by tabletIndications mouth once : HTN daily. 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 Seasonal affective disorder 09/03/2011 Panic disorder without agoraphobia 09/03/2011 Vitamin D deficiency 08/19/2011 Other Chest Pain- ATYPICAL FOR ISCHEMIA 05/23/2008 Gastric polyps Resolved Problems Problem Noted Date Resolved Date Agoraphobia with panic disorder 01/05/2007 09/03/20 11 Encounters Date Type Specialty Care Team Description 06/23/2022 Refill Silas Charisse Refill Request (Sertraline) MD Jennyfer 06/22/2022 Refill Silas, Charisse Refill Request (Losartan) MD Jennyfer 04/21/2022 Refill Silas, Charisse Refill Request (Losartan MD Jennyfer Potassium 100mg tabs ) 04/17/2022 Refill SilasJessica pantojaa Refill Request (Losartan) MD Jennyfer from Last 3 Months Immunizations Name Administration Dates Next Due Influenza, IIV3 (Age >=3 years) 08/09/2013 Family History Medical History Relation Name Comments Psychiatric illness Maternal Aunt depression Psychiatric illness Maternal Grandfather depress ion Cancer Maternal Uncle bladder Cancer-colon Neg. 1 Cancer-prostate Neg. 2 Diabetes Neg. 3 Heart Disease Neg. 4 Psychiatric illness Sister 1 depression Psychiatric illness Sister 3 depression Relation Name Status Comments Brother Alive Father Alive Maternal Aunt Alive Maternal Grandfather Maternal Grandmother Maternal Uncle Mother Alive Neg. 1 Neg. 2 Neg. 3 Neg. 4 Paternal Grandfather Paternal Grandmother Sister 1 Alive Sister 2 Alive Sister 3 Alive Son Alive Social History Tobacco Use Types Packs/Day Years Used Date Current Some Day Smoker Cigarettes 0.25 Quit : 07/15/2014 Smokeless Tobacco: Never Used Tobacco Cessation: Ready to Quit: Yes; C ounseling Given: Yes Alcohol Use Standard Drinks/Week Comments No 0 (1 standard drink = 0.6 oz pure alcoho l) rare Sex Assigned at Date Recorded Not on file Obstetrics History Last Filed Vital Signs Vital Sign Reading Time Taken Comments Blood Pressure 126/85 08/14/2021 3:51 PM SPONGE MAKER Pulse 85 08/14/2021 3:51 PM SPONGE MAKER Temperature 36.9 ??C (98.5 ??F) 10/15/2020 3:54 PM SPONGE MAKER Respiratory Rate 18 07/19/2020 3:44 PM SPONGE MAKER Oxygen Saturation 98% 08/14/2021 3:51 PM SPONGE MAKER Inhaled Oxygen Concentration - - Weight 98.7 kg (217 lb 8 oz) 08/14/2021 3:51 PM SPONGE MAKER Height 185.2 cm (6' 0.91) 06/25/2021 7:43 AM CDT Body Mass Index 28.76 06/25/2021 7:43 AM CDT Plan of Treatment Health Maintenance Due Date Last Done Comments COVID-19 vaccine series (#1) 01/23/1977 Pneumococcal series for age 19-64 1982 (1 - PCV) Tdap 1987 Hepatitis C screening for age 1107/26/1994 18-79 Colonoscopy through age 75 07/21/2019 07/21/2016 Depression screening for age 12+ 07/19/2021 07/19/2020 Tetanus booster 12/08/2021 12/09/2011 ([facility] Influenza for age 9-49 05/15/2022 08/09/2013 BMI (ht and wt on same day) for 06/25/2022 06/25/2021, 08/15, age 18+ 07/19/2020 Lipids for age 45-75 06/25/2026 06/25/2021, 08/02/2012, 08/14/2011, Additional history exists Results Not on filefrom Last 3 Months Insurance Payer Benefit Plan / Subscriber ID Effective Dates Phone Addre ss Type Group BLUE CROSS BLUE CROSS OF [id number] 2015-Present [address] [address] [place] [address] [phone] (Work) Advance Directives Latest Code Status on File Code Status Date Activated Date Inactivated Comments Full Code 07/21/2016 11:40 AM 07/22/2016 2:28 AM Full Code 07/21/2016 10:37 AM 07/21/2016 11:40 AM Care Teams Field Operations Supervisor Relationship Specialty Start Date End Date Charisse Rosen MD PCP - General Family Practice 05/27/[address] [place] [address] (work)
[2022-07-18 16:33] LABS: Chloride* 105 mmol/L (96-114); Potassium* 4.6 mmol/L (3.6-5.1); Sodium* 138 mmol/L (135-149)
[2022-07-18 16:35] LABS: Cholesterol* 245 mg/dL (90-199); Estimated Glomerular Filt Rate 95 ml/min
[2022-07-18 16:36] LABS: Blood Urea Nitrogen* 15 mg/dL (5-24); Carbon Dioxide* 26 mmol/L (20-32); Glucose* 82 mg/dL (60-115); Triglycerides* 214 mg/dL (40-149)
[2022-07-18 16:37] LABS: Calcium* 9.1 mg/dL (8.4-10.6); HDL Cholesterol* 43 mg/dL (>=40); LDL Cholesterol Calculated 159 mg/dL (<100)
== END 2022-07-18 08:46 | disposition home or self-care (01) ==
PROVIDERS: PCP Nurse Practitioner Family; Visit Provider Nurse Practitioner Family
DX: Z00.00 Encounter for general adult medical examination without abnormal findings (principal); I10 Essential (primary) hypertension; D50.9 Iron deficiency anemia, unspecified; F41.9 Anxiety disorder, unspecified
CPT/HCPCS: 36415; 80048; 80061

== ENCOUNTER 2022-08-15 11:57 | Outpatient (CLI) | payer BC, SELFPAY ==
--- OUTSIDE RECORDS SUMMARY | 2022-08-15 12:01 | XMS_ITS | Encounter Summary ---
:1975 Author Organization [facility] Address [address] [place] [address] Care Team Providers Name Role Phone Unavailable Primary Care Provider Unavailable Reason for Referral MRI/CAT/PET Scan (Routine) - Pending Review Specialty Diagnoses / Procedures Referred By Contact Refer red To Contact Radiology Diagnoses Urolithiasis Colic Renal Rena Burnham P.A.-C. [facility] Region Procedures CT Abdomen Pelvis without IV Contrast [address] [place] [address] [phone] Referral ID Status Reason Start Date Expiration Date Visits V isits Requested Authorized [id number] Pending 06/12/2022 06/12/2023 1 1 Review Outpatient (Routine) - Authorized Specialty Diagnoses / Procedures Referred By Contact Refer red To Contact Urology Rena Burnham P. A.-C. [facility] Region [address] [place] [phone] Referral ID Status Reason Start Date Expiration Date Visits V isits Requested Authorized [id number] Authorized 06/12/2022 06/11/2025 1 1 Reason for Visit Outpatient (Routine) - Closed Specialty Diagnoses / Procedures Referred By Contact Refer red To Contact Urology Rena Burnham P. A.-C. [facility] Region [address] [place] [address], [place] [phone] Referral ID Status Reason Start Date Expiration Date Visits Requ ested Visits Authorized [id number] Closed 11/23/2020 11/23/2021 1 1 Encounter Details Date Type Department Care Team Description 06/12/2022 Office Visit Department of Urology Rena Burnham D ysuria (Primary Dx); in [place] Solis[place]ecia P.A.-C. Screening Examination Prostate Cancer; [address] Urolithiasis; [place] Colic Renal [phone] Social History Tobacco Use Types Packs/Day Years [...] or relatives? How often do you attend faith or More than 4 times per year 09/30/2020 restorationist services? Do you belong to any clubs or Patient refused 09/30/2020 organizations such as faith groups, unions, fraternal or athletic groups, or [...] UA/UC, will consider trial of abx therapy (Levaquin/[id number] not helpful) - continue pelvic floor relaxation techniques, you could consider meeting with pelvic floor physicaltherapist again - avoid dietary irritants, keep a record of when your symptoms are most pronounced, try to establishtriggers - ibuprofen okay to use for discomfort (recognized this is a rodent exterminator solution) - urine collected today will be sent for UA/UC - schedule lab for PSA (prostate cancer screening) - consider more formal workup (unlikely to exchange mechanic truthfully), cystoscopy (scope to look into the [...] PM CDT SUBJECTIVE CHIEF COMPLAINT/REASON FOR VISIT Ufpy-up-jbem visit, uro clinic Perineal pressure pain, intermittent dysuria Chronic tinea cruris History of calcium oxalate stones HISTORY OF PRESENT ILLNESS This is a pleasant 46-year-old gentleman history of calcium oxalate stones required ureteroscopy round [id number]. He is had persistent perineal discomfort urethral [...] UA/UC, will consider trial of abx therapy (Levaquin/[id number] not helpful) - continue pelvic floor relaxation techniques, you could consider meeting with pelvic floor physicaltherapist again - avoid dietary irritants, keep a record of when your symptoms are most pronounced, try to establishtriggers - ibuprofen okay to use for discomfort (recognized this is a residential solution) - urine collected today will be sent for UA/UC - schedule lab for PSA (prostate cancer screening) - consider more formal workup (unlikely to exchange mechanic truthfully), cystoscopy (scope to look into the [...] Crystal Light lemonade or adding lemon or lovelock to water. - maintain low-sodium (<2,500mg/day) - [...] Name Type Priority Associated Diagnoses Order S [facility] PSA Lab Routine Screening Examination Expect ed: (Prostate-Specific Prostate Cancer 2021 Antigen) Screen (Approximate ), Expires: 09/11/2023 CT Abdomen Pelvis Imaging RAD - Routine (most Urolithias is Expected: without IV inpatients and all Colic Renal 3 Contrast outpatients) (Approximate), Expires: 06/12/2023 Scheduled Referrals Name Type Priority Associated Diagnoses [facility] Outpatient Referral Routine Expect ed: [...] + Susc, Urine (06/12/2022 1:45 PM CDT) [facility] Method Time Signature Urine Culture No [...] Organization Address City/State/ZIP Code Phon e Number [facility]- [address] [place] [address] [phone] [facility] [place] [address] System in [address] Urinalysis with Microscopic: Urine, Midstream (06/12/2022 1:45 PM CDT) Analysis Performed At [facility] logist Time Signature Source Urine, Urine, 06/12/2022 [...] 8.0 06/12/2022 1:53 PM CDT [facility] Specific [place] 1.007 1.001 - 1.035 06/12/2022 1:53 PM [...] Organization Address City/State/ZIP Code Phon e Number [facility]- [address] [place], [place] [address] [facility] [place] [address] System in [place] [address] documented in this encounter Visit Diagnoses Diagnosis Dysuria - Primary Screening Examination Prostate Cancer Urolithiasis Colic Renal documented in this encounter
--- OUTSIDE RECORDS SUMMARY | 2022-08-15 12:01 | XMS_ITS | Encounter Summary ---
:1975 Author Organization [facility] Address [address] [place] [address] Care Team Providers Name Role Phone Unavailable Primary Care Provider Unavailable Reason for Visit Reason Comments Rash Outpatient (Routine) - Closed Specialty Diagnoses / Procedures Referred By Contact Refer red To Contact Dermatology Diagnoses Tinea Groin Perianal Area Rena Burnham P.A.-C. [facility] Region [address], [place] [phone] Referral ID Status Reason Start Date Expiration Date Visits Requ ested Visits Authorized [id number] Closed 09/21/2019 09/20/2020 1 1 Encounter Details Date Type Department Care Team Description 12/03/2020 Office Visit Department of Cassidy Cheung Rash (Prim melody Dx); Dermatology in Audie Ghotra Tinea Groin Perianal Area [place], [place] [address] [phone] Social History Tobacco Use Types Packs/Day Years [...] 09/30/2020 organizations such as sabianist groups, unions, fraternal or athletic groups, or [...] of Rena Burnham P.A.-C. in Urology at [facility] for evaluation of a rash involving the groin. This is my first time seeing this patient in Dermatology clinic today. The patient has not been previously seen by [facility]. Today he states the rash involves [...]
--- OUTSIDE RECORDS SUMMARY | 2022-08-15 12:01 | XMS_ITS | Encounter Summary ---
:1975 Author Organization [facility] Address [address] [place] [address] Care Team Providers Name Role Phone Unavailable Primary Care Provider Unavailable Encounter Details Date Type Department Care Team Description 10/22/2020 Clinical Communication Department of Urology Rena Burnham, in [facility] Kecia espinosa P.A.-C. [address] [facility] [address] [place], [place] [phone] Social History Tobacco Use Types Packs/Day [...] More than 4 times per year 09/30/2020 adventist services? Do you belong to any clubs [...]
--- OUTSIDE RECORDS SUMMARY | 2022-08-15 12:01 | XMS_ITS | Encounter Summary ---
:1975 Author Organization [facility] Address [address] [place] [address] Care Team Providers Name Role Phone Unavailable Primary Care Provider Unavailable Encounter Details Date Type Department Care Team Description 08/29/2020 Hospital Encounter Department of Radiology Michelle Burnham, Urolithiasis in [place], P.A.-C. [place] [address] [phone] Social History Tobacco Use Types Packs/Day [...] Result s for this (most inpatients PM CARPENTER'S ASSISTANT procedure a re in and all the results outpatients) section. documented in this encounter Results DX Abdomen 1 View (08/29/2020 2:48 PM CARPENTER'S ASSISTANT) Anatomical Region Laterality Modality Abdomen, Abdominal RST LOS, Abdominal ARZ LOS, N/A Digital Radiography Abdominal FLA LOS Specimen (Source) Anatomical Collection Method Collection Time Re ceived Time Location / / Volume Laterality 08/29/2020 2:52 PM CARPENTER'S ASSISTANT Impressions 08/29/2020 2:53 PM CARPENTER'S ASSISTANT No radiographic evidence for radiopaque urinary tract calculus. Pelvic phleboliths as seen on CT 019. Nonobstructive bowel gas pattern with moderate stool scattered throughout the colon. Subtle serpiginous opacity projecting over the left upper quadrant may be external to the patient. Narrative 08/29/2020 2:53 PM CARPENTER'S ASSISTANT EXAM: DX ABDOMEN 1 VIEW Procedure Note [...]
--- OUTSIDE RECORDS SUMMARY | 2022-08-15 12:01 | XMS_ITS | Clinical Summary ---
:1975 Author Organization [facility] Address [address] [place] [address] Care Team Providers Name Role Phone Unavailable Primary Care Provider Unavailable Source Comments Patient records contain information from all sites at [facility]. For routine questions regarding patient records, call [phone] during business hours, M-F 8:00 AM - 5:00 PM Central Time. Record requests for emergency care only can be directed to [phone] at any time.[facility] Allergies No known active allergies Medications Medication [...] Added automatically from request for austin golden [id number] Encounters Date Type Specialty Care Team Description [...] 09/30/2020 organizations such as pentecostalism groups, unions, [employer] or athletic groups, or school groups? How [...] Comments Blood Pressure 131/76 11/23/2020 3:12 PM BEEF SELECTOR Pulse 97 11/23/2020 3:16 PM BEEF SELECTOR Temperature 36.6 ??C (97.9 ??F) 11/23/2020 3:12 PM BEEF SELECTOR Respiratory Rate 16 08/02/2019 2:17 PM BEEF SELECTOR Oxygen Saturation 97% 11/23/2020 3:12 PM BEEF SELECTOR Inhaled Oxygen Concentration - - Weight 101 kg (222 lb 10.6 oz) 08/02/2019 11:57 AM BEEF SELECTOR Height 187 cm (6' 1.62) 08/02/2019 11:57 AM BEEF SELECTOR Body Mass Index 28.88 08/02/2019 11:57 AM BEEF SELECTOR Plan of Treatment Health Maintenance Due Date [...] history exists Medical Devices Implanted Type Area Combination Saw Operator Device Shelf Model / Identifier Expiration Serial / Date Lot Stnt Uret Lp Cntr 8ty60-01 - Sna - [id number] Ureteral B oston 11/10/2021 [id number] / Implanted: Qty: 1 on 08/02/2019 by Abdulaziz No M.D. at [facility] [employer] NA / [id number] Procedures Procedure Name Priority Date/Time Associated Comments [...] + Susc, Urine (06/12/2022 1:45 PM CDT) [facility] Method Time Signature Urine Culture No [...] Code Phon e Number [facility]- [address] [place] [address] 54 153 [facility] [place] [address] System in [address] Urinalysis with Microscopic: Urine, Midstream (06/12/2022 [...] 8.0 06/12/2022 1:53 PM CDT [facility] Specific [place] 1.007 1.001 - 1.035 06/12/2022 1:53 PM [...] Phon e Number [facility]- [address] [facility] [place], [place] [address] [place] [address] System in [place] [address] [place] Kidneys Bilateral with Bladder (05/27/2022 7:36 [...] Effective Dates Phone Address Type / Group [facility] [id number] [phone] [id number] [facility]PO [facility] [address] [place] [address]
--- OUTSIDE RECORDS SUMMARY | 2022-08-15 12:01 | XMS_ITS | Encounter Summary ---
:1975 Author Organization [facility] Address [address] [place] [address] Care Team Providers Name Role Phone Unavailable Primary Care Provider Unavailable Reason for Referral Outpatient (Routine) - Closed Specialty Diagnoses / Procedures Referred By Contact Refer red To Contact Urology Rena Burnham P. A.-C. [facility] [address] [phone] Referral ID Status Reason Start Date Expiration Date Visits Requ ested Visits Authorized [id number] Closed 11/23/2020 11/23/2021 1 1 R RECLAIMING MACHINE OPERATOR Reason for Visit Outpatient (Routine) - Closed Specialty Diagnoses / Procedures Referred By Contact Refer red To Contact Urology Diagnoses par Rena Burnham P.A.-C. [facility] Region [address] [phone] Referral ID Status Reason Start Date Expiration Date Visits Requ ested Visits Authorized [id number] Closed 10/04/2020 10/04/2021 1 1 Encounter Details Date Type Department Care Team Description 11/23/2020 Office Visit Department of Urology Rena Burnham Urol ithiasis (Primary in [place], Joel Rene.Sky Dx) [facility] [address] [place] [phone] Social History Tobacco Use Types Packs/Day [...] More than 4 times per year 09/30/2020 quaker services? Do you belong to any clubs [...] Comments Blood Pressure 131/76 11/23/2020 3:12 PM PAPER RECLAIMING MACHINE OPERATOR Pulse 97 11/23/2020 3:16 PM PAPER RECLAIMING MACHINE OPERATOR Temperature 36.6 ??C (97.9 ??F) 11/23/2020 3:12 PM PAPER RECLAIMING MACHINE OPERATOR Respiratory Rate - - Oxygen Saturation 97% 11/23/2020 3:12 PM PAPER RECLAIMING MACHINE OPERATOR Inhaled Oxygen Concentration - - Weight - - Height - - Body Mass Index - - documented in this encounter Progress Notes Rena Burnham P.A.-C. - 11/23/2020 3:00 PM CST SUBJECTIVE CHIEF COMPLAINT/REASON FOR VISIT [id number]-[id number] visit Perineal pressure pain Dysuria Tinea cruis [...] his perineal/penile discomfort. Uses nystatin powder an qjex-hjk-rkathno antifungal agents. Infectious workup has been benign, [...] Ref Range: 5.0 - 8.0 6.5 Specific [place] Latest Ref Range: 1.001 - 1.035 1.021 [...] meeting with the pelvic pain clinic in [place]. He did not feel that Cialis was helpful and wishes to discontinue, fine with that. Offered him second opinion consultation with [place] urology group E declined. For now he [...] Name Type Priority Associated Diagnoses Order [facility] office Outpatient Referral Routine Expect ed: visit (clinic) 11/23/2021 (Approximate), Expires: 11/24/2023 documented as of this encounter Visit Diagnoses Diagnosis Urolithiasis - Primary documented in this encounter
--- OUTSIDE RECORDS SUMMARY | 2022-08-15 12:01 | XMS_ITS | Encounter Summary ---
:1975 Author Organization [facility] Address [address] [place] [address] Care Team Providers Name Role Phone Unavailable Primary Care Provider Unavailable Encounter Details Date Type Department Care Team Description 10/05/2020 Orders Only Department of Urology Rena Burnham S creening Examination in [place]. Prostate Cancer [address] [facility] [address] (Primary Dx) [place] [phone] Social History Tobacco Use Types Packs/Day [...] or relatives? How often do you attend buddhist or More than 4 times per year 09/30/2020 christianity services? Do you belong to any clubs or Patient refused 09/30/2020 organizations such as buddhist groups, unions, fraternal or athletic groups, or [...] PSA (Prostate-Specific Antigen) Screen (10/11/2020 3:16 PM SALES FORCE ADMINISTRATOR) athologist Signature Prostate-Specif 0.60 <=2.5 ng/mL 10/11/2020 [facility] ic Ag 3:47 PM SALES FORCE ADMINISTRATOR Comment: Biotin has been identified by the manufa cturer as a potential interfering substance. ??Higher concentr ations of biotin may be found in multivitamins, hair/nail supple ments, and workout supplements. ??If the result does not [facility] clinical observations, repeat testing after patient [...] (Blood, 10/11/2020 3:16 PM 10/11/19 3:22 Venous) SALES FORCE ADMINISTRATOR PM SALES FORCE ADMINISTRATOR Rena Burnham P.A.-C. LAB BLOOD ADD-ON Performing Organization Address City/State/ZIP Code Phon e Number [facility]- [address] [place], [place] [address] [place] [address] System in [place] [address] documented in this encounter Visit Diagnoses Diagnosis Screening Examination Prostate Cancer - Primary documented in this encounter
--- OUTSIDE RECORDS SUMMARY | 2022-08-15 12:01 | XMS_ITS | Encounter Summary ---
:1975 Author Organization [facility] Address [address] [place] [address] Care Team Providers Name Role Phone Unavailable Primary Care Provider Unavailable Reason for Referral Outpatient (Routine) - Closed Specialty Diagnoses / Procedures Referred By Contact Refer red To Contact Diagnoses Stones Uric Acid Rena Burnham P.A.-C. [facility] Region Procedures [place] Kidneys Bilateral with Bladder [address] [place] [phone] Referral ID Status Reason Start Date Expiration Date Visits Requ ested Visits Authorized [id number] Closed 03/13/2022 03/13/2023 1 1 Reason for Visit Outpatient (Routine) - Closed Specialty Diagnoses / Procedures Referred By Contact Refer red To Contact Diagnoses Stones Uric Acid Rena Burnham P.A.-[facility]. [facility] Region Procedures US Kidneys Bilateral with Bladder [address] [place] [phone] Referral ID Status Reason Start Date Expiration Date Visits Requ ested Visits Authorized [id number] Closed 03/13/2022 03/13/2023 1 1 Encounter Details Date Type Department Care Team Description 05/27/2022 Hospital Encounter Department of Rena Burnham Uric Acid Radiology [place] . [place] [address] [place] [phone] Social History Tobacco Use Types Packs/Day Years [...] or relatives? How often do you attend rastafari or More than 4 times per year 09/30/2020 oriental orthodox services? Do you belong to any clubs or Patient refused 09/30/2020 organizations such as rastafari groups, unions, [employer] or athletic groups, or school groups? How [...]
--- OUTSIDE RECORDS SUMMARY | 2022-08-15 12:01 | XMS_ITS | Encounter Summary ---
:1975 Author Organization [facility] Address [address] [place] [address] Care Team Providers Name Role Phone Unavailable Primary Care Provider Unavailable Reason for Referral Outpatient (Routine) - Authorized Specialty Diagnoses / Procedures Referred By Contact Refer red To Contact Diagnoses Pain Scrotum Rena Burnham P.A.-C. [facility] Region Procedures US Scrotum [address] [place] [address] Referral ID Status Reason Start Date Expiration Date Visits V isits Requested Authorized [id number] Authorized 05/28/2022 05/28/2023 1 1 Encounter Details Date Type Department Care Team Description 05/28/2022 Orders Only Department of Urology Rena Burnham P ain Scrotum (Primary in [place], Juan M jesús Landry Dx) [address] [facility] [address] [place] [phone] Social History Tobacco Use Types Packs/Day Years [...] or relatives? How often do you attend yazidism or More than 4 times per year 09/30/2020 judaism services? Do you belong to any clubs or Patient refused 09/30/2020 organizations such as yazidism groups, unions, [place] or athletic groups, or school groups? How [...]
--- OUTSIDE RECORDS SUMMARY | 2022-08-15 12:01 | XMS_ITS | Encounter Summary ---
:[address] [facility] Address [address] [place] [address] Care Team Providers Name Role Phone Unavailable Primary Care Provider Unavailable Reason for Referral Outpatient (Routine) - Closed Specialty Diagnoses / Procedures Referred By Contact Refer red To Contact Urology Diagnoses par Rena Burnham P.A.-C. [facility] [address], [place] [address] Referral ID Status Reason Start Date Expiration Date Visits Requ ested Visits Authorized [id number] Closed 10/04/2020 10/04/2021 1 1 RIFUGAL DRIER OPERATOR Reason for Visit Outpatient (Routine) - Closed Specialty Diagnoses / Procedures Referred By Contact Refer red To Contact Urology Rena Burnham P. A.-C. [facility] [address] [place] [phone] Referral ID Status Reason Start Date Expiration Date Visits Requ ested Visits Authorized [id number] Closed 09/21/2019 09/20/2020 1 1 Encounter Details Date Type Department Care Team Description 10/04/2020 Office Visit Department of Urology Rena Burnham P ain Pelvic Male in [place], Kecia espinosa P.A.-C. (Primary Dx) [address] [address], [place] [phone] Social History Tobacco Use Types Packs/Day [...] or relatives? How often do you attend gnosticist or More than 4 times per year 09/30/2020 baptist services? Do you belong to any clubs or Patient refused 09/30/2020 organizations such as gnosticist groups, unions, fraternal or athletic groups, or [...] Comments Blood Pressure 139/90 10/04/2020 8:27 AM CENTRIFUGAL DRIER OPERATOR Pulse 82 10/04/2020 8:27 AM CENTRIFUGAL DRIER OPERATOR Temperature 36.5 ??C (97.7 ??F) 10/04/2020 8:27 AM CENTRIFUGAL DRIER OPERATOR Respiratory Rate - - Oxygen Saturation - [...] drink Crystal Light lemonade or lemon or chitina to water. 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 - Levaquin 500 mg daily for 3 weeks (potential side effects: Tendon pain, joint pain, discontinuing contact our office if this happens) - Cialis 5 mg daily (goals: better emptying, pelvic floor relaxation, improvement in erections) - weendy or ju on phone ([employer], [employer], [employer], [employer] tend to be the cheapest locations) - avoid all dietary bladder irritants (see list) - urine collected today will be sent for urinalysis with microscopy, urine culture, ureaplasma, mycoplasma, gonorrhea, chlamydia, Trichomonas, will contact you with results and need for any further treatment. - consider pelvic floor relaxation techniques (pelvic yoga - you tube pelvic floor relaxation) https://www.nafc.org/bhealth-blog/qcl-wm-budsf-hssj-xobyve-bywru # 4 prostate cancer screening - LISA unremarkable today - present to lab in 1 week for PSA lab draw Follow-up 6-8 weeks RIFUGAL DRIER OPERATOR documented in this encounter Progress Notes Rena Burnham P.A.-C. - 10/04/2020 8:30 AM CST SUBJECTIVE CHIEF COMPLAINT/REASON FOR VISIT [id number] visit Perineal pressure pain Dysuria HISTORY OF [...] drink Crystal Light lemonade or lemon or chitina to water. 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 - Levaquin 500 mg daily for 3 weeks (potential side effects: Tendon pain, joint pain, discontinuing contact our office if this happens) - Cialis 5 mg daily (goals: better emptying, pelvic floor relaxation, improvement in erections) - weendy or ju on phone ([employer], [employer], [employer], [...] yoga - you tube pelvic floor relaxation) https://www.nafc.org/bhealth-blog/lsy-kg-rsxzu-fniy-uyycet-bmerp # 4 prostate cancer screening - LISA unremarkable today - present to lab in 1 we PATIENT EDUCATION Ready to learn, no apparent learning barriers were identified; learning preferences include listening. Explained diagnosis and treatment plan; patient expressed understanding of the content. Thirty minutes was spent with the patient, greater than 50% of this time was spent in counseling andeducation RIFUGAL DRIER OPERATOR documented in this encounter Plan of Treatment Scheduled Referrals Name Type Priority Associated Diagnoses Order S ling Urology office Outpatient Referral Routine Expect ed: visit (clinic) 11/15/2020 (Approximate), Expires: 10/04/2023 documented as of this encounter Procedures Procedure Name Priority Date/Time Associated Comments Diagnosis T. VAGINALIS, MISC, Routine 10/04/2020 9:47 AM Pain Pelvic Mal e Results for this AMPLIFIED RNA CENTRIFUGAL DRIER OPERATOR procedure are in the results section. CHLAMYDIA/GONORRHOEAE Routine 10/04/2020 9:47 AM Pain Pelvic M jonas Results for this AMPLIFIED RNA CENTRIFUGAL DRIER OPERATOR procedure are in the results section. BACTERIAL CULTURE, Routine 10/04/2020 9:46 AM Pain Pelvic Male Results for this AEROBIC + SUSC, URINE CENTRIFUGAL DRIER OPERATOR proced ure are in the results section. UREAPLASMA PCR Routine 10/04/2020 9:46 AM Pain Pelvic Male Res ults for this CENTRIFUGAL DRIER OPERATOR procedure are i n the results section. MYCOPLASMA Routine 10/04/2020 9:46 AM Pain Pelvic Male Resul ts for this GENITALIUM,TMA CENTRIFUGAL DRIER OPERATOR procedure are in the results section. URINALYSIS WITH Routine 10/04/2020 9:46 AM Pain Pelvic Male Re sults for this MICROSCOPIC CENTRIFUGAL DRIER OPERATOR procedure are i n the results section. documented in this encounter Results T. vaginalis, Misc, Amplified RNA (10/04/2020 9:47 AM CENTRIFUGAL DRIER OPERATOR) [facility] Method Time Signature Source Urine, 10/06/2020 DTL Urine, First 12:27 AM CENTRIFUGAL DRIER OPERATOR Voided T.vaginalis, Negative Negative 10/06/2020 DTL Misc, 12:27 AM CENTRIFUGAL DRIER OPERATOR amplified RNA Comment: ----ADDITIONAL INFORMATION---- This test has been modified from the man ufacturer's instructions. Its performance characteristics were determi moustapha by [facility] in a manner consistent with CLIA requirements. This test has not been cleared or approved by the U.S. Food and Drug Administration . Specimen Anatomical Collection Method Collection Time Receive d Time (Source) Location / / Volume Laterality Varies (Urine, 10/04/2020 9:47 AM 021 First Voided) CENTRIFUGAL DRIER OPERATOR 10:04 PM CENTRIFUGAL DRIER OPERATOR Rena Burnham P.A.-C. LAB MICROBIOLOGY - GENERAL O RDERABLES Performing Organization Address City/State/ZIP Code Phon e Number [facility] - [address] [place], [place] [address] [facility] [place] [address] [facility] [address] Chlamydia / Gonorrhoeae Amplified RNA (10/04/2020 9:47 AM CENTRIFUGAL DRIER OPERATOR) [facility] Method Time Signature Source Urine, 10/05/2020 ECLR Urine, First 12:45 PM CENTRIFUGAL DRIER OPERATOR Voided Chlamydia Negative Negative 10/05/2020 ECLR trachomatis 12:45 PM CENTRIFUGAL DRIER OPERATOR amplified RNA Source Urine, 10/05/2020 ECLR Urine, First 12:45 PM CENTRIFUGAL DRIER OPERATOR Voided Neisseria Negative Negative 10/05/2020 ECLR gonorrhoeae 12:45 PM CENTRIFUGAL DRIER OPERATOR amplified RNA Specimen Anatomical Collection Method Collection Time Receive d Time (Source) Location / / Volume Laterality Varies (Urine, 10/04/2020 9:47 AM 021 3:43 First Voided) CENTRIFUGAL DRIER OPERATOR PM CENTRIFUGAL DRIER OPERATOR Rena Burnham P.A.-C. LAB MICROBIOLOGY - GENERAL O RDERANEELIMA Performing Organization Address City/State/ZIP Code Phon e Number [facility]- [address] [place] [phone] [facility] [place] [address] System [address] (ABNORMAL) Bacterial Culture, Aerobic + Susc, Urine (10/04/2020 9:46 AM CENTRIFUGAL DRIER OPERATOR) [facility] Method Time Signature Urine Culture Organism 10/05/2020 ECLR present 10:21 AM CENTRIFUGAL DRIER OPERATOR <10,000 cfu/mL (A) Specimen Anatomical Collection Method Collection Time Receive d Time (Source) Location / / Volume Laterality Urine (Urine, 10/04/2020 9:46 AM 10/04/19 3:24 Midstream) CENTRIFUGAL DRIER OPERATOR PM CENTRIFUGAL DRIER OPERATOR Comment: Specimen Source Site: Urine Rena Burnham P.A.-C. LAB MICROBIOLOGY - GENERAL O RDERABLES Performing Organization Address City/State/ZIP Code Phon e Number [facility]- [address] [place], [place] [address] [facility] [place] [address] System [address] Urinalysis with Microscopic: Urine, Midstream (10/04/2020 9:46 AM CENTRIFUGAL DRIER OPERATOR) Analysis Performed At Patho logist Time Signature Source Urine, Urine, 10/04/2020 [facility] Midstream 9:59 AM CENTRIFUGAL DRIER OPERATOR Clarity Clear Clear 10/04/2020 [facility] 9:59 AM CENTRIFUGAL DRIER OPERATOR Color Yellow 10/04/2020 RDWG 9:59 AM CENTRIFUGAL DRIER OPERATOR Comment: ----REFERENCE VALUE---- Colorless Yellow Ángela Blood Negative Negative 10/04/2020 9:59 AM CENTRIFUGAL DRIER OPERATOR RDW[facility] Nitrite Negative Negative 10/04/2020 9:59 AM CENTRIFUGAL DRIER OPERATOR [facility] Leukocyte Esterase Negative Negative 10/04/2020 9:59 AM CS T [facility] Protein Negative mg/dL 10/04/2020 9:59 AM CENTRIFUGAL DRIER OPERATOR [facility] Comment: ----REFERENCE VALUE---- Negative Trace Glucose Negative Negative mg/dL 10/04/2020 9:59 [address]IFUGAL DRIER OPERATOR RD WG Ketone Negative Negative mg/dL 10/04/2020 9:59 [address]IFUGAL DRIER OPERATOR RD WG Bilirubin Negative Negative 10/04/2020 9:59 AM CENTRIFUGAL DRIER OPERATOR R[facility] pH 6.5 5.0 - 8.0 10/04/2020 9:59 AM CENTRIFUGAL DRIER OPERATOR [facility] Specific [place] 1.021 1.001 - 1.035 10/04/2020 9:59 AM CENTRIFUGAL DRIER OPERATOR RDW[facility] Urobilinogen 0.2 0.2 - 1.0 mg/dL 10/04/2020 9:59 AM CS T [facility] White Blood Cells None Seen /hpf 10/04/2020 10:02 AM CS T [facility] Comment: ----REFERENCE VALUE---- Males: 0-3 Females: 0-10 Unknown: 0-10 Red Blood Cells None Seen 0 - 2 /hpf 10/04/2020 10:02 AM CENTRIFUGAL DRIER OPERATOR [facility] Specimen Anatomical Collection Method Collection Time Receive d Time (Source) Location / / Volume Laterality Urine (Urine, 10/04/2020 9:46 AM 10/04/19 9:53 Midstream) CENTRIFUGAL DRIER OPERATOR AM CENTRIFUGAL DRIER OPERATOR Rena Burnham P.A.-C. LAB URINE ORDERABLES Performing Organization Address City/[facility]/ZIP Code Phon e Number [facility]- [address] [place], [place] [address] [place] [address] System in [place] [address] Mycoplasma genitalium PCR (10/04/2020 9:46 AM CENTRIFUGAL DRIER OPERATOR) [facility] Method Time Signature Specimen Urine, 10/08/2020 DTL Source Urine, 3:19 PM CENTRIFUGAL DRIER OPERATOR Midstream Mycoplasma Negative Not 10/08/2020 DTL genitalium PCR Applicable 3:19 PM CENTRIFUGAL DRIER OPERATOR Comment: ----ADDITIONAL INFORMATION---- This test was developed and its performa nce characteristics determined by [facility] in a manner consistent with CLIA requirements. This test has not been cleared or approved by the U.S. Tal d and Drug Administration. Specimen Anatomical Collection Method Collection Time Receive d Time (Source) Location / / Volume Laterality Varies (Urine, 10/04/2020 9:46 AM 021 6:39 Midstream) CENTRIFUGAL DRIER OPERATOR AM CENTRIFUGAL DRIER OPERATOR Rena Burnham P.A.-C. LAB MICROBIOLOGY - GENERAL O RDERABLES Performing Organization Address City/State/ZIP Code Phon e Number [facility] - [address] [place], [place] [address] [place] [address] [facility] [address] [facility] Ureaplasma PCR (10/04/2020 9:46 AM CENTRIFUGAL DRIER OPERATOR) [facility] Method Time Signature Specimen Urine, 10/08/2020 DTL Source Urine, 3:14 PM CENTRIFUGAL DRIER OPERATOR Midstream Ureaplasma Negative Not 10/08/2020 DTL urealyticum Applicable 3:14 PM CENTRIFUGAL DRIER OPERATOR PCR Ureaplasma Negative Not 10/08/2020 DTL parvum PCR Applicable 3:14 PM CENTRIFUGAL DRIER OPERATOR Comment: ----ADDITIONAL INFORMATION---- This test was developed and its performa nce characteristics determined by [facility] in a manner consistent with CLIA requirements. This test has not been cleared or approved by the U.S. Tal d and Drug Administration. Specimen Anatomical Collection Method Collection Time Receive d Time (Source) Location / / Volume Laterality Varies (Urine, 10/04/2020 9:46 AM 021 6:39 Midstream) CENTRIFUGAL DRIER OPERATOR AM CENTRIFUGAL DRIER OPERATOR Rena Burnham P.A.-C. LAB MICROBIOLOGY - GENERAL O RDERABLES Performing Organization Address City/State/ZIP Code Phon e Number [facility] - [address] [place], [place] [address] [place] [address] [facility] [address] documented in this encounter Visit Diagnoses Diagnosis Pain Pelvic Male - Primary documented in this encounter
--- OUTSIDE RECORDS SUMMARY | 2022-08-15 12:01 | XMS_ITS | Encounter Summary ---
:1975 Author Organization [facility] Address [address] [place] [address] Care Team Providers Name Role Phone Unavailable Primary Care Provider Unavailable Reason for Referral Outpatient (Routine) - Closed Specialty Diagnoses / Procedures Referred By Contact Refer red To Contact Diagnoses Stones Uric Acid Rena Burnham P.A.-CSmita [facility] Procedures DX Abdomen 1 View [address] [place] [address] Referral ID Status Reason Start Date Expiration Date Visits Requ ested Visits Authorized [id number] Closed 03/13/2022 03/13/2023 1 1 Outpatient (Routine) - Closed Specialty Diagnoses / Procedures Referred By Contact Refer red To Contact Diagnoses Stones Uric Acid Rena Burnham P.A.-C. [facility] Procedures US Kidneys Bilateral with Bladder [address] [place] [address] Referral ID Status Reason Start Date Expiration Date Visits Requ ested Visits Authorized [id number] Closed 03/13/2022 03/13/2023 1 1 Encounter Details Date Type Department Care Team Description 03/13/2022 Orders Only Department of Urology Rena Burnham S tones Uric Acid in [place], Juan Mo jesús Landry (Primary Dx) [address] [place], [place]A [place] [phone] Social History Tobacco Use Types Packs/Day [...] More than 4 times per year 09/30/2020 zoroastrian services? Do you belong to any clubs [...]
--- OUTSIDE RECORDS SUMMARY | 2022-08-15 12:01 | XMS_ITS | Encounter Summary ---
:1975 Author Organization [facility] Address [address] [place] [address] Care Team Providers Name Role Phone Unavailable Primary Care Provider Unavailable Encounter Details Date Type Department Care Team Description 10/11/2020 Hospital Encounter Department of Rena Burnham Laboratory Medicine E, P.A.-C. Examination Prostate in [place], [address] [address] [place], [place] [phone] [address] (Work) [phone] Social History Tobacco Use Types Packs/Day Years [...] or relatives? How often do you attend congregation or More than 4 times per year 09/30/2020 christian services? Do you belong to any clubs or Patient refused 09/30/2020 organizations such as congregation groups, unions, fraternal or athletic groups, or [...] lts for this AG (PSA) SCRN, S RADIUS GRINDER Examination Prostate pro cedure are in Cancer the results section. documented in this encounter Results PSA (Prostate-Specific Antigen) Screen (10/11/2020 3:16 PM RADIUS GRINDER) P athologist Signature Prostate-Specif 0.60 <=2.5 ng/mL 10/11/2020 [facility] ic Ag 3:47 PM RADIUS GRINDER Comment: Biotin has been identified by the kel rogers as a potential interfering substance. ??Higher concentr ations of biotin may be found in multivitamins, hair/nail supple ments, and workout supplements. ??If the result does not ma [facility] clinical observations, repeat testing after patient refrains fr om the use of supplements for at least 12 hours. ----ADDITIONAL INFORMATION---- The testing method is an electrochemilum inescence assay manufactured by [employer] and performed on the Modular or [...] (Blood, 10/11/2020 3:16 PM 10/11/19 3:22 Venous) RADIUS GRINDER PM RADIUS GRINDER Rena Burnham P.A.-C. LAB BLOOD ADD-ON Performing Organization Address City/State/ZIP Code Phon e Number [facility]- [address] [place], [place] [address] [place] [address] System in [place] [address] [address] documented in this encounter Visit Diagnoses Diagnosis Screening Examination Prostate Cancer documented in this encounter
--- OUTSIDE RECORDS SUMMARY | 2022-08-15 12:01 | XMS_ITS | Encounter Summary ---
:1975 Author Organization [facility] Address [address] [place] [address] Care Team Providers Name Role Phone Unavailable Primary Care Provider Unavailable Encounter Details Date Type Department Care Team Description 01/23/2021 Orders Only Pharmacy Prior Auth Idania Anne [phone] Social History Tobacco Use Types Packs/Day Years [...] or relatives? How often do you attend catholic or More than 4 times per year 09/30/2020 anglican services? Do you belong to any clubs or Patient refused 09/30/2020 organizations such as catholic groups, unions, fraternal or athletic groups, or [...]
--- OUTSIDE RECORDS SUMMARY | 2022-08-15 12:01 | XMS_ITS | Encounter Summary ---
:1975 Author Organization [facility] Address [address] [place] [address] Care Team Providers Name Role Phone Unavailable Primary Care Provider Unavailable Reason for Visit Reason Comments Labs Only Encounter Details Date Type Department Care Team Description 10/04/2020 Clinical Communication Department of Urology Rena Burnham, Labs Only in [facility] jesús P.ASmita-Araceli [address] [facility] [address] [place], [place] [address] Social History Tobacco Use Types Packs/Day [...] More than 4 times per year 09/30/2020 sabianist services? Do you belong to any clubs [...] 3:30p. No need to contact the patient. R AND GAS HELPER documented in this encounter Plan of Treatment Not on filedocumented as of this encounter Visit Diagnoses Not on filedocumented in this encounter
--- OUTSIDE RECORDS SUMMARY | 2022-08-15 12:01 | XMS_ITS | Encounter Summary ---
:1975 Author Organization [facility] Address [address] [place] [address] Care Team Providers Name Role Phone Unavailable Primary Care Provider Unavailable Encounter Details Date Type Department Care Team Description 11/09/2020 Orders Only [facility] [place] P.A.-C. [address] [place] [address] [place] [phone] (Wo rk) Social History Tobacco Use [...] or relatives? How often do you attend hinduism or More than 4 times per year 09/30/2020 mormonism services? Do you belong to any clubs or Patient refused 09/30/2020 organizations such as hinduism groups, unions, fraternal or athletic groups, or [...] the highest level of school Associate degree: ricyh reyna, 09/30/2020 you have completed or the highest technical, or vocational p ashlyn degree you have received? Sex Assigned at Date Recorded Not on file documented as of this encounter Plan of Treatment Not on filedocumented as of this encounter Visit Diagnoses Not on filedocumented in this encounter
--- OUTSIDE RECORDS SUMMARY | 2022-08-15 12:01 | XMS_ITS | Encounter Summary ---
:1975 Author Organization [facility] Address [address] [place] [address] Care Team Providers Name Role Phone Unavailable Primary Care Provider Unavailable Reason for Referral Outpatient (Routine) - Closed Specialty Diagnoses / Procedures Referred By Contact Refer red To Contact Diagnoses Stones Uric Acid Rena Burnham P.A.-C. [facility] Region Procedures DX Abdomen 1 View [address] [place] [address] Referral ID Status Reason Start Date Expiration Date Visits Requ ested Visits Authorized [id number] Closed 03/13/2022 03/13/2023 1 1 Reason for Visit Outpatient (Routine) - Closed Specialty Diagnoses / Procedures Referred By Contact Refer red To Contact Diagnoses Stones Uric Acid Rena Burnham P.A.-C. [facility] [place] [facility] Procedures DX Abdomen [address], [place] [address] Referral ID Status Reason Start Date Expiration Date Visits Requ ested Visits Authorized [id number] Closed 03/13/2022 03/13/2023 1 1 Encounter Details Date Type Department Care Team Description 05/27/2022 Hospital Encounter Department of Rena Burnham Uric Acid Radiology in Ene Gonzalez P.A.-C . [place] [address] [place] [address] [phone] Social History Tobacco Use Types Packs/Day Years [...] More than 4 times per year 09/30/2020 confucianism services? Do you belong to any clubs or Patient refused 09/30/2020 organizations such as druze groups, unions, fraDigabit or athletic groups, or school groups? How [...]
--- OUTSIDE RECORDS SUMMARY | 2022-08-15 12:01 | XMS_ITS | Encounter Summary ---
:1975 Author Organization [facility] Address [address] [place] [address] Care Team Providers Name Role Phone Unavailable Primary Care Provider Unavailable Encounter Details Date Type Department Care Team Description 01/17/2021 Orders Only [facility] Reji Nova Pcp [address] [facility] JANETH [place]USTOS [phone] Social History Tobacco Use Types Packs/Day Years [...] More than 4 times per year 09/30/2020 catholic services? Do you belong to any clubs [...]
--- OUTSIDE RECORDS SUMMARY | 2022-08-15 12:01 | XMS_ITS | Encounter Summary ---
:1975 Author Organization [facility] Address [address] [place] [address] Care Team Providers Name Role Phone Unavailable Primary Care Provider Unavailable Encounter Details Date Type Department Care Team Description 10/24/2020 Orders Only [place]rology [place], [place] L.P.N. [address] [facility] [address] [place] [address] [place] [address] [phone] Social History Tobacco Use Types Packs/Day Years [...] 09/30/2020 organizations such as christian groups, unions, fraternal or athletic groups, or [...]
--- OUTSIDE RECORDS SUMMARY | 2022-08-15 12:01 | XMS_ITS | Encounter Summary ---
:1975 Author Organization [facility] Address [address] [place] [address] Care Team Providers Name Role Phone Unavailable Primary Care Provider Unavailable Encounter Details Date Type Department Care Team Description 01/16/2021 Orders Only [facility] - Rolly castillo Elsewhere, Pcp [address] [place] [address] Social History Tobacco Use Types [...] or relatives? How often do you attend gnosticism or More than 4 times per year 09/30/2020 judaism services? Do you belong to any clubs or Patient refused 09/30/2020 organizations such as gnosticism groups, unions, fraternal or athletic groups, or [...]
--- OUTSIDE RECORDS SUMMARY | 2022-08-15 12:02 | XMS_ITS | Encounter Summary ---
:1975 Author Organization [facility] Address [address] [place] [address] Care Team Providers Name Role Phone Unavailable Primary Care Provider Unavailable Encounter Details Date Type Department Care Team Description 08/03/2019 Orders Only Department of Urology in [facility], [place] P.A.-C. [address] [place] [address] [place], [place] [phone] (Wo rk) Social History Tobacco Use [...] or relatives? How often do you attend taoism or More than 4 times per year 09/30/2020 christianity services? Do you belong to any clubs or Patient refused 09/30/2020 organizations such as taoism groups, unions, fraternal or athletic groups, or [...]
--- OUTSIDE RECORDS SUMMARY | 2022-08-15 12:02 | XMS_ITS | Encounter Summary ---
:1975 Author Organization [facility] Address [address] [place] [address] Care Team Providers Name Role Phone Unavailable Primary Care Provider Unavailable Reason for Visit Auth/Cert Specialty Diagnoses / Procedures Referred By Contact Refer red To Contact Diagnoses Urolithiasis Urolithiasis [N20.9] Procedures WA CYSTHRSCPY/URTRSCPY LITHO INS STNT CYSTOSCOPY AND RIGHT URETEROSCOPY WITH LASER LITHOTRIPSY, STONE BASKETING AND PLACEMENT OF RIGHT URETERAL STENT Referral ID Status Reason Start Date Expiration Date Visits Requ ested Visits Authorized [id number] 1 1 Encounter Details Date Type Department Care Team Description 08/02/2019 Anesthesia Event [facility] MAIN OR Livia Hussein M.D. [address] [facility] [address] [facility] [place] [address] [address] [place] [phone] (Wo rk) Anesthesia Record Procedure Summary [...] h andoff to the receiving staff during [facility] we 1. Identified the patient 2. Ident [...] [id number] by tegaderm; 06/04/21 Jack Montes, RLilibeth. [facility] ic-Backgroun (Removed by background Azael abbott completion utility); Automated [facility] Job 1418 (Removed by background completion [...] Procedure Summary Date: 08/02/19 Room / Location: [address] / [facility] - GI Anesthesia Start: 1322 Anesthesia Stop: [...] Post Op nausea/vomiting: none Hydration status: euvolemic SS DIRECTOR Anesthesia Procedure Notes - Cristi Sumner APRN, CRNA - 08/02/2019 1:31 PM CSTAssociated Order(s): Airway Airway Date/Time: 08/02/2019 1:26 PM Performed by: Cristi Sumner APRN, CRNA Authorized by: Livia Hussein M.D. Patient location [...] Procedure outcome: successful Airway event: no complications SS DIRECTOR Anesthesia Preprocedure Evaluation - Livia Hussein M.D. - 2019 1:49 PM CST Preprocedure Anesthesia & H&P Assessment Procedure Summary Date/Time: 08/02/19 1300 Procedure: CYSTOSCOPY AND RIGHT URETEROSCOPY WITH LASER LITHOTRIPSY, STONE BASKETING AND PLACEMENT OF RIGHT URETERAL STENT (Right ) Diagnosis: Urolithiasis [N20.9] Pre-op diagnosis: Urolithiasis [N20.9] Location: [place] [address] / [facility] - GI Surgeon: Abdulaziz Aguilar M.D. Pertinent [...] with patient /legal guardian or through an rehabilitation inspector. The use of blood products not discussed Approval to Proceed: approved for anesthesia SS DIRECTOR documented in this encounter Plan of Treatment Not on filedocumented as of this encounter Procedures Procedure Name Priority Date/Time Associated Diagnosis Comme nts LDA ANE Routine 08/02/2019 1:31 PM Results f or this NON-SURGICAL AIRWAY ACCESS DIRECTOR procedur e are in the results section. documented in this encounter Results LDA ANE NON-SURGICAL AIRWAY (08/02/2019 1:31 PM ACCESS DIRECTOR) Narrative Cristi Sumner APRN, CRNA - 08/02/20 1:31 PM ACCESS DIRECTOR Cristi Sumner APRN, CRNA ? 08/02/2019 ??1:32 [...] IVPB 2 g Given 08/02/2019 1:27 PM ACCESS DIRECTOR 2 g (ANCEF) 2 g (rounded from [...] dexamethasone injection (DECADRON) Given 08/02/2019 1:29 PM ACCESS DIRECTOR 4 mg As needed, Starting on Thu08/02/19 at 1329, Anesthesia Intra-op fentaNYL injection (SUBLIMAZE) Given 08/02/2019 1:25 PM ACCESS DIRECTOR 100 mcg intravenous, As needed, Starting on Thu08/02/19 at 1325, Anesthesia Intra-op HYDROmorphone injection (DILAUDID) Given 08/02/2019 1:32 PM ACCESS DIRECTOR 0.5 mg As needed, Starting on Thu08/02/19 at 1332, Anesthesia Intra-op ketorolac injection (TORADOL) Given 08/02/2019 2:01 PM ACCESS DIRECTOR 30 mg As needed, Starting on Thu08/02/19 at 1401, Anesthesia Intra-op lactated ringers Rate/Dose Verify 08/02/2019 1:39 PM ACCESS DIRECTOR 20 mL/hr, intravenous, Continuous, Starting on Thu08/02/19 at 1145, Pre-Op New Bag 08/02/2019 12:02 PM ACCESS DIRECTOR 20 mL/hr 20 mL/hr lidocaine 10 mg/mL (1 %) injection 1 mL Given 08/02/2019 1:24 PM ACCESS DIRECTOR 6 mL (XYLOCAINE) 1 mL, infiltration, Once, On Thu08/02/19 at 1145, For 1 dose, Pre-Op, May admin up to 1 mL at the site of IV site if not allergic to lidocaine midazolam (PF) injection (VERSED) Given 08/02/2019 1:22 PM ACCESS DIRECTOR 2 mg intravenous, As needed, Starting on Thu08/02/19 at 1322, Anesthesia Intra-op ondansetron (PF) injection (ZOFRAN) Given 08/02/2019 1:32 PM ACCESS DIRECTOR 4 mg As needed, Starting on Thu08/02/19 at 1332, Anesthesia Intra-op propofol injection (DIPRIVAN) Given 08/02/2019 1:25 PM ACCESS DIRECTOR 200 mg intravenous, As needed, Starting on Thu08/02/19 at 1325, Anesthesia Intra-op documented in this encounter
--- OUTSIDE RECORDS SUMMARY | 2022-08-15 12:02 | XMS_ITS | Encounter Summary ---
:1975 Author Organization [facility] Address [address] [place] [address] Care Team Providers Name Role Phone Unavailable Primary Care Provider Unavailable Reason for Referral Outpatient (Routine) - Closed Specialty Diagnoses / Procedures Referred By Contact Refer red To Contact Urology Diagnoses n/a Rena Burnham, P.A.-C. [facility] [address] [phone] Referral ID Status Reason Start Date Expiration Date Visits Requ ested Visits Authorized [id number] Closed 08/09/2019 08/08/2020 1 1 NG PICTURE PRODUCER Reason for Visit Reason Comments Post-op stent removal Outpatient (Routine) - Closed Specialty Diagnoses / Procedures Referred By Contact Refer red To Contact Urology Abdulaziz Aguilar M.D. [facility] [address] [phone] Referral ID Status Reason Start Date Expiration Date Visits Requ ested Visits Authorized [id number] Closed 08/02/2019 08/01/2020 1 1 Encounter Details Date Type Department Care Team Description 08/09/2019 Office Visit Department of Urology Rena Burnham Urol ithiasis ([facility] [place] [address] [facility] [address] [place] [phone] Social History Tobacco Use Types Packs/Day [...] or relatives? How often do you attend yarsani or More than 4 times per year 09/30/2020 sabianism services? Do you belong to any clubs or Patient refused 09/30/2020 organizations such as yarsani groups, unions, fraternal or athletic groups, or [...] Comments Blood Pressure 126/81 08/09/2019 10:03 AM MOVING PICTURE PRODUCER Pulse 70 08/09/2019 10:03 AM MOVING PICTURE PRODUCER Temperature 36.8 ??C (98.2 ??F) 08/09/2019 10:03 AM MOVING PICTURE PRODUCER Respiratory Rate - - Oxygen Saturation - [...] this time was spent in counseling andeducation NG PICTURE PRODUCER documented in this encounter Plan of Treatment Scheduled Referrals Name Type Priority Associated Diagnoses Order S [facility] Urology office Outpatient Referral Routine Expect ed: visit (clinic) 09/20/2019 (Approximate), Expires: 08/09/2022 documented as of this encounter Results (ABNORMAL) Supersaturation Profile, 24 Hour, Urine (09/13/2019 10:16 AM MOVING PICTURE PRODUCER) P athologist Signature Sodium, 24 HR, 163 41 - 227 09/15/2019 ALYSSA U mmol/24 h 3:17 PM MOVING PICTURE PRODUCER Comment: Not a 24 hour collection; nayely ls do not apply. Potassium, 24 HR, U 50 17 - 77 mmol/24 h 09/15/2019 3 :17 PM MOVING PICTURE PRODUCER ALYSSA Comment: Not a 24 hour collection; nayely ls do not apply. Calcium, 24 HR, U 126 <250 mg/24 h 09/15/2019 3:17 PM MOVING PICTURE PRODUCER ALYSSA Comment: Not a 24 hour collection; normals do not apply. ----ADDITIONAL INFORMATION---- This test was developed and its performa nce characteristics determined by [facility] in a manner co nsistent with CLIA requirements. This test has not bee n cleared or approved by the U.S. Food and Drug Admin istration. Magnesium, 24 HR, U <63 51 - 269 mg/24 h 09/15/2019 3: 17 PM MOVING PICTURE PRODUCER ALYSSA Comment: Not a 24 hour collection; normals do not apply. ----ADDITIONAL INFORMATION---- This test has been modified from the man ufacturer's instructions. Its performance characteri stics were determined by [facility] in a manner co nsistent with CLIA requirements. This test has not bee n cleared or approved by the U.S. Food and Drug Admin istration. Chloride, 24 HR, U 135 40 - 224 mmol/24 h 09/15/2019 3 :17 PM MOVING PICTURE PRODUCER ALYSSA Comment: Not a 24 hour collection; nayely ls do not apply. Phosphorus, 24 HR, U 911 <1100 mg/24 h 09/15/2019 3:17 PM MOVING PICTURE PRODUCER ALYSSA Comment: Not a 24 hour collection; nayely ls do not apply. Sulfate Urine 20 7 - 47 mmol/24 h 09/15/2019 3:29 PM MOVING PICTURE PRODUCER ALYSSA Comment: Not a 24 hour collection; normals do not apply. ----ADDITIONAL INFORMATION---- This test was developed and its performa nce characteristics determined by [facility] in a manner co nsistent with CLIA requirements. This test has not bee n cleared or approved by the U.S. Food and Drug Admin istration. Citrate Excretion, U 289 (L) 314 - 1191 mg/24 h 09/15/2019 3:17 PM MOVING PICTURE PRODUCER ALYSSA Comment: Not a 24 hour collection; normals do not apply. ----ADDITIONAL INFORMATION---- This test was developed and its performa nce characteristics determined by [facility] in a manner co nsistent with CLIA requirements. This test has not bee n cleared or approved by the U.S. Food and Drug Admin istration. Oxalate, U (mmol/24 h) 0.22 0.11 - 0.46 mmol/24 h 09/15 2:56 PM MOVING PICTURE PRODUCER ALYSSA Comment: Not a 24 hour collection; normals do not apply. ----ADDITIONAL INFORMATION---- This test was developed and its performa nce characteristics determined by [facility] in a manner co nsistent with CLIA requirements. This test has not bee n cleared or approved by the U.S. Food and Drug Admin istration. Oxalate, mg/24 h 19.4 9.7 - 40.5 mg/24 h 09/15/2019 2:5 6 PM MOVING PICTURE PRODUCER ALYSSA Comment: Not a 24 hour collection; nayely ls do not apply. pH, 24 HR, U 5.9 4.5 - 8.0 09/15/2019 3:46 PM MOVING PICTURE PRODUCER ALYSSA Comment: ----ADDITIONAL INFORMATION---- This test was developed and its performa nce characteristics determined by [facility] in a manner co nsistent with CLIA requirements. This test has not bee n cleared or approved by the U.S. Food and Drug Admin istration. Uric Acid, 24 HR, 785 (H) <750 (Diet-dependent) mg/24 0 09/15/2019 3:17 PM MOVING PICTURE PRODUCER ALYSSA U h Comment: Not a 24 hour collection; normals do not apply. ----ADDITIONAL INFORMATION---- This test has been modified from the [place] [employer] ufacturer's instructions. Its performance characteri stics were determined by [facility] in a manner co nsistent with CLIA requirements. This test has not bee n cleared or approved by the U.S. Food and Drug Admin istration. Creatinine, 24 HR, U 1476 mg/24 h 09/15/2019 3:17 PM MOVING PICTURE PRODUCER ALYSSA Comment: Not a 24 hour collection; normals do not apply. ----REFERENCE VALUE---- The expected creatinine excretion per 24 hrs for males: 955-2936 mg/24 hrs or 13-29 mg/kg/24 hrs. Note: To convert to mg/kg of body weight /24 hrs, divide the mg/24 h result by the weight in kg. Osmolality, 24 HR, U 269 150 - 1150 mOsm/kg 09/15/2019 3:46 PM MOVING PICTURE PRODUCER ALYSSA Comment: ----ADDITIONAL INFORMATION---- This test was developed and its performa nce characteristics determined by [facility] in a manner co nsistent with CLIA requirements. This test has not bee n cleared or approved by the U.S. Food and Drug Admin istration. Ammonium, 24 HR, U 26 15 - 56 mmol/24 h 09/15/2019 4: 31 PM MOVING PICTURE PRODUCER ALYSSA Comment: Not a 24 hour collection; normals do not apply. ----ADDITIONAL INFORMATION---- This test has been modified from the [employer] [employer] ufacturer's instructions. Its performance characteri stics were determined by [facility] in a manner co nsistent with CLIA requirements. This test has not bee n cleared or approved by the U.S. Food and Drug Admin istration. Urea Nitrogen, 24 HR, U 10.9 5.0 - 16.0 g/24 h 09/15/19 20 3:17 PM MOVING PICTURE PRODUCER LAYSSA Comment: Not a 24 hour collection; nayely ls do not apply. Protein Catabolic 93 56 - 125 g/24 h 09/15/2019 3:17 ALYSSA Rate, 24 HR, U PM MOVING PICTURE PRODUCER Calcium Oxalate 0.21 Reference Mean= 09/15/2019 10:54 R CARO Crystal 1.77 DG PM MOVING PICTURE PRODUCER Brushite Crystal -1.75 Reference Mean= 09/15/2019 10:54 ALYSSA 0.21 DG PM MOVING PICTURE PRODUCER Hydroxyapatite Crystal 2.00 Reference Mean= 09/15/2019 10:54 ALYSSA 3.96 DG PM MOVING PICTURE PRODUCER Uric Acid Crystal 0.51 Reference Mean= 09/15/2019 10:54 ALYSSA 1.04 DG PM MOVING PICTURE PRODUCER Sodium Urate Crystal 0.30 Reference Mean= 09/15/2019 10 :54 ALYSSA 1.76 DG PM MOVING PICTURE PRODUCER Collection Duration 23 h 09/15/2019 10:54 DREW A PM MOVING PICTURE PRODUCER Volume 3140 mL 09/15/2019 10:54 ALYSSA PM MOVING PICTURE PRODUCER Interpretation The DG is related to supersa turation. DG is negative for undersaturated 09/15/2019 10:54 ALYSSA solutions, zero for solutions at the solubility produc t, and positive for PM MOVING PICTURE PRODUCER saturated solutions. Any value greater than the Reference Mean is considered a ri sk for the respective crystal type formation. Specimen Anatomical Collection Method Collection Time Receive d Time (Source) Location / / Volume Laterality Urine (Urine, 24 09/13/2019 10:16 020 1:07 Hours) AM MOVING PICTURE PRODUCER PM MOVING PICTURE PRODUCER Narrative This result has an attachment that is no t available. Rena Burnham P.A.-C. LAB URINE ORDERABLES Performing Organization Address City/State/ZIP Code Phon e Number [facility] - [address] [place], [place] [address] [facility] [place] [address] [facility] [address] [place] Kidneys Bilateral with Bladder (09/12/2019 9:10 AM MOVING PICTURE PRODUCER) Anatomical Region Laterality Modality Abdomen, Renal, Ultrasound RST LOS, Ultrasound ARZ LOS, Bila teral Ultrasound Ultrasound FLA LOS Specimen (Source) Anatomical Collection Method Collection Time Re ceived Time Location / / Volume Laterality 09/12/2019 9:15 AM MOVING PICTURE PRODUCER Impressions 09/12/2019 9:16 AM MOVING PICTURE PRODUCER Normal kidneys. Narrative 09/12/2019 9:16 AM MOVING PICTURE PRODUCER EXAM: US KIDNEYS BILATERAL WITH BLADDER COMPARISON: [...] BMP (Basic Metabolic Panel) (09/12/2019 7:41 AM MOVING PICTURE PRODUCER) P athologist Signature Potassium, S 4.3 3.6 - 5.2 09/12/2019 [facility] mmol/L 8:34 AM MOVING PICTURE PRODUCER Sodium, S 142 135 - 145 09/12/2019 [facility] mmol/L 8:34 AM MOVING PICTURE PRODUCER Chloride, S 104 98 - 107 09/12/2019 [facility] mmol/L 8:34 AM MOVING PICTURE PRODUCER Bicarbonate, S 25 22 - 29 09/12/2019 [facility] mmol/L 8:34 AM MOVING PICTURE PRODUCER Anion Gap 13 7 - 15 09/12/2019 [facility] 8:34 AM MOVING PICTURE PRODUCER BUN (Blood Urea 13 8 - 24 09/12/2019 [facility] Nitrogen), S mg/dL 8:34 AM MOVING PICTURE PRODUCER Creatinine 1.05 0.74 - 09/12/2019 [facility] 1.35 mg/dL 8:34 AM MOVING PICTURE PRODUCER eGFR-Non 87 >=60 09/12/2019 [facility] Black/ mL/min/BSA 8:34 AM MOVING PICTURE PRODUCER [place] Comment: ----ADDITIONAL INFORMATION---- Estimated GFR calculated using the 2009 CKD_EPI creatinine equation. eGFR-Black/ >90 >=60 mL/min/BSA 2018 8:34 AM MOVING PICTURE PRODUCER [facility] Comment: ----ADDITIONAL INFORMATION---- Estimated GFR calculated using the 2009 CKD_EPI creatinine equation. Calcium, Total, S 9.3 8.6 - 10.0 mg/dL 09/12/2019 8:34 AM MOVING PICTURE PRODUCER [facility] Glucose, S 92 70 - 140 mg/dL 09/12/2019 8:34 AM MOVING PICTURE PRODUCER R [facility] Specimen Anatomical Collection Method Collection Time Receive d Time (Source) Location / / Volume Laterality Blood (Blood, 09/12/2019 7:41 AM 09/12/20 7:44 Venous) MOVING PICTURE PRODUCER AM MOVING PICTURE PRODUCER Rena Burnham P.A.-C. LAB BLOOD ADD-ON Performing Organization Address City/State/ZIP Code Phon e Number [facility] [place] [address] [place] [address] System in [place] documented in this encounter Visit Diagnoses Diagnosis Urolithiasis - Primary Urolithiasis documented in this encounter
--- OUTSIDE RECORDS SUMMARY | 2022-08-15 12:02 | XMS_ITS | Encounter Summary ---
:[address] [facility] Address [address] [place] [address] Care Team Providers Name Role Phone Unavailable Primary Care Provider Unavailable Reason for Visit Reason Onset Date Comments Med Refill 08/26/2019 Encounter Details Date Type Department Care Team Description 08/26/2019 Clinical Communication Department of Urology Rena Burnham, Med Refill in [facility] P.A.-CSmita [address] [facility] [address] [place], [place] [phone] Social History Tobacco Use Types Packs/Day Years [...] or relatives? How often do you attend voodoo or More than 4 times per year 09/30/2020 temple services? Do you belong to any clubs or Patient refused 09/30/2020 organizations such as voodoo groups, unions, fraternal or athletic groups, or [...] Vidhi Thomas L.P.NSmita - 08/29/2019 1:45 PM MORNING CAREGIVER Patient notified and voices understanding. ING CAREGIVER Telephone Encounter - Rena Burnham P.A.-C. - 08/29/2019 12:07 PM MORNING CAREGIVER No need for Flomax. ING CAREGIVER Telephone Encounter - Vidhi Thomas L.P.N. - 08/26/2019 1:03 PM MORNING CAREGIVER Received a refill request for Tamsulosin refill, patient had a stone extraction in July does patient need to continue on the flomax if so please send in refill to [facility]. ING CAREGIVER documented in this encounter Plan of Treatment Not on filedocumented as of this encounter Visit Diagnoses Not on filedocumented in this encounter
--- OUTSIDE RECORDS SUMMARY | 2022-08-15 12:02 | XMS_ITS | Encounter Summary ---
:1975 Author Organization [facility] Address [address] [place] [address] Care Team Providers Name Role Phone Unavailable Primary Care Provider Unavailable Reason for Referral Outpatient (Routine) - Closed Specialty Diagnoses / Procedures Referred By Contact Refer red To Contact Urology Rena Burnham P. A.-C. [facility] Region [address] [place] [phone] Referral ID Status Reason Start Date Expiration Date Visits Requ ested Visits Authorized [id number] Closed 09/21/2019 09/20/2020 1 1 E CUTTER Outpatient (Routine) - Closed Specialty Diagnoses / Procedures Referred By Contact Refer red To Contact Dermatology Diagnoses Tinea Groin Perianal Area Rena Burnham P.A.-C. [facility] Region [address] [phone] Referral ID Status Reason Start Date Expiration Date Visits Requ ested Visits Authorized [id number] Closed 09/21/2019 09/20/2020 1 1 E CUTTER Reason for Visit Outpatient (Routine) - Closed Specialty Diagnoses / Procedures Referred By Contact Refer red To Contact Urology Diagnoses n/a Rena Burnham P.A.-C. [facility] Region [address] [phone] Referral ID Status Reason Start Date Expiration Date Visits Requ ested Visits Authorized [id number] Closed 08/09/2019 08/08/2020 1 1 Encounter Details Date Type Department Care Team Description 09/21/2019 Office Visit Department of Urology Rena Burnham (Primary Dx); in [facility] Kecia Luque P.A.-C. Tinea Groin Perianal Area; [address] [facility] [address] Urolithiasis [place], [place] [phone] Social History Tobacco Use Types Packs/Day Years [...] Comments Blood Pressure 140/78 09/21/2019 2:46 PM STAVE CUTTER Pulse 75 09/21/2019 2:46 PM STAVE CUTTER Temperature 36.3 ??C (97.3 ??F) 09/21/2019 2:46 PM STAVE CUTTER Respiratory Rate - - Oxygen Saturation - [...] past 3 years. He has been using urls-pxh-iaaynnh jock itch, it does improve but always [...] Crystal Light lemonade or add lemon or [place] to his water around 4 oz of lemon juice or [place] juice daily would likely be helpful. Heshould [...] this time was spent in counseling andeducation E CUTTER documented in this encounter Plan of Treatment [...] ults for this AEROBIC + SUSC, URINE STAVE CUTTER proced ure are in the results section. URINALYSIS WITH Routine 09/21/2019 3:03 PM Dysuria Result s for this MICROSCOPIC STAVE CUTTER procedure are i n the results section. documented in this encounter Results US Kidneys Bilateral with Bladder (08/29/2020 3:15 PM STAVE CUTTER) Anatomical Region Laterality Modality Abdomen, Renal, Ultrasound RST LOS, Ultrasound ARZ LOS, Bila teral Ultrasound Ultrasound FLA LOS Specimen (Source) Anatomical Collection Method Collection Time Re ceived Time Location / / Volume Laterality 08/29/2020 3:30 PM STAVE CUTTER Impressions 08/29/2020 3:30 PM STAVE CUTTER Normal kidneys. Narrative 08/29/2020 3:30 PM STAVE CUTTER EXAM: US KIDNEYS BILATERAL WITH BLADDER COMPARISON: [...] DX Abdomen 1 View (08/29/2020 2:48 PM STAVE CUTTER) Anatomical Region Laterality Modality Abdomen, Abdominal RST LOS, Abdominal ARZ LOS, N/A Digital Radiography Abdominal FLA LOS Specimen (Source) Anatomical Collection Method Collection Time Re ceived Time Location / / Volume Laterality 08/29/2020 2:52 PM STAVE CUTTER Impressions 08/29/2020 2:53 PM STAVE CUTTER No radiographic evidence for radiopaque urinary tract calculus. Pelvic phleboliths as seen on CT 019. Nonobstructive bowel gas pattern with moderate stool scattered throughout the colon. Subtle serpiginous opacity projecting over the left upper quadrant may be external to the patient. Narrative 08/29/2020 2:53 PM STAVE CUTTER EXAM: DX ABDOMEN 1 VIEW Procedure Note [...] Aerobic + Susc, Urine (09/21/2019 3:03 PM STAVE CUTTER) [facility] gist Method Time Signature Urine Culture No growth 09/22/2019 ECLR after 1 day 4:49 PM STAVE CUTTER of incubation. Specimen Anatomical Collection Method Collection Time Receive d Time (Source) Location / / Volume Laterality Urine (Urine, 09/21/2019 3:03 PM 09/21/19 9:42 Midstream) STAVE CUTTER PM STAVE CUTTER Comment: Specimen Source Site: Urine Rena Burnham P.A.-C. LAB MICROBIOLOGY - GENERAL O RDERABLES Performing Organization Address City/State/ZIP Code Phon e Number [facility]- [address] [place] [address] [phone] [facility] [place] [address] System [address] Urinalysis with Microscopic: Urine, Clean Catch (09/21/2019 3:03 PM STAVE CUTTER) P athologist Signature Source Midstream 09/21/2019 RDW[facility] 3:19 PM STAVE CUTTER Clarity Clear Clear 09/21/2019 R[facility] 3:19 PM STAVE CUTTER Color Yellow 09/21/2019 RDW[facility] 3:19 PM STAVE CUTTER Comment: ----REFERENCE VALUE---- Colorless Yellow Ángela Blood Negative Negative 09/21/2019 3:19 PM STAVE CUTTER RDWG Nitrite, U Negative Negative 09/21/2019 3:19 PM STAVE CUTTER R[facility]G Leukocyte Esterase Negative Negative 09/21/2019 3:19 PM CS T R[facility]G Protein, U Negative mg/dL 09/21/2019 3:19 PM STAVE CUTTER RDWG Comment: ----REFERENCE VALUE---- Negative Trace Glucose Negative Negative mg/dL 09/21/2019 3:[address] WG Ketone Negative Negative mg/dL 09/21/2019 3:[address] WG Bilirubin Negative Negative 09/21/2019 3:19 PM STAVE CUTTER RDW[facility] pH 6.5 5.0 - 8.0 09/21/2019 3:19 PM STAVE CUTTER RDW[facility] Specific [place] 1.004 1.001 - 1.035 09/21/2019 3:19 PM STAVE CUTTER RDWG Urobilinogen 0.2 0.2 - 1.0 09/21/2019 3:19 PM STAVE CUTTER RDWG White Blood Cells Occ-3 /hpf 09/21/2019 3:19 PM STAVE CUTTER RDWG Comment: ----REFERENCE VALUE---- Males: 0-3 Females: 0-10 Unknown: 0-10 Red Blood Cells None Seen 0 - 2 /hpf 09/21/2019 3:19 PM STAVE CUTTER RDWG Mucus Present /hpf 09/21/2019 3:19 PM STAVE CUTTER RDWG Specimen Anatomical Collection Method Collection Time Receive d Time (Source) Location / / Volume Laterality Urine (Urine, 09/21/2019 3:03 PM 09/21/19 3:07 Clean Catch) STAVE CUTTER PM STAVE CUTTER Rena Burnham P.A.-C. LAB URINE ORDERABLES Performing Organization Address City/State/ZIP Code Phon e Number [facility]- [address] [place], [place] [address] [address] [place] [address] System in [place] [address] [address] documented in this encounter Visit Diagnoses Diagnosis Dysuria - Primary Tinea Groin Perianal Area Urolithiasis Urolithiasis Urolithiasis documented in this encounter
--- OUTSIDE RECORDS SUMMARY | 2022-08-15 12:02 | XMS_ITS | Encounter Summary ---
:1975 Author Organization [facility] Address [address] [place] [address] Care Team Providers Name Role Phone Unavailable Primary Care Provider Unavailable Encounter Details Date Type Department Care Team Description 12/19/2019 Abstract [facility] Provider, Lindsey dumont M.D. [address] [place], [place] [address] Social History Tobacco Use Types [...] More than 4 times per year 09/30/2020 alevism services? Do you belong to any clubs [...] PM Results f or this DIFFERENTIAL, B MEAT STRINGER procedure ar e in the results section. LIPID PANEL, S Routine 06/19/2016 8:43 AM Results for this CDT procedure are i n the results section. documented in this encounter Results External Lab Results - Manual Entry (04/28/2019 10:24 AM CDT) [facility] gist Method Time Signature EXT Chlamydia Negative OTHER trachomatis PCR (SPECIFY IN WAFER MOUNTER) Specimen (Source) Anatomical Collection Method Collection Time Re ceived Time Location / / Volume Laterality Urine 04/28/2019 10:24 AM CDT Ordering Provider External M.D. LAB BLOOD ADD-ON Performing Organization Address City/[facility] Phon e Number OTHER (SPECIFY IN WAFER MOUNTER) OTHER (SPECIFY IN WAFER MOUNTER) N/A S-TSH (Thyroid-Stimulating Hormone - Sensitive) (04/28/2019 10:18 AM CDT) athologist Signature EXT TSH 1.18 EXTERNAL NON-INTERFACED LAB Specimen (Source) Anatomical Location Collection Method / Collectio n Time Received Time / Laterality Volume Blood (Blood, Venous) Ordering Provider External M.D. LAB BLOOD ADD-ON Performing Organization Address City/[facility] Phon e Number EXTERNAL NON-INTERFACED LAB [address] [place], [place] [address] Basic Metabolic Panel (04/28/2019 [...] M.D. LAB BLOOD ADD-ON Performing Organization Address [facility] Phon e Number EXTERNAL NON-INTERFACED LAB [address] [place], [place] [address] Lipid Panel (04/28/2019 10:18 [...] M.D. LAB BLOOD ADD-ON Performing Organization Address [facility] Phon e Number EXTERNAL NON-INTERFACED LAB [address] [place], [place] [address] CBC without Differential (04/28/2019 [...] M.D. LAB BLOOD ADD-ON Performing Organization Address [facility] Phon e Number EXTERNAL NON-INTERFACED LAB [address] [place], [place] [address] CBC without Differential (06/30/2017 [...] M.D. LAB BLOOD ADD-ON Performing Organization Address [facility] Phon e Number EXTERNAL NON-INTERFACED LAB [address] [place], [place] [address] Basic Metabolic Panel (01/30/2017 [...] M.D. LAB BLOOD ADD-ON Performing Organization Address [facility] Phon e Number EXTERNAL NON-INTERFACED LAB [address] [place], [place] [address] Lipid Panel (01/30/2017 8:14 [...] M.D. LAB BLOOD ADD-ON Performing Organization Address [facility] Phon e Number EXTERNAL NON-INTERFACED LAB [address] [place], [place] [address] CBC without Differential (01/30/2017 [...] M.D. LAB BLOOD ADD-ON Performing Organization Address [facility] Phon e Number EXTERNAL NON-INTERFACED LAB [address] [place], [place] [address] CBC without Differential (10/08/2016 2:49 PM MEAT STRINGER) athologist Signature EXT Platelet 232 EXTERNAL Count NON-INTERFACED LAB EXT Hemoglobin 12.9 EXTERNAL NON-INTERFACED LAB EXT Hematocrit 38.9 EXTERNAL NON-INTERFACED LAB EXT White Blood 6.8 EXTERNAL Cell (WBC) NON-INTERFACED Count LAB Specimen (Source) Anatomical Location Collection Method / Collectio n Time Received Time / Laterality Volume Blood (Blood, Venous) Ordering Provider External M.D. LAB BLOOD ADD-ON Performing Organization Address [facility] Phon e Number EXTERNAL NON-INTERFACED LAB [address] [place], [place] [address] Lipid Panel (06/19/2016 8:43 AM CDT) [...] M.D. LAB BLOOD ADD-ON Performing Organization Address [facility] Phon e Number EXTERNAL NON-INTERFACED LAB [address] [place], [place] [address] EXTERNAL NON-INTERFACED LAB [address] [facility] [place] [address] documented in this encounter Visit Diagnoses Not on filedocumented in this encounter
--- OUTSIDE RECORDS SUMMARY | 2022-08-15 12:02 | XMS_ITS | Encounter Summary ---
:1975 Author Organization [facility] Address [address] [place] [address] Care Team Providers Name Role Phone Unavailable Primary Care Provider Unavailable Encounter Details Date Type Department Care Team Description 08/29/2019 Clinical Communication Department of Urology Rena Burnham, in [facility] Juan M jesús Landry [address] [facility] [address] [place], [place] [phone] Social History Tobacco Use [...] or relatives? How often do you attend temple or More than 4 times per year 09/30/2020 congregational services? Do you belong to any clubs or Patient refused 09/30/2020 organizations such as temple groups, unions, fraternal or athletic groups, or [...] Serena Samayoa L.PSmitaN. - 08/29/2019 4:56 PM WEDDING COORDINATOR Faxed orders for tamsulosin hcl 0.4mg One tab daily To [facility] a [phone] ING COORDINATOR documented in this encounter Plan of Treatment Not on filedocumented as of this encounter Visit Diagnoses Not on filedocumented in this encounter
--- OUTSIDE RECORDS SUMMARY | 2022-08-15 12:02 | XMS_ITS | Encounter Summary ---
:1975 Author Organization [facility] Address [address] [place] [address] Care Team Providers Name Role Phone Unavailable Primary Care Provider Unavailable Encounter Details Date Type Department Care Team Description 10/14/2019 Clinical Communication Department of [facility] Darnell Arrington, Medicine, Audie Up M.D., Ph. D. Clinic, in [address] [phone] Social History Tobacco Use Types Packs/Day [...] or relatives? How often do you attend nondenominational or More than 4 times per year 09/30/2020 gnosticist services? Do you belong to any clubs or Patient refused 09/30/2020 organizations such as nondenominational groups, unions, fraternal or athletic groups, or [...]
--- OUTSIDE RECORDS SUMMARY | 2022-08-15 12:02 | XMS_ITS | Encounter Summary ---
:1975 Author Organization [facility] Address [address] [place] [address] Care Team Providers Name Role Phone Unavailable Primary Care Provider Unavailable Encounter Details Date Type Department Care Team Description 08/04/2019 Orders Only [facility] [place] P.A.-C. [address] [place] [address] [place], [place] [phone] (Wo rk) Social History Tobacco Use [...] More than 4 times per year 09/30/2020 jewish services? Do you belong to any clubs [...]
--- OUTSIDE RECORDS SUMMARY | 2022-08-15 12:02 | XMS_ITS | Encounter Summary ---
:1975 Author Organization [facility] Address [address] [place] [address] Care Team Providers Name Role Phone Unavailable Primary Care Provider Unavailable Encounter Details Date Type Department Care Team Description 08/29/2019 Orders Only [facility] [place] P.A.-C. [address] [place] [address] [place] [phone] (Wo rk) Social History Tobacco Use [...] or relatives? How often do you attend muslim or More than 4 times per year 09/30/2020 faith services? Do you belong to any clubs or Patient refused 09/30/2020 organizations such as muslim groups, unions, fraternal or athletic groups, or [...]
--- OUTSIDE RECORDS SUMMARY | 2022-08-15 12:02 | XMS_ITS | Encounter Summary ---
:1975 Author Organization [facility] Address [address] [place] [address] Care Team Providers Name Role Phone Unavailable Primary Care Provider Unavailable Encounter Details Date Type Department Care Team Description 09/12/2019 Hospital Encounter Department of Radiology Michelle Burnham, Urolithiasis in [place], [facility] jesús P.ASmita-Araceli [address] [facility] [address] [place] [address] [place], [place] [phone] Social History Tobacco Use Types Packs/Day [...] for this BILATERAL WITH (most inpatients AM RAG SORTER procedure are in BLADDER and all the results outpatients) section. documented in this encounter Results US Kidneys Bilateral with Bladder (09/12/2019 9:10 AM RAG SORTER) Anatomical Region Laterality Modality Abdomen, Renal, Ultrasound RST LOS, Ultrasound ARZ LOS, Bila teral Ultrasound Ultrasound FLA LOS Specimen (Source) Anatomical Collection Method Collection Time Re ceived Time Location / / Volume Laterality 09/12/2019 9:15 AM RAG SORTER Impressions 09/12/2019 9:16 AM RAG SORTER Normal kidneys. Narrative 09/12/2019 9:16 AM RAG SORTER EXAM: US KIDNEYS BILATERAL WITH BLADDER COMPARISON: [...]
--- OUTSIDE RECORDS SUMMARY | 2022-08-15 12:02 | XMS_ITS | Encounter Summary ---
:1975 Author Organization [facility] Address [address] [place] [address] Care Team Providers Name Role Phone Unavailable Primary Care Provider Unavailable Reason for Visit Auth/Cert Specialty Diagnoses / Procedures Referred By Contact Refer red To Contact Diagnoses Urolithiasis Urolithiasis [N20.9] Procedures [place] CYSTHRSCPY/URTRSCPY LITHO INS STNT CYSTOSCOPY AND RIGHT URETEROSCOPY WITH LASER LITHOTRIPSY, STONE BASKETING AND PLACEMENT OF RIGHT URETERAL STENT Referral ID Status Reason Start Date Expiration Date Visits Requ ested Visits Authorized [id number] 1 1 Encounter Details Date Type Department Care Team Description 08/02/2019 Surgery [facility] MAIN OR Abdulaziz Aguilar, CYSTOSCOPY AND RIGHT [address]IS[address] M.D. URETEROSCOPY, [place] [address] BASKETING AND PLACEMENT [phone] [place], [place] OF RIGHT URETER AL STENT [phone] [...] More than 4 times per year 09/30/2020 yarsani services? Do you belong to any clubs or Patient refused 09/30/2020 organizations such as orthodoxy groups, unions, fraIQcard or athletic groups, or school groups? How [...] Comments Blood Pressure 137/91 08/02/2019 11:57 AM ELEMENTARY SCHOOL MUSIC TEACHER Pulse 68 08/02/2019 11:57 AM ELEMENTARY SCHOOL MUSIC TEACHER Temperature 37.3 ??C (99.1 ??F) 08/02/2019 11:57 AM ELEMENTARY SCHOOL MUSIC TEACHER Respiratory Rate 16 08/02/2019 11:57 AM ELEMENTARY SCHOOL MUSIC TEACHER Oxygen Saturation 97% 08/02/2019 11:57 AM ELEMENTARY SCHOOL MUSIC TEACHER Inhaled Oxygen Concentration - - Weight 101 kg (222 lb 10.6 oz) 08/02/2019 11:57 AM ELEMENTARY SCHO[employer] MUSIC TEACHER Height 187 cm (6' 1.62) 08/02/2019 11:57 AM ELEMENTARY SCHOOL MUSIC TEACHER Body Mass Index 28.88 08/02/2019 11:57 AM ELEMENTARY SCHOOL MUSIC TEACHER documented in this encounter Medications at Time [...] changes to the H&P. Abdulaziz Aguilar M.D. ENTARY SCHOOL MUSIC TEACHER Source Note - Marcell, Default Authenticator - 07/28/2019 3:05 PM ELEMENTARY SCHOOL MUSIC TEACHER documented in this encounter OR Notes Op [...] correct patient, procedure and side. A 22 Qatari cystoscope was visually introduced. Sterile Normal Saline [...] No exophytic lesions were observed. A 5 Qatari open-ended ureteral catheter was used to intubate [...] the guide wire in place. A 10 Qatari Red Tinajero catheter was introduced via the [...] place. Over the guide wire a 7 Qatari 22 x 30 double J u reteral [...] Implant Name Type Inv. Item Serial No. Manager Organizational Lot No. LRB No. Used [employer] [id number] [id number] - SNA - [id number] Ureteral Stent [employer] CNTR [id number] NA [facility] [id number] Right 1 Abdulaziz Aguilar M.D. E[employer] SCHOOL MUSIC TEACHER documented in this encounter Plan of Treatment Scheduled Referrals Name Type Priority Associated Diagnoses Order S [facility] Urology office Outpatient Referral Routine Expect ed: visit (clinic) 08/09/2019 (Approximate), Expires: 08/02/2022 documented as of this encounter Procedures Procedure Name Priority Date/Time Associated Diagnosis Comme nts KIDNEY STONE ANALYSIS Routine 08/02/2019 2:05 PM Urolithiasis Results for this ELEMENT[employer] S[employer] MUSIC TEACHER procedure are i n the results section. URETEROSCOPY WITH 08/02/2019 1:22 PM Urolithiasis LASER LITHOTRIPSY [employer]LE[employer] SCHO[employer] MUSIC TEACHER documented in this encounter Results Kidney Stone Analysis (08/02/2019 2:05 PM ELEMENTARY SCHOOL MUSIC TEACHER) Component Value Ref Test [facility] Range Method Time Signature Source Stone, Kidney, 08/05/2019 [facility] Stone 11:41 PM ELEMENTARY SCHOOL MUSIC TEACHER KIDST 90% Calcium oxalate monohydrate 08/05/20 [facility] Interpretation 10% Calcium phosphate (apatite) 11: 41 PM ELEMENTARY SCHOOL MUSIC TEACHER Specimen (Source) Anatomical Collection Method Collection Time Re ceived Time Location / / Volume Laterality Stone (Kidney, 08/02/2019 2:05 PM Stone) ELEMENT[employer] SCHOOL MUSIC TEACHER Abdulaziz Aguilar M.D. LAB MISC ORDERABLES Performing Organization Address City/State/ZIP Code Phon e Number [facility] [address] [place], [place] [address] SUPPORT CENTER [facility] [place] [address] Laboratory Medicine and Pathology [address] [place] documented in this encounter Visit Diagnoses Diagnosis Urolithiasis - Primary Urolithiasis documented in this encounter Admitting Diagnoses Diagnosis Urolithiasis documented in this encounter Administered Medications Inactive Administered Medications - up to 3 most recent administrations Medication Order MAR Action Action Date Dose Rate Site ioversol 240 mg iodine/mL injection Given 08/02/2019 1:42 PM ELEMENTARY SCHOOL MUSIC TEACHER 11 mL (OPTIRAY 240) As needed, Starting on Thu08/02/19 at 1342, Intra-Op lactated ringers Rate/Dose Verify 08/02/2019 1:39 PM ELEMENTARY SCHO[employer] MUSIC TEACHER 20 mL/hr, intravenous, Continuous, Starting on Thu08/02/19 at 1145, Pre-Op New Bag 08/02/2019 12:02 PM ELEMENTARY S[employer] MUSIC TEACHER 20 mL/hr 20 mL/hr metoprolol tablet 12.5 [...] Recently Administered Medications Times are shown in ELE[employer] TEACHER. Scheduled Medication Order 07/31/2019 08/01/2019 08/02/2019 ceFAZolin [...]
--- OUTSIDE RECORDS SUMMARY | 2022-08-15 12:02 | XMS_ITS | Encounter Summary ---
:1975 Author Organization [facility] Address [address] [place] [address] Care Team Providers Name Role Phone Unavailable Primary Care Provider Unavailable Encounter Details Date Type Department Care Team Description 09/12/2019 Hospital Encounter Department of Laboratory Bubba Burnham, Urolithiasis Medicine in [facility] [address] [place] [phone] Social History Tobacco Use Types Packs/Day Years [...] or relatives? How often do you attend presybeterian or More than 4 times per year 09/30/2020 scientologist services? Do you belong to any clubs or Patient refused 09/30/2020 organizations such as presybeterian groups, unions, fraternal or athletic groups, or [...] Urolithiasis Results for this 24H, U AM MORTGAGE BRANCH MANAGER procedure are i n the results section. documented in this encounter Results (ABNORMAL) Supersaturation Profile, 24 Hour, Urine (09/13/2019 10:16 AM MORTGAGE BRANCH MANAGER) P athologist Signature Sodium, 24 HR, 163 41 - 227 09/15/2019 ALYSSA U mmol/24 h 3:17 PM MORTGAGE BRANCH MANAGER Comment: Not a 24 hour collection; nayely ls do not apply. Potassium, 24 HR, U 50 17 - 77 mmol/24 h 09/15/2019 3 :17 PM MORTGAGE BRANCH MANAGER ALYSSA Comment: Not a 24 hour collection; nayely ls do not apply. Calcium, 24 HR, U 126 <250 mg/24 h 09/15/2019 3:17 PM MORTGAGE BRANCH MANAGER ALYSSA Comment: Not a 24 hour collection; normals do not apply. ----ADDITIONAL INFORMATION---- This test was developed and its performa nce characteristics determined by [facility] in a manner co nsistent with CLIA requirements. This test has not bee n cleared or approved by the U.S. Food and Drug Admin istration. Magnesium, 24 HR, U <63 51 - 269 mg/24 h 09/15/2019 3: 17 PM MORTGAGE BRANCH MANAGER ALYSSA Comment: Not a 24 hour collection; normals do not apply. ----ADDITIONAL INFORMATION---- This test has been modified from the man ufacturer's instructions. Its performance characteri stics were determined by [facility] in a manner co nsistent with CLIA requirements. This test has not bee n cleared or approved by the U.S. Food and Drug Admin istration. Chloride, 24 HR, U 135 40 - 224 mmol/24 h 09/15/2019 3 :17 PM MORTGAGE BRANCH MANAGER ALYSSA Comment: Not a 24 hour collection; nayely ls do not apply. Phosphorus, 24 HR, U 911 <1100 mg/24 h 09/15/2019 3:17 PM MORTGAGE BRANCH MANAGER ALYSSA Comment: Not a 24 hour collection; nayely ls do not apply. Sulfate Urine 20 7 - 47 mmol/24 h 09/15/2019 3:29 PM MORTGAGE BRANCH MANAGER ALYSSA Comment: Not a 24 hour collection; normals do not apply. ----ADDITIONAL INFORMATION---- This test was developed and its performa nce characteristics determined by [facility] in a manner co nsistent with CLIA requirements. This test has not bee n cleared or approved by the U.S. Food and Drug Admin istration. Citrate Excretion, U 289 (L) 314 - 1191 mg/24 h 09/15/2019 3:17 PM MORTGAGE BRANCH MANAGER ALYSSA Comment: Not a 24 hour collection; normals do not apply. ----ADDITIONAL INFORMATION---- This test was developed and its performa nce characteristics determined by [facility] in a manner co nsistent with CLIA requirements. This test has not bee n cleared or approved by the U.S. Food and Drug Admin istration. Oxalate, U (mmol/24 h) 0.22 0.11 - 0.46 mmol/24 h 09/15 2:56 PM MORTGAGE BRANCH MANAGER ALYSSA Comment: Not a 24 hour collection; normals do not apply. ----ADDITIONAL INFORMATION---- This test was developed and its performa nce characteristics determined by [facility] in a manner co nsistent with CLIA requirements. This test has not bee n cleared or approved by the U.S. Food and Drug Admin istration. Oxalate, mg/24 h 19.4 9.7 - 40.5 mg/24 h 09/15/2019 2:5 6 PM MORTGAGE BRANCH MANAGER ALYSSA Comment: Not a 24 hour collection; nayely ls do not apply. pH, 24 HR, U 5.9 4.5 - 8.0 09/15/2019 3:46 PM MORTGAGE BRANCH MANAGER ALYSSA Comment: ----ADDITIONAL INFORMATION---- This test was developed and its performa nce characteristics determined by [facility] in a manner co nsistent with CLIA requirements. This test has not bee n cleared or approved by the U.S. Food and Drug Admin istration. Uric Acid, 24 HR, 785 (H) <750 (Diet-dependent) mg/24 0 09/15/2019 3:17 PM MORTGAGE BRANCH MANAGER ALYSSA U h Comment: Not a 24 hour collection; normals do not apply. ----ADDITIONAL INFORMATION---- This test has been modified from the [place] ufacturer's instructions. Its performance characteri stics were determined by [facility] in a manner co nsistent with CLIA requirements. This test has not bee n cleared or approved by the U.S. Food and Drug Admin istration. Creatinine, 24 HR, U 1476 mg/24 h 09/15/2019 3:17 PM MORTGAGE BRANCH MANAGER ALYSSA Comment: Not a 24 hour collection; normals do not apply. ----REFERENCE VALUE---- The expected creatinine excretion per 24 hrs for males: 955-2936 mg/24 hrs or 13-29 mg/kg/24 hrs. Note: To convert to mg/kg of body weight /24 hrs, divide the mg/24 h result by the weight in kg. Osmolality, 24 HR, U 269 150 - 1150 mOsm/kg 09/15/2019 3:46 PM MORTGAGE BRANCH MANAGER ALYSSA Comment: ----ADDITIONAL INFORMATION---- This test was developed and its performa nce characteristics determined by [facility] in a manner co nsistent with CLIA requirements. This test has not bee n cleared or approved by the U.S. Food and Drug Admin istration. Ammonium, 24 HR, U 26 15 - 56 mmol/24 h 09/15/2019 4: 31 PM MORTGAGE BRANCH MANAGER ALYSSA Comment: Not a 24 hour collection; normals do not apply. ----ADDITIONAL INFORMATION---- This test has been modified from the [place] ufacturer's instructions. Its performance characteri stics were determined by [facility] in a manner co nsistent with CLIA requirements. This test has not bee n cleared or approved by the U.S. Food and Drug Admin istration. Urea Nitrogen, 24 HR, U 10.9 5.0 - 16.0 g/24 h 09/15/19 20 3:17 PM MORTGAGE BRANCH MANAGER ALYSSA Comment: Not a 24 hour collection; nayely ls do not apply. Protein Catabolic 93 56 - 125 g/24 h 09/15/2019 3:17 ALYSSA Rate, 24 HR, U PM MORTGAGE BRANCH MANAGER Calcium Oxalate 0.21 Reference Mean= 09/15/2019 10:54 R CARO Crystal 1.77 DG PM MORTGAGE BRANCH MANAGER Brushite Crystal -1.75 Reference Mean= 09/15/2019 10:54 ALYSSA 0.21 DG PM MORTGAGE BRANCH MANAGER Hydroxyapatite Crystal 2.00 Reference Mean= 09/15/2019 10:54 ALYSSA 3.96 DG PM MORTGAGE BRANCH MANAGER Uric Acid Crystal 0.51 Reference Mean= 09/15/2019 10:54 ALYSSA 1.04 DG PM MORTGAGE BRANCH MANAGER Sodium Urate Crystal 0.30 Reference Mean= 09/15/2019 10 :54 ALYSSA 1.76 DG PM MORTGAGE BRANCH MANAGER Collection Duration 23 h 09/15/2019 10:54 DREW A PM MORTGAGE BRANCH MANAGER Volume 3140 mL 09/15/2019 10:54 ALYSSA PM MORTGAGE BRANCH MANAGER Interpretation The DG is related to supersa turation. DG is negative for undersaturated 09/15/2019 10:54 ALYSSA solutions, zero for solutions at the solubility produc t, and positive for PM MORTGAGE BRANCH MANAGER saturated solutions. Any value greater than the Reference Mean is considered a ri sk for the respective crystal type formation. Specimen Anatomical Collection Method Collection Time Receive d Time (Source) Location / / Volume Laterality Urine (Urine, 24 09/13/2019 10:16 020 1:07 Hours) AM MORTGAGE BRANCH MANAGER PM MORTGAGE BRANCH MANAGER Narrative This result has an attachment that is no t available. Rena Burnham P.A.-C. LAB URINE ORDERABLES Performing Organization Address City/State/ZIP Code Phon e Number [facility] - [address] [place], [place] [address] [facility] [place] [address] Laboratories-[facility] [place] [address] documented in this encounter Visit Diagnoses Diagnosis Urolithiasis documented in this encounter
--- OUTSIDE RECORDS SUMMARY | 2022-08-15 12:02 | XMS_ITS | Encounter Summary ---
:1975 Author Organization [facility] Address [address] [place] [address] Care Team Providers Name Role Phone Unavailable Primary Care Provider Unavailable Reason for Visit Outpatient (Routine) - Closed Specialty Diagnoses / Procedures Referred By Contact Refer red To Contact General Surgery Diagnoses Urolithiasis Rena Burnham P.A.-C. [facility] Region [address] [phone] Referral ID Status Reason Start Date Expiration Date Visits Requ ested Visits Authorized [id number] Closed 06/30/2019 06/29/2020 1 1 Encounter Details Date Type Department Care Team Description 07/27/2019 Telemedicine Department of General Bubba Burnham P.ASmita-Araceli [address] [phone] Preanesthetic Medical Exam (Primary Dx); Surgery in [facility] Cary Drake P, R.N. [address] [place] [phone] [phone] Social History Tobacco Use Types [...] 09/30/2020 organizations such as religion groups, unions, Swrve or athletic groups, or school groups? How [...] per care krystle rywhere on oz) PM FILM WASHER 07/21/19 Height 187 cm (6' 1.62) 07/27/2019 3:53 per care every where on PM FILM WASHER 07/21/19 Body Mass Index 28.88 07/27/2019 3:53 PM FILM WASHER documented in this encounter Progress Notes Key Zuniga R.N. - 07/27/2019 3:45 PM CST This patient was called for a SHANI visit on 07/27/19 for surgery scheduled on 07/23/[address] Aguilar. Surgical Nurse Lamp Inspector Skin Alert Assessment: Complete this section only [...] flat? no Comment: Do you have any mu-ism or other objection to having a blood transfusion? no Teaching: Preoperative education was done with (x) patient () parent () other. It was confirmed the patient/family member had received the following preoperative education sheets:Checklist For Surgical Patients ([id number]),???Surgical Site Infections: Reducing Your Risk (M [id number]), Speak Up: Antibiotics ([id number]), Acute Pain and the Healing Process ([id number]) with the Integrative Medicine and Health ([id number]), and ???Appointments Required BeforeYour Surgery?? (no MC). These were reviewed in detail. (x) Preoperative medication education provided through Ask Brawley Expert Patient/Parent is ready to learn, no apparent learning barriers were identified. Reviewed diagnosis and treatment plan; patient/parent verbalized understanding through teach back. All questions were answered. Patient/Parent has contact information and understands the need to call with any questions orconcerns. Post op appointments: 1st po with surgeon or physician library assistant: (x) made ()TBD WASHER documented in this encounter Plan of Treatment Not on filedocumented as of this encounter Visit Diagnoses Diagnosis Preanesthetic Medical Exam - Primary Urolithiasis documented in this encounter
--- OUTSIDE RECORDS SUMMARY | 2022-08-15 12:02 | XMS_ITS | Encounter Summary ---
:1975 Author Organization [facility] Address [address] [place] [address] Care Team Providers Name Role Phone Unavailable Primary Care Provider Unavailable Reason for Referral Outpatient (Routine) - Closed Specialty Diagnoses / Procedures Referred By Contact Refer red To Contact Diagnoses Urolithiasis Abdulaziz Aguilar M.D. [facility] Procedures FL Fluoro Less Than 1 Hour [address] [place] [address] Referral ID Status Reason Start Date Expiration Date Visits Requ ested Visits Authorized [id number] Closed 08/02/2019 08/01/2020 1 1 ATRIC ONCOLOGIST Reason for Visit Auth/Cert Specialty Diagnoses / Procedures Referred By Contact Refer gloria To Contact Diagnoses Urolithiasis Urolithiasis [N20.9] Procedures [place] CYSTHRSCPY/URTRSCPY LITHO INS STNT CYSTOSCOPY AND RIGHT URETEROSCOPY WITH LASER LITHOTRIPSY, STONE BASKETING AND PLACEMENT OF RIGHT URETERAL STENT Referral ID Status Reason Start Date Expiration Date Visits Requ ested Visits Authorized [id number] 1 1 Encounter Details Date Type Department Care Team Description 08/02/2019 Hospital Encounter Department of Radiology Chris Aguilar, [place] [address] [facility] [address], [place] [address] [place], [place] [phone] Social History Tobacco Use Types Packs/Day [...] More than 4 times per year 09/30/2020 spiritism services? Do you belong to any clubs [...] this THAN 1 HOUR (most inpatients PM PEDIATRIC ONCOLOGIST procedure a re in and all the results outpatients) section. documented in this encounter Results FL Fluoro Less Than 1 Hour (08/02/2019 2:18 PM PEDIATRIC ONCOLOGIST) Specimen (Source) Anatomical Location Collection Method / Collectio n Time Received Time / Laterality Volume Narrative [address] G[address] PYLEN - 08/02/2019 2:21 PM PEDIATRIC ONCOLOGIST This exam does not require a radiologist review or interpretation. Please refer to the patient's medical record on this date for clinical details. Abdulaziz ANDRADE FLUOROSCOPY PROCEDURES Performing Organization Address City/State/ZIP Code Phon e Number [address] [facility] documented in this encounter Visit Diagnoses Diagnosis Urolithiasis documented in this encounter
--- OUTSIDE RECORDS SUMMARY | 2022-08-15 12:02 | XMS_ITS | Encounter Summary ---
:1975 Author Organization [facility] Address [address] [place] [address] Care Team Providers Name Role Phone Unavailable Primary Care Provider Unavailable Encounter Details Date Type Department Care Team Description 08/29/2020 Hospital Encounter Department of Radiology Michelle Burnham, Urolithiasis in [place], P.A.-C. [place] [address] [phone] Social History Tobacco Use Types Packs/Day Years [...] or relatives? How often do you attend lutheran or More than 4 times per year 09/30/2020 jewish services? Do you belong to any clubs or Patient refused 09/30/2020 organizations such as lutheran groups, unions, fraternal or athletic groups, or [...] for this BILATERAL WITH (most inpatients PM JAI ALAI PLAYER procedure are in BLADDER and all the results outpatients) section. documented in this encounter Results US Kidneys Bilateral with Bladder (08/29/2020 3:15 PM JAI ALAI PLAYER) Anatomical Region Laterality Modality Abdomen, Renal, Ultrasound RST LOS, Ultrasound ARZ LOS, Bila teral Ultrasound Ultrasound FLA LOS Specimen (Source) Anatomical Collection Method Collection Time Re ceived Time Location / / Volume Laterality 08/29/2020 3:30 PM JAI ALAI PLAYER Impressions 08/29/2020 3:30 PM JAI ALAI PLAYER Normal kidneys. Narrative 08/29/2020 3:30 PM JAI ALAI PLAYER EXAM: US KIDNEYS BILATERAL WITH BLADDER COMPARISON: [...]
--- OUTSIDE RECORDS SUMMARY | 2022-08-15 12:02 | XMS_ITS | Encounter Summary ---
:1975 Author Organization [facility] Address [address] [place] [address] Care Team Providers Name Role Phone Unavailable Primary Care Provider Unavailable Reason for Referral MRI/CAT/PET Scan (Routine) - Closed Specialty Diagnoses / Procedures Referred By Contact Refer red To Contact Radiology Diagnoses Pain Right Lower Quadrant Rena Burnham P.A.-C. [facility] [place] [facility] Procedures CT Abdomen Pelvis without IV Contrast [address], [place] [address] Referral ID Status Reason Start Date Expiration Date Visits Requ ested Visits Authorized [id number] Closed 06/30/2019 06/29/2020 1 1 GER EDITORIAL Reason for Visit MRI/CAT/PET Scan (Routine) - Closed Specialty Diagnoses / Procedures Referred By Contact Refer red To Contact Radiology Diagnoses Pain Right Lower Quadrant Rena Burnham P.A.-C. [facility] [place] [facility] Procedures CT Abdomen Pelvis without IV Contrast [address], [place] [address] Referral ID Status Reason Start Date Expiration Date Visits Requ ested Visits Authorized [id number] Closed 06/30/2019 06/29/2020 1 1 Encounter Details Date Type Department Care Team Description 08/01/2019 Hospital Encounter Department of Rena Burnham R ight Lower Radiology in Audie Luque P.A.-C. [place], [place] [address] [place] [phone] Social History Tobacco Use Types Packs/Day Years [...] More than 4 times per year 09/30/2020 latter day services? Do you belong to any clubs or Patient refused 09/30/2020 organizations such as buddhist groups, unions, fraInfernoRed Technology or athletic groups, or school groups? How [...] for this WITHOUT IV (most inpatients AM MANAGER EDITORIAL Quadrant procedure a re in CONTRAST and all the results outpatients) section. documented in this encounter Results CT Abdomen Pelvis without IV Contrast (08/01/2019 7:59 AM MANAGER EDITORIAL) Anatomical Region Laterality Modality Abdomen, Pelvis, Abdominal RST LOS, Abdominal ARZ LOS, N/A Computed Tomography Abdominal FLA LOS Specimen (Source) Anatomical Collection Method Collection Time Re ceived Time Location / / Volume Laterality 08/01/2019 8:10 AM MANAGER EDITORIAL Impressions 08/01/2019 8:16 AM MANAGER EDITORIAL 1. ??Unchanged 2 mm stone in the distal right ureter. No hydronephrosis or hydroureter. 2. ??Nonobstructing left intrarenal calc ulus. Narrative 08/01/2019 8:16 AM MANAGER EDITORIAL EXAM: CT ABDOMEN PELVIS WITHOUT IV CONTRAST [...]
--- OUTSIDE RECORDS SUMMARY | 2022-08-15 12:02 | XMS_ITS | Encounter Summary ---
:1975 Author Organization [facility] Address [address] [place] [address] Care Team Providers Name Role Phone Unavailable Primary Care Provider Unavailable Encounter Details Date Type Department Care Team Description 08/03/2019 Nurse Triage Department of [facility] Gavi Gray, Medicine, [facility], in [place] R.N. [place], [place] [address] [place] [address] Social History Tobacco Use Types Packs/Day Years [...] or relatives? How often do you attend hoahaoism or More than 4 times per year 09/30/2020 episcopalian services? Do you belong to any clubs or Patient refused 09/30/2020 organizations such as hoahaoism groups, unions, fraternal or athletic groups, or [...]
--- OUTSIDE RECORDS SUMMARY | 2022-08-15 12:02 | XMS_ITS | Encounter Summary ---
:1975 Author Organization [facility] Address [address] [place] [address] Care Team Providers Name Role Phone Unavailable Primary Care Provider Unavailable Encounter Details Date Type Department Care Team Description 2019 Documentation Department of Urology in [place] P.A.-C. 701 [facility] [address] [place] [address] [place], [place] [phone] (Wo rk) Social History Tobacco Use [...] More than 4 times per year 09/30/2020 lutheran services? Do you belong to any clubs [...] patient not seen Received a fax from [facility] from Dr. Zhou, patient has been cleared for surgeryokay to proceed with anesthesia of choice PATTERN GRADER documented in this encounter Plan of Treatment Not on filedocumented as of this encounter Visit Diagnoses Not on filedocumented in this encounter
--- OUTSIDE RECORDS SUMMARY | 2022-08-15 12:02 | XMS_ITS | Encounter Summary ---
:1975 Author Organization [facility] Address [address] [place] [address] Care Team Providers Name Role Phone Unavailable Primary Care Provider Unavailable Encounter Details Date Type Department Care Team Description 09/12/2019 Hospital Encounter Department of Laboratory Bubba Burnham, Urolithiasis Medicine in [facility] [address] [place] [phone] Social History Tobacco Use Types Packs/Day Years [...] 09/30/2020 organizations such as rastafari groups, unions, fraternal or athletic groups, or [...] Urolithiasis Result s for this PANEL, S/P WAITER/WAITRESS CLUB procedure are i n the results section. documented in this encounter Results BMP (Basic Metabolic Panel) (09/12/2019 7:41 AM WAITER/WAITRESS CLUB) P athologist Signature Potassium, S 4.3 3.6 - 5.2 09/12/2019 [facility] mmol/L 8:34 AM WAITER/WAITRESS CLUB Sodium, S 142 135 - 145 09/12/2019 [facility] mmol/L 8:34 AM WAITER/WAITRESS CLUB Chloride, S 104 98 - 107 09/12/2019 [facility] mmol/L 8:34 AM WAITER/WAITRESS CLUB Bicarbonate, S 25 22 - 29 09/12/2019 [facility] mmol/L 8:34 AM WAITER/WAITRESS CLUB Anion Gap 13 7 - 15 09/12/2019 [facility] 8:34 AM WAITER/WAITRESS CLUB BUN (Blood Urea 13 8 - 24 09/12/2019 [facility] Nitrogen), S mg/dL 8:34 AM WAITER/WAITRESS CLUB Creatinine 1.05 0.74 - 09/12/2019 [facility] 1.35 mg/dL 8:34 AM WAITER/WAITRESS CLUB eGFR-Non 87 >=60 09/12/2019 [facility] Black/ mL/min/BSA 8:34 AM WAITER/WAITRESS CLUB [place]ian Comment: ----ADDITIONAL INFORMATION---- Estimated GFR calculated using the 2009 CKD_EPI creatinine equation. eGFR-Black/ >90 >=60 mL/min/BSA 2018 8:34 AM WAITER/WAITRESS CLUB [facility] Comment: ----ADDITIONAL INFORMATION---- Estimated GFR calculated using the 2009 CKD_EPI creatinine equation. Calcium, Total, S 9.3 8.6 - 10.0 mg/dL 09/12/2019 8:34 AM WAITER/WAITRESS CLUB [facility] Glucose, S 92 70 - 140 mg/dL 09/12/2019 8:34 AM WAITER/WAITRESS CLUB [facility] Specimen Anatomical Collection Method Collection Time Receive d Time (Source) Location / / Volume Laterality Blood (Blood, 09/12/2019 7:41 AM 09/12/20 7:44 Venous) WAITER/WAITRESS CLUB AM WAITER/WAITRESS CLUB Rena Burnham P.A.-C. LAB BLOOD ADD-ON Performing Organization Address City/State/ZIP Code Phon e Number [facility]- [address] [place], [place] [address] [facility] [place] [address] System in [place] [address] documented in this encounter Visit Diagnoses Diagnosis Urolithiasis documented in this encounter
--- OUTSIDE RECORDS SUMMARY | 2022-08-15 12:02 | XMS_ITS | Encounter Summary ---
:1975 Author Organization [facility] Address [address] [place] [address] Care Team Providers Name Role Phone Unavailable Primary Care Provider Unavailable Reason for Referral Outpatient (Routine) - Closed Specialty Diagnoses / Procedures Referred By Contact Refer gloria To Contact Urology Abdulaziz Aguilar M.D. [facility] Region [address] [place] [address] Referral ID Status Reason Start Date Expiration Date Visits Requ ested Visits Authorized [id number] Closed 08/02/2019 08/01/2020 1 1 [employer] Reason for Visit Auth/Cert Specialty Diagnoses / Procedures Referred By Contact Refer gloria To Contact Diagnoses Urolithiasis Urolithiasis [N20.9] Procedures GA CYSTHRSCPY/URTRSCPY LITHO INS STNT CYSTOSCOPY AND RIGHT URETEROSCOPY WITH LASER LITHOTRIPSY, STONE BASKETING AND PLACEMENT OF RIGHT URETERAL STENT Referral ID Status Reason Start Date Expiration Date Visits Requ ested Visits Authorized [id number] 1 1 Encounter Details Date Type Department Care Team Description 08/02/2019 Hospital Encounter [facility] MAIN OR Abdulaziz Aguilar, Urolithiasis [address] [place] [address] [address] [phone] [place] [address] Social History Tobacco Use Types [...] or relatives? How often do you attend denominational or More than 4 times per year 09/30/2020 anabaptist services? Do you belong to any clubs or Patient refused 09/30/2020 organizations such as denominational groups, unions, Conformity or athletic groups, or school groups? How [...] Comments Blood Pressure 147/100 08/02/2019 3:15 PM [employer] Pulse 72 08/02/2019 3:15 PM [employer] Temperature 36.7 ??C (98.1 ??F) 08/02/2019 2:17 PM [employer] Respiratory Rate 16 08/02/2019 2:17 PM [employer] Oxygen Saturation 95% 08/02/2019 3:15 PM [employer] Inhaled Oxygen Concentration - - Weight 101 kg (222 lb 10.6 oz) 08/02/2019 11:57 AM [employer] Height 187 cm (6' 1.62) 08/02/2019 11:57 AM [employer] Body Mass Index 28.88 08/02/2019 11:57 AM [employer] documented in this encounter Medications at Time [...] changes to the H&P. Abdulaziz Aguilar M.D. [employer] Source Note - Marcell, Default Authenticator - 07/28/2019 3:05 PM [employer] documented in this encounter OR Notes Op [...] correct patient, procedure and side. A 22 Austrian cystoscope was visually introduced. Sterile Normal Saline [...] No exophytic lesions were observed. A 5 Austrian open-ended ureteral catheter was used to intubate [...] the guide wire in place. A 10 Austrian Red Tinajero catheter was introduced via the [...] place. Over the guide wire a 7 Austrian 22 x 30 double J u reteral [...] Implant Name Type Inv. Item Serial No. Gun Striper Lot No. LRB No. Used STNT URET LP [id number] [id number] - SNA - [id number] Ureteral Stent STNT URET LP CNTR [id number] NA [facility] [id number] Right 1 Abdulaziz Aguilar M.D. [employer] documented in this encounter Plan of Treatment Scheduled Referrals Name Type Priority Associated Diagnoses Order S [facility] Urology office Outpatient Referral Routine Expect ed: visit (clinic) 08/09/2019 (Approximate), Expires: 08/02/2022 documented as of this encounter Procedures Procedure Name Priority Date/Time Associated Diagnosis Comme nts KIDNEY STONE ANALYSIS Routine 08/02/2019 2:05 PM Urolithiasis Results for this [employer] procedure are i n the results section. URETEROSCOPY WITH 08/02/2019 1:22 PM Urolithiasis LASER LITHOTRIPSY [employer] documented in this encounter Results Kidney Stone Analysis (08/02/2019 2:05 PM [employer]) Component Value Ref Test Analysis Performed At Patholo gist Range Method Time Signature Source Stone, Kidney, 08/05/2019 [facility] Stone 11:41 PM [employer] KIDST 90% Calcium oxalate monohydrate 08/05/20 [facility] Interpretation 10% Calcium phosphate (apatite) 11: 41 PM [employer] Specimen (Source) Anatomical Collection Method Collection Time Re ceived Time Location / / Volume Laterality Stone (Kidney, 08/02/2019 2:05 PM Stone) [employer] Abdulaziz Aguilar M.D. LAB MISC ORDERABLES Performing Organization Address City/State/ZIP Code Phon e Number [facility] [address] [place], [place] [address] [place], [place] [address]. [place] [address] Laboratory Medicine and Pathology [address] [place] documented in this encounter Visit Diagnoses Diagnosis Urolithiasis - Primary documented in this encounter Admitting Diagnoses Diagnosis Urolithiasis documented in this encounter Administered Medications Inactive Administered Medications - up to 3 most recent administrations Medication Order MAR Action Action Date Dose Rate Site lactated ringers Rate/Dose Verify 08/02/2019 1:39 PM [employer] 20 mL/hr, intravenous, Continuous, Starting on Thu08/02/19 at 1145, Pre-Op New Bag 08/02/2019 12:02 PM [employer] 20 mL/hr 20 mL/hr metoprolol tablet 12.5 [...] Recently Administered Medications Times are shown in [employer]. Scheduled Medication Order 07/31/2019 08/01/2019 08/02/2019 ceFAZolin [...] (Rate/Dose Verify - Provider: Cristi Sumner APRN, TRAVELING CRANE OPERATOR)1404 (Anesthesia Volume Adjustment - Provider: Cristi Sumner, VIDEO RECORDER MECHANIC, TRAVELING CRANE OPERATOR) 20 mL/hr, intravenous, Continuous, Starting on Thu08/02/19 [...]
--- OUTSIDE RECORDS SUMMARY | 2022-08-15 12:02 | XMS_ITS | Encounter Summary ---
:1975 Author Organization [facility] Address [address] [place] [address] Care Team Providers Name Role Phone Unavailable Primary Care Provider Unavailable Reason for Visit Reason Onset Date Comments Post-op Problem 08/04/2019 pain Encounter Details Date Type Department Care Team Description 08/04/2019 Clinical Communication Department of Jaelyn Power Post -op Problem Urology in [facility] (pain) [address] [phone] Social History Tobacco Use Types Packs/Day Years [...] or relatives? How often do you attend yazdanism or More than 4 times per year 09/30/2020 voodoo services? Do you belong to any clubs or Patient refused 09/30/2020 organizations such as yazdanism groups, unions, fraternal or athletic groups, or [...] Burnham PA-C. Informed the patient he can leaf size picker a prescription for hydrocodone-acetaminophen written by Rena [...] references were used: provider Rena Burnham PA-C CLEANER HELPER Telephone Encounter - Rena Burnham P.A.-C. - 08/04/2019 3:25 PM DRY CLEANER HELPER Is the patient emptying? If not go to ER. Oxybutynin 10mg er daily Noro 5/325 #20 1-2 every 6hrs CLEANER HELPER Telephone Encounter - Zoraida Hilton L.PSmitaNSmita - 08/04/2019 12:10 PM DRY CLEANER HELPER Please send oxybutynin to [facility] in [place]. Rena Dial I will review the pain management suggested in other on going communication. CLEANER HELPER Telephone Encounter - Jaelyn Power R.N. - [...] but is using an old prescription for [place], which has been helpingmore. This prescription is almost gone. They are wondering if he is having bladder spasms. Would you be willing to prescribe a medication tohelp with this? And more [place], since that is helping some? He uses [facility] in [place]. Can be reached at [phone]. Intervention Message routed to Rena/urology nurses. Has patient called or presented with the same symptom previously no Is patient experiencing other symptoms: no The following references were used: nursing clinical judgement Education provided: patient/caller able to teach back Disposition/Recommendation: as above Caller agreeable to plan of care: yes The following individuals participated in today???s interaction: patient and Multi Media Specialist used: no Additional concerns addressed: none CLEANER HELPER documented in this encounter Plan of Treatment Not on filedocumented as of this encounter Visit Diagnoses Not on filedocumented in this encounter
--- OUTSIDE RECORDS SUMMARY | 2022-08-15 12:03 | XMS_ITS | Encounter Summary ---
:1975 Author Organization [facility] Address [address] [place] [address] Care Team Providers Name Role Phone Unavailable Primary Care Provider Unavailable Reason for Referral Outpatient (Routine) - Closed Specialty Diagnoses / Procedures Referred By Contact Refer red To Contact General Surgery Diagnoses Urolithiasis Rena Burnham P.A.-C. [facility] [address] [place] [phone] Referral ID Status Reason Start Date Expiration Date Visits Requ ested Visits Authorized [id number] Closed 06/30/2019 06/29/2020 1 1 MRI/CAT/PET Scan (Routine) - Closed Specialty Diagnoses / Procedures Referred By Contact Refer red To Contact Radiology Diagnoses Pain Right Lower Quadrant Rena Burnham P.A.-C. [facility] Procedures CT Abdomen Pelvis without IV Contrast [address] [place] [phone] Referral ID Status Reason Start Date Expiration Date Visits Requ ested Visits Authorized [id number] Closed 06/30/2019 06/29/2020 1 1 Reason for Visit Reason Comments Consult cystitis, kidney stones Outpatient (Routine) - Closed Specialty Diagnoses / Procedures Referred By Contact Refer red To Contact Urology Diagnoses Cystitis Symptom Urinary Toshia Mckeon C.N.P. [facility] [address] [place] [address] Referral ID Status Reason Start Date Expiration Date Visits Requ ested Visits Authorized [id number] Closed 06/24/2019 06/23/2020 1 1 Encounter Details Date Type Department Care Team Description 06/30/2019 Comprehensive Visit Department of Rena Burnham Uroli thiasis (Primary Dx); Urology in [place] Luque P.A.-C. Cystitis; Cheryl [address] Symptom Urinary; [address] Pain Right Lower Quadrant; [address] [place], [place] [phone] Social History Tobacco Use Types Packs/Day [...] 09/30/2020 organizations such as yazidism groups, unions, fraternal or athletic groups, or [...] call us if you catch a stone [phone] - for infection prevention: ciprofloxacin 500mg 2x/day [...] with his primary care provider out of [facility] in [place], [place]. From Care everywhere I am able to see In April he had a urinalysis without evidence of infection but did have some microscopic blood, his renal function was normal at that time.Just last week he was sent to the [facility] in [place] for abdominal and imaging he had a [...] is not using any narcotics or even cryy-ppw-oqgrdgxoiuollrcrs. The pain does seem to come and [...] care SHANI: To be scheduled Surgery nurse order planner SHANI: To be scheduled, phone Lab [...] are i n the results section. CYTOLOGY NON-FORMAL SERVICE WAITER Routine 06/30/2019 9:52 AM Hematuria Resul ts [...] Pelvis without IV Contrast (08/01/2019 7:59 AM CABLE RESPOOLER) Anatomical Region Laterality Modality Abdomen, Pelvis, Abdominal RST LOS, Abdominal ARZ LOS, N/A Computed Tomography Abdominal FLA LOS Specimen (Source) Anatomical Collection Method Collection Time Re ceived Time Location / / Volume Laterality 08/01/2019 8:10 AM CABLE RESPOOLER Impressions 08/01/2019 8:16 AM CABLE RESPOOLER 1. ??Unchanged 2 mm stone in the distal right ureter. No hydronephrosis or hydroureter. 2. ??Nonobstructing left intrarenal calc ulus. Narrative 08/01/2019 8:16 AM CABLE RESPOOLER EXAM: CT ABDOMEN PELVIS WITHOUT IV CONTRAST [...] Aerobic + Susc, Urine (07/25/2019 2:52 PM CABLE RESPOOLER) Patholo gist Method Time Signature Urine Culture No growth 2019 ECLR after 1 day 3:29 PM CABLE RESPOOLER of incubation. Specimen Anatomical Collection Method Collection Time Receive d Time (Source) Location / / Volume Laterality Urine (Urine, 07/25/2019 2:52 PM 07/25/20 19 9:54 Midstream) CABLE RESPOOLER PM CABLE RESPOOLER Comment: Specimen Source Site: Urine Rena Burnham P.A.-C. LAB MICROBIOLOGY - GENERAL O RDERABLES Performing Organization Address City/State/ZIP Code Phon e Number [facility]- [address] [place] [address] [phone] [facility] [place] [address] System in [address] BMP (Basic Metabolic Panel) (06/30/2019 10:30 [...] 06/30/2019 RDWG Black/ mL/min/BSA 11:23 AM CDT Serbian Comment: ----ADDITIONAL INFORMATION---- Estimated GFR calculated using [...] Organization Address City/State/ZIP Code Phon e Number [facility]- [address] [place] [phone] [facility] [place] [address] System in [place] [address] [place] [address] Cytology Non-FORMAL SERVICE WAITER (06/30/2019 9:52 AM CDT) Component Value Ref Test Analysis Performed At [facility] Range Method Time Signature 07/04/2019 ECLR 9:31 [...] LAB SURG PATH ORDERABLES Performing Organization Address [facility] Phon e Number [phone] [facility] [place] [address] System in [address] Bacterial Culture, Aerobic + Susc, Urine [...] - GENERAL O RDERABLES Performing Organization Address [facility] Phon e Number [phone] [facility] [place] [address] System in [address] Urinalysis with Microscopic: Urine, Clean Catch [...] 8.0 06/30/2019 9:57 AM CDT RDWG Specific [place] 1.017 1.001 - 1.035 06/30/2019 9:57 AM [...] Organization Address City/State/ZIP Code Phon e Number [facility]- [address] [place], [place] [address] [facility] [place] [address] System in [place] [address] documented in this encounter Visit Diagnoses Diagnosis Urolithiasis - Primary Cystitis Symptom Urinary Pain Right Lower Quadrant Hematuria Pain Right Lower Quadrant documented in this encounter
--- OUTSIDE RECORDS SUMMARY | 2022-08-15 12:03 | XMS_ITS | Encounter Summary ---
:1975 Author Organization [facility] Address [address] [place] [address] Care Team Providers Name Role Phone Unavailable Primary Care Provider Unavailable Encounter Details Date Type Department Care Team Description 07/25/2019 Orders Only Department of Urology in [facility] [place] P.A.-C. [address] [place] [address] [place], [place] [phone] (Wo rk) Social History Tobacco Use [...]
--- OUTSIDE RECORDS SUMMARY | 2022-08-15 12:03 | XMS_ITS | Encounter Summary ---
:1975 Author Organization [facility] Address [address] [place] [address] Care Team Providers Name Role Phone Unavailable Primary Care Provider Unavailable Reason for Visit Reason Onset Date Comments Urology Surgery 06/30/2019 Encounter Details Date Type Department Care Team Description 06/30/2019 Clinical Communication Department of Serena Samayoa [facility] Surgery Urology in [facility] Ene, L.P.NSmita [address] [phone] [phone] Social History Tobacco Use Types Packs/Day Years [...] or relatives? How often do you attend mandaeism or More than 4 times per year 09/30/2020 anabaptism services? Do you belong to any clubs or Patient refused 09/30/2020 organizations such as mandaeism groups, unions, fraternal or athletic groups, or [...] Patient to complete Pre-Op MD appt at [facility] in [place] Patient to complete Pre-Op Nurse appt 2019 Patient to complete Urine Culture 07/25/[address] of ABD on 08/01/2019 Surgery Booklet was reviewed with Patient prior to leaving the clinic. documented in this encounter Plan of Treatment Not on filedocumented as of this encounter Visit Diagnoses Not on filedocumented in this encounter
--- OUTSIDE RECORDS SUMMARY | 2022-08-15 12:03 | XMS_ITS | Encounter Summary ---
:1975 Author Organization [facility] Address [address] [place] [address] Care Team Providers Name Role Phone Unavailable Primary Care Provider Unavailable Encounter Details Date Type Department Care Team Description 07/25/2019 Hospital Encounter Department of Laboratory Bubba Burnham, Urolithiasis Medicine in [place], [place] [address] [phone] Social History Tobacco Use Types Packs/Day [...] More than 4 times per year 09/30/2020 mormon services? Do you belong to any clubs [...] Res ults for this AEROBIC + SUSC, SYSTEMS INTEGRATION ADVISOR procedure ar e in URINE the results section. documented in this encounter Results Bacterial Culture, Aerobic + Susc, Urine (07/25/2019 2:52 PM SYSTEMS INTEGRATION ADVISOR) [facility] Method Time Signature Urine Culture No growth 2019 ECLR after 1 day 3:29 PM SYSTEMS INTEGRATION ADVISOR of incubation. Specimen Anatomical Collection Method Collection Time Receive d Time (Source) Location / / Volume Laterality Urine (Urine, 07/25/2019 2:52 PM 07/25/20 19 9:54 Midstream) SYSTEMS INTEGRATION ADVISOR PM SYSTEMS INTEGRATION ADVISOR Comment: Specimen Source Site: Urine Rena Burnham P.A.-C. LAB MICROBIOLOGY - GENERAL O RDERABLES Performing Organization Address City/State/ZIP Code Phon e Number [facility]- [address] [place] [address] [phone] [facility] [place] [address] System in [address] documented in this encounter Visit Diagnoses Diagnosis Urolithiasis documented in this encounter
--- OUTSIDE RECORDS SUMMARY | 2022-08-15 12:03 | XMS_ITS | Encounter Summary ---
:1975 Author Organization [facility] Address [address] [place] [address] Care Team Providers Name Role Phone Unavailable Primary Care Provider Unavailable Encounter Details Date Type Department Care Team Description 11/19/2010 Hospital Encounter [facility] [place] Jaden Hollis, [address] [place] [phone] (Wo rk) Social History Tobacco Use [...] or relatives? How often do you attend confucianism or More than 4 times per year 09/30/2020 rastafari services? Do you belong to any clubs or Patient refused 09/30/2020 organizations such as confucianism groups, unions, fraternal or athletic groups, or [...] Hollis NSmitaP. - 11/19/2010 12:00 AM CST [id number] CHIEF COMPLAINT/REASON FOR VISIT Laceration to right [...] is noted that there is an approximately nxr-il-sfoag centimeter laceration noted over the third right [...] N.P. /ari Electronically Signed By: PETERSON HOLLIS HAND RIGGER On: 11/22/2010 08:27 Source: [facility] MHSDOLBEYNONRADSYS Document Id: [id number] INE BOBBIN WINDER documented in this encounter Miscellaneous Notes Miscellaneous - Christina Shultz L.P.N. - 11/19/2010 4:00 PM CST Health Assessment Health Assessment Entered On: 11/19/2010 16:01 MACHINE BOBBIN WINDER Performed On: 11/19/2010 16:00 MACHINE BOBBIN WINDER by CHRISTINA SHULTZ LPN Nutrition Nutrition Risk Factors by History Adult: None CHRISTINA SHULTZ LPN - 11/19/2010 16:00 MACHINE BOBBIN WINDER Functional Current Daily Living Assistance: None CHRISTINA SHULTZ LPN - 11/19/2010 16:00 MACHINE BOBBIN WINDER Dependent Habits Tobacco Use/Currently Using: No CHRISTINA SHULTZ LPN - 11/19/2010 16:00 MACHINE BOBBIN WINDER Psychosocial Domestic Concerns: None CHRISTINA SHULTZ LPN - 11/19/2010 16:00 MACHINE BOBBIN WINDER Advance Directive Advanced Directives: CHRISTINA Phan LPN - 11/19/2010 16:00 MACHINE BOBBIN WINDER Educ Needs Learning Style Preference Adult Grid Patient: Demonstration Family: Demonstration CHRISTINA SHULTZ LPN - 11/19/2010 16:00 MACHINE BOBBIN WINDER Source: [facility] LOOKSIMA Document Id: [id number] MACHINE BOBBIN WINDER!15 INE BOBBIN WINDER Miscellaneous - Christina Shultz L.P.N. - 11/19/2010 3:58 PM CST Adult Structural Biologist Intake/History Adult Structural Biologist Intake/History Entered On: 11/19/2010 16:00 MACHINE BOBBIN WINDER Performed On: 11/19/2010 15:58 MACHINE BOBBIN WINDER by CHRISTINA SHULTZ LPN Intake Chief Complaint: [...] 27kg/m2 CHRISTINA SHULTZ LPN - 11/19/2010 15:58 MACHINE BOBBIN WINDER Subjective Pain Symptoms: No CHRISTINA SHULTZ LPN - 11/19/2010 15:58 MACHINE BOBBIN WINDER Dependent Habits Tobacco Use/Currently Using: No Alcohol Use: No CHRISTINA SHULTZ LPN - 11/19/2010 15:58 MACHINE BOBBIN WINDER Allergies Allergies (Active) NKA Estimated Onset Date: Unspecified ; Created By: CHRISTINA SHULTZ LPN; Reaction Status: Active ;Category: Drug ; Substance: NKA ; Type: Allergy ; Updated By: CHRISTINA SHULTZ LPN; Reviewed Date: 11/19/2010 15:57 MACHINE BOBBIN WINDER Source: [facility] [place] Document Id: [id number] MACHINE BOBBIN WINDER!23 INE BOBBIN WINDER documented in this encounter Plan of Treatment Not on filedocumented as of this encounter Visit Diagnoses Not on filedocumented in this encounter
--- OUTSIDE RECORDS SUMMARY | 2022-08-15 12:03 | XMS_ITS | Encounter Summary ---
:1975 Author Organization [facility] Address [address] [place] [address] Care Team Providers Name Role Phone Unavailable Primary Care Provider Unavailable Reason for Visit Reason Onset Date Comments Post op antibiotic 07/20/2019 Encounter Details Date Type Department Care Team Description 07/20/2019 Clinical Communication Department of Rena Burnham op antibiotic Urology in [place], [place] [address] [place], [place] [phone] Social History Tobacco Use Types Packs/Day Years [...] or relatives? How often do you attend protestant or More than 4 times per year 09/30/2020 pentecostal services? Do you belong to any clubs or Patient refused 09/30/2020 organizations such as protestant groups, unions, fraternal or athletic groups, or [...] Serena Samayoa L.P.N. - 08/03/2019 3:41 PM HOUSEKEEPING ATTENDANT Called patient left detailed message, letting him know what Rena said, and if he wants to try the oxybutynin he should call us back at [phone] EKEEPING ATTENDANT Telephone Encounter - Rena Burnham P.A.-C. - 08/03/2019 8:37 AM HOUSEKEEPING ATTENDANT Totally expected, the stent causes ureteral spasms. [...] to this, decrease activity, adequate hydration 80oz/daily EKEEPING ATTENDANT Telephone Encounter - Vidhi Thomas L.P.NSmita - 08/03/2019 8:26 AM HOUSEKEEPING ATTENDANT HISTORY OF PRESENT ILLNESS CYSTOSCOPY AND RIGHT [...] pharmacy yesterday requesting it be sent to [facility]. Patient is also reporting 10/10 lower [...] references were used: provider Rena Burnham PA-C EKEEPING ATTENDANT Telephone Encounter - Marlin Verdin R.N. - 07/20/2019 3:16 PM CST I called pt and discussed the potential risks of not proceeding with his stone extraction. Pt verbalized understanding and will proceed with surgery as recommended. EKEEPING ATTENDANT Telephone Encounter - Rena Burnham P.A.-C. - 07/20/2019 12:40 PM HOUSEKEEPING ATTENDANT He has been trying to pass this [...] UA/UC and cr/GFR in a few weeks. EKEEPING ATTENDANT Telephone Encounter - Marlin Verdin R.N. - [...] based on 08/01/19 CT? Please advise. Thanks. EKEEPING ATTENDANT Telephone Encounter - Laurence Bowles - 07/20/2019 [...] in. Please reach out to him at [phone]. EKEEPING ATTENDANT documented in this encounter Plan of Treatment Not on filedocumented as of this encounter Visit Diagnoses Not on filedocumented in this encounter
--- OUTSIDE RECORDS SUMMARY | 2022-08-15 12:03 | XMS_ITS | Encounter Summary ---
:1975 Author Organization [facility] Address [address] [place] [address] Care Team Providers Name Role Phone Unavailable [...] Provider Ser - 11/23/2007 12:00 AM CDT [id number] SUBJECTIVE: Carlos A Gamez is a who [...] 875 MG OR TABS PLAN: Medications per [facility] orders Advised Carlos A Gamez that antibiotics [...] or fail to improve as anticipated. Source: [facility] [id number] Document Id: [id number] Conversion, Historical Provider Ser - 11/23/2007 12:00 AM CDT [id number] SUBJECTIVE: Carlos A Gamez is a who [...] 875 MG OR TABS PLAN: Medications per [facility] orders Advised Carlos A Yogi Reinardy that [...] or fail to improve as anticipated. Source: [facility] [id number] Document Id: [id number] ENTARY SPANISH TEACHER documented in this encounter Plan of Treatment Not on filedocumented as of this encounter Visit Diagnoses Not on filedocumented in this encounter
--- OUTSIDE RECORDS SUMMARY | 2022-08-15 12:03 | XMS_ITS | Encounter Summary ---
:1975 Author Organization [facility] Address [address] [place] [address] Care Team Providers Name Role Phone Unavailable Primary Care Provider Unavailable Reason for Referral MRI/CAT/PET Scan (Routine) - Closed Specialty Diagnoses / Procedures Referred By Contact Refer red To Contact Radiology Diagnoses Nocturia Dysuria Toshia Mckeon C.N.P. [facility] Region Procedures CT Abdomen Pelvis with IV Contrast CT CT [facility]BD[facility] [address] [place] [address] Referral ID Status Reason Start Date Expiration Date Visits Requ ested Visits Authorized [id number] Closed 06/17/2019 06/16/2020 1 1 Reason for Visit Auth/Cert Specialty Diagnoses / Procedures Referred By Contact Refer red To Contact Diagnoses Nocturia Dysuria Procedures CT CT ABD[facility]PELV[facility] Referral ID Status Reason Start Date Expiration Date Visits Requ ested Visits Authorized [id number] 1 1 Encounter Details Date Type Department Care Team Description 06/17/2019 Hospital Encounter Department of Toshia Mckeon, [place]; Radiology in Audie Zheng.NSmitaPSmita Dysuria [place], [place] [address] [address] [place], [place] [phone] (W ork) [phone] [phone] Social History Tobacco Use Types Packs/Day Years [...] 09/30/2020 organizations such as hoahaoism groups, unions, [employer]iptronix or athletic groups, or school groups? How [...]
--- OUTSIDE RECORDS SUMMARY | 2022-08-15 12:05 | XMS_ITS | Clinical Summary ---
:1975 Author Organization [facility] [place] [address] Care Team Providers Name Role Phone Unavailable Primary Care Provider Unavailable Allergies No known active allergies Medications Medication Sig Dispensed Refills Start Date End Date Status omeprazole Take 1 Capsule 90 Capsule 3 06/25/2021 Ac tive (PRILOSEC) 20 mg (20 mg) by mouth Delayed-Release once daily before capsuleIndicatio a meal. ns: Chronic GERD meloxicam 15 mg Take 1 Tablet (15 30 Tablet 2 11/20/2021 Active tabletIndication mg) by mouth once s: Penis pain daily. sertraline Take 2 Tablets 60 Tablet 0 07/21/2022 Act mirian (ZOLOFT) 100 mg (200 mg) by mouth tabletIndication once daily. 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 Seasonal affective disorder 09/03/2011 Panic disorder without agoraphobia 09/03/2011 Vitamin D deficiency 08/19/2011 Other Chest Pain- ATYPICAL FOR ISCHEMIA 05/23/2008 Gastric polyps Resolved Problems Problem Noted Date Resolved Date Agoraphobia with panic disorder 01/05/2007 09/03/20 11 Encounters Date Type Specialty Care Team Description 07/21/2022 Charisse Webber Refill Request (Losartan) 07/20/2022 Charisse Webber Refill Request (Sertraline) 06/23/2022 Charisse Webber Refill Request (Sertraline) 06/22/2022 Refill Charisse Rosen Refill Request (Losartan) from Last 3 Months Immunizations Name Administration [...] Comments Blood Pressure 126/85 08/14/2021 3:51 PM HVAC R INSTRUCTOR Pulse 85 08/14/2021 3:51 PM HVAC R INSTRUCTOR Temperature 36.9 ??C (98.5 ??F) 10/15/2020 3:54 PM HVAC R INSTRUCTOR Respiratory Rate 18 07/19/2020 3:44 PM HVAC R INSTRUCTOR Oxygen Saturation 98% 08/14/2021 3:51 PM HVAC R INSTRUCTOR Inhaled Oxygen Concentration - - Weight 98.7 kg (217 lb 8 oz) 08/14/2021 3:51 PM HVAC R INSTRUCTOR Height 185.2 cm (6' 0.91) 06/25/2021 7:43 AM CDT Body Mass Index 28.76 06/25/2021 7:43 AM CDT Plan of Treatment Health Maintenance Due Date Last Done Comments COVID-19 vaccine series (#1) 01/23/1977 Pneumococcal series for age 19-64 1982 (1 - PCV) Tdap 1987 HIV for age 15-65 1991 Hepatitis C screening for age 1107/26/1994 18-79 Colonoscopy through age 75 07/21/2019 07/21/2016 Depression screening for age 12+ 07/19/2021 07/19/2020 Tetanus booster 12/08/2021 12/09/2011 (Completed outside of [facility]) Influenza for age 9-49 05/15/2022 08/09/2013 BMI (ht and wt on same day) for 06/25/2022 06/25/2021, 08/15, age 18+ 07/19/2020 Lipids for age 45-75 06/25/2026 06/25/2021, 08/02/2012, 08/14/2011, Additional history exists Results Not on filefrom Last 3 Months Insurance Payer Benefit Plan / Subscriber ID Effective Dates Phone Addre ss Type Group BLUE CROSS BLUE CROSS OF [id number] 2015-Present [address] [address] [place] [address] (Work) Advance Directives Latest Code Status on File Code Status Date Activated Date Inactivated Comments Full Code 07/21/2016 11:40 AM 07/22/2016 2:28 AM Full Code 07/21/2016 10:37 AM 07/21/2016 11:40 AM
== END 2022-08-15 11:58 | disposition home or self-care (01) ==
PROVIDERS: PCP Nurse Practitioner Family; Visit Provider Internal Medicine
DX: Z12.11 Encounter for screening for malignant neoplasm of colon (principal); K64.9 Unspecified hemorrhoids; K57.30 Diverticulosis of large intestine without perforation or abscess without bleeding; Z86.010 Personal history of colon polyps; R13.10 Dysphagia, unspecified; K29.70 Gastritis, unspecified, without bleeding; K21.9 Gastro-esophageal reflux disease without esophagitis; R19.8 Other specified symptoms and signs involving the digestive system and abdomen
CPT/HCPCS: 43239; 45380; 88305; J2250; J2405; J3010

== ENCOUNTER 2022-09-01 15:04 | Outpatient (CLI) | payer BC, SELFPAY ==
--- NOTE | 2022-09-01 15:30 | MR_ITS ---
[facility] [address] [facility] [address] Phone:?[phone] Fax:?[phone] Referring Physician Information: Dsutin Rangel [address] [facility] [address] Phone:?[phone] Fax:?[phone] Patient:?Carlos A Gamez D.O.B:?1975 Sex:?Male Phone:?[phone] [facility] MRN:?[id number] Exam Date:?09/01/2022 ? EXAM:?MR LUMBAR SPINE WITHOUT CONTRAST CLINICAL INFORMATION: Low back pain with right radiculopathy symptoms. COMPARISON: None.?CONTRAST:?None.?SEDATION:?None. TECHNICAL INFORMATION: Imaging was performed at [facility]. Sagittal and axial T1 / FSE T2, and sagittal STIR images were obtained through the lumbar spine. INTERPRETATION: L5-S1:?Normal disc height, annular fissure and bulge abut dural sac and no central or foraminal stenosis. Unremarkable facet joints. L4-5: Normal disc height and no central or foraminal stenosis. Unremarkable facet joints. W43-Y3-R4-1: No bulge, herniation or spinal stenosis and unremarkable facet joints. Osseous Structures: Fat suppressed images are negative for acute or subacute fractures. Paraspinous Soft Tissues: No mass lesions. Conus, Cord and Cauda Equina: Normal position conus and no evidence of intradural mass or arachnoiditis. CONCLUSION: 1. Single level L5-S1 disc degeneration with annular fissure/bulge and no stenosis or neural impingement at any level. 2. No fractures, infection or neoplasm. Electronically signed on 09/02/2022 10:40:00 AM by Andrew Goldberg M.D.
== END 2022-09-01 15:05 | disposition home or self-care (01) ==
LOC: MRI 15:05
PROVIDERS: PCP Nurse Practitioner Family; Visit Provider Nurse Practitioner Family
DX: M54.50 Low back pain, unspecified (principal); M51.37 Other intervertebral disc degeneration, lumbosacral region
CPT/HCPCS: 72148

== ENCOUNTER 2023-06-25 08:13 | Outpatient (CLI) | payer BC, SELFPAY | END 2023-06-25 08:14 | disposition home or self-care (01) | PROVIDERS: PCP Nurse Practitioner Family; Visit Provider Nurse Practitioner Family | DX: Z00.00 Encounter for general adult medical examination without abnormal findings (principal); E78.5 Hyperlipidemia, unspecified; D64.9 Anemia, unspecified; I10 Essential (primary) hypertension; Z86.39 Personal history of other endocrine, nutritional and metabolic disease | CPT/HCPCS: 80048; 80061; 82607; 82746; 83540; 83550; 85025 ==

== ENCOUNTER 2024-06-27 08:14 | Outpatient (CLI) | payer BC, SELFPAY ==
--- OUTSIDE RECORDS SUMMARY | 2024-06-27 08:18 | XMS_ITS | Clinical Summary ---
Author Organization [facility] Address [place], [place] [address] Care Team Providers Care Automobile Salesman Name Role Phone Unavailable Primary Care Provider Unavailabl e Allergies No known active allergies Medications Medication Sig Dispensed Refills Start Date End Date Status omeprazole (PRILOSEC) 20 mg Delayed-Release capsuleIndications :Chronic GERD Take 1 Capsule (20 mg) by mouth once daily before a meal. 90 Capsule 3 06/25/2021 Active meloxicam 15 mg tabletIndications: Penis pain Take 1 Tablet (15 mg) by mouth once daily. 30 Tablet 2 11/20/2021 Active sertraline (ZOLOFT) 100 mg tabletIndications: Dysthymia Take 2 Tablets (200 mg) by mouth once daily. 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 1 Cancer-prostate Neg. 2 Diabetes Neg. 3 Heart Disease Neg. 4 Psychiatric illness Sister 1 depressi on Psychiatric illness Sister 3 depressi on Relation Name Status Comments Brother Alive Father Alive Maternal Aunt Alive Maternal Grandfather Maternal Grandmother Maternal Uncle Mother Alive Neg. 1 Neg. 2 Neg. 3 Neg. 4 Paternal Grandfather Paternal Grandmother Sister 1 Alive Sister 2 Alive Sister 3 Alive Son Alive Social History Tobacco Use Types Packs/Day Years Used Date Smoking Tobacco: Some Days Cigarettes Last attempted to quit: 07/15/2014 Smokeless Tobacco: Never Tobacco Cessation:Ready to Q uit: Yes; Counseling Given: Yes Alcohol Use Standard Drinks/Week Comments No 0 (1 standard drink = 0.6 oz pur e alcohol) rare PHQ-2 Answer Date Recorded PHQ-2 TOTAL SCORE 2 07/19/2020 Social Connections Answer Date Recorded Frequency of Communication with Friends and Fami ly Not on file 09/14/2021 Financial Resource Strain Answer Date R ecorded Difficulty of Paying Living Expenses Not on file 09/14/2021 Difficulty of Paying Living Expenses Not on file 09/14/2021 Sex and Gender Information Value Date Recorded Sex Assigned at Not on file Gender Identity Not on file Sexual Orientation Not on file Obstetrics History Last Filed Vital Signs Vital Sign Reading Time Taken Comments Blood Pressure 126/85 08/14/2021 3:51 PM ONLINE EDUCATION MANAGER Pulse 85 08/14/2021 3:51 PM ONLINE EDUCATION MANAGER Temperature 36.9 ??C (98.5 ??F) 10/15/2020 3:54 PM CS T Respiratory Rate 18 07/19/2020 3:44 PM ONLINE EDUCATION MANAGER Oxygen Saturation 98% 08/14/2021 3:51 PM ONLINE EDUCATION MANAGER Inhaled Oxygen Concentration - - Weight 98.7 kg (217 lb 8 oz) 08/14/2021 3:51 PM ONLINE EDUCATION MANAGER Height 185.2 cm (6' 0.91) 06/25/2021 7:43 AM CD T Body Mass Index 28.76 06/25/2021 7:43 AM CDT Plan of Treatment Health Maintenance Due Date Last Done Comments Tdap 1987 HIV for age 15-65 1991 Hepatitis C screening for age 18-79 1994 Colonoscopy through age 75 07/21/2019 07/21/2016 Depression screening for age 12+ 07/19/2021 07/19/2020 Tetanus booster 12/08/2021 12/09/2011 (Comp leted outside of [facility]) BMI (ht and wt on same day) for age 18+ 06/25/2022 06/25/2021, 09/10/2020, 07/19/2020 COVID-19 vaccine series (2023- season) 2024 Influenza for age 9-49 05/15/2024 08/09/2013 Lipids for age 45-75 06/25/2026 06/25/2021, 08/02/2012, 08/14/2011, Additional history exists Pneumococcal series for age 6-64 Aged Out No longer eligible based on patient's age to complete this topic Procedures Procedure Name Priority Date/Time Associated Diagnosis Comments LIPID PANEL W REFLEX MEASURED LDL Routine 06/25/2021 8:45 AM CDT Screening for lipoid disorders COLONOSCOPY 07/21/2016 12:04 PM ONLINE EDUCATION MANAGER from Last 3 Months or Most Recently Relevant to Health Maintenance Results * (ABNORMAL) LIPID PANEL W REFLEX MEASURED LDL (06/25/2021 8:45 AM CDT) CHOLESTEROL,TOTAL 201(H) 100 - 199 mg/dL 06/25/2021 4:19 PM CDT [facility] TRIGLYCERIDES 218(H) <150 mg/dL 06/25/2021 4:19 PM CDT [facility] HDL CHOLESTEROL 33(L) >40 mg/dL 4:19 PM CDT [facility] NON-HDL CHOLESTEROL 168(H) <145 mg/dl 06/25/2021 4:19 PM CDT [facility] CHOL/HDL RATIO 6.09(H) <4.50 06/25/2021 4:19 PM CDT [facility] LDL CHOLESTEROL 124 <=130 mg/dL 06/25/2021 4:19 PM CDT [facility] VLDL CHOLESTEROL 44(H) <=30 mg/dL 06/25/2021 4:19 PM CDT [facility] PROVIDER ORDERED STATUS RANDOM 06/25/2021 4:19 PM CDT [facility] Blood BLOOD SPECIMEN / Unknown Venipuncture / Unknown 06/25/2021 8:45 AM CDT 06/25/2021 8:45 AM CDT Charisse Rosen MD CHEMISTRY [facility] [address] [place] [address], * COLONOSCOPY (07/21/2016 12:04 PM ONLINE EDUCATION MANAGER) 07/21/2016 12:0 4 PM ONLINE EDUCATION MANAGER Narrative 07/21/2016 12:04 PM ONLINE EDUCATION MANAGER Patient Name: Carlos A Gamez ? Procedure Date: 07/21/2016 ? Gender: Male ? Date of : 1975 Admit Type: Ambulatory ? Procedure: ?Colonoscopy Proceduralist: ?Mami Malik MD Referring MD: ? Charisse Rosen Indications/Pre-Op Diagnosis: Anal bleeding, Iron deficiency anemia Medications: ?Midazolam 4 mg IV, Fentanyl 150 micrograms IV, ?Oxygen per cannula ? Procedure Description: ? The procedure, indications, potential complications, (bleeding, ? perforation, infection, adverse medication reaction, missed lesions or ? polyps) and alternatives available were explained to the patient, who ? appeared to understand and indicated this. Opportunity for questions was ? provided and informed consent obtained. ? The -[id number] colonoscope was introduced through the anus and ? advanced to the terminal ileum. The colonoscopy was performed without ? difficulty. The patient tolerated the procedure well. The quality of the ? bowel preparation was evaluated using the BBPS ([place] Benedict Bowel Preparation ? Scale) with scores of: Right Colon = 3 (entire mucosa seen well with no ? residual staining, small fragments of stool or opaque liquid), ? Transverse Colon = 3 (entire mucosa seen well with no residual staining, ? small fragments of stool or opaque liquid) and Left Colon = 3 (entire ? mucosa seen well with no residual staining, small fragments of stool or ? opaque liquid). The total BBPS score equals 9. The quality of the bowel ? preparation was excellent. The bowel preparation used was GoLYTELY. ? Scope withdrawal time was 10 minutes. The total duration of the ? procedure was 18 minutes. The terminal ileum, ileocecal valve, ? appendiceal orifice, and rectum were photographed. ? Complications: ?No immediate complications. Estimated Blood Loss & Specimen: ? Estimated blood loss: none. ? Specimen collected: Yes and sent to Laboratory ? Findings: ? Two flat polyps were found in the ascending colon. The polyps were 2 to ? 4 mm in size. These polyps were removed with a cold snare. Resection and ? retrieval were complete. ? Non-bleeding hemorrhoids were found during endoscopy. ? The exam was otherwise without abnormality. ? The terminal ileum appeared normal. ? The retroflexed view of the distal rectum and anal verge was normal and ? showed no anal or rectal abnormalities. ? Impressions/Post-Op Diagnosis: ? - Two 2 to 4 mm polyps in the ascending colon, removed with a cold ? snare. Resected and retrieved. ? - Non-bleeding hemorrhoids. ? - The examination was otherwise normal. ? - The examined portion of the ileum was normal. ? - The distal rectum and anal verge are normal on retroflexion view. ? Recommendation: ? - Await pathology results. ? - Patient has a contact number available for emergencies. The signs and ? symptoms of potential delayed complications were discussed with the ? patient. Return to normal activities tomorrow. Written discharge ? instructions were provided to the patient. ? - Perform an upper GI endoscopy today. ? Mami Malik MD 07/21/2016 12:34:50 PM This report has been signed electronically. Note Initiated On: 07/21/2016 12:04 PM Procedure Note Mami Malik MD - 07/21/2016 12:34 PM CST Patient Name: Carlos A Gamez Procedure Date: 07/21/2016 Gender: Male Date of : 1975 Admit Type: Ambulatory Procedure: Colonoscopy Proceduralist: Mami Malik MD Referring MD: Charisse Rosen Indications/Pre-Op Diagnosis: Anal bleeding, Iron deficiency anemia Medications: Midazolam 4 mg IV, Fentanyl 150 microgramsIV, Oxygen per cannula Procedure Description: The procedure, indications, potential complications, (bleeding, perforation, infection, adverse medication reaction, missed lesionsor polyps) and alternatives available were explained to the patient, who appeared to understand and indicated this. Opportunity for questionswas provided and informed consent obtained. The -[id number] colonoscope was introduced through the anus and advanced to the terminal ileum. The colonoscopy was performed without difficulty. The patient tolerated the procedure well. The quality ofthe bowel preparation was evaluated using the BBPS (Saint Benedict BowelPreparation Scale) with scores of: Right Colon = 3 (entire mucosa seen well withno residual staining, small fragments of stool or opaque liquid), Transverse Colon = 3 (entire mucosa seen well with no residualstaining, small fragments of stool or opaque liquid) and Left Colon = 3 (entire mucosa seen well with no residual staining, small fragments of stoolor opaque liquid). The total BBPS score equals 9. The quality of thebowel preparation was excellent. The bowel preparation used was GoLYTELY. Scope withdrawal time was 10 minutes. The total duration of the procedure was 18 minutes. The terminal ileum, ileocecal valve, appendiceal orifice, and rectum were photographed. Complications: No immediate complications. Estimated Blood Loss & Specimen: Estimated blood loss: none. Specimen collected: Yes and sent to Laboratory Findings: Two flat polyps were found in the ascending colon. The polyps were 2to 4 mm in size. These polyps were removed with a cold snare. Resectionand retrieval were complete. Non-bleeding hemorrhoids were found during endoscopy. The exam was otherwise without abnormality. The terminal ileum appeared normal. The retroflexed view of the distal rectum and anal verge was normaland showed no anal or rectal abnormalities. Impressions/Post-Op Diagnosis: - Two 2 to 4 mm polyps in the ascending colon, removed with a cold snare. Resected and retrieved. - Non-bleeding hemorrhoids. - The examination was otherwise normal. - The examined portion of the ileum was normal. - The distal rectum and anal verge are normal on retroflexion view. Recommendation: - Await pathology results. - Patient has a contact number available for emergencies. The signsand symptoms of potential delayed complications were discussed with the patient. Return to normal activities tomorrow. Written discharge instructions were provided to the patient. - Perform an upper GI endoscopy today. Mami aMlik MD 07/21/2016 12:34:50 PM This report has been signed electronically. Note Initiated On: 07/21/2016 12:04 PM Mami Malik MD PROCEDURE ORD from Last 3 Months or Most Recently Relevant to Health Maintenance Advance Directives * Full Code (Latest Code Status on File) Date Activated Date Inactivated Comments 07/21/2016 11:40 AM 07/22/2016 2:28 AM * Full Code Date Activated Date Inactivated Comments 07/21/2016 10:37 AM 07/21/2016 11:40 AM
== END 2024-06-27 08:15 | disposition home or self-care (01) ==
PROVIDERS: PCP Nurse Practitioner Family; Visit Provider Nurse Practitioner Family
DX: Z00.00 Encounter for general adult medical examination without abnormal findings (principal); E78.5 Hyperlipidemia, unspecified; I10 Essential (primary) hypertension; Z13.21 Encounter for screening for nutritional disorder; Z13.0 Encounter for screening for diseases of the blood and blood-forming organs and certain disorders involving the immune mechanism; Z13.228 Encounter for screening for other metabolic disorders
CPT/HCPCS: 80053; 80061; 82306; 85025

== ENCOUNTER 2024-12-06 18:09 | Outpatient (CLI) | payer BC, SELFPAY | END 2024-12-06 18:10 | disposition home or self-care (01) | PROVIDERS: PCP Nurse Practitioner Family; Visit Provider Nurse Practitioner Family | DX: R63.4 Abnormal weight loss (principal); E78.5 Hyperlipidemia, unspecified; I10 Essential (primary) hypertension; R53.83 Other fatigue; R42 Dizziness and giddiness; M54.6 Pain in thoracic spine; R10.12 Left upper quadrant pain; F41.9 Anxiety disorder, unspecified | CPT/HCPCS: 80053; 82150; 82306; 82607; 82728; 83540; 83550; 83690; 84443; 85025 ==

== ENCOUNTER 2024-12-19 09:06 | Outpatient (CLI) | payer BC, SELFPAY ==
--- NOTE | 2024-12-19 10:52 | P.ANES_ITS ---
Anesthesia Charges Start Date/Time Anesthesia Start Date: 12/19/24 Anesthesia Start Time: 10:03 Stop Date/Time Anesthesia Stop Date: 12/19/24 Anesthesia Stop Time: 10:49 Coding CPT Codes CPT Codes: ANES UPR LWR GI NDSC PX - 87993 ([id number]) P2 - PATIENT W/MILD SYST DISEASE, QZ - HVAC INSTRUCTOR SVC W/O STITCHER STANDARD MACHINE BY
--- NOTE | 2024-12-19 10:52 | W.ANESCHARGE ---
Anesthesia Charges Start Date/Time Anesthesia Start Date: 12/19/24 Anesthesia Start Time: 10:03 Stop Date/Time Anesthesia Stop Date: 12/19/24 Anesthesia Stop Time: 10:49 Coding CPT Codes CPT Codes: ANES UPR LWR GI NDSC PX - 02209 ([id number]) P2 - PATIENT W/MILD SYST DISEASE, QZ - RED LEAD BURNER SVC W/O RISK MANAGEMENT DIRECTOR BY
== END 2024-12-19 09:07 | disposition home or self-care (01) ==
LOC: OP CLINIC 09:06
PROVIDERS: PCP Nurse Practitioner Family; Visit Provider Internal Medicine
DX: D50.0 Iron deficiency anemia secondary to blood loss (chronic) (principal); D12.0 Benign neoplasm of cecum; D12.3 Benign neoplasm of transverse colon; D12.5 Benign neoplasm of sigmoid colon
CPT/HCPCS: 00813; 43239; 45380; 45385; 88305; J2704; J3490

== ENCOUNTER 2024-12-22 14:30 | Outpatient (RCR) | payer BC, SELFPAY ==
[2024-12-09 13:10] VITALS: BP 121/79; PULSE 77; RESP 15; TEMP 36.6; O2SAT 98
[2024-12-09 14:00] VITALS: BP 127/76; PULSE 71; RESP 18; O2SAT 98
--- NOTE | 2024-12-12 15:30 | URNOTE ---
Prior auth is not required for trey ([id number]) per [employer].
[2024-12-13 14:38] VITALS: BP 129/79; PULSE 67; RESP 14; TEMP 36.6; O2SAT 99
[2024-12-13] MEDS: SODIUM CHLORIDE 0.9 % (FLUSH) 10 ML SYRINGE IVF (14:58)
[2024-12-13 15:49] VITALS: BP 130/82; PULSE 63; RESP 16; O2SAT 99
[2024-12-15 14:32] VITALS: BP 148/78; PULSE 79; RESP 18; TEMP 36.7; O2SAT 97
[2024-12-15] MEDS: SODIUM CHLORIDE 0.9 % (FLUSH) 10 ML SYRINGE IVF (14:56)
[2024-12-15 15:45] VITALS: BP 154/77; PULSE 67; RESP 14; TEMP 36.4; O2SAT 99
[2024-12-20 14:32] VITALS: BP 120/76; PULSE 78; RESP 20; TEMP 36.3; O2SAT 98
[2024-12-20] MEDS: SODIUM CHLORIDE 0.9 % (FLUSH) 10 ML SYRINGE IVF (14:59)
[2024-12-20 15:26] VITALS: BP 115/79; PULSE 74; RESP 16; TEMP 36.7; O2SAT 98
[2024-12-20 15:35] VITALS: BP 121/78; PULSE 64; RESP 16; TEMP 36.7; O2SAT 98
[2024-12-22 14:45] VITALS: BP 129/81; PULSE 72; RESP 18; TEMP 36.6; O2SAT 97
[2024-12-22] MEDS: SODIUM CHLORIDE 0.9 % (FLUSH) 10 ML SYRINGE IVF (14:58)
[2024-12-22 16:00] VITALS: BP 126/71; PULSE 82; RESP 18; O2SAT 99
== END 2025-06-07 23:59 | disposition home or self-care (01) ==
LOC: CCIC 14:30
PROVIDERS: PCP Nurse Practitioner Family; Referring Provider Nurse Practitioner Family; Visit Provider Clinical Nurse Specialist
DX: D50.9 Iron deficiency anemia, unspecified (principal)
CPT/HCPCS: 96365; J1756; J7050

== ENCOUNTER 2025-01-26 15:45 | Outpatient (CLI) | payer BC, SELFPAY | END 2025-01-26 15:46 | disposition home or self-care (01) | PROVIDERS: PCP Nurse Practitioner Family; Visit Provider Nurse Practitioner Family | DX: D50.9 Iron deficiency anemia, unspecified (principal) | CPT/HCPCS: 82728; 83540; 83550; 85025 ==

== ENCOUNTER 2025-02-07 15:33 | Outpatient (CLI) | payer BC, SELFPAY ==
--- NOTE | 2025-02-07 16:00 | CRLHL7_ITS ---
For Patients: As a result of the Century Cures Act, medical imaging exams and procedure reports are released immediately into your electronic medical record. You may view this report before your referring provider. If you have questions, please contact your health care provider. INDICATION: HEADACHE, RT FRONTAL FOREHEAD, AROUND RT EYE TECHNIQUE: CT sinus without contrast. COMPARISON: None. FINDINGS: Mild motion artifact at the level of the nasal bones and ethmoid sinuses, slightly limiting fine detail evaluation. Paranasal sinuses: There are large right and moderate left maxillary sinus retention cysts. The paranasal sinuses and mastoid air cells are otherwise essentially clear. The ostiomeatal units are patent. Notably, there is partial bilateral absence of the medial maxillary johansen with no bony interface between the maxillary sinuses and middle turbinates, which could be postsurgical in etiology versus an anatomic variation. Right middle turbinate humberto bullosa. Left uncinate bulla. The fovea ethmoidalis and orbital johansen are intact. The left anterior ethmoidal notch is unprotected. The nasal septum is mildly deviated to the left with a moderate leftward osseous spur measuring approximally 6 mm (5/5). Slight irregularity of the left anterior nasal arch, which may reflect the sequela of remote trauma. Orbits and globes: The right orbital floor extends approximately 2 mm further inferiorly than the left orbital floor (5/54). The right maxillary sinus appears marginally smaller relative to the left, with no other definite findings to suggest sinus atelectasis. Otherwise, unremarkable. Visualized intracranial contents: Unremarkable. Soft tissues: Unremarkable. IMPRESSION: 1. Large right and moderate left maxillary sinus retention cysts. The paranasal sinuses are otherwise essentially clear. No high-grade obstruction of the paranasal sinus drainage pathways. 2. The right orbital floor extends approximately 2 mm further inferiorly than the left orbital floor, which may be an incidental finding, though its clinical significance is indeterminate in the setting of a reported headache about the right eye. Please note that all CT scans at this facility use dose modulation, iterative reconstruction, and/or weight-based dosing when appropriate to reduce radiation dose to as low as reasonably achievable. Dictated by Tommy Quezada MD @ 02/07/2025 6:04:50 PM (Electronically Signed)
--- NOTE | 2025-02-07 16:45 | CRLHL7_ITS ---
For Patients: As a result of the 21st Century Cures Act, medical imaging exams and procedure reports are released immediately into your electronic medical record. You may view this report before your referring provider. If you have questions, please contact your health care provider. Indication: ABNORMAL WEIGHT LOSS Technique: CT Chest/Abd/Pelvis W/ 91CC ISOVUE 370 intravenous contrast Please note that all CT scans at this facility use dose modulation, iterative reconstruction, and/or weight-based dosing when appropriate to reduce radiation dose to as low as reasonably achievable. Comparison: Pelvic x-ray 07/18/2022 Findings: In the chest, there is a curvilinear nodular density within the right anterior lung measuring 4 millimeters, /. This may in fact be a normal vessel. Mild dependent areas of atelectasis. No pleural effusion or infiltrate. No CHF or pneumothorax. Visualized thyroid is within normal limits. No enlarged mediastinal, hilar or axillary lymph nodes. Incidental bone island within the T3 vertebral body. No vertebral body compression fracture. In the abdomen/pelvis, there is no adenopathy. No vertebral body compression fracture. Minimal spurring at the L4-5 level. There are circumscribed fat attenuation lesions within the iliac bones which measure up to 1.5 cm. In retrospect, these are unchanged. The bladder is normal. Normal prostate. Seminal vesicles are within normal limits. No bowel obstruction or free air. No free fluid or abscess. Normal appendix. Incidental retroaortic left renal vein. Adrenal glands and kidneys normal. Normal spleen. Pancreas within normal limits. Gallbladder incompletely distended. Low-density lesions in the liver are present, measuring up to 3.2 cm. Heterogeneous discontinuous peripheral enhancement noted compatible with hemangiomas. Impression: Multiple low-density liver lesions measuring up to 3.2 cm. The larger lesions have characteristics compatible with hemangiomas. Liver MRI recommended for further assessment and to exclude underlying lesion. 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 Benign-appearing 4 millimeter curvilinear nodule may be present within the right lung. Optional follow-up in 1 year could be performed if the patient is a smoker. No adenopathy within the chest, abdomen or pelvis. Please note that all CT scans at this facility use dose modulation, iterative reconstruction, and/or weight-based dosing when appropriate to reduce radiation dose to as low as reasonably achievable. Dictated by Gagan Garcia MD @ 02/08/2025 10:58:15 AM (Electronically Signed)
== END 2025-02-07 15:34 | disposition home or self-care (01) ==
LOC: CT 15:33
PROVIDERS: PCP Nurse Practitioner Family; Visit Provider Nurse Practitioner Family
DX: R51.9 Headache, unspecified (principal); J32.0 Chronic maxillary sinusitis
CPT/HCPCS: 70486; 71260; 74177; Q9967

== ENCOUNTER 2025-05-04 10:59 | Outpatient (CLI) | payer BC, SELFPAY | END 2025-05-04 11:00 | disposition home or self-care (01) | PROVIDERS: PCP Nurse Practitioner Family; Visit Provider Nurse Practitioner Family | DX: D50.9 Iron deficiency anemia, unspecified (principal) | CPT/HCPCS: 82728; 83540; 83550; 85018 ==

== ENCOUNTER 2025-06-12 17:53 | Outpatient (CLI) | payer BC, SELFPAY | END 2025-06-12 17:54 | disposition home or self-care (01) | PROVIDERS: PCP Nurse Practitioner Family; Visit Provider Family Medicine | DX: F32.A Depression, unspecified (principal); F41.9 Anxiety disorder, unspecified; R53.83 Other fatigue | CPT/HCPCS: 82306; 84443 ==